=== PATIENT | male | born 1935 | race Caucasian/White ===

== ENCOUNTER → 2023-06-10 09:22 | Outpatient (REF) | payer OTHER, SELFPAY | LOC: RAD 09:22 | PROVIDERS: ATTENDING PHYSICIAN Physician Assistant Surgical; FAMILY PHYSICIAN Internal Medicine Geriatric Medicine | DX: Z96.652 Presence of left artificial knee joint (principal); M25.562 Pain in left knee | CPT/HCPCS: 78315; A9503 ==

== ENCOUNTER → 2023-08-02 09:23 | Outpatient (REF) | payer OTHER, SELFPAY ==
[2023-08-02 12:51] LABS: % Basophils 0.6 % (0-2); % Eosinophils 4.2 % (0-6); % Immature Granulocytes 0.2 % (0-0.5); % Lymphocytes 21.6 % (20.5-51.1); % Neutrophils 62.4 % (42.2-75.2); Absolute Eosinophils 0.2 10^3/uL (0-0.7); Absolute Lymphocytes 1.1 10^3/uL (1.2-3.4); Absolute Monocytes 0.6 10^3/uL (0.1-0.6); Absolute Neutrophils 3.3 10^3/uL (1.4-6.5); Hematocrit 35.3 % (39.0-52.0); Hemoglobin 11.3 g/dL (13.0-18.0); Mean Corpuscular Hgb 30.1 pg (27.0-31.0); Mean Corpuscular Volume 93.9 fL (80.0-94.0); Mean Platelet Volume 10.8 fL (7.4-10.4); Nucleated Red Blood Cells % 0 % (-); Platelet Count 253 10^3/uL (130-400); Red Blood Cell Count 3.76 10^6/uL (4.70-6.10); Red Cell Dist. Width 15.4 % (11.5-14.5); White Blood Cell Count 5.3 10^3/uL (4.8-10.8)
[2023-08-02 13:13] LABS: Urine Albumin Negative (Neg - Trace); Urine Bilirubin Negative (Negative); Urine Character Clear (Clear); Urine Color Yellow; Urine Glucose Negative (Negative); Urine Ketone Negative (Negative); Urine Leukocyte Negative (Negative); Urine Nitrite Negative (Negative); Urine Occult Blood Negative (Negative); Urine Urobilinogen Negative (Neg - 1+)
[2023-08-02 13:48] LABS: ALT (SGPT) 16 U/L (0-50); AST (SGOT) 21 U/L (17-59); Albumin 4.1 g/dl (3.5-5.0); Alkaline Phosphatase 112 U/L (38-126); Blood Urea Nitrogen 40 mg/dl (9-20); Calcium 9.7 mg/dl (8.4-10.2); Carbon Dioxide 27 mmol/L (22-30); Chloride 102 mmol/L (98-107); Glucose 110 mg/dl (70-99); HDL Cholesterol 85 mg/dl; Iron 54 ug/dl (49-181); LDL Cholesterol, Calculated 60 mg/dl; Potassium 4.8 mmol/L (3.5-5.1); Sodium 136 mmol/L (135-145); Total Bilirubin 0.4 mg/dl (0.2-1.3); Total Cholesterol 165 mg/dl (50-199); Total Protein 6.8 g/dl (6.3-8.2); Triglyceride 102 mg/dl (10-149); Very Low Density Lipoprotein 20 mg/dl (0-30); eGFR 52.84
[2023-08-02 13:58] LABS: Percent Saturation 12 % (20-50); Total Iron Binding Capacity 418 ug/dl (261-462)
[2023-08-02 14:10] LABS: Vitamin D, 25-OH*** 36.3 ng/mL (30-80)
== END ==
LOC: HWLAB 09:23
PROVIDERS: ATTENDING PHYSICIAN Internal Medicine Geriatric Medicine
DX: R53.83 Other fatigue (principal); D50.9 Iron deficiency anemia, unspecified; R26.89 Other abnormalities of gait and mobility; E78.2 Mixed hyperlipidemia; I10 Essential (primary) hypertension; R33.9 Retention of urine, unspecified; K29.50 Unspecified chronic gastritis without bleeding; R00.2 Palpitations; Z13.89 Encounter for screening for other disorder; R45.4 Irritability and anger; Z99.89 Dependence on other enabling machines and devices
CPT/HCPCS: 36415; 80053; 80061; 81003; 82306; 83540; 83550; 85025

== ENCOUNTER 2023-08-29 13:10 | Inpatient (IN) | payer OTHER, SELFPAY ==
[2023-08-29] VITALS (8 sets, daily range): BP systolic 119–152; BP diastolic 71–97; PULSE 86; BMI 34.0
[2023-08-29 10:18] LABS: % Basophils 0.1 % (0-2); % Eosinophils 0.1 % (0-6); % Immature Granulocytes 0.3 % (0-0.5); % Lymphocytes 9.1 % (20.5-51.1); % Monocytes 8.5 % (1.7-9.3); % Neutrophils 81.9 % (42.2-75.2); Absolute Lymphocytes 0.9 10^3/uL (1.2-3.4); Absolute Monocytes 0.8 10^3/uL (0.1-0.6); Absolute Neutrophils 7.8 10^3/uL (1.4-6.5); Hematocrit 36.5 % (39.0-52.0); Hemoglobin 11.9 g/dL (13.0-18.0); Mean Corp Hgb Conc. 32.6 g/dL (33.0-37.0); Mean Corpuscular Volume 85.9 fL (80.0-94.0); Mean Platelet Volume 10.3 fL (7.4-10.4); Nucleated Red Blood Cells % 0 % (-); Platelet Count 319 10^3/uL (130-400); Red Blood Cell Count 4.25 10^6/uL (4.70-6.10); Red Cell Dist. Width 15.2 % (11.5-14.5); White Blood Cell Count 9.6 10^3/uL (4.8-10.8)
--- NOTE | 2023-08-29 10:32 | ED.GENMED ---
History of Present Illness
General
Chief Complaint: Back Pain
Source: patient, spouse and ambulance crew
Exam Limitations: none
Time Seen by Provider: 08/29/23 10:22
Nursing documentation reviewed up to this point in time: agreed with
Travel History
Have you had any contact with someone who has COVID-19?: No
Do you have any symptoms of coronavirus? Fever > 100 degrees, chills, cough, shortness of breath, sore throat, loss of taste or smell, muscle aches, or headache?: No
History of Present Illness
History of Present Illness:
87-year-old male presents emergency department complaining of low back pain worse over the past 2 to 4 weeks. He fell, sliding out of bed, and was unable to get up. His is unable to care for him at home. He has spinal stenosis.
Past History
Past History
ED Past Medical History: Asthma, HTN and Other (Ulcers)
ED Past Surgical History: Orthopedic (R knee replacment,), Urological (Kidney stones with stent and then stent removed) and Other (Rectal CA,)
Social History
Tobacco: Former smoker
Alcohol: Occasional
Personal:
Living: with family
Employment: Retired
Review of Systems
Review of Systems
Allergies reviewed?: Yes
All Other Systems: Not applicable
Constitutional: Reports no symptoms
EENT: Reports no symptoms
Respiratory: Reports no symptoms
Cardiac: Reports no symptoms
ABD/GI: Reports no symptoms
: Reports no symptoms
Musculoskeletal: Reports back pain
Skin: Reports no symptoms
Neurological: Reports no symptoms
Endocrine: Reports no symptoms
Hematologic/Lymphatic: Reports no symptoms
Psychiatric: Reports no symptoms
Phy Exam
Physical Exam
Physical Exam:
Physical Exam
General: Afebrile
Neck: supple. no meningeal signs. normal posterior pharynx
Heart: s1/s2 regular rate and rhythm, no murmur. equal radial
pulses.
HEENT: Pupils equal round reactive to light, EOMI
Lungs: no acute respiratory distress. clear bilaterally
Abdomen: normal bowel sounds. not tender. no CVAT
Neuro: alert and oriented. no focal neurological deficits cranial nerves II through XII intact
Skin: no rash
Psychiatric: well kept. interactive and cooperative
Extremities: no edema. no calf tenderness. negative homans. good distal pulses unable to lift legs without severe pain
Course
Orders/Labs/Results
Orders:
Orders
08/29/23 10:09
CMP [Comprehensive Metabolic Panel] Urgent
Complete Blood Count/With Diff Urgent
08/29/23 10:30
Case Management Consult ONCE
Case Management Consult: Senior Care Placement
Morphine Sulfate 4 mg IV NOW STA
Ondansetron Injectable [Zofran] 4 mg IV NOW STA
Physical Therapy Consult [Pt Eval And Treat] Urgent
Activity Level: As Tolerated
08/29/23 12:56
Admit/Transfer Patient As Directed
Co-Sign Provider:
Level of Care: Inpatient admission
Assign to:: Medical/Surgical
Physician / Group: Hospitalist
Diagnosis: Back pain
Reason for Hospitalization: Back pain
Expected length of stay greater than two midnights?: Yes
ELOS- Estimated Length of Stay in days: 3
I certify the patient meets the requirements for IP care: Yes
08/29/23 12:58
Code Status As Directed
Resuscitation Status: Full Code
Abnormal Lab Results
08/29/23
10:09
RBC 4.25 L 10^6/uL
(4.70-6.10)
Hgb 11.9 L g/dL
(13.0-18.0)
Hct 36.5 L %
(39.0-52.0)
MCHC 32.6 L g/dL
(33.0-37.0)
RDW 15.2 H %
(11.5-14.5)
Absolute Neuts (auto) 7.8 H 10^3/uL
(1.4-6.5)
Absolute Lymphs (auto) 0.9 L 10^3/uL
(1.2-3.4)
Absolute Monos (auto) 0.8 H 10^3/uL
(0.1-0.6)
Neutrophils % 81.9 H %
(42.2-75.2)
Lymphocytes % 9.1 L %
(20.5-51.1)
BUN 46 H mg/dl
(9-20)
Creatinine 1.4 H mg/dL
(0.7-1.3)
Glucose 142 H mg/dl
(70-99)
08/29/23 10:09
08/29/23 10:09
Vital Signs
Initial and Last Documented VS:
Initial Vital Signs
Temp Pulse Resp BP Pulse Ox
98 F 83 19 151/86 96
08/29/23 09:56 08/29/23 09:56 08/29/23 09:56 08/29/23 09:56 08/29/23 09:56
Last Documented Vital Signs
Temp Pulse Resp BP Pulse Ox
98 F 85 18 129/85 94
08/29/23 09:56 08/29/23 13:00 08/29/23 13:00 08/29/23 13:00 08/29/23 13:00
MDM/Problems Addressed
Differential Diagnosis Includes:
Cauda equina, lumbar radiculopathy
MDM/Problems Addressed:
87-year-old male with low back pain, likely lumbar radiculopathy and foraminal stenosis. Do not suspect cauda equina. Admit to hospitalist.
Chronic conditions affecting care: Arrhythmia, COPD and Asthma
Acute Exacerbation and/or Progression of Chronic Illness: Arrhythmia, COPD and Asthma
*Pulse Oximetry
Patient hypoxic: no
*EKG
Interpreted by ED Provider?: NA
*Laundry Laborer Interpretation
Rate: Laundry Laborer- N/A
*Critical Care Note
Total Time (30-74mins, 75-104mins- exclusive of procedures): Not Applicable
Data Reviewed
Further Testing Considered But Not Given:
MRI not indicated in ED
Patient Management
Social determinants of health affecting care: Living situation and Strong social support
Discussion with other providers: Hospitalist
Escalation/DeEscalation of care consider admission/obs:
Admit indicated
ED Attending Note
-
Portions of this chart may have been created with voice recognition software.� Occasional wrong word or��sound alike� substitutions may have occurred due to the inherent limitations of voice recognition software.
Discharge Plan
Departure
Patient Disposition: Admit
Date of Disposition: 08/29/23
Time of Disposition: 11:43
Presentation/result/management discussed w/ accepting MD/DO: Hospitalist
Patient with high blood pressure during this ER visit?: Yes
Condition: Fair
Discharge Problem:
Intractable low back pain
Interventions
Interventions:
*Risk Screen - Suicide Last Done: 08/29/23 09:54
*General Assessment Last Done: 08/29/23 09:56
*Neglect/Abuse Screening Last Done: 08/29/23 09:54
ED- Fall Risk Assessment Last Done: 08/29/23 09:54
*ED COVID-19 Vaccine History Last Done: 08/29/23 09:56
ED-Musculoskeletal Assessment Last Done: 08/29/23 10:00
[2023-08-29 10:33] LABS: ALT (SGPT) 14 U/L (0-50); AST (SGOT) 19 U/L (17-59); Albumin 3.8 g/dl (3.5-5.0); Alkaline Phosphatase 114 U/L (38-126); Blood Urea Nitrogen 46 mg/dl (9-20); Calcium 9.8 mg/dl (8.4-10.2); Carbon Dioxide 25 mmol/L (22-30); Chloride 104 mmol/L (98-107); Estimated Creatinine Clearance 41 ml/min; Glucose 142 mg/dl (70-99); Potassium 4.6 mmol/L (3.5-5.1); Sodium 139 mmol/L (135-145); Total Bilirubin 0.4 mg/dl (0.2-1.3); eGFR 48.34
[2023-08-29] MEDS: MORPHINE SULFATE 4 MG IV (10:51)
[2023-08-29] MEDS: ZOFRAN 4 MG IV (10:51)
--- NOTE | 2023-08-29 12:28 | CM ---
Addendum entered by Heena Anderson RN 08/29/23 12:48:
correction typo: The patient has 3 children; daughter in [place], son & Dtr in [place].
Original Note:
Patient in ED 2 with Dx Back Pain. Received IV MS. PT Nubia; requires assist of 2, dependent for bed mobility due to pain, recommend skilled rehab.
Met with patient and September;
patient A/O & conversational.
The patient and reside in a 2 story [place] with 3 GRICELDA and first floor bedroom/bath.
The patient has been unable to climb the stairs to 2nd floor bedroom for the last 1-2 months.
He has been unable to shower for 3 weeks, and has been wheeled into the bathroom via his transport chair to wash up while sitting at the sink.
The patient fell today at home and has weakness.
states he has not been eating or drinking much for 1 week.
DME - RW, SPC, transport chair
Prior [facility]
Prior [facility] - says patient would not return there
PCP - Guanako Chatman
Pharmacy - [facility]
The patient has 3 children; daughter in [place], son & Dtr in [place].
The patient & were planning on moving to [facility] on 09/23. Gaye contacted his PCP a few days ago who had agreed to complete paperwork for [facility] for respite in the interim.
Spoke with Briana, [facility]; she was unaware of request for respite. [facility] will not have an available SNF bed for rehab until 08/31. SNF referral placed.
Patient will benefit from OT Eval---> request to Dr Mathew.
Plan follow up with [facility] for acceptance.
--- NOTE | 2023-08-29 12:43 | HPS.HSE ---
Family Physician
-
Family Physician: Guanako Chatman
Chief Complaint
-
Back pain
History of Present Illness
87-year-old man comes in complaining of low back pain, worsening over the past 2 to 4 weeks. Today, he fell, sliding out of bed, and was unable to get up. His is unable to care for him at home. He states he has spinal stenosis. He had plans
to have a back procedure on September. At the time of my interview he was comfortable after having received morphine.
Medical History
Past Medical History
Past Medical History: Reports Other
Additional Past Medical History:
Kidney stones with stent and then stent removed
Rectal CA
Essential tremor
obesity due to excess calories
Mixed hyperlipidemia
Diaphragmatic hernia without obstruction or gangrene
Other hyperaldosteronism
Cardiomegaly
Hypertensive heart disease with heart failure
Obstructive sleep apnea
Essential (primary) hypertension
Primary osteoarthritis of left knee
Anxiety and depression
History of total right knee replacement
Calculus of kidney
Chronic obstructive pulmonary disease
Mild intermittent asthma,
Gastric ulcer, unspecified as acute or chronic, without hemorrhage or perforation
Chronic kidney disease, stage 3 (moderate)
Hypertensive heart and chronic kidney disease without heart failure,
Iron deficiency anemia,
Lumbar radiculopathy, chronic
Hiatal hernia
AF (paroxysmal atrial fibrillation)
Low back pain
Ambulatory dysfunction
Sciatica associated with disorder of lumbar spine
Status post total left knee replacement
Gastroesophageal reflux disease without esophagitis
Anal stenosis
Permanent atrial fibrillation
Balance problems
Nonexudative age-related macular degeneration, right eye, advanced atrophic with subfoveal involvement
Urinary incontinence,
Conductive hearing loss, bilateral
Vitreous degeneration, bilateral
Cystoid macular degeneration, right eye
Degenerative lumbar spinal stenosis
Lumbar spondylosis
Candidal balanitis
Benign prostatic hyperplasia with lower urinary tract symptoms
Nocturia
Past Surgical History: Reports Other
Additional Past Surgical History:
See above
Social History
Tobacco: Non-smoker
Alcohol: Occasional
Drug: None
Personal:
Living: With Family
Employment: Not Employed
Family History
Family History: Not pertinent
Allergies / Home Medications
Allergies reflects when Allergies were last updated in [facility].
Home Medications with original date entered in [facility]
Allergy/Medication List:
Allergies
Allergy/AdvReac Type Severity Reaction Status Date / Time
No Known Allergies Allergy Verified 08/29/23 09:56
Home Medications
albuterol sulfate 90 mcg/actuation aerosol inhaler (ProAir HFA) 2 puff IH R Q4HPRN PRN sob 09/07/16
budesonide-formoterol HFA 160 mcg-4.5 mcg/actuation aerosol inhaler (Symbicort) 2 puff inhalation R BID Lung/breathing issues 09/07/16
sertraline 25 mg tablet 50 mg PO DAILY Mental Health/Anxiety 09/07/16
vitamins A,C,B-gfcj-dutsvz 4,296 mcg-226 mg-90 mg capsule (PreserVision AREDS) 1 cap PO BID Supplement 09/21/17
eplerenone 25 mg tablet 50 mg (2 x 25 mg) PO DAILY 10/14/17
diltiazem HCl 180 mg capsule,extended release 24 hr 180 mg PO BID 07/23/21
apixaban 5 mg tablet (Eliquis) 2.5 mg PO BID 08/12/22
acetaminophen 650 mg tablet,extended release 1,300 mg PO Q8HPRN PRN mild pain 08/29/23
divalproex 250 mg tablet,extended release 24 hr 250 mg PO DAILY 08/29/23
docusate sodium 100 mg capsule (Colace) 100 mg PO BID 08/29/23
ibuprofen 200 mg tablet (Advil) 400 mg PO DAILYPRN PRN mild pain 08/29/23
omeprazole 20 mg capsule,delayed release 20 mg PO DAILYPRN PRN gerd 08/29/23
Review of Systems
-
History Source: Patient
A 12 point ROS was completed and negative except as noted: Yes
Physical Exam
Vital Signs
Vital Signs
Temp Pulse Resp BP Pulse Ox
98 F 83 19 119/79 93
08/29/23 09:56 08/29/23 12:00 08/29/23 12:00 08/29/23 12:00 08/29/23 12:00
Physical Exam
General: Well Developed, Well Nourished, No Apparent Distress, Comfortable, Conversant and Obese
HEENT: NormoCephalic, Moist mucous membranes, Nose Appears Normal, Ears Appear Normal and Hearing Impaired
Respiratory: Clear
Cardiac: S1/S2 and Irregular Rhythm
GI: Soft, Non Tender and Non Distended
Musculoskeletal: No Clubbing, No Cyanosis and No Edema
Skin: Warm and Dry; No Rash or Jaundice
Neuro: Awake, Alert and Oriented
Psych: Calm
Laboratory Results
-
08/29/23 10:09
08/29/23 10:09
Laboratory Results
Total Bilirubin 0.4 mg/dl (0.2-1.3) 08/29/23 10:09
AST 19 U/L (17-59) 08/29/23 10:09
ALT 14 U/L (0-50) 08/29/23 10:09
Alkaline Phosphatase 114 U/L (38-126) 08/29/23 10:09
Data Reviewed
-
Lab Data: Labs Reviewed by me
Impression/Plan
-
IMPRESSION:
87 man with complex PMH, comes in with worsening of chronic low back pain
PLAN:
1. Back pain - Last MRI one month ago, when current pain episode was already happening.
Pain control as needed
PT/OT eval
Likely needs rehab placement
2. Usual medications for his other chronic problems.
Full code
VCD for DVTp
[2023-08-29] MEDS: MORPHINE SULFATE 2 MG IV (14:47)
--- NOTE | 2023-08-29 18:05 | PTCARENOTE ---
Received patient this afternoon from ED AAO x 1-2. Pt oriented to room. Pt complained of RLE. Patient medicated with Morphine 2 mg IV at 1450 with relief. Pt seemed to become more confused after dose of Morphine in ED an On Floor. Dr. Mathew
made aware. Pt tolerated diet well. Made patient comfortable. Cont to assess patient status.
[2023-08-29] MEDS: ELIQUIS 2.5 MG PO (20:26)
[2023-08-29] MEDS: CARDIZEM CD 180 MG PO (20:26)
[2023-08-29] MEDS: COLACE 100 MG PO (20:26)
[2023-08-29] MEDS: SYMBICORT 160/4.5 MCG INHALER 2 PUFF INH (21:07)
[2023-08-29] MEDS: TYLENOL 650 MG PO (22:06)
[2023-08-29] MEDS: DESENEX/MITRAZOL/ZEASORB 1 APPLIC TOPICAL (22:09)
[2023-08-29] MEDS: ROXICODONE 5 MG PO (23:19)
[2023-08-30] MEDS: MOTRIN 400 MG PO (03:18)
[2023-08-30] MEDS: TYLENOL 650 MG PO ×2 (05:14→11:28)
[2023-08-30 06:00] VITALS: BMI 34.4
[2023-08-30 07:41] LABS: Hematocrit 36.4 % (39.0-52.0); Hemoglobin 11.5 g/dL (13.0-18.0); Mean Corp Hgb Conc. 31.6 g/dL (33.0-37.0); Mean Corpuscular Hgb 27.4 pg (27.0-31.0); Mean Corpuscular Volume 86.7 fL (80.0-94.0); Mean Platelet Volume 10.5 fL (7.4-10.4); Platelet Count 329 10^3/uL (130-400); Red Cell Dist. Width 15.4 % (11.5-14.5); White Blood Cell Count 10.6 10^3/uL (4.8-10.8)
[2023-08-30 08:12] LABS: Blood Urea Nitrogen 57 mg/dl (9-20); Calcium 9.9 mg/dl (8.4-10.2); Carbon Dioxide 22 mmol/L (22-30); Chloride 101 mmol/L (98-107); Estimated Creatinine Clearance 34 ml/min; Glucose 135 mg/dl (70-99); Potassium 5.2 mmol/L (3.5-5.1); Sodium 138 mmol/L (135-145)
[2023-08-30] MEDS: SYMBICORT 160/4.5 MCG INHALER 2 PUFF INH ×2 (08:25→19:28)
[2023-08-30 08:46] VITALS: BP 181/94
[2023-08-30] MEDS: OCUVITE SOFTGEL 1 CAP PO (09:53)
[2023-08-30] MEDS: CARDIZEM CD 180 MG PO ×2 (09:53→20:28)
[2023-08-30] MEDS: PROTONIX 40 MG PO (09:53)
[2023-08-30] MEDS: ZOLOFT 50 MG PO (09:53)
[2023-08-30] MEDS: COLACE 100 MG PO ×2 (09:54→20:28)
[2023-08-30] MEDS: INSPRA 50 MG PO (09:54)
[2023-08-30] MEDS: ELIQUIS 2.5 MG PO ×2 (09:54→20:28)
[2023-08-30] MEDS: DEPAKOTE ER (24 HR RELEASE) 250 MG PO (09:54)
[2023-08-30] MEDS: DESENEX/MITRAZOL/ZEASORB 1 APPLIC TOPICAL (10:04)
[2023-08-30 10:30] VITALS: BP 140/78; PULSE 95
--- NOTE | 2023-08-30 11:22 | W.PN.HOSP.TC ---
Addendum entered and electronically signed by Eric Nguyen MD 08/30/23 12:21:
Check MRI L-spine. Stop Morphine with CKD.
Original Note:
Today's Communication/Plan
-
see bold
Assessment / Plan
Assessment / Plan
Gen: NAD, Awake and alert
Eyes: EOMI, PERRLA, no scleral icterus.
Neck: supple.
CV: RRR, +S1/S2, no m/r/g.
Resp: CTAB, no rales, wheezes, or rhonchi.
Abd: +BS, soft, NT, ND
Skin: No rashes.
Neuro: CN 2-12 intact
Psych: Normal mood and affect.
Acute on chronic back pain:
-PT/OT/CM
-will likely need placement
-stop Ibuprofen as pt with CKD and on Eliquis
-cont pain management with Tylenol/oxycodone/morphine
Paroxysmal atrial fibrillation:
-cont Eliquis/Cardizem
Essential hypertension:
-cont Cardizem
-may need additional antihypertensive added if blood pressures remain high
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
-with hyperkalemia
-stop eplerenone
-250cc NS bolus
Other problems:
GERD: cont PPI
Mild dementia, likely Alzheimer's type
CKD3a
Impaired glucose tolerance.
h/o rectal CA s/p surgical resection and chemoradiation
Asthma: Cont Symbicort
Obstructive sleep apnea
Former smoker
Iron deficiency anemia
Anxiety/Depression: cont Zoloft
h/o nephrolithiasis
FULL/Eliquis
Anticipated Discharge: Within 24 hours
Subjective/Interval History
-
Date of Service: August 30, 2023
Objective Data
-
Labs:
Laboratory Results
08/30/23
05:28
WBC 10.6
Hgb 11.5 L
Hct 36.4 L
Plt Count 329
Sodium 138
Potassium 5.2 H
Chloride 101
Carbon Dioxide 22
BUN 57 H
Creatinine 1.7 H
Glucose 135 H
Calcium 9.9
Vital Signs:
Vital Signs
Temp Pulse Resp BP Pulse Ox
97.9 F 96 18 181/94 93
08/30/23 08:46 08/30/23 09:53 08/30/23 08:46 08/30/23 09:53 08/30/23 08:46
I&O
08/29/23 08/30/23 08/31/23
06:59 06:59 06:59
Intake Total 600 / 600
Balance 600 / 600
[2023-08-30 12:07] VITALS: BP 149/87
[2023-08-30] MEDS: NSS 250 IV (12:26)
[2023-08-30 16:28] VITALS: BP 153/79
[2023-08-30] MEDS: ROXICODONE 5 MG PO (22:24)
[2023-08-30 23:42] VITALS: BP 173/88
[2023-08-31 03:05] VITALS: BP 158/89
[2023-08-31 05:41] VITALS: BMI 34.2
[2023-08-31] MEDS: ROXICODONE 5 MG PO ×3 (05:44→15:43)
[2023-08-31 07:00] VITALS: BP 174/84
[2023-08-31] MEDS: SYMBICORT 160/4.5 MCG INHALER 2 PUFF INH ×2 (08:39→19:50)
[2023-08-31] MEDS: ELIQUIS 2.5 MG PO ×2 (09:25→20:36)
[2023-08-31] MEDS: ZOLOFT 50 MG PO (09:25)
[2023-08-31] MEDS: CARDIZEM CD 180 MG PO ×2 (09:25→20:37)
[2023-08-31] MEDS: COLACE 100 MG PO ×2 (09:25→20:37)
[2023-08-31] MEDS: DEPAKOTE ER (24 HR RELEASE) 250 MG PO (09:25)
[2023-08-31] MEDS: OCUVITE SOFTGEL 1 CAP PO (09:25)
[2023-08-31] MEDS: PROTONIX 40 MG PO (09:25)
--- NOTE | 2023-08-31 11:26 | W.PN.HOSP.TC ---
Today's Communication/Plan
-
see bold
Assessment / Plan
Assessment / Plan
Gen: NAD, Awake and alert
Eyes: EOMI, PERRLA, no scleral icterus.
Neck: supple.
CV: RRR, +S1/S2, no m/r/g.
Resp: CTAB, no rales, wheezes, or rhonchi.
Abd: +BS, soft, NT, ND
Skin: No rashes.
Neuro: CN 2-12 intact
Psych: Normal mood and affect.
MRI L-spine:
1. SEVERE CENTRAL CANAL STENOSIS at L4/L5 secondary to 3.3 mm grade 1 anterolisthesis, severe facet joint arthrosis, and a large disc herniation which has mildly increased since 12/19/2021. Interval increase in size of a large right
foraminal-extraforaminal disc herniation causing exiting right L4 nerve root impingement. Small right subarticular superior disc extrusion which has partially resorbed since 12/19/2021.
2. Moderate central canal stenosis and severe left neural foraminal narrowing at L3/L4 secondary to a large diffuse disc bulge, large left foraminal-extraforaminal disc herniation, and severe left neural foraminal narrowing with exiting left L3
nerve root impingement which has increased since 12/19/2021.
3. Moderate high T2 signal intensity in the L2/L3 intervertebral disc which is new from 12/19/2021. Diagnostic possibilities are (1) progressive discogenic degenerative disease or (2) acute infectious discitis if there are signs/symptoms of
infection. Mild central canal stenosis at L2/L3 which has decreased since 12/19/2021 secondary to interval resorption of a previously visualized moderate-sized disc herniation.
4. 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
5. Severely distended urinary bladder with mild perivesical edema suspicious for acute cystitis. Severe chronic right hydroureteronephrosis which appears unchanged.
Acute on chronic back pain:
-PT/OT/CM
-will likely need placement
-Ibuprofen stopped 08/30/23 as pt with CKD and on Eliquis
-cont pain management with Tylenol/oxycodone/morphine
-MRI L-spine above and notable for DDD with R L4 and L L3 nerve root impingement.
-pt is afebrile and doubt L2/L3 findings represent acute infectious discitis
Paroxysmal atrial fibrillation:
-cont Eliquis/Cardizem
Essential hypertension:
-cont Cardizem
-start Hydralazine 25mg TID
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
-with hyperkalemia
-eplerenone stopped and 250cc NS bolus given 08/30/23
-place gómez as pt with severe bladder distention
-c/s Uro
Non-anion gap metabolic acidosis:
-AG 14 (12+/-2)
-with K still 5.1 will start NaHCO3 150meq/L @ 60cc/hr for 8 hours
Other problems:
GERD: cont PPI
Mild dementia, likely Alzheimer's type
CKD3a
Impaired glucose tolerance.
h/o rectal CA s/p surgical resection and chemoradiation
Asthma: Cont Symbicort
Obstructive sleep apnea
Former smoker
Iron deficiency anemia
Anxiety/Depression: cont Zoloft
h/o nephrolithiasis
Pt's updated at bedside.
FULL/Eliquis
Total time spent on today's encounter was 50 minutes which included time spent in counseling the patient/family regarding diagnosis and treatment plan as listed above, goals of care, and symptom management. Case was discussed with nursing staff,
specialists, and care coordinators/case management. All labs and imaging personally reviewed by me. Remainder the time spent in detailed review of previous records, lab data, imaging, and other medical provider documentation.
Anticipated Discharge: 24 - 48 hours
Subjective/Interval History
-
Date of Service: August 31, 2023
No new complaints.
Objective Data
-
Vital Signs:
Vital Signs
Temp Pulse Resp BP Pulse Ox
98.1 F 98 20 174/84 94
08/31/23 07:00 08/31/23 09:25 08/31/23 07:00 08/31/23 09:25 08/31/23 07:00
I&O
08/30/23 08/31/23 09/01/23
06:59 06:59 06:59
Intake Total 600 / 600 1210 / 1210
Balance 600 / 600 1210 / 1210
[2023-08-31 12:28] LABS: Blood Urea Nitrogen 58 mg/dl (9-20); Calcium 9.9 mg/dl (8.4-10.2); Carbon Dioxide 18 mmol/L (22-30); Chloride 105 mmol/L (98-107); Estimated Creatinine Clearance 41 ml/min; Glucose 198 mg/dl (70-99); Potassium 5.1 mmol/L (3.5-5.1); Sodium 137 mmol/L (135-145); eGFR 48.34
[2023-08-31] MEDS: APRESOLINE 25 MG PO ×3 (12:34→21:57)
[2023-08-31] MEDS: SODIUM BICARBONATE 1150 MEQ IV (13:32)
--- NOTE | 2023-08-31 13:52 | PTCARENOTE ---
Patient bladder scanned for 961 mls or urine. 16 [place] [facility] cath placed times one attempt. Tolerated procedure well. Stat lock applied. Urine is cloudy and blood tinged. Hospitalist and urology aware. Foey bag emptied for 850 mls upon placement.
[2023-08-31 14:33] VITALS: BP 156/93; PULSE 94
--- NOTE | 2023-08-31 14:55 | PTCARENOTE ---
UA and urine culture sent from [facility] as per urology.
[2023-08-31 15:00] VITALS: BP 158/89
[2023-08-31 15:19] LABS: Urine Albumin 2+ (Neg - Trace); Urine Bilirubin Negative (Negative); Urine Character Very Cloudy (Clear); Urine Color Amber; Urine Glucose Negative (Negative); Urine Ketone Trace (Negative); Urine Leukocyte 2+ (Negative); Urine Nitrite Negative (Negative); Urine Occult Blood 4+ (Negative); Urine Urobilinogen Negative (Neg - 1+)
[2023-08-31] MEDS: SENOKOT-S 1 TABLET PO (15:43)
[2023-08-31] MEDS: MIRALAX 17 GRAMS PO (15:50)
[2023-08-31 16:01] LABS: Urine Bacteria Many (Negative); Urine Red Blood Cell >100 /HPF (0-2); Urine White Cell >100 /HPF (0-5)
[2023-08-31] MEDS: ProAIR HFA INHALER 2 PUFF INH (16:05)
--- NOTE | 2023-08-31 16:55 | PTCARENOTE ---
Patient medicated for lower back pain throughout day with Roxycodone with adequate pain relief. MRI of spine completed today. Patient given sennekot and Miralax as bowel regimen today.
--- NOTE | 2023-08-31 18:46 | CONS.URO ---
Consultation
-
Performing Provider: Peffer
Reason for Consultation: Hydronephrosis, urinary retention
Medical History
History of Present Illness
87M known in the past to Dr. Echevarria and more recently Dr. Tabor
Patient unable to give history due to sedation from MRI. Hx provided by pts
History of kidney stones with several procedures, one R side procedure at least 10 years ago in [place] for very large stone
Known R hydronephrosis since at least 2006 - per patient's it has not had extensive workup, but the kidney has appeared very atrophic for a long time
CT scans and US over the past several years show significant R renal atrophy
Last CT 2021 showed some distal ureteral stone
CKD III at baseline
Last had a UTI around [address] Echevarria's last office note 2021: CHRONIC RT HYDRO H/O STONES WITH VERY POORLY FUNCTIONNG RT KIDNEY ASX ALSO BPH.
Saw Dr. Tabor this year for worsening urinary symptoms - frequency, weak stream, incontinence, emuresis
Cystoscopy 07/2023 did not show enlarged prostate
He was scheduled for urodynamics but had to cancel due to mobility issues
He was admitted to for worsening of chronic back pain
MRI showed worsening of herniated discs and severe spinal stenosis, as well as severe R hydro and renal atrophy and severely distended bladder
Urology consulted to pat
Gómez was placed for 850cc cloudy urine
Past Medical History
Past Medical History: Other (Kidney stones with stent and then stent removed Rectal CA Essential tremor obesity due to excess calories Mixed hyperlipidemia Diaphragmatic hernia without obstruction or gangrene Other hyperaldosteronism
Cardiomegaly Hypertensive heart disease with heart failure Obstructive sleep apnea [facility])
Past Surgical History: Other (see above)
Social History
Tobacco: Non-smoker
Alcohol: Occasional
Personal:
Living: With Family
Family History
Family History: Reviewed & Not Pertinent
Allergies/Home Medications
Allergies
Allergy/AdvReac Type Severity Reaction Status Date / Time
No Known Allergies Allergy Verified 08/29/23 09:56
Home Medications
�Medication �Instructions �Recorded �Confirmed �Type
albuterol sulfate 90 mcg/actuation 2 puff IH R Q4HPRN PRN sob 09/07/16 08/29/23 History
aerosol inhaler (ProAir HFA)
budesonide-formoterol HFA 160 2 puff inhalation R BID 09/07/16 08/29/23 History
mcg-4.5 mcg/actuation aerosol Lung/breathing issues
inhaler (Symbicort)
sertraline 25 mg tablet 50 mg PO DAILY Mental 09/07/16 08/29/23 History
Health/Anxiety
vitamins A,C,L-gkoy-rsuezb 4,296 1 cap PO BID Supplement 09/21/17 08/29/23 History
mcg-226 mg-90 mg capsule
(PreserVision AREDS)
eplerenone 25 mg tablet 50 mg (2 x 25 mg) PO DAILY 10/14/17 08/29/23 Rx
diltiazem HCl 180 mg 180 mg PO BID 07/23/21 08/29/23 Rx
capsule,extended release 24 hr
apixaban 5 mg tablet (Eliquis) 2.5 mg PO BID Blood Clot 08/12/22 08/29/23 History
Prevention/Tx
acetaminophen 650 mg 1,300 mg PO Q8HPRN PRN mild pain 08/29/23 08/29/23 History
tablet,extended release
divalproex 250 mg tablet,extended 250 mg PO DAILY 08/29/23 08/29/23 History
release 24 hr
docusate sodium 100 mg capsule 100 mg PO BID Constipation 08/29/23 08/29/23 History
(Colace)
ibuprofen 200 mg tablet (Advil) 400 mg PO DAILYPRN PRN mild pain 08/29/23 08/29/23 History
omeprazole 20 mg capsule,delayed 20 mg PO DAILYPRN PRN gerd 08/29/23 08/29/23 History
release
Physical Exam
Vital Signs
Vital Signs
Temp Pulse Resp BP Pulse Ox
97.9 F 86 18 170/80 95
08/31/23 15:00 08/31/23 16:08 08/31/23 16:08 08/31/23 15:42 08/31/23 16:08
Lab / Testing Results
Laboratory Results
08/30/23 05:28
08/31/23 11:37
Physical Exam
General: Well Developed and Well Nourished
HEENT: Normocephalic
Respiratory: Non Labored Respirations
GI: Soft and Non Tender
Genito-urinary: No Costovertebral Tend
Neuro: Sedated
Assessment / Plan
-
87M admitted with acute worsening of low back pain, with acute on likely chronic urinary retention with 850cc drained on gómez placement
Chronic severe R hydronephrosis and poorly functioning R kidney likely due to recurrent stone disease or stricture
- Given worsening of urinary symptoms and retention without obstructive prostate on cystoscopy 07/2023, suspect neurogenic bladder related to worsening degenerative spinal stenosis and radiculopathy
- Maintain gómez catheter at discharge - can consider trial of void in follow up with Dr. Tabor once patient is able to complete urodynamics
- Given chronic hydro and cloudy urine, will start empiric ceftriaxone pending culture
- R hydronephrosis chronic and obstruction has caused near complete atrophy of renal parenchyma
- No evidence for pyelonephritis or ascending febrile UTI
- CTAP to eval for persistence of R ureteral stone, however will likely not advise intervention given no issues with infection over many years
Data Reviewed
-
MRI: Image personally visualized and interpreted
Lab Data: Labs Reviewed
Old Records: Reviewed
[2023-08-31] MEDS: ROCEPHIN 1000 MG IV (20:37)
[2023-08-31] MEDS: STERILE WATER FOR INJECTION 10 ML IV (20:37)
--- NOTE | 2023-08-31 22:15 | PTCARENOTE ---
Report called to 4W RN and patient transferred to room 427 with all belongings.
[2023-08-31 23:00] VITALS: BP 150/82
[2023-09-01 07:09] LABS: Blood Urea Nitrogen 55 mg/dl (9-20); Calcium 9.4 mg/dl (8.4-10.2); Carbon Dioxide 26 mmol/L (22-30); Chloride 101 mmol/L (98-107); Estimated Creatinine Clearance 48 ml/min; Glucose 155 mg/dl (70-99); Potassium 4.8 mmol/L (3.5-5.1); Sodium 136 mmol/L (135-145); eGFR 58.17
[2023-09-01 07:35] VITALS: BP 156/70
[2023-09-01] MEDS: SYMBICORT 160/4.5 MCG INHALER 2 PUFF INH ×2 (08:02→19:47)
--- NOTE | 2023-09-01 08:27 | CM ---
from 08/31/23 Spoke with Briana at [facility] pt is to start indep living at [facility] Sat September 03 but will need SNF at [facility] prior to I L.
[facility] had bed 08/31/[address] Nguyen not ready for 1-2 days.
Spoke with pt and in room She agrees with [facility] SNF at dc.
Pt is [facility] as per Ana [facility] liaison. Will need auth.
Pt will need ambulance .
Pt will need Covid test day of dc.
Will need to check with [facility] day of dc for a day.
Had Mri 08/31/23
PLAN To [facility] after auth when medically ready
[2023-09-01] MEDS: OCUVITE SOFTGEL 1 CAP PO (08:46)
[2023-09-01] MEDS: CARDIZEM CD 180 MG PO ×2 (08:46→19:32)
[2023-09-01] MEDS: APRESOLINE 25 MG PO (08:47)
[2023-09-01] MEDS: ZOLOFT 50 MG PO (08:47)
[2023-09-01] MEDS: PROTONIX 40 MG PO (08:48)
[2023-09-01] MEDS: DEPAKOTE ER (24 HR RELEASE) 250 MG PO (08:48)
[2023-09-01] MEDS: ELIQUIS 2.5 MG PO ×2 (08:48→19:32)
[2023-09-01] MEDS: COLACE 100 MG PO ×2 (08:48→19:32)
--- NOTE | 2023-09-01 11:48 | W.PN.HOSP.TC ---
Today's Communication/Plan
-
see bold
Assessment / Plan
Assessment / Plan
Gen: NAD, Awake and alert
Eyes: EOMI, PERRLA, no scleral icterus.
Neck: supple.
CV: irreg/irreg, +S1/S2, no m/r/g.
Resp: remains CTAB, no rales, wheezes, or rhonchi.
Abd: +BS, soft, NT, ND
Skin: No rashes.
: slightly montse colored urine
Neuro: CN 2-12 intact
Psych: Normal mood and affect.
MRI L-spine:
1. SEVERE CENTRAL CANAL STENOSIS at L4/L5 secondary to 3.3 mm grade 1 anterolisthesis, severe facet joint arthrosis, and a large disc herniation which has mildly increased since 12/19/2021. Interval increase in size of a large right
foraminal-extraforaminal disc herniation causing exiting right L4 nerve root impingement. Small right subarticular superior disc extrusion which has partially resorbed since 12/19/2021.
2. Moderate central canal stenosis and severe left neural foraminal narrowing at L3/L4 secondary to a large diffuse disc bulge, large left foraminal-extraforaminal disc herniation, and severe left neural foraminal narrowing with exiting left L3
nerve root impingement which has increased since 12/19/2021.
3. Moderate high T2 signal intensity in the L2/L3 intervertebral disc which is new from 12/19/2021. Diagnostic possibilities are (1) progressive discogenic degenerative disease or (2) acute infectious discitis if there are signs/symptoms of
infection. Mild central canal stenosis at L2/L3 which has decreased since 12/19/2021 secondary to interval resorption of a previously visualized moderate-sized disc herniation.
4. 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
5. Severely distended urinary bladder with mild perivesical edema suspicious for acute cystitis. Severe chronic right hydroureteronephrosis which appears unchanged.
CT A/P: Stable severe right hydronephrosis and hydroureter secondary to distal ureteral stones which have enlarged. Numerous bilateral renal cysts. Grossly stable. Moderate hiatal hernia. Stable. Moderate fecal material throughout the colon.
Progressed. Mild prostate hypertrophy. Progressed. Gómez catheter present. Stable.
Acute on chronic back pain:
-PT/OT/CM
-will likely need placement
-Ibuprofen stopped 08/30/23 as pt with CKD and on Eliquis
-cont pain management with Tylenol/oxycodone/morphine
-MRI L-spine above and notable for DDD with R L4 and L L3 nerve root impingement.
-pt is afebrile and doubt L2/L3 findings represent acute infectious discitis
Paroxysmal atrial fibrillation:
-cont Eliquis/Cardizem
Essential hypertension:
-cont Cardizem
-increase Hydralazine to 50mg TID
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
-with hyperkalemia, now resolved
-eplerenone stopped and 250cc NS bolus given 08/30/23
-gómez placed 08/31/23 (component of NICOLÁS was obstructive uropathy)
Acute urinary retention/obstructive uropathy:
-gómez placed 08/31/23 for 850cc cloudy urine as pt with severe bladder distention/urinary retention, will remain in place on d/c
-Urinary retention is likely due to neurogenic bladder due to worsening spinal stenosis and radiculopathy
-Uro following
-Cr improving
-placed on empiric Rocephin, follow UCx. Urology documents that there is no pyelonephritis or ascending febrile UTI. Reasonable, from an antibiotic stewardship perspective, considering no leukocytosis or fever, to consult infectious disease.
-Patient with chronic and severe right hydronephrosis causing near complete atrophy of right renal parenchyma
-CT A/P pending
Other problems:
Non-anion gap metabolic acidosis, resolved with NaHCO3 IVFs
GERD: cont PPI
Mild dementia, likely Alzheimer's type
CKD3a
Impaired glucose tolerance.
h/o rectal CA s/p surgical resection and chemoradiation
Asthma: Cont Symbicort
Obstructive sleep apnea
Former smoker
Iron deficiency anemia
Anxiety/Depression: cont Zoloft
h/o nephrolithiasis
Pt's updated at bedside.
FULL/Eliquis
Total time spent on today's encounter was 51 minutes which included time spent in counseling the patient/family regarding diagnosis and treatment plan as listed above, goals of care, and symptom management. Case was discussed with nursing staff,
specialists, and care coordinators/case management. All labs and imaging personally reviewed by me. Remainder the time spent in detailed review of previous records, lab data, imaging, and other medical provider documentation.
Anticipated Discharge: 24 - 48 hours
Subjective/Interval History
-
Date of Service: September 01, 2023
No new complaints.
Objective Data
-
Labs:
Laboratory Results
09/01/23
06:12
Sodium 136
Potassium 4.8
Chloride 101
Carbon Dioxide 26
BUN 55 H
Creatinine 1.2
Glucose 155 H
Calcium 9.4
Vital Signs:
Vital Signs
Temp Pulse Resp BP Pulse Ox
99.0 F 86 16 156/70 97
09/01/23 07:35 09/01/23 08:07 09/01/23 08:07 09/01/23 07:35 09/01/23 08:07
I&O
08/31/23 09/01/23 09/02/23
06:59 06:59 06:59
Intake Total 1210 / 1210 720 / 720
Output Total 1750 / 1750
Balance 1210 / 1210 -1030 / -1030
--- NOTE | 2023-09-01 12:34 | W.PN.URO.CBU ---
Today's Communication / Plan
-
Maintain gómez
continue abx pending culture
No intervention for hydronephrosis at this time
Assessment / Plan
-
87M admitted with acute worsening of low back pain, with acute on likely chronic urinary retention with 850cc drained on gómez placement
Chronic severe R hydronephrosis and poorly functioning R kidney likely due to recurrent stone disease or stricture
- Given worsening of urinary symptoms and retention without obstructive prostate on cystoscopy 07/2023, suspect neurogenic bladder related to worsening degenerative spinal stenosis and radiculopathy
- Maintain gómez catheter at discharge - can consider trial of void in follow up with Dr. Tabor once patient is able to complete urodynamics
- Given chronic hydro and cloudy urine, will continue empiric ceftriaxone pending culture. Urine clearing 08/31
- R hydronephrosis has been present for many years and chronic obstruction has caused complete atrophy of renal parenchyma
- No evidence for pyelonephritis or ascending febrile UTI
- CTAP 08/30 showed persistence of distal R ureteral stones as seen in 2021, however this R system has been stable in obstructed state for many years without upper tract infection. There is no benefit acutely to stone intervention, and it is likely
that stone is not the only pathology there - Probably significant stricture disease which will not improve by addressing stone. Would not recommend intervention at this time and can be discussed further at follow up
Diagnosis
-
Date of Service: September 01, 2023
-
Patient Diagnosis:
Intractable back pain
Urinary retention
Kidney stones
Chronic R hydronephrosis
Post Op Day:
Subjective
-
No events overnight
Objective
-
Vital Signs
Temp Pulse Resp BP Pulse Ox
99.0 F 86 16 156/70 97
09/01/23 07:35 09/01/23 08:07 09/01/23 08:07 09/01/23 07:35 09/01/23 08:07
Intake and Output
08/31/23 09/01/23 09/02/23
06:59 06:59 06:59
Intake Total 1210 / 1210 720 / 720
Output Total 1750 / 1750
Balance 1210 / 1210 -1030 / -1030
Intake:
Oral fluids 960 / 960 720 / 720
IV fluids (Total) 250 / 250
Output:
Urine, Gómez 1750 / 1750
Other:
How many times incontinent 1
MODERATE amount urine
How many times incontinent 4 2
SATURATED amount urine
Laboratory Results
08/30/23 05:28
09/01/23 06:12
Physical Exam
-
General - well developed, well nourished, no acute distress
Chest - clear bilaterally
Abdomen - soft, non-tender no CVAT
Gómez in place, urine clear
Skin - warm & dry with no rash
[2023-09-01] MEDS: NSS (PRESERVATIVE FREE) 0.25 ML IV (14:11)
[2023-09-01] MEDS: ATIVAN 0.5 MG IV (14:11)
[2023-09-01 15:00] VITALS: BP 159/85
[2023-09-01] MEDS: APRESOLINE 50 MG PO ×2 (16:18→21:46)
--- NOTE | 2023-09-01 17:36 | CON.ID ---
Consultation
-
Date/Time Consultation Requested: 09/01/2023 11:57
Date/Time Consultation Performed: 09/01/2023 1715
Requesting Provider: Dr. Nguyen
Performing Provider: Dr. Pereyra
Reason for Consultation: Complicated urinary tract infection
Chief Complaint / Past History
History of Present Illness
Kyler Tavares is an 87-year-old man being evaluated at the request of Dr. Nguyen in regards to a complicated urinary tract infection. History is obtained from chart review, along with patient interview.
The patient has a significant past medical history of nephrolithiasis, and presented to [facility] ER on 08/29/2023 secondary to worsening low back pain over the prior 2 to 4 weeks. He reportedly recently fell and slid out of bed and was
unable to get up. His also found it difficult to care for him at home.
Workup thus far has included MRI imaging of the L-spine which has shown severe central canal stenosis and disc herniation. He additionally has been found to have a severely distended urinary bladder with perivesical edema suspicious for acute
cystitis noted on MRI. He has been evaluated by Urology, and a Chen was placed, with recovery of 850 cc of cloudy urine. Cultures are currently pending. The patient has been started on empiric antibiotics (ceftriaxone).
At this time, the patient has been found to be confused and cannot provide any additional history. Nursing has noted that the patient has intermittently been tugging at his Chen catheter, and urine is now noted to have blood in it.
Past History
Additional Past Medical History:
Nephrolithiasis
Asthma
HTN
History of rectal cancer
Dyslipidemia
SARITA
Additional Past Surgical History:
Right knee replacement
Allergy History:
No Known Allergies Allergy (Verified 08/29/23 09:56)
Medications Reviewed: Yes
Current Antibiotics:
Ceftriaxone
Social History
Tobacco: Former Smoker
Alcohol: None
Drug: None
Personal:
Living: With Family
Employment: Retired
Review of Systems
Vital Signs
Temp Pulse Resp BP Pulse Ox
98.0 F 102 18 159/85 94
09/01/23 15:00 09/01/23 15:00 09/01/23 15:00 09/01/23 15:00 09/01/23 15:00
Physical Exam
Physical Exam
Constitutional: Comfortable, Chronically Ill, Non-toxic and Obese
Head: Normocephalic
Eyes: Pupils Equal, Pupils Round, No Conjunctival Hemorrhage and Sclera Anicteric
Oral: No Thrush and No Ulcers
Cardiovascular: S1/S2; Negative S3/S4 or Murmur
Pulmonary: Clear and Non Labored
Gastrointestinal: Soft, Non Tender and Non Distended
Genito-Urinary: Chen and Hematuria
Extremities: Edema; Negative Cyanosis, Erythema or Splinter Hemorrhage
Skin: Warm and Dry; Negative Rash or Jaundice
Wound: None
Neurological: Awake and Alert
Psychological: Confused
Lab / Diagnostic Study Results
08/30/23 05:28
09/01/23 06:12
Abs Immat Gran (auto) 0.0 10^3/uL (0-0.05) 08/29/23 10:09
Absolute Neuts (auto) 7.8 10^3/uL (1.4-6.5) H 08/29/23 10:09
Absolute Lymphs (auto) 0.9 10^3/uL (1.2-3.4) L 08/29/23 10:09
Absolute Monos (auto) 0.8 10^3/uL (0.1-0.6) H 08/29/23 10:09
Absolute Basos (auto) 0.0 10^3/uL (0-0.2) 08/29/23 10:09
Immature Gran % 0.3 % (0-0.5) 08/29/23 10:09
Neutrophils % 81.9 % (42.2-75.2) H 08/29/23 10:09
Lymphocytes % 9.1 % (20.5-51.1) L 08/29/23 10:09
Monocytes % 8.5 % (1.7-9.3) 08/29/23 10:09
Eosinophils % 0.1 % (0-6) 08/29/23 10:09
Basophils % 0.1 % (0-2) 08/29/23 10:09
Urine WBC >100 /HPF (0-5) A 08/31/23 14:48
Microbiology Results
Micro:
08/31/23 14:48 Urine Culture - Preliminary
Urine Sparse growth, too young to be identified. Further results
to follow.
Assessment / Plan
Suspected complicated urinary tract infection
Urinary retention requiring Chen placement
NICOLÁS; improved from admission
Low back pain secondary to stenosis and disc herniation
Nephrolithiasis
Asthma
HTN
History of rectal cancer
Dyslipidemia
SARITA
Recommendations:
Continue with empiric ceftriaxone at the present.
Await further culture data to guide antimicrobial selection and de-escalation. Current cultures revealed scant growth.
Monitor urine output.
Follow white count and temperature curve.
--- NOTE | 2023-09-01 19:03 | PTCARENOTE ---
Patient confused, pulling at gómez catheter. Redirection attempted, spouse contacted and arrived at bedside to sit with the patient. Patient increasingly agitated despite therapeutic communication. Provider notified, Ativan administered as ordered.
Patient subsequently still pulling at gómez catheter, now with garrett hematuria. Cross cover notified in person on unit. B/L wrist restraints ordered for patient safety. Applied as left for the evening. No further needs assessed at this time.
[2023-09-01] MEDS: ROCEPHIN 1000 MG IV (19:32)
[2023-09-01] MEDS: STERILE WATER FOR INJECTION 10 ML IV (19:32)
[2023-09-01] MEDS: ROXICODONE 5 MG PO (21:48)
[2023-09-01 23:55] VITALS: BP 163/89
[2023-09-02 03:29] VITALS: BP 149/76
[2023-09-02 07:00] VITALS: BP 157/80
[2023-09-02] MEDS: SYMBICORT 160/4.5 MCG INHALER 2 PUFF INH ×2 (08:18→20:17)
--- NOTE | 2023-09-02 08:49 | W.PN.HOSP.TC ---
Today's Communication/Plan
-
see bold
Assessment / Plan
Assessment / Plan
Gen: NAD, Awake and alert
Eyes: EOMI, PERRLA, no scleral icterus.
Neck: supple.
CV: remains irreg/irreg, +S1/S2, no m/r/g.
Resp: CTAB anteriorly, no rales, wheezes, or rhonchi.
Abd: +BS, soft, NT, ND
Skin: No rashes.
: slightly montse colored urine
Neuro: remains CN 2-12 intact
Psych: Normal mood and affect.
MRI L-spine:
1. SEVERE CENTRAL CANAL STENOSIS at L4/L5 secondary to 3.3 mm grade 1 anterolisthesis, severe facet joint arthrosis, and a large disc herniation which has mildly increased since 12/19/2021. Interval increase in size of a large right
foraminal-extraforaminal disc herniation causing exiting right L4 nerve root impingement. Small right subarticular superior disc extrusion which has partially resorbed since 12/19/2021.
2. Moderate central canal stenosis and severe left neural foraminal narrowing at L3/L4 secondary to a large diffuse disc bulge, large left foraminal-extraforaminal disc herniation, and severe left neural foraminal narrowing with exiting left L3
nerve root impingement which has increased since 12/19/2021.
3. Moderate high T2 signal intensity in the L2/L3 intervertebral disc which is new from 12/19/2021. Diagnostic possibilities are (1) progressive discogenic degenerative disease or (2) acute infectious discitis if there are signs/symptoms of
infection. Mild central canal stenosis at L2/L3 which has decreased since 12/19/2021 secondary to interval resorption of a previously visualized moderate-sized disc herniation.
4. 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
5. Severely distended urinary bladder with mild perivesical edema suspicious for acute cystitis. Severe chronic right hydroureteronephrosis which appears unchanged.
CT A/P: Stable severe right hydronephrosis and hydroureter secondary to distal ureteral stones which have enlarged. Numerous bilateral renal cysts. Grossly stable. Moderate hiatal hernia. Stable. Moderate fecal material throughout the colon.
Progressed. Mild prostate hypertrophy. Progressed. Gómez catheter present. Stable.
Acute urinary retention/obstructive uropathy/acute complicated UTI:
-gómez placed 08/31/23 for 850cc cloudy urine as pt with severe bladder distention/urinary retention, will remain in place on d/c
-Urinary retention is likely due to neurogenic bladder due to worsening spinal stenosis and radiculopathy
-Patient with chronic and severe right hydronephrosis causing near complete atrophy of right renal parenchyma
-Acute metabolic encephalopathy due to acute complicated UTI. Also hospital-acquired delirium
-Uro/ID following
-Cr improving
-cont empiric Rocephin as per ID
Acute on chronic back pain:
-this was the presenting problem
-PT/OT/CM
-will likely need placement
-Ibuprofen stopped 08/30/23 as pt with CKD and on Eliquis
-cont pain management with Tylenol/oxycodone/morphine
-MRI L-spine above and notable for DDD with R L4 and L L3 nerve root impingement.
-pt is afebrile and doubt L2/L3 findings represent acute infectious discitis
Paroxysmal atrial fibrillation:
-cont Eliquis/Cardizem
Essential hypertension:
-cont Cardizem/Hydralazine
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
-with hyperkalemia, now resolved
-eplerenone stopped and 250cc NS bolus given 08/30/23
-gómez placed 08/31/23 (component of NICOLÁS was obstructive uropathy)
Other problems:
Non-anion gap metabolic acidosis, resolved with NaHCO3 IVFs
GERD: cont PPI
Mild dementia, likely Alzheimer's type
CKD3a
Impaired glucose tolerance.
h/o rectal CA s/p surgical resection and chemoradiation
Asthma: Cont Symbicort
Obstructive sleep apnea
Former smoker
Iron deficiency anemia
Anxiety/Depression: cont Zoloft
h/o nephrolithiasis
Pt's updated at bedside.
FULL/Eliquis
Total time spent on today's encounter was 50 minutes which included time spent in counseling the patient/family regarding diagnosis and treatment plan as listed above, goals of care, and symptom management. Case was discussed with nursing staff,
specialists, and care coordinators/case management. All labs and imaging personally reviewed by me. Remainder the time spent in detailed review of previous records, lab data, imaging, and other medical provider documentation.
Anticipated Discharge: 24 - 48 hours
Subjective/Interval History
-
Date of Service: September 02, 2023
Objective Data
-
Labs:
Laboratory Results
09/02/23
08:25
Sodium Pending
Potassium Pending
Chloride Pending
Carbon Dioxide Pending
BUN Pending
Creatinine Pending
Glucose Pending
Calcium Pending
Vital Signs:
Vital Signs
Temp Pulse Resp BP Pulse Ox
98.5 F 83 16 157/80 96
09/02/23 07:00 09/02/23 08:20 09/02/23 08:20 09/02/23 07:00 09/02/23 08:20
I&O
09/01/23 09/02/23 09/03/23
06:59 06:59 06:59
Intake Total 720 / 720 660 / 660
Output Total 1750 / 1750 950 / 950
Balance -1030 / -1030 -290 / -290
[2023-09-02] MEDS: PROTONIX 40 MG PO (09:16)
[2023-09-02] MEDS: CARDIZEM CD 180 MG PO ×2 (09:16→19:21)
[2023-09-02] MEDS: ELIQUIS 2.5 MG PO ×2 (09:16→19:21)
[2023-09-02] MEDS: DEPAKOTE ER (24 HR RELEASE) 250 MG PO (09:16)
[2023-09-02] MEDS: COLACE 100 MG PO ×2 (09:16→19:21)
[2023-09-02] MEDS: ZOLOFT 50 MG PO (09:17)
[2023-09-02] MEDS: OCUVITE SOFTGEL 1 CAP PO (09:17)
[2023-09-02] MEDS: APRESOLINE 50 MG PO ×3 (09:17→21:44)
[2023-09-02] MEDS: ROXICODONE 5 MG PO ×2 (09:19→19:35)
[2023-09-02 09:21] LABS: % Basophils 0.1 % (0-2); % Eosinophils 0.1 % (0-6); % Immature Granulocytes 0.3 % (0-0.5); % Lymphocytes 7.8 % (20.5-51.1); % Monocytes 11.1 % (1.7-9.3); % Neutrophils 80.6 % (42.2-75.2); Absolute Lymphocytes 0.8 10^3/uL (1.2-3.4); Absolute Monocytes 1.1 10^3/uL (0.1-0.6); Absolute Neutrophils 8.2 10^3/uL (1.4-6.5); Hematocrit 32.3 % (39.0-52.0); Hemoglobin 10.5 g/dL (13.0-18.0); Mean Corp Hgb Conc. 32.5 g/dL (33.0-37.0); Mean Corpuscular Hgb 27.5 pg (27.0-31.0); Mean Corpuscular Volume 84.6 fL (80.0-94.0); Mean Platelet Volume 10.4 fL (7.4-10.4); Nucleated Red Blood Cells % 0 % (-); Platelet Count 310 10^3/uL (130-400); Red Blood Cell Count 3.82 10^6/uL (4.70-6.10); Red Cell Dist. Width 15.3 % (11.5-14.5); White Blood Cell Count 10.1 10^3/uL (4.8-10.8)
[2023-09-02 10:23] LABS: Blood Urea Nitrogen 53 mg/dl (9-20); Calcium 9.7 mg/dl (8.4-10.2); Carbon Dioxide 24 mmol/L (22-30); Chloride 100 mmol/L (98-107); Estimated Creatinine Clearance 52 ml/min; Glucose 152 mg/dl (70-99); Potassium 4.7 mmol/L (3.5-5.1); Sodium 134 mmol/L (135-145); eGFR > 60.00
--- NOTE | 2023-09-02 11:32 | CM ---
Patient seen bedside with spouse in room.
Patient on medsitter.
Patient stated he was not hungry today.
PT/OT recommending skilled rehab.
Per spouse she and her are moving to [facility] September 24, 2023 so she would prefer skilled rehab at [facility].
Plan: skilled rehab when medically stable.
--- NOTE | 2023-09-02 13:58 | W.PN.ID1 ---
Date of Service
Date of Service: September 02, 2023
Today's Communication
Continue antibiotics for today.
Assessment / Plan
Suspected complicated urinary tract infection
-Culture only has shown diphtheroids.
Urinary retention requiring Chen placement
NICOLÁS; improved from admission
Low back pain secondary to stenosis and disc herniation
Nephrolithiasis
Asthma
HTN
History of rectal cancer
Dyslipidemia
SARITA
Recommendations:
Continue with empiric ceftriaxone at the present.
Monitor urine output.
Follow white count and temperature curve.
Chief Complaint
-: UTI
Subjective / Review of Systems
Patient seen and examined. Has remained confused overnight.
Review of Systems: No Fever
Vital Signs / Physical Exam
Vital Signs
Vital Signs
Temp Pulse Resp BP Pulse Ox
98.5 F 83 16 157/80 96
09/02/23 07:00 09/02/23 08:20 09/02/23 08:20 09/02/23 07:00 09/02/23 08:20
Physical Exam
Constitutional: No Acute Distress, Comfortable, Chronically Ill and Non-toxic
Eyes: Sclera Anicteric
Cardiovascular: S1/S2; Negative S3/S4
Pulmonary: Non Labored
Gastrointestinal: Soft and Non Tender
Genito-Urinary: Chen and Hematuria
Extremities: Edema; Negative Cyanosis
Psychological: Calm and Confused
Objective Data
Lab Data
Lab Results
09/02/23 08:25
09/02/23 08:25
Estimated Creat Clear 52 ml/min 09/02/23 08:25
Total Bilirubin 0.4 mg/dl (0.2-1.3) 08/29/23 10:09
AST 19 U/L (17-59) 08/29/23 10:09
ALT 14 U/L (0-50) 08/29/23 10:09
Alkaline Phosphatase 114 U/L (38-126) 08/29/23 10:09
Most recent labs reviewed.
Micro Results:
08/31/23 14:48 Urine Culture - Final
Urine Diptheroids
[2023-09-02 15:00] VITALS: BP 153/83
[2023-09-02] MEDS: ROCEPHIN 1000 MG IV (19:21)
[2023-09-02] MEDS: STERILE WATER FOR INJECTION 10 ML IV (19:21)
--- NOTE | 2023-09-02 22:48 | W.PN.UPDATE ---
Update Note
Progress Note Update
gómez cath written for dc 09/03/23 at 0600. Per urology note : 'Maintain gómez catheter at discharge - can consider trial of void in follow up with Dr. Tabor once patient is able to complete urodynamics'
Will leave cath in until determined by urology
[2023-09-02 23:00] VITALS: BP 157/81
[2023-09-03] MEDS: ATIVAN 0.5 MG SL (03:31)
[2023-09-03] MEDS: ROXICODONE 5 MG PO ×4 (04:23→22:09)
[2023-09-03] MEDS: SYMBICORT 160/4.5 MCG INHALER 2 PUFF INH ×2 (07:42→18:20)
[2023-09-03] MEDS: COLACE 100 MG PO ×2 (08:30→19:47)
[2023-09-03] MEDS: DEPAKOTE ER (24 HR RELEASE) 250 MG PO (08:30)
[2023-09-03] MEDS: CARDIZEM CD 180 MG PO ×2 (08:30→19:50)
[2023-09-03] MEDS: APRESOLINE 50 MG PO ×3 (08:31→22:09)
[2023-09-03] MEDS: ZOLOFT 50 MG PO (08:31)
[2023-09-03] MEDS: PROTONIX 40 MG PO (08:31)
[2023-09-03] MEDS: ELIQUIS 2.5 MG PO ×2 (08:31→19:47)
[2023-09-03] MEDS: OCUVITE SOFTGEL 1 CAP PO (08:31)
[2023-09-03 08:52] VITALS: BP 117/62
[2023-09-03 11:19] LABS: Blood Urea Nitrogen 52 mg/dl (9-20); Calcium 9.5 mg/dl (8.4-10.2); Carbon Dioxide 25 mmol/L (22-30); Chloride 97 mmol/L (98-107); Estimated Creatinine Clearance 48 ml/min; Glucose 213 mg/dl (70-99); Potassium 4.9 mmol/L (3.5-5.1); Sodium 134 mmol/L (135-145); eGFR 58.17
--- NOTE | 2023-09-03 12:24 | W.PN.HOSP.TC ---
Today's Communication/Plan
-
see bold
Assessment / Plan
Assessment / Plan
Gen: NAD, Awake and alert
Eyes: EOMI, PERRLA, no scleral icterus.
Neck: supple.
CV: continues to remain irreg/irreg, +S1/S2, no m/r/g.
Resp: CTAB anteriorly, no rales, wheezes, or rhonchi.
Abd: +BS, soft, NT, ND
Skin: No rashes.
: montse colored urine
Neuro: CN 2-12 intact, moves all 4 extremities
Psych: calm
08/31/23 14:48 Urine Urine Culture - Final
Diptheroids
MRI L-spine:
1. SEVERE CENTRAL CANAL STENOSIS at L4/L5 secondary to 3.3 mm grade 1 anterolisthesis, severe facet joint arthrosis, and a large disc herniation which has mildly increased since 12/19/2021. Interval increase in size of a large right
foraminal-extraforaminal disc herniation causing exiting right L4 nerve root impingement. Small right subarticular superior disc extrusion which has partially resorbed since 12/19/2021.
2. Moderate central canal stenosis and severe left neural foraminal narrowing at L3/L4 secondary to a large diffuse disc bulge, large left foraminal-extraforaminal disc herniation, and severe left neural foraminal narrowing with exiting left L3
nerve root impingement which has increased since 12/19/2021.
3. Moderate high T2 signal intensity in the L2/L3 intervertebral disc which is new from 12/19/2021. Diagnostic possibilities are (1) progressive discogenic degenerative disease or (2) acute infectious discitis if there are signs/symptoms of
infection. Mild central canal stenosis at L2/L3 which has decreased since 12/19/2021 secondary to interval resorption of a previously visualized moderate-sized disc herniation.
4. 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
5. Severely distended urinary bladder with mild perivesical edema suspicious for acute cystitis. Severe chronic right hydroureteronephrosis which appears unchanged.
CT A/P: Stable severe right hydronephrosis and hydroureter secondary to distal ureteral stones which have enlarged. Numerous bilateral renal cysts. Grossly stable. Moderate hiatal hernia. Stable. Moderate fecal material throughout the colon.
Progressed. Mild prostate hypertrophy. Progressed. Gómez catheter present. Stable.
Acute urinary retention/obstructive uropathy/acute complicated UTI:
-gómez placed 08/31/23 for 850cc cloudy urine as pt with severe bladder distention/urinary retention, will remain in place on d/c
-Urinary retention is likely due to neurogenic bladder due to worsening spinal stenosis and radiculopathy
-Patient with chronic and severe right hydronephrosis causing near complete atrophy of right renal parenchyma
-Acute metabolic encephalopathy due to acute complicated UTI. Also hospital-acquired delirium.
-Uro/ID following
-Cr improved, now at baseline 1.1-1.2
-cont empiric Rocephin as per ID
Acute on chronic back pain:
-this was the presenting problem
-PT/OT/CM
-will likely need placement
-Ibuprofen stopped 08/30/23 as pt with CKD and on Eliquis
-cont pain management with Tylenol/oxycodone/morphine
-MRI L-spine above and notable for DDD with R L4 and L L3 nerve root impingement.
-pt is afebrile and doubt L2/L3 findings represent acute infectious discitis
-Dilaudid 0.5mg IV x 1 now
-cont oxycodone PRN
-IR c/s placed for BAYRON. Eliquis will need to be held for 48 hours. Hold Eliquis after 09/04/23AM dose.
Paroxysmal atrial fibrillation:
-cont Eliquis (hold starting tomorrow afternoon)/Cardizem
Essential hypertension:
-cont Cardizem/Hydralazine
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
-with hyperkalemia, now resolved
-eplerenone stopped and 250cc NS bolus given 08/30/23
-gómez placed 08/31/23 (component of NICOLÁS was obstructive uropathy)
-Cr improved, now at baseline 1.1-1.2
Other problems:
Non-anion gap metabolic acidosis, resolved with NaHCO3 IVFs
GERD: cont PPI
Mild dementia, likely Alzheimer's type
CKD3a
Impaired glucose tolerance.
h/o rectal CA s/p surgical resection and chemoradiation
Asthma: Cont Symbicort
Obstructive sleep apnea
Former smoker
Iron deficiency anemia
Anxiety/Depression: cont Zoloft
h/o nephrolithiasis
Pt's updated at bedside.
FULL/Eliquis
Total time spent on today's encounter was 51 minutes which included time spent in counseling the patient/family regarding diagnosis and treatment plan as listed above, goals of care, and symptom management. Case was discussed with nursing staff,
specialists, and care coordinators/case management. All labs and imaging personally reviewed by me. Remainder the time spent in detailed review of previous records, lab data, imaging, and other medical provider documentation.
Anticipated Discharge: > 48 hours
Subjective/Interval History
-
Date of Service: September 03, 2023
Pt has been complaining of severe back pain.
Objective Data
-
Labs:
Laboratory Results
09/03/23 09/03/23 09/03/23
07:14 10:23 11:53
PT Cancelled
INR Cancelled
Sodium Cancelled 134 L
Potassium Cancelled 4.9
Chloride Cancelled 97 L
Carbon Dioxide Cancelled 25
BUN Cancelled 52 H
Creatinine Cancelled 1.2
Glucose Cancelled 213 H
Calcium Cancelled 9.5
Vital Signs:
Vital Signs
Temp Pulse Resp BP Pulse Ox
97.7 F 103 18 117/62 95
09/03/23 08:52 09/03/23 08:52 09/03/23 08:52 09/03/23 08:52 09/03/23 08:52
I&O
09/02/23 09/03/23 09/04/23
06:59 06:59 06:59
Intake Total 660 / 660 820 / 820
Output Total 950 / 950 1425 / 1425
Balance -290 / -290 -605 / -605
[2023-09-03] MEDS: DILAUDID 0.5 MG IV ×2 (12:37→22:52)
--- NOTE | 2023-09-03 13:01 | W.PN.UPDATE ---
Update Note
Progress Note Update
LUTS w/o evidence of BPH (cysto 07/2023)
Neurogenic bladder secondary to degenerative spinal stenosis and radiculopathy
Urinary retention
Chronic right hydronephrosis w/ right renal atrophy
UCx Diptheroids
- Maintain Chen catheter on discharge
- Plan for outpatient voiding trial in 1-2 weeks
- Patient will need outpatient urodynamics study to assess bladder function
--- NOTE | 2023-09-03 14:41 | CM ---
Patient seen bedside.
PT/OT recommending skilled rehab.
Ir consulted for BAYRON.
Per spouse they are planning on moving to [facility] 09/23, patient would like skilled rehab at [facility].
Plan: skilled rehab when medically stable, patient will need insurance authorization.
--- NOTE | 2023-09-03 15:30 | W.PN.ID1 ---
Date of Service
Date of Service: September 03, 2023
Today's Communication
Sign off.
Assessment / Plan
Suspected complicated urinary tract infection
-Culture only has shown diphtheroids.
Urinary retention requiring Chen placement
NICOLÁS; improved from admission
Low back pain secondary to stenosis and disc herniation
Nephrolithiasis
Asthma
HTN
History of rectal cancer
Dyslipidemia
SARITA
Recommendations:
White count remains normal.
Transition to oral cefdinir 300 mg twice daily for an additional 4 days of therapy.
Little more to offer from a Infectious Diseases standpoint.
Will see again at your request.
����������������������������������������������������������
Chief Complaint
-: UTI
Subjective / Review of Systems
Review of Systems: No Fever
Vital Signs / Physical Exam
Vital Signs
Vital Signs
Temp Pulse Resp BP Pulse Ox
97.7 F 103 18 117/62 95
09/03/23 08:52 09/03/23 08:52 09/03/23 08:52 09/03/23 08:52 09/03/23 08:52
Physical Exam
Constitutional: Chronically Ill
Eyes: Pupils Equal, No Conjunctival Hemorrhage and Sclera Anicteric
Cardiovascular: S1/S2; Negative S3/S4
Pulmonary: Non Labored
Gastrointestinal: Soft and Non Distended
Genito-Urinary: Chen and Hematuria
Skin: Negative Rash or Jaundice
Objective Data
Lab Data
Lab Results
09/02/23 08:25
09/03/23 10:23
PT Cancelled 09/03/23 11:53
INR Cancelled 09/03/23 11:53
Estimated Creat Clear 48 ml/min 09/03/23 10:23
Total Bilirubin 0.4 mg/dl (0.2-1.3) 05/26/24 10:09
AST 19 U/L (17-59) 08/29/23 10:09
ALT 14 U/L (0-50) 08/29/23 10:09
Alkaline Phosphatase 114 U/L (38-126) 08/29/23 10:09
Most recent labs reviewed.
Micro Results:
08/31/23 14:48 Urine Culture - Final
Urine Diptheroids
[2023-09-03 15:45] VITALS: BP 143/113
[2023-09-03] MEDS: OMNICEF 300 MG PO (19:47)
[2023-09-03 23:21] VITALS: BP 163/92
[2023-09-04] MEDS: ROXICODONE 5 MG PO ×3 (04:15→23:39)
[2023-09-04] MEDS: SYMBICORT 160/4.5 MCG INHALER 2 PUFF INH ×2 (07:40→19:13)
[2023-09-04 07:48] LABS: Blood Urea Nitrogen 68 mg/dl (9-20); Calcium 9.8 mg/dl (8.4-10.2); Carbon Dioxide 21 mmol/L (22-30); Chloride 98 mmol/L (98-107); Estimated Creatinine Clearance 38 ml/min; Glucose 158 mg/dl (70-99); Potassium 5.1 mmol/L (3.5-5.1); Sodium 133 mmol/L (135-145)
[2023-09-04 08:23] VITALS: BP 137/88
[2023-09-04] MEDS: OMNICEF 300 MG PO ×2 (08:37→20:28)
[2023-09-04] MEDS: ELIQUIS 2.5 MG PO (08:37)
[2023-09-04] MEDS: CARDIZEM CD 180 MG PO ×2 (08:37→20:28)
[2023-09-04] MEDS: ZOLOFT 50 MG PO (08:37)
[2023-09-04] MEDS: PROTONIX 40 MG PO (08:38)
[2023-09-04] MEDS: COLACE 100 MG PO ×2 (08:38→20:28)
[2023-09-04] MEDS: OCUVITE SOFTGEL 1 CAP PO (08:38)
[2023-09-04] MEDS: DEPAKOTE ER (24 HR RELEASE) 250 MG PO (08:39)
[2023-09-04] MEDS: APRESOLINE 50 MG PO ×3 (08:41→20:30)
--- NOTE | 2023-09-04 09:40 | PTCARENOTE ---
Pt calling out frequently. Attempted to feed patient and pt wasn't interested, I was able to get a cup OJ and almost a full yogurt in. Pt in quite a bit of pain and screams when you turn him. Oxy given as ordered. Chen draining bloody urine.
Restraints and med sitter in place for safety.
--- NOTE | 2023-09-04 10:57 | W.PN.HOSP.TC ---
Today's Communication/Plan
-
See bold
Assessment / Plan
Assessment / Plan
Gen: Remains NAD, Awake and alert
Eyes: EOMI, PERRLA, no scleral icterus.
Neck: supple.
CV: irreg/irreg, +S1/S2, no m/r/g.
Resp: CTAB anteriorly, no rales, wheezes, or rhonchi.
Abd: +BS, soft, NT, ND
Skin: No rashes.
: Moderate hematuria
Neuro: CN 2-12 intact, moves all 4 extremities
Psych: calm
08/31/23 14:48 Urine Urine Culture - Final
Diptheroids
MRI L-spine:
1. SEVERE CENTRAL CANAL STENOSIS at L4/L5 secondary to 3.3 mm grade 1 anterolisthesis, severe facet joint arthrosis, and a large disc herniation which has mildly increased since 12/19/2021. Interval increase in size of a large right
foraminal-extraforaminal disc herniation causing exiting right L4 nerve root impingement. Small right subarticular superior disc extrusion which has partially resorbed since 12/19/2021.
2. Moderate central canal stenosis and severe left neural foraminal narrowing at L3/L4 secondary to a large diffuse disc bulge, large left foraminal-extraforaminal disc herniation, and severe left neural foraminal narrowing with exiting left L3
nerve root impingement which has increased since 12/19/2021.
3. Moderate high T2 signal intensity in the L2/L3 intervertebral disc which is new from 12/19/2021. Diagnostic possibilities are (1) progressive discogenic degenerative disease or (2) acute infectious discitis if there are signs/symptoms of
infection. Mild central canal stenosis at L2/L3 which has decreased since 12/19/2021 secondary to interval resorption of a previously visualized moderate-sized disc herniation.
4. 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
5. Severely distended urinary bladder with mild perivesical edema suspicious for acute cystitis. Severe chronic right hydroureteronephrosis which appears unchanged.
CT A/P: Stable severe right hydronephrosis and hydroureter secondary to distal ureteral stones which have enlarged. Numerous bilateral renal cysts. Grossly stable. Moderate hiatal hernia. Stable. Moderate fecal material throughout the colon.
Progressed. Mild prostate hypertrophy. Progressed. Gómez catheter present. Stable.
Acute urinary retention/obstructive uropathy/acute complicated UTI:
-gómez placed 08/31/23 for 850cc cloudy urine as pt with severe bladder distention/urinary retention, will remain in place on d/c
-Urinary retention is likely due to neurogenic bladder due to worsening spinal stenosis and radiculopathy
-Patient with chronic and severe right hydronephrosis causing near complete atrophy of right renal parenchyma
-Acute metabolic encephalopathy due to acute complicated UTI. Also hospital-acquired delirium.
-Uro/ID following
-Cr improved, now at baseline 1.1-1.2
-was on Rocephin, now transitioned Omnicef through 09/08/23 as per ID
Acute on chronic back pain:
-this was the presenting problem
-PT/OT/CM
-will likely need placement
-Ibuprofen stopped 08/30/23 as pt with CKD and on Eliquis
-cont pain management with Tylenol/oxycodone/morphine
-MRI L-spine above and notable for DDD with R L4 and L L3 nerve root impingement.
-pt is afebrile and doubt L2/L3 findings represent acute infectious discitis
-Dilaudid 0.5mg IV x 1 now
-cont oxycodone PRN
-IR c/s placed for BAYRON. Eliquis will need to be held for 48 hours. Holding Eliquis after 09/04/23AM dose.
Paroxysmal atrial fibrillation:
-hold Eliquis for BAYRON
-cont Cardizem
Essential hypertension:
-cont Cardizem/Hydralazine
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
-with hyperkalemia, now resolved
-eplerenone stopped and 250cc NS bolus given 08/30/23
-gómez placed 08/31/23 (component of NICOLÁS was obstructive uropathy)
-Cr improved to baseline 1.1-1.2, now worsened to 1.5. Start NS @ 100cc/hr.
Other problems:
Non-anion gap metabolic acidosis, resolved with NaHCO3 IVFs
GERD: cont PPI
Mild dementia, likely Alzheimer's type
CKD3a
Impaired glucose tolerance.
h/o rectal CA s/p surgical resection and chemoradiation
Asthma: Cont Symbicort
Obstructive sleep apnea
Former smoker
Iron deficiency anemia
Anxiety/Depression: cont Zoloft
h/o nephrolithiasis
Pt's updated at bedside.
FULL/Eliquis
Total time spent on today's encounter was 50 minutes which included time spent in counseling the patient/family regarding diagnosis and treatment plan as listed above, goals of care, and symptom management. Case was discussed with nursing staff,
specialists, and care coordinators/case management. All labs and imaging personally reviewed by me. Remainder the time spent in detailed review of previous records, lab data, imaging, and other medical provider documentation.
Anticipated Discharge: > 48 hours
Subjective/Interval History
-
Date of Service: September 04, 2023
No new complaints.
Objective Data
-
Labs:
Laboratory Results
09/04/23
07:03
Sodium 133 L
Potassium 5.1
Chloride 98
Carbon Dioxide 21 L
BUN 68 H
Creatinine 1.5 H
Glucose 158 H
Calcium 9.8
Vital Signs:
Vital Signs
Temp Pulse Resp BP Pulse Ox
97.8 F 103 18 138/88 93
09/04/23 08:23 09/04/23 08:41 09/04/23 08:23 09/04/23 08:41 09/04/23 08:23
I&O
09/03/23 09/04/23 09/05/23
06:59 06:59 06:59
Intake Total 820 / 820 480 / 480
Output Total 1425 / 1425 650 / 650
Balance -605 / -605 -170 / -170
[2023-09-04] MEDS: NSS 1000 IV (11:48)
[2023-09-04] MEDS: FLEXERIL 5 MG PO (14:19)
[2023-09-04] MEDS: DILAUDID 0.5 MG IV ×2 (15:38→22:32)
[2023-09-04 15:59] VITALS: BP 144/82
[2023-09-04 23:45] VITALS: BP 134/74
[2023-09-05 00:02] VITALS: BP 134/74
[2023-09-05] MEDS: NSS 1000 IV ×2 (02:20→12:33)
[2023-09-05] MEDS: ROXICODONE 5 MG PO ×3 (05:37→17:42)
[2023-09-05 07:40] LABS: Blood Urea Nitrogen 73 mg/dl (9-20); Calcium 9.3 mg/dl (8.4-10.2); Carbon Dioxide 21 mmol/L (22-30); Chloride 100 mmol/L (98-107); Estimated Creatinine Clearance 34 ml/min; Glucose 163 mg/dl (70-99); Potassium 4.8 mmol/L (3.5-5.1); Sodium 133 mmol/L (135-145)
[2023-09-05] MEDS: SYMBICORT 160/4.5 MCG INHALER 2 PUFF INH ×2 (07:40→20:13)
[2023-09-05 08:30] VITALS: BP 137/82
--- NOTE | 2023-09-05 09:07 | W.PN.HOSP.TC ---
Today's Communication/Plan
-
see bold
Assessment / Plan
Assessment / Plan
Gen: continues to remain NAD, Awake and alert
Eyes: EOMI, PERRLA, no scleral icterus.
Neck: supple.
CV: remains irreg/irreg, +S1/S2, no m/r/g.
Resp: CTAB anteriorly, no rales, wheezes, or rhonchi.
Abd: +BS, soft, NT, ND
Skin: No rashes.
: Moderate hematuria
Neuro: CN 2-12 intact, moves all 4 extremities
Psych: agitated
08/31/23 14:48 Urine Urine Culture - Final
Diptheroids
MRI L-spine:
1. SEVERE CENTRAL CANAL STENOSIS at L4/L5 secondary to 3.3 mm grade 1 anterolisthesis, severe facet joint arthrosis, and a large disc herniation which has mildly increased since 12/19/2021. Interval increase in size of a large right
foraminal-extraforaminal disc herniation causing exiting right L4 nerve root impingement. Small right subarticular superior disc extrusion which has partially resorbed since 12/19/2021.
2. Moderate central canal stenosis and severe left neural foraminal narrowing at L3/L4 secondary to a large diffuse disc bulge, large left foraminal-extraforaminal disc herniation, and severe left neural foraminal narrowing with exiting left L3
nerve root impingement which has increased since 12/19/2021.
3. Moderate high T2 signal intensity in the L2/L3 intervertebral disc which is new from 12/19/2021. Diagnostic possibilities are (1) progressive discogenic degenerative disease or (2) acute infectious discitis if there are signs/symptoms of
infection. Mild central canal stenosis at L2/L3 which has decreased since 12/19/2021 secondary to interval resorption of a previously visualized moderate-sized disc herniation.
4. 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
5. Severely distended urinary bladder with mild perivesical edema suspicious for acute cystitis. Severe chronic right hydroureteronephrosis which appears unchanged.
CT A/P: Stable severe right hydronephrosis and hydroureter secondary to distal ureteral stones which have enlarged. Numerous bilateral renal cysts. Grossly stable. Moderate hiatal hernia. Stable. Moderate fecal material throughout the colon.
Progressed. Mild prostate hypertrophy. Progressed. Gómez catheter present. Stable.
Acute urinary retention/obstructive uropathy/acute complicated UTI:
-gómez placed 08/31/23 for 850cc cloudy urine as pt with severe bladder distention/urinary retention, will remain in place on d/c
-Urinary retention is likely due to neurogenic bladder due to worsening spinal stenosis and radiculopathy
-Patient with chronic and severe right hydronephrosis causing near complete atrophy of right renal parenchyma
-Acute metabolic encephalopathy due to acute complicated UTI. Also hospital-acquired delirium.
-Uro/ID following
-Cr improved, now at baseline 1.1-1.2
-was on Rocephin, now transitioned Omnicef through 09/08/23 as per ID
Acute on chronic back pain:
-this was the presenting problem
-PT/OT/CM
-will likely need placement
-Ibuprofen stopped 08/30/23 as pt with CKD and on Eliquis
-cont pain management with Tylenol/oxycodone/morphine
-MRI L-spine above and notable for DDD with R L4 and L L3 nerve root impingement.
-pt is afebrile and doubt L2/L3 findings represent acute infectious discitis
-cont oxycodone/IV dilaudid PRN
-IR c/s placed for BAYRON. Eliquis currently on hold.
Paroxysmal atrial fibrillation:
-hold Eliquis for BAYRON
-cont Cardizem
Essential hypertension:
-cont Cardizem/Hydralazine
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
-with hyperkalemia, now resolved
-eplerenone stopped and 250cc NS bolus given 5/27/24
-gómez placed 08/31/23 (component of NICOLÁS was obstructive uropathy)
-Cr improved to baseline 1.1-1.2, now worsened to 1.7. NS @ 100cc/hr started 09/04/23.
-c/s renal
Other problems:
Hyponatremia, mild
Non-anion gap metabolic acidosis, resolved with NaHCO3 IVFs
GERD: cont PPI
Mild dementia, likely Alzheimer's type
CKD3a
Impaired glucose tolerance.
h/o rectal CA s/p surgical resection and chemoradiation
Asthma: Cont Symbicort
Obstructive sleep apnea
Former smoker
Iron deficiency anemia
Anxiety/Depression: cont Zoloft
h/o nephrolithiasis
FULL/Eliquis
Anticipated Discharge: > 48 hours
Subjective/Interval History
-
Date of Service: September 05, 2023
Objective Data
-
Labs:
Laboratory Results
09/05/23
07:10
Sodium 133 L
Potassium 4.8
Chloride 100
Carbon Dioxide 21 L
BUN 73 H
Creatinine 1.7 H
Glucose 163 H
Calcium 9.3
Vital Signs:
Vital Signs
Temp Pulse Resp BP Pulse Ox
98.4 F 87 18 134/74 94
09/04/23 23:45 09/05/23 07:43 09/05/23 07:43 09/04/23 23:45 09/05/23 07:43
I&O
09/04/23 09/05/23 09/06/23
06:59 06:59 06:59
Intake Total 480 / 480 640 / 640
Output Total 650 / 650 1175 / 1175
Balance -170 / -170 -535 / -535
[2023-09-05] MEDS: DILAUDID 0.5 MG IV ×2 (09:51→21:08)
[2023-09-05] MEDS: DEPAKOTE ER (24 HR RELEASE) 250 MG PO (10:01)
[2023-09-05] MEDS: APRESOLINE 50 MG PO ×3 (10:02→20:43)
[2023-09-05] MEDS: OMNICEF 300 MG PO ×2 (10:02→20:42)
[2023-09-05] MEDS: COLACE 100 MG PO ×2 (10:03→20:42)
[2023-09-05] MEDS: PROTONIX 40 MG PO (10:03)
[2023-09-05] MEDS: ZOLOFT 50 MG PO (10:20)
[2023-09-05] MEDS: CARDIZEM CD 180 MG PO ×2 (10:20→20:57)
[2023-09-05] MEDS: OCUVITE SOFTGEL 1 CAP PO (10:21)
--- NOTE | 2023-09-05 12:51 | W.CON.NEPH ---
Consultation
-
Date/Time Consultation Requested: 09/05/2023 9:10AM
Date/Time Consultation Performed: 09/05/2023 12:51PM
Requesting Provider: Eric Nguyen
Performing Provider: Noa Garza
Reason for Consultation: NICOLÁS
Medical History
-
Chief Complaint: NICOLÁS
History of Present Illness:
Mr. Tavares is an 87YOM with PMH of kidney stones with stent, rectal Ca, tremors, DLD, HFpEF, OA, anxiety/depression, diaphragmatic hernia, COPD, CKD,BPH, Afib, back pain who presented to the hospital on 08/28 with worsening lower back pain and family
being unable to care for him at home.
He has had acute urinary retention since being in the hospital and had a Chen placed on 08/30. He is noted to have had chronic and severe R hydro with complete atrophy of R renal parenchyma. Cr initially improved back to baseline of 1.1-1.5. For his
back pain, he was placed on ibuprofen, which has been stopped since 08/29.
The patient is very confused today and was unable to participate in my interview other than tell me his hips hurt.
Past Medical History
Kidney stones with stent and then stent removed
CKD 3
Rectal CA
Essential tremor
Mixed hyperlipidemia
Diaphragmatic hernia without obstruction or gangrene
Obstructive sleep apnea
Essential (primary) hypertension
Primary osteoarthritis of left knee
Anxiety and depression
Chronic obstructive pulmonary disease
Mild intermittent asthma
Lumbar radiculopathy, chronic
Hiatal hernia
AF (paroxysmal atrial fibrillation)
Low back pain
Gastroesophageal reflux disease without esophagitis
Anal stenosis
Degenerative lumbar spinal stenosis
Benign prostatic hyperplasia with lower urinary tract symptoms
Past Surgical History: Other (knee replacements)
Social History
Tobacco: Non-Smoker
Alcohol: Occasional
Drug: None
Personal:
Living: With Family
Employment: Not Employed
Family History
Family History: Not Pertinent
Allergies / Home Medications
Allergy/AdvReac Type Severity Reaction Status Date / Time
No Known Allergies Allergy Verified 08/29/23 09:56
�Medication �Instructions �Recorded �Confirmed �Type
albuterol sulfate 90 mcg/actuation 2 puff IH R Q4HPRN PRN sob 09/07/16 08/29/23 History
aerosol inhaler (ProAir HFA)
budesonide-formoterol HFA 160 2 puff inhalation R BID 09/07/16 08/29/23 History
mcg-4.5 mcg/actuation aerosol Lung/breathing issues
inhaler (Symbicort)
sertraline 25 mg tablet 50 mg PO DAILY Mental 09/07/16 08/29/23 History
Health/Anxiety
vitamins A,C,F-qfpk-zfzvlg 4,296 1 cap PO BID Supplement 09/21/17 08/29/23 History
mcg-226 mg-90 mg capsule
(PreserVision AREDS)
eplerenone 25 mg tablet 50 mg (2 x 25 mg) PO DAILY 10/14/17 08/29/23 Rx
diltiazem HCl 180 mg 180 mg PO BID 07/23/21 08/29/23 Rx
capsule,extended release 24 hr
apixaban 5 mg tablet (Eliquis) 2.5 mg PO BID Blood Clot 08/12/22 08/29/23 History
Prevention/Tx
acetaminophen 650 mg 1,300 mg PO Q8HPRN PRN mild pain 08/29/23 08/29/23 History
tablet,extended release
divalproex 250 mg tablet,extended 250 mg PO DAILY 08/29/23 08/29/23 History
release 24 hr
docusate sodium 100 mg capsule 100 mg PO BID Constipation 08/29/23 08/29/23 History
(Colace)
ibuprofen 200 mg tablet (Advil) 400 mg PO DAILYPRN PRN mild pain 08/29/23 08/29/23 History
omeprazole 20 mg capsule,delayed 20 mg PO DAILYPRN PRN gerd 08/29/23 08/29/23 History
release
Review of Systems
-
Unable to obtain full review of systems at this time due to: Dementia
History Source: Patient and Other (bedside nurse)
All other systems: Negative unless noted
Constitutional: Sleep Disturbance
: Dark Urine
Physical Exam
Vital Signs
Vital Signs
Temp Pulse Resp BP Pulse Ox
98.3 F 102 20 137/82 95
09/05/23 08:30 09/05/23 08:30 09/05/23 08:30 09/05/23 08:30 09/05/23 08:30
Lab Results
WBC 10.1 10^3/uL (4.8-10.8) 09/02/23 08:25
RBC 3.82 10^6/uL (4.70-6.10) L 09/02/23 08:25
Hgb 10.5 g/dL (13.0-18.0) L 09/02/23 08:25
Hct 32.3 % (39.0-52.0) L 09/02/23 08:25
Plt Count 310 10^3/uL (130-400) 09/02/23 08:25
Sodium 133 mmol/L (135-145) L 09/05/23 07:10
Potassium 4.8 mmol/L (3.5-5.1) 09/05/23 07:10
Chloride 100 mmol/L (98-107) 09/05/23 07:10
Carbon Dioxide 21 mmol/L (22-30) L 09/05/23 07:10
BUN 73 mg/dl (9-20) H 09/05/23 07:10
Creatinine 1.7 mg/dL (0.7-1.3) H 09/05/23 07:10
eGFR 38.30 09/05/23 07:10
Glucose 163 mg/dl (70-99) H 09/05/23 07:10
Calcium 9.3 mg/dl (8.4-10.2) 09/05/23 07:10
Albumin 3.8 g/dl (3.5-5.0) 08/29/23 10:09
Physical Exam
General: Awake, Alert, Nontoxic and Other (not oriented)
HEENT: PERRL, EOMI, Anicteric, Conjunctivae Clear, Ear/Nose Intact, Neck Supple, Trachea Midline and Other (AGUA CALIENTE)
Respiratory: Wheezes, Normal Excursion and Nonlabored Respirations
Cardiac: S1/S2, Regular Rate/Rhythm and Edema
Breast: N/A
Abdomen: Soft, Nontender, Nondistended, Normal Bowel Sounds and No Hepatosplenomegaly
Rectal: Deferred by Provider
Genito-urinary: Bloody Urine
Musculoskeletal: No Clubbing, No Cyanosis and Edema
Skin: No Rash, Warm, Dry and Other (bruising noted)
Neuro: Other (unable to follow commands for neuro exam)
Hematologic/Lymphatic: Other
Psych: Other (confused, unable to maintain conversation)
Data Reviewed
-
CT Scan: Report Reviewed by me (severe hydro of R kidney)
Labs: Labs Reviewed by me, Discussed with Physician and Discussed with Nurse
Old Records: Reviewed
Assessment/Plan
-
Assessment:
acute on chronic back pain
acute urinary retention
UTI
obstructive uropathy
Afib
HTN
NICOLÁS on CKD3
dementia/delirium
h/o nephrolithiasis
Plan:
a/w back pain
NICOLÁS
- Cr baseline around 1.2, might be as high as 1.5
- UA with significant blood and WBCs. 2+ protein noted as well
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
- has had exposure to nephrotoxins, blood pressures stable --> ATN?
- kidney function seems to have fluctuated a bit in the past
- obtain UPCR, urine sodium to help ascertain volume status
- ensure patient is having regular bowel movements
- hold fluids as patient appears to have edema
--- NOTE | 2023-09-05 13:38 | W.PN.URO.CBU ---
Today's Communication / Plan
-
Repositioned gómez - 1L retention may explain NICOLÁS
Maintain gómez at discharge
Abx per ID
Assessment / Plan
-
87M admitted with acute worsening of low back pain, with acute on likely chronic urinary retention with 850cc drained on gómez placement
Chronic severe R hydronephrosis and poorly functioning R kidney likely due to recurrent stone disease or stricture
- Given worsening of urinary symptoms and retention without obstructive prostate on cystoscopy 07/2023, suspect neurogenic bladder related to worsening degenerative spinal stenosis and radiculopathy
- Maintain gómez catheter at discharge - can consider trial of void in follow up with Dr. Tabor once patient is able to complete urodynamics
- Catheter evaluated 09/04 and patient had pulled it into prostate. Repositioned with 1L urinary retention noted, flushed old clot debris to clear and no active bleeding. Added 20cc to gómez balloon to prevent displacement. This may be a cause of
worsened renal function past 48hrs
- Urine culture with diptheroids - abx course per ID
- R hydronephrosis has been present for many years and chronic obstruction has caused complete atrophy of renal parenchyma
- No evidence for pyelonephritis or ascending febrile UTI
- CTAP 08/30 showed persistence of distal R ureteral stones as seen in 2021, however this R system has been stable in obstructed state for many years without upper tract infection. There is no benefit acutely to stone intervention, and it is likely
that stone is not the only pathology there - Probably significant stricture disease which will not improve by addressing stone. Would not recommend intervention at this time and can be discussed further at follow up
Diagnosis
-
Date of Service: September 05, 2023
-
Patient Diagnosis:
Intractable back pain
Urinary retention
Kidney stones
Chronic R hydronephrosis
Post Op Day:
Subjective
-
some hematuria past 2 days
NICOLÁS
patient remains confused
Objective
-
Vital Signs
Temp Pulse Resp BP Pulse Ox
98.3 F 102 20 137/82 95
09/05/23 08:30 09/05/23 08:30 09/05/23 08:30 09/05/23 08:30 09/05/23 08:30
Intake and Output
09/04/23 09/05/23 09/06/23
06:59 06:59 06:59
Intake Total 480 / 480 640 / 640
Output Total 650 / 650 1175 / 1175
Balance -170 / -170 -535 / -535
Intake:
Oral fluids 480 / 480 240 / 240
IV fluids (Total) 400 / 400
Output:
Urine, Gómez 650 / 650 1175 / 1175
Laboratory Results
09/02/23 08:25
09/05/23 07:10
Physical Exam
-
General - well developed, well nourished, no acute distress
Chest - clear bilaterally
Abdomen - soft, non-tender, positive bowel sounds, no CVAT, no incisional pain or distention
- gómez appears too far out with some dark colored urine in bag
Skin - warm & dry with no rash
[2023-09-05 16:00] VITALS: BP 144/62
[2023-09-05 18:43] LABS: Urine Sodium 36 mmol/L (30-90)
[2023-09-05 19:16] LABS: Protein/creatinine Ratio 9.9
[2023-09-05 19:17] LABS: Urine Protein 503 mg/dl
[2023-09-05 23:23] VITALS: BP 134/65
[2023-09-06] MEDS: DILAUDID 0.5 MG IV ×2 (05:51→21:21)
[2023-09-06 06:11] LABS: INR 1.52; PT 18.1 Sec (11.4-14.6)
[2023-09-06 06:26] LABS: Blood Urea Nitrogen 57 mg/dl (9-20); Calcium 9.3 mg/dl (8.4-10.2); Carbon Dioxide 20 mmol/L (22-30); Chloride 105 mmol/L (98-107); Estimated Creatinine Clearance 48 ml/min; Glucose 138 mg/dl (70-99); Potassium 4.8 mmol/L (3.5-5.1); Sodium 138 mmol/L (135-145); eGFR 58.17
[2023-09-06 07:00] VITALS: BP 115/88
[2023-09-06] MEDS: SYMBICORT 160/4.5 MCG INHALER 2 PUFF INH ×2 (07:27→19:33)
[2023-09-06] MEDS: APRESOLINE 50 MG PO ×3 (09:44→21:22)
[2023-09-06] MEDS: COLACE 100 MG PO ×2 (09:44→21:22)
[2023-09-06] MEDS: PROTONIX 40 MG PO (09:45)
[2023-09-06] MEDS: OMNICEF 300 MG PO ×2 (09:45→21:22)
[2023-09-06] MEDS: ROXICODONE 5 MG PO (09:45)
[2023-09-06] MEDS: DEPAKOTE ER (24 HR RELEASE) 250 MG PO (09:46)
[2023-09-06] MEDS: OCUVITE SOFTGEL 1 CAP PO (10:01)
[2023-09-06] MEDS: CARDIZEM CD 180 MG PO ×2 (10:01→21:21)
[2023-09-06] MEDS: ZOLOFT 50 MG PO (10:01)
[2023-09-06] MEDS: FLEXERIL 5 MG PO (11:31)
--- NOTE | 2023-09-06 12:33 | W.PN.HOSP.TC ---
Today's Communication/Plan
-
IRAD for BAYRON
Monitor mentation
trend cr
monitor bp
po abx
may require SNF on dc
Assessment / Plan
Assessment / Plan
Gen: continues to remain NAD, Awake and alert
Eyes: EOMI, no scleral icterus.
Neck: supple.
CV: remains irreg/irreg, +S1/S2, no m/r/g.
Resp: CTAB anteriorly, no rales, wheezes, or rhonchi.
Abd: +BS, soft, NT, ND
Skin: No rashes.
: Moderate hematuria
Neuro: CN 2-12 intact, moves all 4 extremities
Psych: agitated
08/31/23 14:48 Urine Urine Culture - Final
Diptheroids
MRI L-spine:
1. SEVERE CENTRAL CANAL STENOSIS at L4/L5 secondary to 3.3 mm grade 1 anterolisthesis, severe facet joint arthrosis, and a large disc herniation which has mildly increased since 12/19/2021. Interval increase in size of a large right
foraminal-extraforaminal disc herniation causing exiting right L4 nerve root impingement. Small right subarticular superior disc extrusion which has partially resorbed since 12/19/2021.
2. Moderate central canal stenosis and severe left neural foraminal narrowing at L3/L4 secondary to a large diffuse disc bulge, large left foraminal-extraforaminal disc herniation, and severe left neural foraminal narrowing with exiting left L3
nerve root impingement which has increased since 12/19/2021.
3. Moderate high T2 signal intensity in the L2/L3 intervertebral disc which is new from 12/19/2021. Diagnostic possibilities are (1) progressive discogenic degenerative disease or (2) acute infectious discitis if there are signs/symptoms of
infection. Mild central canal stenosis at L2/L3 which has decreased since 12/19/2021 secondary to interval resorption of a previously visualized moderate-sized disc herniation.
4. 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
5. Severely distended urinary bladder with mild perivesical edema suspicious for acute cystitis. Severe chronic right hydroureteronephrosis which appears unchanged.
CT A/P: Stable severe right hydronephrosis and hydroureter secondary to distal ureteral stones which have enlarged. Numerous bilateral renal cysts. Grossly stable. Moderate hiatal hernia. Stable. Moderate fecal material throughout the colon.
Progressed. Mild prostate hypertrophy. Progressed. Gómez catheter present. Stable.
Acute urinary retention/obstructive uropathy/acute complicated UTI:
-gómez placed 08/31/23 for 850cc cloudy urine as pt with severe bladder distention/urinary retention, will remain in place on d/c
-Urinary retention is likely due to neurogenic bladder due to worsening spinal stenosis and radiculopathy
-Patient with chronic and severe right hydronephrosis causing near complete atrophy of right renal parenchyma
-Acute metabolic encephalopathy due to acute complicated UTI. Also hospital-acquired delirium.
-Uro/ID following
-Cr improved, now at baseline 1.1-1.2
-was on Rocephin, now transitioned Omnicef through 09/08/23 as per ID
Acute on chronic back pain:
-this was the presenting problem
-PT/OT/CM
-will likely need placement
-Ibuprofen stopped 08/30/23 as pt with CKD and on Eliquis
-cont pain management with Tylenol/oxycodone/morphine
-MRI L-spine above and notable for DDD with R L4 and L L3 nerve root impingement.
-pt is afebrile and doubt L2/L3 findings represent acute infectious discitis
-cont oxycodone/IV dilaudid PRN
-IR c/s placed for BAYRON. Eliquis currently on hold.
Paroxysmal atrial fibrillation:
-hold Eliquis for BAYRON
-cont Cardizem
Essential hypertension:
-cont Cardizem/Hydralazine
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
-with hyperkalemia, now resolved
-eplerenone stopped and 250cc NS bolus given 08/30/23
-gómez placed 08/31/23 (component of NICOLÁS was obstructive uropathy)
-Cr improved to baseline s/p IVF and gómez catheter placement/adjustment
Toxic metabolic encephalopathy likely secondary to delirium versus worsening of dementia
Mild dementia, likely Alzheimer's type
-Continue to monitor. Intermittent paranoia.
-Continue to reorient. Limit narcotics.
-If with severe paranoia/hallucination will need psych input
-Fall precaution. TeleSitter ongoing.
Other problems:
Hyponatremia, mild
Non-anion gap metabolic acidosis, resolved with NaHCO3 IVFs
GERD: cont PPI
CKD3a
Impaired glucose tolerance.
h/o rectal CA s/p surgical resection and chemoradiation
Asthma: Cont Symbicort
Obstructive sleep apnea
Former smoker
Iron deficiency anemia
Anxiety/Depression: cont Zoloft
h/o nephrolithiasis
FULL/Eliquis
Anticipated Discharge: > 48 hours
Subjective/Interval History
-
Date of Service: September 06, 2023
on tele sitter
asking for new gown
remains confused
Objective Data
-
Labs:
Laboratory Results
09/06/23
05:48
PT 18.1 H
INR 1.52
Sodium 138
Potassium 4.8
Chloride 105
Carbon Dioxide 20 L
BUN 57 H
Creatinine 1.2
Glucose 138 H
Calcium 9.3
Vital Signs:
Vital Signs
Temp Pulse Resp BP Pulse Ox
97.7 F 95 18 115/88 97
09/06/23 07:00 09/06/23 07:29 09/06/23 07:29 09/06/23 07:00 09/06/23 07:29
I&O
09/05/23 09/06/23 09/07/23
06:59 06:59 06:59
Intake Total 640 / 640 480 / 480
Output Total 1175 / 1175 2600 / 2600
Balance -535 / -535 -2120 / -2120
Data Reviewed
-
Total Time Spent with Patient (in minutes): 55
--- NOTE | 2023-09-06 12:47 | CM ---
Addendum entered by Breana Chance 09/07/23 16:32:
Original Note:
Spoke with patient and spouse bedside.
Patient confused, agitated. Medsitter and soft wrist restraints to prevent Chen being pulled.
Per spouse she would like skilled rehab at [facility].
Patient for BAYRON today for pain control.
Plan: probable skilled rehab when stable.
--- NOTE | 2023-09-06 13:41 | W.PN.URO.CBU ---
Today's Communication / Plan
-
Renal function improved with catheter repositioning
Minimal hematuria from catheter trauma - no intervention needed
Assessment / Plan
-
87M admitted with acute worsening of low back pain, with acute on likely chronic urinary retention with 850cc drained on gómez placement
Chronic severe R hydronephrosis and poorly functioning R kidney likely due to recurrent stone disease or stricture
- Given worsening of urinary symptoms and retention without obstructive prostate on cystoscopy 07/2023, suspect neurogenic bladder related to worsening degenerative spinal stenosis and radiculopathy
- Maintain gómez catheter at discharge - can consider trial of void in follow up with Dr. Tabor once patient is able to complete urodynamics
- Catheter evaluated 09/04 and patient had pulled it into prostate. Repositioned with 1L urinary retention noted, flushed old clot debris to clear and no active bleeding. Added 20cc to gómez balloon to prevent displacement. This may be a cause of
worsened renal function past 48hrs
- Kidney function improved 09/05 with minimal hematuria
- Urine culture with diptheroids - abx course per ID
- R hydronephrosis has been present for many years and chronic obstruction has caused complete atrophy of renal parenchyma
- No evidence for pyelonephritis or ascending febrile UTI
- CTAP 08/30 showed persistence of distal R ureteral stones as seen in 2021, however this R system has been stable in obstructed state for many years without upper tract infection. There is no benefit acutely to stone intervention, and it is likely
that stone is not the only pathology there - Probably significant stricture disease which will not improve by addressing stone. Would not recommend intervention at this time and can be discussed further at follow up
Diagnosis
-
Date of Service: September 06, 2023
-
Patient Diagnosis:
Intractable back pain
Urinary retention
Kidney stones
Chronic R hydronephrosis
Post Op Day:
Subjective
-
Minimal hematuria today
Objective
-
Vital Signs
Temp Pulse Resp BP Pulse Ox
97.7 F 95 18 115/88 97
09/06/23 07:00 09/06/23 07:29 09/06/23 07:29 09/06/23 07:00 09/06/23 07:29
Intake and Output
09/05/23 09/06/23 09/07/23
06:59 06:59 06:59
Intake Total 640 / 640 480 / 480
Output Total 1175 / 1175 2600 / 2600
Balance -535 / -535 -2120 / -2120
Intake:
Oral fluids 240 / 240 480 / 480
IV fluids (Total) 400 / 400
Output:
Urine, Gómez 1175 / 1175 2600 / 2600
Laboratory Results
09/02/23 08:25
09/06/23 05:48
Physical Exam
-
General - well developed, well nourished, no acute distress
Chest - clear bilaterally
Abdomen - soft, non-tender
- gómez in place, clear to light pink urine
Skin - warm & dry with no rash
Neuro - AOx3, no motor deficits
Extremities - no clubbing, no cyanosis, no edema
[2023-09-06 15:00] VITALS: BP 133/66
--- NOTE | 2023-09-06 16:16 | W.PN.NEPH.PH ---
Today's Communication / Plan
-
follow labs and UOP
Assessment/Plan
-
Assessment:
acute on chronic back pain
acute urinary retention
UTI
obstructive uropathy
Afib
HTN
NICOLÁS on CKD3
dementia/delirium
h/o nephrolithiasis
Plan:
a/w back pain
NICOLÁS
- Cr at baseline 1.2
- UA with significant blood and WBCs. 2+ protein noted as well
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
- kidney function seems to have fluctuated a bit in the past
- UPCR is 9.9gm/gm of cr, urine sodium low at 35at his advanced age not sure aggressive unlikely change the current plan
Also urine smaple may not be accurate with hematuria-can repeat as out pt
encourage po intake
d/w nursing
-
-
Date of Service: September 06, 2023
CC / HPI / ROS
-
Chief Complaint:
NICOLÁS
History of Present Illness:
cr stable at 1.2, non oliguric with gómez
U PCR 9.9gm/gm of cr with hematuria sample
BP stable, off NSAIDs 08/29
Review of Systems:
pt is confused and unable to provide history
no fever, po intake is poor
no n/v
Labs
-
Labs:
WBC 10.1 10^3/uL (4.8-10.8) 09/02/23 08:25
RBC 3.82 10^6/uL (4.70-6.10) L 09/02/23 08:25
Hgb 10.5 g/dL (13.0-18.0) L 09/02/23 08:25
Hct 32.3 % (39.0-52.0) L 09/02/23 08:25
Plt Count 310 10^3/uL (130-400) 09/02/23 08:25
Sodium 138 mmol/L (135-145) 09/06/23 05:48
Potassium 4.8 mmol/L (3.5-5.1) 09/06/23 05:48
Chloride 105 mmol/L (98-107) 09/06/23 05:48
Carbon Dioxide 20 mmol/L (22-30) L 09/06/23 05:48
BUN 57 mg/dl (9-20) H 09/06/23 05:48
Creatinine 1.2 mg/dL (0.7-1.3) 09/06/23 05:48
eGFR 58.17 09/06/23 05:48
Glucose 138 mg/dl (70-99) H 09/06/23 05:48
Calcium 9.3 mg/dl (8.4-10.2) 09/06/23 05:48
Albumin 3.8 g/dl (3.5-5.0) 08/29/23 10:09
Physical Exam
-
Vital Signs:
Vital Signs
Temp Pulse Resp BP Pulse Ox
98.9 F 104 18 133/66 97
09/06/23 15:00 09/06/23 15:00 09/06/23 15:00 09/06/23 15:00 09/06/23 15:00
Cardiovascular:: Regular rate and rhythm
Respiratory:: Bilateral: CTA
Lung Excursion:: Normal
Abdomen:: Nontender and Soft
Extremity Edema:: None: Bilateral: (trace)
Gómez Catheter: Yes
[2023-09-06 20:55] VITALS: BP 150/96
[2023-09-06 23:00] VITALS: BP 127/74
[2023-09-07] MEDS: SYMBICORT 160/4.5 MCG INHALER 2 PUFF INH ×2 (06:18→20:29)
[2023-09-07 06:21] LABS: Calcium 9.7 mg/dl (8.4-10.2); Carbon Dioxide 24 mmol/L (22-30); Estimated Creatinine Clearance 48 ml/min; eGFR 58.17
[2023-09-07 06:29] LABS: Blood Urea Nitrogen 51 mg/dl (9-20); Chloride 104 mmol/L (98-107); Glucose 131 mg/dl (70-99); Potassium 4.7 mmol/L (3.5-5.1); Sodium 139 mmol/L (135-145)
[2023-09-07] MEDS: DILAUDID 0.5 MG IV (07:53)
[2023-09-07] MEDS: OMNICEF 300 MG PO ×2 (07:54→21:14)
[2023-09-07] MEDS: OCUVITE SOFTGEL 1 CAP PO (07:54)
[2023-09-07] MEDS: PROTONIX 40 MG PO (07:54)
[2023-09-07] MEDS: ZOLOFT 50 MG PO (07:54)
[2023-09-07] MEDS: DEPAKOTE ER (24 HR RELEASE) 250 MG PO (07:54)
[2023-09-07] MEDS: APRESOLINE 50 MG PO ×3 (07:54→21:14)
[2023-09-07] MEDS: CARDIZEM CD 180 MG PO ×2 (07:54→21:14)
[2023-09-07] MEDS: COLACE 100 MG PO ×2 (07:54→21:14)
[2023-09-07 08:00] VITALS: BP 166/84
[2023-09-07] MEDS: ROXICODONE 5 MG PO (09:49)
[2023-09-07] MEDS: FLEXERIL 5 MG PO (09:50)
[2023-09-07 13:40] VITALS: BMI 34.2
[2023-09-07 15:00] VITALS: BP 156/95
--- NOTE | 2023-09-07 16:40 | W.PN.NEPH.PH ---
Today's Communication / Plan
-
follow labs, repeat U PCR
Assessment/Plan
-
Assessment:
acute on chronic back pain
acute urinary retention
UTI
obstructive uropathy
Afib
HTN
NICOLÁS on CKD3
dementia/delirium
h/o nephrolithiasis
Plan:
a/w back pain
NICOLÁS
- Cr at baseline 1.2
- UA with significant blood and WBCs. 2+ protein noted as well
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
- kidney function seems to have fluctuated a bit in the past
- UPCR is 9.9gm/gm of cr, at his advanced age, aggressive w/u unlikely will change the current plan
Also urine sample may not be accurate with hematuria-can repeat today
encourage po intake
d/w nursing
-
-
Date of Service: September 07, 2023
CC / HPI / ROS
-
Chief Complaint:
NICOLÁS
History of Present Illness:
cr stable at 1.2, non oliguric with gómez
U PCR 9.9gm/gm of cr with hematuria sample
BP stable, off NSAIDs 08/29
Review of Systems:
pt is confused and unable to provide history
no fever, po intake is poor
no n/v
Labs
-
Labs:
WBC 10.1 10^3/uL (4.8-10.8) 09/02/23 08:25
RBC 3.82 10^6/uL (4.70-6.10) L 09/02/23 08:25
Hgb 10.5 g/dL (13.0-18.0) L 09/02/23 08:25
Hct 32.3 % (39.0-52.0) L 09/02/23 08:25
Plt Count 310 10^3/uL (130-400) 09/02/23 08:25
Sodium 139 mmol/L (135-145) 09/07/23 05:01
Potassium 4.7 mmol/L (3.5-5.1) 09/07/23 05:01
Chloride 104 mmol/L (98-107) 09/07/23 05:01
Carbon Dioxide 24 mmol/L (22-30) 09/07/23 05:01
BUN 51 mg/dl (9-20) H 09/07/23 05:01
Creatinine 1.2 mg/dL (0.7-1.3) 09/07/23 05:01
eGFR 58.17 09/07/23 05:01
Glucose 131 mg/dl (70-99) H 09/07/23 05:01
Calcium 9.7 mg/dl (8.4-10.2) 09/07/23 05:01
Albumin 3.8 g/dl (3.5-5.0) 08/29/23 10:09
Physical Exam
-
Vital Signs:
Vital Signs
Temp Pulse Resp BP Pulse Ox
98.1 F 107 16 166/84 96
09/07/23 08:00 09/07/23 08:00 09/07/23 08:00 09/07/23 08:00 09/07/23 08:00
Cardiovascular:: Regular rate and rhythm
Respiratory:: Bilateral: CTA
Lung Excursion:: Normal
Abdomen:: Nontender and Soft
Extremity Edema:: None: Bilateral:
Gómez Catheter: Yes
--- NOTE | 2023-09-07 16:41 | W.PN.HOSP.TC ---
Today's Communication/Plan
-
Pain control
PT/OT
Start dispo efforts
Creatinine continues to improve
Assessment / Plan
Assessment / Plan
Gen: continues to remain NAD, Awake and alert
Eyes: EOMI, no scleral icterus.
Neck: supple.
CV: remains irreg/irreg, +S1/S2, no m/r/g.
Resp: CTAB anteriorly, no rales, wheezes, or rhonchi.
Abd: +BS, soft, NT, ND
Skin: No rashes.
: Moderate hematuria
Neuro: CN 2-12 intact, moves all 4 extremities
Psych: agitated
08/31/23 14:48 Urine Urine Culture - Final
Diptheroids
MRI L-spine:
1. SEVERE CENTRAL CANAL STENOSIS at L4/L5 secondary to 3.3 mm grade 1 anterolisthesis, severe facet joint arthrosis, and a large disc herniation which has mildly increased since 12/19/2021. Interval increase in size of a large right
foraminal-extraforaminal disc herniation causing exiting right L4 nerve root impingement. Small right subarticular superior disc extrusion which has partially resorbed since 12/19/2021.
2. Moderate central canal stenosis and severe left neural foraminal narrowing at L3/L4 secondary to a large diffuse disc bulge, large left foraminal-extraforaminal disc herniation, and severe left neural foraminal narrowing with exiting left L3
nerve root impingement which has increased since 12/19/2021.
3. Moderate high T2 signal intensity in the L2/L3 intervertebral disc which is new from 12/19/2021. Diagnostic possibilities are (1) progressive discogenic degenerative disease or (2) acute infectious discitis if there are signs/symptoms of
infection. Mild central canal stenosis at L2/L3 which has decreased since 12/19/2021 secondary to interval resorption of a previously visualized moderate-sized disc herniation.
4. 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
5. Severely distended urinary bladder with mild perivesical edema suspicious for acute cystitis. Severe chronic right hydroureteronephrosis which appears unchanged.
CT A/P: Stable severe right hydronephrosis and hydroureter secondary to distal ureteral stones which have enlarged. Numerous bilateral renal cysts. Grossly stable. Moderate hiatal hernia. Stable. Moderate fecal material throughout the colon.
Progressed. Mild prostate hypertrophy. Progressed. Gómez catheter present. Stable.
Acute urinary retention/obstructive uropathy/acute complicated UTI:
-gómez placed 08/31/23 for 850cc cloudy urine as pt with severe bladder distention/urinary retention, will remain in place on d/c
-Urinary retention is likely due to neurogenic bladder due to worsening spinal stenosis and radiculopathy
-Patient with chronic and severe right hydronephrosis causing near complete atrophy of right renal parenchyma
-Acute metabolic encephalopathy due to acute complicated UTI. Also hospital-acquired delirium.
-Uro/ID following
-Cr improved, now at baseline 1.1-1.2
-was on Rocephin, now transitioned Omnicef through 09/08/23 as per ID
Acute on chronic back pain:
-this was the presenting problem
-PT/OT/CM
-will likely need placement
-Ibuprofen stopped 08/30/23 as pt with CKD and on Eliquis
-cont pain management with Tylenol/oxycodone/morphine
-MRI L-spine above and notable for DDD with R L4 and L L3 nerve root impingement.
-pt is afebrile and doubt L2/L3 findings represent acute infectious discitis
-cont oxycodone/IV dilaudid PRN
-Patient with severe intermittent agitation. Unable to perform BAYRON due to high risk of complications by iRad as patient with agitation. Can be reevaluated as outpatient. Continue with PT OT and probably require rehab on discharge.
Paroxysmal atrial fibrillation:
-Restart Eliquis.
-cont Cardizem
Essential hypertension:
-cont Cardizem/Hydralazine
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
-with hyperkalemia, now resolved
-eplerenone stopped and 250cc NS bolus given 08/30/23
-gómez placed 08/31/23 (component of NICOLÁS was obstructive uropathy)
-Cr improved to baseline s/p IVF and gómez catheter placement/adjustment
Toxic metabolic encephalopathy likely secondary to delirium versus worsening of dementia
Mild dementia, likely Alzheimer's type
-Continue to monitor. Intermittent paranoia.
-Continue to reorient. Limit narcotics.
-If with severe paranoia/hallucination will need psych input
-Fall precaution. TeleSitter ongoing. Try to wean off TeleSitter.
Other problems:
Hyponatremia, mild
Non-anion gap metabolic acidosis, resolved with NaHCO3 IVFs
GERD: cont PPI
CKD3a
Impaired glucose tolerance.
h/o rectal CA s/p surgical resection and chemoradiation
Asthma: Cont Symbicort
Obstructive sleep apnea
Former smoker
Iron deficiency anemia
Anxiety/Depression: cont Zoloft
h/o nephrolithiasis
FULL/Eliquis
PT/OT SNF. Case management aware.
Anticipated Discharge: > 48 hours
Subjective/Interval History
-
Date of Service: September 07, 2023
States of back pain
off restraints since yesterday
Objective Data
-
Labs:
Laboratory Results
09/07/23
05:01
Sodium 139
Potassium 4.7
Chloride 104
Carbon Dioxide 24
BUN 51 H
Creatinine 1.2
Glucose 131 H
Calcium 9.7
Vital Signs:
Vital Signs
Temp Pulse Resp BP Pulse Ox
98.1 F 107 16 166/84 96
09/07/23 08:00 09/07/23 08:00 09/07/23 08:00 09/07/23 08:00 09/07/23 08:00
I&O
09/06/23 09/07/23 09/08/23
06:59 06:59 06:59
Intake Total 480 / 480 420 / 420
Output Total 2600 / 2600 1200 / 1200
Balance -2120 / -2120 -780 / -780
Data Reviewed
-
Total Time Spent with Patient (in minutes): 55
[2023-09-07 21:04] VITALS: BP 125/63
[2023-09-07] MEDS: ELIQUIS 5 MG PO (21:14)
[2023-09-07 23:23] VITALS: BP 131/73
[2023-09-08] MEDS: FLEXERIL 5 MG PO (00:39)
[2023-09-08] MEDS: DILAUDID 0.5 MG IV ×3 (00:40→23:53)
[2023-09-08 06:03] LABS: Protein/creatinine Ratio 0.6; Urine Protein 55 mg/dl
[2023-09-08 07:40] VITALS: BP 143/78
[2023-09-08] MEDS: SYMBICORT 160/4.5 MCG INHALER 2 PUFF INH ×2 (08:36→20:18)
[2023-09-08] MEDS: PROTONIX 40 MG PO (08:48)
[2023-09-08] MEDS: ELIQUIS 5 MG PO ×2 (08:48→21:46)
[2023-09-08] MEDS: COLACE PO ×2 (08:48→21:47)
[2023-09-08] MEDS: CARDIZEM CD 180 MG PO ×2 (08:48→21:46)
[2023-09-08] MEDS: ZOLOFT 50 MG PO (08:48)
[2023-09-08] MEDS: OCUVITE SOFTGEL 1 CAP PO (08:48)
[2023-09-08] MEDS: DEPAKOTE ER (24 HR RELEASE) 250 MG PO (08:48)
[2023-09-08] MEDS: APRESOLINE 50 MG PO ×3 (08:48→21:46)
[2023-09-08] MEDS: TYLENOL 1000 MG PO ×3 (09:27→21:47)
--- NOTE | 2023-09-08 10:28 | CM ---
Patient seen bedside.
Spoke with spouse yesterday, she would still like skilled rehab.
Patient continues with pain, making therapy a challenge.
Patient continues on medsitter.
patient will require insurance auth for skilled rehab.
[facility]YRON on hold.
Plan: skilled rehab once medically stable, bed available and auth received.
[2023-09-08 11:46] LABS: Blood Urea Nitrogen 41 mg/dl (9-20); Calcium 9.4 mg/dl (8.4-10.2); Carbon Dioxide 21 mmol/L (22-30); Chloride 101 mmol/L (98-107); Estimated Creatinine Clearance 57 ml/min; Glucose 161 mg/dl (70-99); Potassium 4.9 mmol/L (3.5-5.1); Sodium 133 mmol/L (135-145); eGFR > 60.00
--- NOTE | 2023-09-08 11:47 | W.PN.NEPH.PH ---
Today's Communication / Plan
-
follow BMP
Assessment/Plan
-
Assessment:
acute on chronic back pain
acute urinary retention
UTI
obstructive uropathy
Afib
HTN
NICOLÁS on CKD3
dementia/delirium
h/o nephrolithiasis
Plan:
follow BMP
repeat U p/c 0.6 only
no need for Inspra currently
-
-
Date of Service: September 08, 2023
CC / HPI / ROS
-
Chief Complaint:
NICOLÁS
History of Present Illness:
cr stable at 1.0
nonoliguric-gómez
U PCR 9.9gm/gm of cr with hematuria sample
BP stable
Na 133
Review of Systems:
pt is confused
no fever, po intake is poor
no n/v
Labs
-
Labs:
WBC 10.1 10^3/uL (4.8-10.8) 09/02/23 08:25
RBC 3.82 10^6/uL (4.70-6.10) L 09/02/23 08:25
Hgb 10.5 g/dL (13.0-18.0) L 09/02/23 08:25
Hct 32.3 % (39.0-52.0) L 09/02/23 08:25
Plt Count 310 10^3/uL (130-400) 09/02/23 08:25
Sodium 133 mmol/L (135-145) L 09/08/23 10:41
Potassium 4.9 mmol/L (3.5-5.1) 09/08/23 10:41
Chloride 101 mmol/L (98-107) 09/08/23 10:41
Carbon Dioxide 21 mmol/L (22-30) L 09/08/23 10:41
BUN 41 mg/dl (9-20) H 09/08/23 10:41
Creatinine 1.0 mg/dL (0.7-1.3) 09/08/23 10:41
eGFR > 60.00 09/08/23 10:41
Glucose 161 mg/dl (70-99) H 09/08/23 10:41
Calcium 9.4 mg/dl (8.4-10.2) 09/08/23 10:41
Albumin 3.8 g/dl (3.5-5.0) 08/29/23 10:09
Physical Exam
-
Vital Signs:
Vital Signs
Temp Pulse Resp BP Pulse Ox
98.0 F 107 18 143/78 94
09/08/23 07:40 09/08/23 08:39 09/08/23 08:39 09/08/23 07:40 09/08/23 08:39
Cardiovascular:: Regular rate and rhythm
Respiratory:: Bilateral: Coarse
Lung Excursion:: Normal
Abdomen:: Nontender and Soft
Bowel Sounds:: Normal
Extremity Edema:: None: Bilateral:
--- NOTE | 2023-09-08 12:55 | W.PN.HOSP.TC ---
Today's Communication/Plan
-
pain control
oob
nephro recs
Assessment / Plan
Assessment / Plan
Gen: continues to remain NAD, Awake and alert
Eyes: EOMI, no scleral icterus.
Neck: supple.
CV: remains irreg/irreg, +S1/S2, no m/r/g.
Resp: CTAB anteriorly, no rales, wheezes, or rhonchi.
Abd: +BS, soft, NT, ND
Skin: No rashes.
: Moderate hematuria
Neuro: CN 2-12 intact, moves all 4 extremities
Psych: agitated
08/31/23 14:48 Urine Urine Culture - Final
Diptheroids
MRI L-spine:
1. SEVERE CENTRAL CANAL STENOSIS at L4/L5 secondary to 3.3 mm grade 1 anterolisthesis, severe facet joint arthrosis, and a large disc herniation which has mildly increased since 12/19/2021. Interval increase in size of a large right
foraminal-extraforaminal disc herniation causing exiting right L4 nerve root impingement. Small right subarticular superior disc extrusion which has partially resorbed since 12/19/2021.
2. Moderate central canal stenosis and severe left neural foraminal narrowing at L3/L4 secondary to a large diffuse disc bulge, large left foraminal-extraforaminal disc herniation, and severe left neural foraminal narrowing with exiting left L3
nerve root impingement which has increased since 12/19/2021.
3. Moderate high T2 signal intensity in the L2/L3 intervertebral disc which is new from 12/19/2021. Diagnostic possibilities are (1) progressive discogenic degenerative disease or (2) acute infectious discitis if there are signs/symptoms of
infection. Mild central canal stenosis at L2/L3 which has decreased since 12/19/2021 secondary to interval resorption of a previously visualized moderate-sized disc herniation.
4. 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
5. Severely distended urinary bladder with mild perivesical edema suspicious for acute cystitis. Severe chronic right hydroureteronephrosis which appears unchanged.
CT A/P: Stable severe right hydronephrosis and hydroureter secondary to distal ureteral stones which have enlarged. Numerous bilateral renal cysts. Grossly stable. Moderate hiatal hernia. Stable. Moderate fecal material throughout the colon.
Progressed. Mild prostate hypertrophy. Progressed. Gómez catheter present. Stable.
Acute urinary retention/obstructive uropathy/acute complicated UTI:
-gómez placed 08/31/23 for 850cc cloudy urine as pt with severe bladder distention/urinary retention, will remain in place on d/c
-Urinary retention is likely due to neurogenic bladder due to worsening spinal stenosis and radiculopathy
-Patient with chronic and severe right hydronephrosis causing near complete atrophy of right renal parenchyma
-Acute metabolic encephalopathy due to acute complicated UTI. Also hospital-acquired delirium.
-Uro/ID following
-Cr improved, now at baseline 1.1-1.2
-was on Rocephin, now transitioned Omnicef and completed course
Acute on chronic back pain:
-this was the presenting problem
-PT/OT/CM
-will likely need placement
-Ibuprofen stopped 08/30/23 as pt with CKD and on Eliquis
-MRI L-spine above and notable for DDD with R L4 and L L3 nerve root impingement.
-pt is afebrile and doubt L2/L3 findings represent acute infectious discitis
-start tylenol and low dose tramadol standin.
-Patient with severe intermittent agitation. Unable to perform BAYRON due to high risk of complications by iRad as patient with agitation. Can be reevaluated as outpatient. Continue with PT OT and probably require rehab on discharge.
Paroxysmal atrial fibrillation:
-Restart Eliquis.
-cont Cardizem
Essential hypertension:
-cont Cardizem/Hydralazine
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
-with hyperkalemia, now resolved
-eplerenone stopped and 250cc NS bolus given 08/30/23
-gómez placed 08/31/23 (component of NICOLÁS was obstructive uropathy)
-Cr improved to baseline s/p IVF and gómez catheter placement/adjustment
Toxic metabolic encephalopathy likely secondary to delirium versus worsening of dementia
Mild dementia, likely Alzheimer's type
-Continue to monitor. Intermittent paranoia.
-Continue to reorient. Limit narcotics.
-If with severe paranoia/hallucination will need psych input
-Fall precaution. TeleSitter ongoing. Try to wean off TeleSitter.
Other problems:
Hyponatremia, mild
Non-anion gap metabolic acidosis, resolved with NaHCO3 IVFs
GERD: cont PPI
CKD3a
Impaired glucose tolerance.
h/o rectal CA s/p surgical resection and chemoradiation
Asthma: Cont Symbicort
Obstructive sleep apnea
Former smoker
Iron deficiency anemia
Anxiety/Depression: cont Zoloft
h/o nephrolithiasis
FULL/Eliquis
PT/OT SNF. Case management aware.
update spouse over the phone
Anticipated Discharge: 24 - 48 hours
Subjective/Interval History
-
Date of Service: September 08, 2023
awake
remains off restraints
states of back pain
agreed for pain meds
Objective Data
-
Labs:
Laboratory Results
09/08/23
10:41
Sodium 133 L
Potassium 4.9
Chloride 101
Carbon Dioxide 21 L
BUN 41 H
Creatinine 1.0
Glucose 161 H
Calcium 9.4
Vital Signs:
Vital Signs
Temp Pulse Resp BP Pulse Ox
98.0 F 107 18 143/78 94
09/08/23 07:40 09/08/23 08:39 09/08/23 08:39 09/08/23 07:40 09/08/23 08:39
I&O
09/07/23 09/08/23 09/09/23
06:59 06:59 06:59
Intake Total 420 / 420 600 / 600
Output Total 1200 / 1200 1060 / 1060
Balance -780 / -780 -460 / -460
Data Reviewed
-
Total Time Spent with Patient (in minutes): 55
[2023-09-08 15:15] VITALS: BP 112/78
[2023-09-08] MEDS: ULTRAM 25 MG PO (17:09)
--- NOTE | 2023-09-08 18:07 | PTCARENOTE ---
Pt has made no attempts in the last 48 hrs to get OOB. Pt taken off [employer] around 1630. Pt has bed alarm on, pt resting comfortably. Pain is being managed.
[2023-09-08 23:11] VITALS: BP 125/73
[2023-09-09] MEDS: ULTRAM 25 MG PO ×2 (06:19→12:07)
[2023-09-09 07:16] LABS: Blood Urea Nitrogen 35 mg/dl (9-20); Calcium 9.3 mg/dl (8.4-10.2); Carbon Dioxide 23 mmol/L (22-30); Chloride 102 mmol/L (98-107); Estimated Creatinine Clearance 57 ml/min; Glucose 123 mg/dl (70-99); Potassium 4.7 mmol/L (3.5-5.1); Sodium 133 mmol/L (135-145); eGFR > 60.00
[2023-09-09 07:45] VITALS: BP 148/79
[2023-09-09] MEDS: SYMBICORT 160/4.5 MCG INHALER INH (08:18)
[2023-09-09] MEDS: DILAUDID 0.5 MG IV (08:44)
[2023-09-09] MEDS: TYLENOL 1000 MG PO ×3 (08:52→21:13)
[2023-09-09] MEDS: DEPAKOTE ER (24 HR RELEASE) 250 MG PO (08:53)
[2023-09-09] MEDS: APRESOLINE 50 MG PO ×3 (08:53→21:13)
[2023-09-09] MEDS: PROTONIX 40 MG PO (08:53)
[2023-09-09] MEDS: COLACE 100 MG PO ×2 (08:53→21:04)
[2023-09-09] MEDS: CARDIZEM CD 180 MG PO ×2 (08:54→21:05)
[2023-09-09] MEDS: OCUVITE SOFTGEL 1 CAP PO (08:54)
[2023-09-09] MEDS: ELIQUIS 5 MG PO ×2 (08:54→21:04)
[2023-09-09] MEDS: ZOLOFT 50 MG PO (08:54)
--- NOTE | 2023-09-09 11:38 | W.PN.NEPH.PH ---
Today's Communication / Plan
-
follow BMP
Assessment/Plan
-
Assessment:
acute on chronic back pain
acute urinary retention
UTI
obstructive uropathy
Afib
HTN
NICOLÁS on CKD3
dementia/delirium
h/o nephrolithiasis
Plan:
follow BMP
maintain gómez
no need for Inspra currently
pain management per primary team
-
-
Date of Service: September 09, 2023
CC / HPI / ROS
-
Chief Complaint:
NICOLÁS
History of Present Illness:
cr stable at 1.0
nonoliguric-gómez
BP stable
Na 133 stable
Review of Systems:
significant back pain
no fever, po intake is poor
no n/v
Labs
-
Labs:
WBC 10.1 10^3/uL (4.8-10.8) 09/02/23 08:25
RBC 3.82 10^6/uL (4.70-6.10) L 09/02/23 08:25
Hgb 10.5 g/dL (13.0-18.0) L 09/02/23 08:25
Hct 32.3 % (39.0-52.0) L 09/02/23 08:25
Plt Count 310 10^3/uL (130-400) 09/02/23 08:25
Sodium 133 mmol/L (135-145) L 09/09/23 06:30
Potassium 4.7 mmol/L (3.5-5.1) 09/09/23 06:30
Chloride 102 mmol/L (98-107) 09/09/23 06:30
Carbon Dioxide 23 mmol/L (22-30) 09/09/23 06:30
BUN 35 mg/dl (9-20) H 09/09/23 06:30
Creatinine 1.0 mg/dL (0.7-1.3) 09/09/23 06:30
eGFR > 60.00 09/09/23 06:30
Glucose 123 mg/dl (70-99) H 09/09/23 06:30
Calcium 9.3 mg/dl (8.4-10.2) 09/09/23 06:30
Albumin 3.8 g/dl (3.5-5.0) 08/29/23 10:09
Physical Exam
-
Vital Signs:
Vital Signs
Temp Pulse Resp BP Pulse Ox
97.3 F 97 17 148/79 95
09/09/23 07:45 09/09/23 08:53 09/09/23 07:45 09/09/23 08:53 09/09/23 07:45
Cardiovascular:: Regular rate and rhythm
Respiratory:: Bilateral: Coarse
Lung Excursion:: Normal
Abdomen:: Nontender and Soft
Bowel Sounds:: Normal
Extremity Edema:: None: Bilateral:
[2023-09-09] MEDS: DECADRON 8 MG IV (12:06)
--- NOTE | 2023-09-09 12:16 | W.PN.HOSP.TC ---
Today's Communication/Plan
-
Trial of steroids
Pain meds
start dispo efforts
Assessment / Plan
Assessment / Plan
Gen: continues to remain NAD, Awake and alert
Eyes: EOMI, no scleral icterus.
Neck: supple.
CV: remains irreg/irreg, +S1/S2, no m/r/g.
Resp: CTAB anteriorly, no rales, wheezes, or rhonchi.
Abd: +BS, soft, NT, ND
Skin: No rashes.
: Moderate hematuria
Neuro: CN 2-12 intact, moves all 4 extremities
Psych: agitated
08/31/23 14:48 Urine Urine Culture - Final
Diptheroids
MRI L-spine:
1. SEVERE CENTRAL CANAL STENOSIS at L4/L5 secondary to 3.3 mm grade 1 anterolisthesis, severe facet joint arthrosis, and a large disc herniation which has mildly increased since 12/19/2021. Interval increase in size of a large right
foraminal-extraforaminal disc herniation causing exiting right L4 nerve root impingement. Small right subarticular superior disc extrusion which has partially resorbed since 12/19/2021.
2. Moderate central canal stenosis and severe left neural foraminal narrowing at L3/L4 secondary to a large diffuse disc bulge, large left foraminal-extraforaminal disc herniation, and severe left neural foraminal narrowing with exiting left L3
nerve root impingement which has increased since 12/19/2021.
3. Moderate high T2 signal intensity in the L2/L3 intervertebral disc which is new from 12/19/2021. Diagnostic possibilities are (1) progressive discogenic degenerative disease or (2) acute infectious discitis if there are signs/symptoms of
infection. Mild central canal stenosis at L2/L3 which has decreased since 12/19/2021 secondary to interval resorption of a previously visualized moderate-sized disc herniation.
4. 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
5. Severely distended urinary bladder with mild perivesical edema suspicious for acute cystitis. Severe chronic right hydroureteronephrosis which appears unchanged.
CT A/P: Stable severe right hydronephrosis and hydroureter secondary to distal ureteral stones which have enlarged. Numerous bilateral renal cysts. Grossly stable. Moderate hiatal hernia. Stable. Moderate fecal material throughout the colon.
Progressed. Mild prostate hypertrophy. Progressed. Gómez catheter present. Stable.
Acute urinary retention/obstructive uropathy/acute complicated UTI:
-gómez placed 08/31/23 for 850cc cloudy urine as pt with severe bladder distention/urinary retention, will remain in place on d/c
-Urinary retention is likely due to neurogenic bladder due to worsening spinal stenosis and radiculopathy
-Patient with chronic and severe right hydronephrosis causing near complete atrophy of right renal parenchyma
-Acute metabolic encephalopathy due to acute complicated UTI. Also hospital-acquired delirium.
-Uro/ID following
-Cr improved, now at baseline 1.1-1.2
-was on Rocephin, now transitioned Omnicef and completed course
Acute on chronic back pain:
-this was the presenting problem
-PT/OT/CM
-will likely need placement
-Ibuprofen stopped 08/30/23 as pt with CKD and on Eliquis
-MRI L-spine above and notable for DDD with R L4 and L L3 nerve root impingement.
-pt is afebrile and doubt L2/L3 findings represent acute infectious discitis
-start tylenol. Tramadol 50mg and dilaudid prn
-trial of IV steroids.
-Patient with severe intermittent agitation. Unable to perform BAYRON due to high risk of complications by iRad as patient with agitation. Can be reevaluated as outpatient. Continue with PT OT and probably require rehab on discharge.
Paroxysmal atrial fibrillation:
-Restart Eliquis.
-cont Cardizem
Essential hypertension:
-cont Cardizem/Hydralazine
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
-with hyperkalemia, now resolved
-eplerenone stopped and 250cc NS bolus given 08/30/23
-gómez placed 08/31/23 (component of NICOLÁS was obstructive uropathy)
-Cr improved to baseline s/p IVF and gómez catheter placement/adjustment
Toxic metabolic encephalopathy likely secondary to delirium versus worsening of dementia
Mild dementia, likely Alzheimer's type
-Continue to monitor. Intermittent paranoia.Improved.
-Continue to reorient. Limit narcotics.
-If with severe paranoia/hallucination will need psych input
-Fall precaution. off telesitter
Other problems:
Hyponatremia, mild
Non-anion gap metabolic acidosis, resolved with NaHCO3 IVFs
GERD: cont PPI
CKD3a
Impaired glucose tolerance.
h/o rectal CA s/p surgical resection and chemoradiation
Asthma: Cont Symbicort
Obstructive sleep apnea
Former smoker
Iron deficiency anemia
Anxiety/Depression: cont Zoloft
h/o nephrolithiasis
FULL/Eliquis
PT/OT SNF. Case management aware.
update spouse over the phone on 09/07
Anticipated Discharge: Within 24 hours
Subjective/Interval History
-
Date of Service: September 09, 2023
off tele sitter
on fall precautions
remains with back pain
Objective Data
-
Labs:
Laboratory Results
09/09/23
06:30
Sodium 133 L
Potassium 4.7
Chloride 102
Carbon Dioxide 23
BUN 35 H
Creatinine 1.0
Glucose 123 H
Calcium 9.3
Vital Signs:
Vital Signs
Temp Pulse Resp BP Pulse Ox
97.3 F 97 17 148/79 95
09/09/23 07:45 09/09/23 08:53 09/09/23 07:45 09/09/23 08:53 09/09/23 07:45
I&O
09/08/23 09/09/23 09/10/23
06:59 06:59 06:59
Intake Total 600 / 600 180 / 180
Output Total 1060 / 1060 950 / 950
Balance -460 / -460 -770 / -770
Data Reviewed
-
Total Time Spent with Patient (in minutes): 55
--- NOTE | 2023-09-09 13:13 | CM ---
Patient off medsitter.
Spoke with patients spouse, continues to be in severe pain.
Unable to participate in therapy due to pain.
Continue pain management.
Chen catheter.
Plan: skilled rehab once able to participate in therapy and insurance auth completed.
[2023-09-09 14:24] VITALS: BP 98/75; PULSE 98
[2023-09-09 14:54] VITALS: BP 143/69
[2023-09-09] MEDS: SYMBICORT 160/4.5 MCG INHALER 2 PUFF INH (20:10)
[2023-09-09] MEDS: ULTRAM 50 MG PO (21:04)
[2023-09-09 23:03] VITALS: BP 133/69
[2023-09-10] MEDS: DILAUDID 0.5 MG IV ×3 (02:11→14:47)
[2023-09-10 07:00] VITALS: BP 151/76
[2023-09-10] MEDS: SYMBICORT 160/4.5 MCG INHALER 2 PUFF INH ×2 (07:45→19:47)
[2023-09-10 08:31] LABS: Hematocrit 31.5 % (39.0-52.0); Hemoglobin 10.2 g/dL (13.0-18.0); Mean Corp Hgb Conc. 32.4 g/dL (33.0-37.0); Mean Corpuscular Hgb 27.1 pg (27.0-31.0); Mean Corpuscular Volume 83.8 fL (80.0-94.0); Red Blood Cell Count 3.76 10^6/uL (4.70-6.10); White Blood Cell Count 11.2 10^3/uL (4.8-10.8)
[2023-09-10] MEDS: DEPAKOTE ER (24 HR RELEASE) 250 MG PO (09:01)
[2023-09-10] MEDS: OCUVITE SOFTGEL 1 CAP PO (09:01)
[2023-09-10] MEDS: COLACE 100 MG PO ×2 (09:01→20:38)
[2023-09-10] MEDS: CARDIZEM CD 180 MG PO ×2 (09:01→20:38)
[2023-09-10] MEDS: APRESOLINE 50 MG PO ×3 (09:01→22:27)
[2023-09-10] MEDS: ZOLOFT 50 MG PO (09:01)
[2023-09-10] MEDS: PROTONIX 40 MG PO (09:01)
[2023-09-10] MEDS: ELIQUIS 5 MG PO ×2 (09:02→20:38)
[2023-09-10] MEDS: ULTRAM 50 MG PO (09:02)
[2023-09-10] MEDS: TYLENOL 1000 MG PO ×3 (09:02→22:28)
[2023-09-10 09:19] LABS: Blood Urea Nitrogen 37 mg/dl (9-20); Calcium 9.1 mg/dl (8.4-10.2); Carbon Dioxide 23 mmol/L (22-30); Chloride 103 mmol/L (98-107); Estimated Creatinine Clearance 52 ml/min; Glucose 163 mg/dl (70-99); Sodium 136 mmol/L (135-145); eGFR > 60.00
[2023-09-10 10:22] LABS: Mean Platelet Volume 9.8 fL (7.4-10.4); Platelet Count 713 10^3/uL (130-400)
[2023-09-10 11:55] VITALS: BP 127/65
[2023-09-10] MEDS: DECADRON 6 MG IV (12:24)
--- NOTE | 2023-09-10 12:37 | W.PN.HOSP.TC ---
Today's Communication/Plan
-
Start OxyContin
DC tramadol
Steroid trial
Valium as needed
Assessment / Plan
Assessment / Plan
Gen: continues to remain NAD, Awake and alert
Eyes: EOMI, no scleral icterus.
Neck: supple.
CV: remains irreg/irreg, +S1/S2, no m/r/g.
Resp: CTAB anteriorly, no rales, wheezes, or rhonchi.
Abd: +BS, soft, NT, ND
Skin: No rashes.
: Moderate hematuria
Neuro: CN 2-12 intact, moves all 4 extremities
Psych: agitated
08/31/23 14:48 Urine Urine Culture - Final
Diptheroids
MRI L-spine:
1. SEVERE CENTRAL CANAL STENOSIS at L4/L5 secondary to 3.3 mm grade 1 anterolisthesis, severe facet joint arthrosis, and a large disc herniation which has mildly increased since 12/19/2021. Interval increase in size of a large right
foraminal-extraforaminal disc herniation causing exiting right L4 nerve root impingement. Small right subarticular superior disc extrusion which has partially resorbed since 12/19/2021.
2. Moderate central canal stenosis and severe left neural foraminal narrowing at L3/L4 secondary to a large diffuse disc bulge, large left foraminal-extraforaminal disc herniation, and severe left neural foraminal narrowing with exiting left L3
nerve root impingement which has increased since 12/19/2021.
3. Moderate high T2 signal intensity in the L2/L3 intervertebral disc which is new from 12/19/2021. Diagnostic possibilities are (1) progressive discogenic degenerative disease or (2) acute infectious discitis if there are signs/symptoms of
infection. Mild central canal stenosis at L2/L3 which has decreased since 12/19/2021 secondary to interval resorption of a previously visualized moderate-sized disc herniation.
4. 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
5. Severely distended urinary bladder with mild perivesical edema suspicious for acute cystitis. Severe chronic right hydroureteronephrosis which appears unchanged.
CT A/P: Stable severe right hydronephrosis and hydroureter secondary to distal ureteral stones which have enlarged. Numerous bilateral renal cysts. Grossly stable. Moderate hiatal hernia. Stable. Moderate fecal material throughout the colon.
Progressed. Mild prostate hypertrophy. Progressed. Gómez catheter present. Stable.
Acute urinary retention/obstructive uropathy/acute complicated UTI:
-gómez placed 08/31/23 for 850cc cloudy urine as pt with severe bladder distention/urinary retention, will remain in place on d/c
-Urinary retention is likely due to neurogenic bladder due to worsening spinal stenosis and radiculopathy
-Patient with chronic and severe right hydronephrosis causing near complete atrophy of right renal parenchyma
-Acute metabolic encephalopathy due to acute complicated UTI. Also hospital-acquired delirium.
-Uro/ID following
-Cr improved, now at baseline 1.1-1.2
-was on Rocephin, now transitioned Omnicef and completed course
Acute on chronic back pain:
-this was the presenting problem
-PT/OT/CM
-will likely need placement
-Ibuprofen stopped 08/30/23 as pt with CKD and on Eliquis
-MRI L-spine above and notable for DDD with R L4 and L L3 nerve root impingement.
-pt is afebrile and doubt L2/L3 findings represent acute infectious discitis
-start tylenol. DC tramadol. Start OxyContin and keep Dilaudid as needed for now.
-can try valium prn for spasms
-trial of IV steroids
-Patient with severe intermittent agitation. Unable to perform BAYRON due to high risk of complications by i[employer] as patient with agitation. Can be reevaluated as outpatient. Continue with PT OT and probably require rehab on discharge.
Paroxysmal atrial fibrillation:
-Restart Eliquis.
-cont Cardizem
Essential hypertension:
-cont Cardizem/Hydralazine
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
-with hyperkalemia, now resolved
-eplerenone stopped and 250cc NS bolus given 08/30/23
-gómez placed 08/31/23 (component of NICOLÁS was obstructive uropathy)
-Cr improved to baseline s/p IVF and gómez catheter placement/adjustment
Toxic metabolic encephalopathy likely secondary to delirium versus worsening of dementia
Mild dementia, likely Alzheimer's type
-Continue to monitor. Intermittent paranoia.Improved.
-Continue to reorient. Limit narcotics.
-If with severe paranoia/hallucination will need psych input
-Fall precaution. off telesitter
Other problems:
Hyponatremia, mild
Non-anion gap metabolic acidosis, resolved with NaHCO3 IVFs
GERD: cont PPI
CKD3a
Impaired glucose tolerance.
h/o rectal CA s/p surgical resection and chemoradiation
Asthma: Cont Symbicort
Obstructive sleep apnea
Former smoker
Iron deficiency anemia
Anxiety/Depression: cont Zoloft
h/o nephrolithiasis
FULL/Eliquis
PT/OT SNF. Case management aware.
update spouse over the phone on 09/07
Anticipated Discharge: 24 - 48 hours
Subjective/Interval History
-
Date of Service: September 10, 2023
states of mild improvement in back pain
states of anxiety
Objective Data
-
Labs:
Laboratory Results
09/10/23
07:13
WBC 11.2 H
Hgb 10.2 L
Hct 31.5 L
Plt Count 713 H
Sodium 136
Potassium 5.0
Chloride 103
Carbon Dioxide 23
BUN 37 H
Creatinine 1.1
Glucose 163 H
Calcium 9.1
Vital Signs:
Vital Signs
Temp Pulse Resp BP Pulse Ox
97.5 F 92 18 127/65 96
09/10/23 07:00 09/10/23 07:50 09/10/23 07:50 09/10/23 11:55 09/10/23 08:00
I&O
09/09/23 09/10/23 09/11/23
06:59 06:59 06:59
Intake Total 180 / 180 480 / 480
Output Total 950 / 950 700 / 700
Balance -770 / -770 -220 / -220
Data Reviewed
-
Total Time Spent with Patient (in minutes): 55
[2023-09-10] MEDS: LIDOCAINE 4% PATCH 1 PATCH TOPICAL (14:47)
[2023-09-10 15:00] VITALS: BP 130/77
--- NOTE | 2023-09-10 15:46 | W.PN.NEPH.PH ---
Today's Communication / Plan
-
follow labs and vitals
pain control
Assessment/Plan
-
Assessment:
acute on chronic back pain
acute urinary retention
UTI
obstructive uropathy
Afib
HTN
NICOLÁS on CKD3
dementia/delirium
h/o nephrolithiasis
Plan:
stable renal function at baseline
sodium normal today, follow BMP
maintain gómez
no need for Inspra currently
pain management per primary team
MS seem better
d/w and nursing
-
-
Date of Service: September 10, 2023
CC / HPI / ROS
-
Chief Complaint:
NICOLÁS
History of Present Illness:
cr stable at 1.0
nonoliguric-gómez
BP stable
Na better at 136
Review of Systems:
significant back pain
no fever, po intake is poor
no n/v
Labs
-
Labs:
WBC 11.2 10^3/uL (4.8-10.8) H 09/10/23 07:13
RBC 3.76 10^6/uL (4.70-6.10) L 09/10/23 07:13
Hgb 10.2 g/dL (13.0-18.0) L 09/10/23 07:13
Hct 31.5 % (39.0-52.0) L 09/10/23 07:13
Plt Count 713 10^3/uL (130-400) H 09/10/23 07:13
Sodium 136 mmol/L (135-145) 09/10/23 07:13
Potassium 5.0 mmol/L (3.5-5.1) 09/10/23 07:13
Chloride 103 mmol/L (98-107) 09/10/23 07:13
Carbon Dioxide 23 mmol/L (22-30) 09/10/23 07:13
BUN 37 mg/dl (9-20) H 09/10/23 07:13
Creatinine 1.1 mg/dL (0.7-1.3) 09/10/23 07:13
eGFR > 60.00 09/10/23 07:13
Glucose 163 mg/dl (70-99) H 09/10/23 07:13
Calcium 9.1 mg/dl (8.4-10.2) 09/10/23 07:13
Albumin 3.8 g/dl (3.5-5.0) 08/29/23 10:09
Physical Exam
-
Vital Signs:
Vital Signs
Temp Pulse Resp BP Pulse Ox
97.5 F 92 18 127/65 96
09/10/23 07:00 09/10/23 07:50 09/10/23 07:50 09/10/23 11:55 09/10/23 08:00
Cardiovascular:: Regular rate and rhythm
Respiratory:: Bilateral: CTA
Lung Excursion:: Normal
Abdomen:: Nontender and Soft
Extremity Edema:: None: Bilateral:
Gómez Catheter: Yes
[2023-09-10] MEDS: NORCO 5/325 PO ×2 (16:01→22:29)
[2023-09-10 23:09] VITALS: BP 157/84
[2023-09-11] MEDS: VALIUM 2 MG PO (03:54)
[2023-09-11 07:30] VITALS: BP 119/72
[2023-09-11] MEDS: SYMBICORT 160/4.5 MCG INHALER 2 PUFF INH ×2 (07:47→21:25)
[2023-09-11] MEDS: LIDOCAINE 4% PATCH 1 PATCH TOPICAL (08:12)
[2023-09-11] MEDS: PROTONIX 40 MG PO (08:12)
[2023-09-11] MEDS: TYLENOL PO ×3 (08:12→21:46)
[2023-09-11] MEDS: ZOLOFT 50 MG PO (08:13)
[2023-09-11] MEDS: ELIQUIS 5 MG PO ×2 (08:13→20:01)
[2023-09-11] MEDS: OCUVITE SOFTGEL 1 CAP PO (08:13)
[2023-09-11] MEDS: DEPAKOTE ER (24 HR RELEASE) 250 MG PO (08:13)
[2023-09-11] MEDS: COLACE 100 MG PO ×2 (08:13→20:01)
[2023-09-11] MEDS: APRESOLINE 50 MG PO ×3 (08:13→21:45)
[2023-09-11] MEDS: CARDIZEM CD 180 MG PO ×2 (08:13→20:00)
[2023-09-11] MEDS: NORCO 5/325 1 TABLET PO ×2 (08:13→21:45)
[2023-09-11 09:50] VITALS: BP 130/84
--- NOTE | 2023-09-11 09:50 | PTCARENOTE ---
In AM with MD at bedside during rounds, patient verbally unresponsive to questioning. The patient was awake, responding to visual threats, but no verbal response to deep pain stimulation or commands, VSS, BG 168, [employer] initially called and
subsequently cancelled as patient began answering questions. No further needs assessed at this time.
[2023-09-11 09:57] LABS: Glucose - Point of Care 168 mg/dl (70-99)
--- NOTE | 2023-09-11 13:11 | W.PN.HOSP.TC ---
Today's Communication/Plan
-
Trial of Vicodin Tylenol and Dilaudid as needed
Valium as needed
Out of bed with PT
Start disposition efforts
Assessment / Plan
Assessment / Plan
Gen: continues to remain NAD, Awake and alert
Eyes: EOMI, no scleral icterus.
Neck: supple.
CV: remains irreg/irreg, +S1/S2, no m/r/g.
Resp: CTAB anteriorly, no rales, wheezes, or rhonchi.
Abd: +BS, soft, NT, ND
Skin: No rashes.
: Moderate hematuria
Neuro: CN 2-12 intact, moves all 4 extremities
Psych: agitated
08/31/23 14:48 Urine Urine Culture - Final
Diptheroids
MRI L-spine:
1. SEVERE CENTRAL CANAL STENOSIS at L4/L5 secondary to 3.3 mm grade 1 anterolisthesis, severe facet joint arthrosis, and a large disc herniation which has mildly increased since 12/19/2021. Interval increase in size of a large right
foraminal-extraforaminal disc herniation causing exiting right L4 nerve root impingement. Small right subarticular superior disc extrusion which has partially resorbed since 12/19/2021.
2. Moderate central canal stenosis and severe left neural foraminal narrowing at L3/L4 secondary to a large diffuse disc bulge, large left foraminal-extraforaminal disc herniation, and severe left neural foraminal narrowing with exiting left L3
nerve root impingement which has increased since 12/19/2021.
3. Moderate high T2 signal intensity in the L2/L3 intervertebral disc which is new from 12/19/2021. Diagnostic possibilities are (1) progressive discogenic degenerative disease or (2) acute infectious discitis if there are signs/symptoms of
infection. Mild central canal stenosis at L2/L3 which has decreased since 12/19/2021 secondary to interval resorption of a previously visualized moderate-sized disc herniation.
4. 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
5. Severely distended urinary bladder with mild perivesical edema suspicious for acute cystitis. Severe chronic right hydroureteronephrosis which appears unchanged.
CT A/P: Stable severe right hydronephrosis and hydroureter secondary to distal ureteral stones which have enlarged. Numerous bilateral renal cysts. Grossly stable. Moderate hiatal hernia. Stable. Moderate fecal material throughout the colon.
Progressed. Mild prostate hypertrophy. Progressed. Gómez catheter present. Stable.
Acute urinary retention/obstructive uropathy/acute complicated UTI:
-gómez placed 08/31/23 for 850cc cloudy urine as pt with severe bladder distention/urinary retention, will remain in place on d/c
-Urinary retention is likely due to neurogenic bladder due to worsening spinal stenosis and radiculopathy
-Patient with chronic and severe right hydronephrosis causing near complete atrophy of right renal parenchyma
-Acute metabolic encephalopathy due to acute complicated UTI. Also hospital-acquired delirium.
-Uro/ID following
-Cr improved, now at baseline 1.1-1.2
-was on Rocephin, now transitioned Omnicef and completed course
Acute on chronic back pain:
-this was the presenting problem
-PT/OT/CM
-will likely need placement
-Ibuprofen stopped 08/30/23 as pt with CKD and on Eliquis
-MRI L-spine above and notable for DDD with R L4 and L L3 nerve root impingement.
-pt is afebrile and doubt L2/L3 findings represent acute infectious discitis
-start tylenol. DC tramadol. Started on Vicodin continue Dilaudid as needed
-can try valium prn for spasms
-Would avoid further steroids as with paranoid and severe anxiety at times.
-Patient with severe intermittent agitation. Unable to perform BAYRON due to high risk of complications by iRad as patient with agitation. Can be reevaluated as outpatient. Continue with PT OT and probably require rehab on discharge.
Paroxysmal atrial fibrillation:
-Restart Eliquis.
-cont Cardizem
Essential hypertension:
-cont Cardizem/Hydralazine
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
-with hyperkalemia, now resolved
-eplerenone stopped and 250cc NS bolus given 08/30/23
-gómez placed 08/31/23 (component of NICOLÁS was obstructive uropathy)
-Cr improved to baseline s/p IVF and gómez catheter placement/adjustment
Toxic metabolic encephalopathy likely secondary to delirium versus worsening of dementia
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
-Continue to monitor. Intermittent paranoia.Improved.
-Continue to reorient. Limit narcotics.
-If with severe paranoia/hallucination will need psych input
-Fall precaution. off telesitter
Other problems:
Hyponatremia, mild
Non-anion gap metabolic acidosis, resolved with NaHCO3 IVFs
GERD: cont PPI
CKD3a
Impaired glucose tolerance.
h/o rectal CA s/p surgical resection and chemoradiation
Asthma: Cont Symbicort
Obstructive sleep apnea
Former smoker
Iron deficiency anemia
Anxiety/Depression: cont Zoloft
h/o nephrolithiasis
FULL/Eliquis
PT/OT SNF. Case management aware.
update spouse over the phone on 09/07
Anticipated Discharge: Within 24 hours
Subjective/Interval History
-
Date of Service: September 11, 2023
This morning patient was extremely slow to respond. Upon deep sternal rub patient started speaking and stated he was worried about his spouse.
Patient was extremely anxious. After calming patient stated he is fine.
Stated his pain has improved
Objective Data
-
Vital Signs:
Vital Signs
Temp Pulse Resp BP Pulse Ox
97.8 F 104 16 130/84 96
09/11/23 09:50 09/11/23 09:50 09/11/23 09:50 09/11/23 09:50 09/11/23 09:50
I&O
09/10/23 09/11/23 09/12/23
06:59 06:59 06:59
Intake Total 480 / 480 600 / 600
Output Total 700 / 700 900 / 900
Balance -220 / -220 -300 / -300
[2023-09-11] MEDS: DILAUDID 0.5 MG IV (14:05)
--- NOTE | 2023-09-11 15:05 | W.PN.NEPH.PH ---
Today's Communication / Plan
-
will s/o, call with ?s
Assessment/Plan
-
Assessment:
acute on chronic back pain
acute urinary retention
UTI
obstructive uropathy
Afib
HTN
NICOLÁS on CKD3
dementia/delirium
h/o nephrolithiasis
Plan:
stable renal function at baseline
sodium normal, no labs today
maintain gómez per
BP stable no need for Inspra currently-resume if BP are high
improving pain-management per primary team
MS seem better
d/w and pt
-
-
Date of Service: September 11, 2023
CC / HPI / ROS
-
Chief Complaint:
NICOLÁS
History of Present Illness:
cr stable at 1.0, no labs today
nonoliguric-gómez
BP stable
Na better at 136
Review of Systems:
significant back pain-improving today
no fever, more awake and interacting
no n/v
Labs
-
Labs:
WBC 11.2 10^3/uL (4.8-10.8) H 09/10/23 07:13
RBC 3.76 10^6/uL (4.70-6.10) L 09/10/23 07:13
Hgb 10.2 g/dL (13.0-18.0) L 09/10/23 07:13
Hct 31.5 % (39.0-52.0) L 09/10/23 07:13
Plt Count 713 10^3/uL (130-400) H 09/10/23 07:13
Sodium 136 mmol/L (135-145) 09/10/23 07:13
Potassium 5.0 mmol/L (3.5-5.1) 09/10/23 07:13
Chloride 103 mmol/L (98-107) 09/10/23 07:13
Carbon Dioxide 23 mmol/L (22-30) 09/10/23 07:13
BUN 37 mg/dl (9-20) H 09/10/23 07:13
Creatinine 1.1 mg/dL (0.7-1.3) 09/10/23 07:13
eGFR > 60.00 09/10/23 07:13
Glucose 163 mg/dl (70-99) H 09/10/23 07:13
Calcium 9.1 mg/dl (8.4-10.2) 09/10/23 07:13
Albumin 3.8 g/dl (3.5-5.0) 08/29/23 10:09
Physical Exam
-
Vital Signs:
Vital Signs
Temp Pulse Resp BP Pulse Ox
97.8 F 104 16 130/84 96
09/11/23 09:50 09/11/23 09:50 09/11/23 09:50 09/11/23 09:50 09/11/23 09:50
Cardiovascular:: Regular rate and rhythm
Respiratory:: Bilateral: CTA
Lung Excursion:: Normal
Abdomen:: Nontender and Soft
Extremity Edema:: None: Bilateral: (trace)
Gómez Catheter: Yes
[2023-09-11 15:30] VITALS: BP 125/73
[2023-09-11] MEDS: NORCO 5/325 PO (16:13)
[2023-09-11 23:00] VITALS: BP 124/61
[2023-09-12] MEDS: TYLENOL PO ×2 (06:56→15:46)
[2023-09-12] MEDS: DEPAKOTE ER (24 HR RELEASE) 250 MG PO (07:49)
[2023-09-12] MEDS: COLACE 100 MG PO ×2 (07:49→20:56)
[2023-09-12] MEDS: ELIQUIS 5 MG PO ×2 (07:49→20:56)
[2023-09-12] MEDS: PROTONIX 40 MG PO (07:49)
[2023-09-12] MEDS: LIDOCAINE 4% PATCH 1 PATCH TOPICAL (07:49)
[2023-09-12] MEDS: NORCO 5/325 1 TABLET PO ×3 (07:50→17:50)
[2023-09-12] MEDS: ZOLOFT 50 MG PO (07:50)
[2023-09-12] MEDS: OCUVITE SOFTGEL 1 CAP PO (07:50)
[2023-09-12] MEDS: CARDIZEM CD 180 MG PO ×2 (07:50→20:56)
[2023-09-12] MEDS: APRESOLINE 50 MG PO ×3 (07:52→20:55)
[2023-09-12] MEDS: SYMBICORT 160/4.5 MCG INHALER 2 PUFF INH ×2 (08:12→19:51)
[2023-09-12 08:24] VITALS: BP 147/77
--- NOTE | 2023-09-12 11:41 | W.PN.HOSP.TC ---
Today's Communication/Plan
-
Pain control
uptitrate as needed
await repeat PT [id number]
valium prn for spasms
Assessment / Plan
Assessment / Plan
Gen: continues to remain NAD, Awake and alert
Eyes: EOMI, no scleral icterus.
Neck: supple.
CV: remains irreg/irreg, +S1/S2, no m/r/g.
Resp: CTAB anteriorly, no rales, wheezes, or rhonchi.
Abd: +BS, soft, NT, ND
Skin: No rashes.
: Moderate hematuria
Neuro: CN 2-12 intact, moves all 4 extremities
Psych: agitated
08/31/23 14:48 Urine Urine Culture - Final
Diptheroids
MRI L-spine:
1. SEVERE CENTRAL CANAL STENOSIS at L4/L5 secondary to 3.3 mm grade 1 anterolisthesis, severe facet joint arthrosis, and a large disc herniation which has mildly increased since 12/19/2021. Interval increase in size of a large right
foraminal-extraforaminal disc herniation causing exiting right L4 nerve root impingement. Small right subarticular superior disc extrusion which has partially resorbed since 12/19/2021.
2. Moderate central canal stenosis and severe left neural foraminal narrowing at L3/L4 secondary to a large diffuse disc bulge, large left foraminal-extraforaminal disc herniation, and severe left neural foraminal narrowing with exiting left L3
nerve root impingement which has increased since 12/19/2021.
3. Moderate high T2 signal intensity in the L2/L3 intervertebral disc which is new from 12/19/2021. Diagnostic possibilities are (1) progressive discogenic degenerative disease or (2) acute infectious discitis if there are signs/symptoms of
infection. Mild central canal stenosis at L2/L3 which has decreased since 12/19/2021 secondary to interval resorption of a previously visualized moderate-sized disc herniation.
4. 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
5. Severely distended urinary bladder with mild perivesical edema suspicious for acute cystitis. Severe chronic right hydroureteronephrosis which appears unchanged.
CT A/P: Stable severe right hydronephrosis and hydroureter secondary to distal ureteral stones which have enlarged. Numerous bilateral renal cysts. Grossly stable. Moderate hiatal hernia. Stable. Moderate fecal material throughout the colon.
Progressed. Mild prostate hypertrophy. Progressed. Gómez catheter present. Stable.
Acute urinary retention/obstructive uropathy/acute complicated UTI:
-gómez placed 08/31/23 for 850cc cloudy urine as pt with severe bladder distention/urinary retention, will remain in place on d/c
-Urinary retention is likely due to neurogenic bladder due to worsening spinal stenosis and radiculopathy
-Patient with chronic and severe right hydronephrosis causing near complete atrophy of right renal parenchyma
-Acute metabolic encephalopathy due to acute complicated UTI. Also hospital-acquired delirium.
-Uro/ID following
-Cr improved, now at baseline 1.1-1.2
-was on Rocephin, now transitioned Omnicef and completed course
Acute on chronic back pain:
-this was the presenting problem
-PT/OT/CM
-will likely need placement
-Ibuprofen stopped 08/30/23 as pt with CKD and on Eliquis
-MRI L-spine above and notable for DDD with R L4 and L L3 nerve root impingement.
-pt is afebrile and doubt L2/L3 findings represent acute infectious discitis
-start tylenol. DC tramadol. Started on Vicodin. continue Dilaudid as needed
-can try valium prn for spasms
-Would avoid further steroids as with paranoid and severe anxiety at times.Received few doses not much improvement.
-Patient with severe intermittent agitation. Unable to perform BAYRON due to high risk of complications by iRad as patient with agitation. Can be reevaluated as outpatient. Continue with PT OT and probably require rehab on discharge.
Paroxysmal atrial fibrillation:
-Restart Eliquis.
-cont Cardizem
Essential hypertension:
-cont Cardizem/Hydralazine
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
-with hyperkalemia, now resolved
-eplerenone stopped and 250cc NS bolus given 08/30/23
-gómez placed 08/31/23 (component of NICOLÁS was obstructive uropathy)
-Cr improved to baseline s/p IVF and gómez catheter placement/adjustment
Toxic metabolic encephalopathy likely secondary to delirium versus worsening of dementia
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
-Continue to monitor. Intermittent paranoia.Improved.
-Continue to reorient. Limit narcotics.
-If with severe paranoia/hallucination will need psych input
-Fall precaution. off telesitter
Other problems:
Hyponatremia, mild
Non-anion gap metabolic acidosis, resolved with NaHCO3 IVFs
GERD: cont PPI
CKD3a
Impaired glucose tolerance.
h/o rectal CA s/p surgical resection and chemoradiation
Asthma: Cont Symbicort
Obstructive sleep apnea
Former smoker
Iron deficiency anemia
Anxiety/Depression: cont Zoloft
h/o nephrolithiasis
FULL/Eliquis
PT/OT SNF. Repeat PT eval pending. Last seen few days ago. PT aware. Case management aware.
update spouse over the phone on 09/07
Anticipated Discharge: 24 - 48 hours
Subjective/Interval History
-
Date of Service: September 12, 2023
More awake and talkative
understand need to get OOB
Objective Data
-
Vital Signs:
Vital Signs
Temp Pulse Resp BP Pulse Ox
97.9 F 78 16 147/77 97
09/12/23 08:24 09/12/23 08:25 09/12/23 08:25 09/12/23 08:24 09/12/23 08:25
I&O
09/11/23 09/12/23 09/13/23
06:59 06:59 06:59
Intake Total 600 / 600 480 / 480
Output Total 900 / 900 575 / 575
Balance -300 / -300 -95 / -95
--- NOTE | 2023-09-12 13:04 | CM ---
Addendum entered by Breana Chance 09/12/23 13:13:
Updated spouse.
Original Note:
Patient off medsitter.
Continue pain management.
Chen catheter.
Need updated therapy notes for insurance authorization.
Plan: skilled rehab once able to participate in therapy, bed available and insurance auth completed.
[2023-09-12 15:25] VITALS: BP 122/63
[2023-09-12] MEDS: TYLENOL 1000 MG PO (20:55)
[2023-09-12 23:11] VITALS: BP 138/76
[2023-09-13] MEDS: SYMBICORT 160/4.5 MCG INHALER 2 PUFF INH (06:09)
[2023-09-13 07:20] VITALS: BP 143/81
[2023-09-13] MEDS: DEPAKOTE ER (24 HR RELEASE) 250 MG PO (09:03)
[2023-09-13] MEDS: ELIQUIS 5 MG PO (09:03)
[2023-09-13] MEDS: APRESOLINE 50 MG PO ×2 (09:04→15:51)
[2023-09-13] MEDS: PROTONIX 40 MG PO (09:04)
[2023-09-13] MEDS: COLACE 100 MG PO (09:04)
[2023-09-13] MEDS: LIDOCAINE 4% PATCH 1 PATCH TOPICAL (09:07)
[2023-09-13] MEDS: SENOKOT 17.1999999999999993 MG PO (09:07)
[2023-09-13] MEDS: ZOLOFT 50 MG PO (09:07)
[2023-09-13] MEDS: OCUVITE SOFTGEL 1 CAP PO (09:07)
[2023-09-13] MEDS: CARDIZEM CD 180 MG PO (09:08)
[2023-09-13] MEDS: MIRALAX 17 GRAMS PO (09:10)
[2023-09-13] MEDS: TYLENOL PO ×3 (09:14→09:53)
[2023-09-13] MEDS: NORCO 5/325 1 TABLET PO ×2 (09:42→12:42)
[2023-09-13] MEDS: NORCO 5/325 PO (09:45)
[2023-09-13] MEDS: MILK OF MAGNESIA 30 ML PO (09:52)
[2023-09-13 11:23] LABS: Total Iron Binding Capacity 245 ug/dl (261-462)
[2023-09-13 12:04] LABS: Glycohemoglobin (HgbA1c) 6.2 % (4.0-5.6)
[2023-09-13 12:07] VITALS: BP 113/59; PULSE 94
[2023-09-13 12:08] LABS: Ferritin 88.7 ng/ml (17.9-464.0)
[2023-09-13 12:14] LABS: Iron 27 ug/dl (49-181); Percent Saturation 11 % (20-50)
[2023-09-13 12:22] LABS: Vitamin B12 > 1000 pg/ml (239-931)
[2023-09-13 12:40] VITALS: BP 113/59; PULSE 94
--- NOTE | 2023-09-13 12:44 | CM ---
Addendum entered by Breana Chance 09/13/23 14:56:
Per [facility], they need documentation of when restraints and medsitter discontinued. They need patients pain to be under control and they can only accept if max assist of 2, not 3.
Continue to follow for medical stability.
Plan: skilled rehab when stable, will need insurance auth.
Original Note:
Updates to [facility] to see if they can accept patient.
Will need insurance auth once bed available.
Plan: skilled rehab when bed available and auth obtained.
[2023-09-13 15:30] VITALS: BP 126/65
--- NOTE | 2023-09-13 15:44 | W.PN.HOSP.TC ---
Today's Communication/Plan
-
Bowel regimen
X-ray of the Right hip
PT OT as tolerated
Off Dilaudid and Valium
Added Flexeril
Oxycodone
Continue Tylenol
Add Lidoderm
Assessment / Plan
Assessment / Plan
MRI L-spine:
1. SEVERE CENTRAL CANAL STENOSIS at L4/L5 secondary to 3.3 mm grade 1 anterolisthesis, severe facet joint arthrosis, and a large disc herniation which has mildly increased since 12/19/2021. Interval increase in size of a large right
foraminal-extraforaminal disc herniation causing exiting right L4 nerve root impingement. Small right subarticular superior disc extrusion which has partially resorbed since 12/19/2021.
2. Moderate central canal stenosis and severe left neural foraminal narrowing at L3/L4 secondary to a large diffuse disc bulge, large left foraminal-extraforaminal disc herniation, and severe left neural foraminal narrowing with exiting left L3
nerve root impingement which has increased since 12/19/2021.
3. Moderate high T2 signal intensity in the L2/L3 intervertebral disc which is new from 12/19/2021. Diagnostic possibilities are (1) progressive discogenic degenerative disease or (2) acute infectious discitis if there are signs/symptoms of
infection. Mild central canal stenosis at L2/L3 which has decreased since 12/19/2021 secondary to interval resorption of a previously visualized moderate-sized disc herniation.
4. 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
5. Severely distended urinary bladder with mild perivesical edema suspicious for acute cystitis. Severe chronic right hydroureteronephrosis which appears unchanged.
CT A/P: Stable severe right hydronephrosis and hydroureter secondary to distal ureteral stones which have enlarged. Numerous bilateral renal cysts. Grossly stable. Moderate hiatal hernia. Stable. Moderate fecal material throughout the colon.
Progressed. Mild prostate hypertrophy. Progressed. Chen catheter present. Stable.
CVS S1S2 Irregular
Chest - Decreased
right leg externally rotated
Abd- Distended, BS present.
# Acute urinary retention/obstructive uropathy/acute complicated UTI:
-Chen placed 08/31/23 for 850cc cloudy urine as pt with severe bladder distention/urinary retention, will remain in place on d/c
-Urinary retention is likely due to neurogenic bladder due to worsening spinal stenosis and radiculopathy
-Patient with chronic and severe right hydronephrosis causing near complete atrophy of right renal parenchyma
-Acute metabolic encephalopathy due to acute complicated UTI. Also hospital-acquired delirium.
-Uro/ID following
-Cr improved, now at baseline 1.1-1.2
-was on Rocephin, transitioned Omnicef and completed course
# Acute on chronic back pain:
-This was the presenting problem
-Ibuprofen stopped 08/30/23 as pt with CKD and on Eliquis
-MRI L-spine above and notable for DDD with R L4 and L L3 nerve root impingement.
-pt is afebrile and doubt L2/L3 findings represent acute infectious discitis
-Tylenol. Stopped tramadol. Started on Vicodin. Stop Dilaudid
-Stop Valium. Will try Flexeril as needed for spasm if needed
-Would avoid further steroids as with paranoid and severe anxiety at times.Received few doses not much improvement.
-Patient with severe intermittent agitation. Unable to perform BAYRON due to high risk of complications by [facility] as patient with agitation.
# Paroxysmal atrial fibrillation:
-Continue Cardizem and Eliquis.
# Essential hypertension:
-Cont Cardizem/Hydralazine
# NICOLÁS on CKD3b:
-with hyperkalemia, now resolved
-eplerenone stopped and 250cc NS bolus given 08/30/23
-Chen placed 08/31/23 (component of NICOLÁS was obstructive uropathy)
-Cr improved to baseline s/p IVF and Chen catheter placement/adjustment
# Toxic metabolic encephalopathy likely secondary to delirium versus worsening of dementia
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
-Continue to monitor. Intermittent paranoia.Improved.
-Continue to reorient. Limit narcotics.
-If with severe paranoia/hallucination will need psych input
-Fall precaution. off Medsitter
# Hypoglycemia-add hemoglobin A1c
# Hyponatremia, mild-resolved
# Non-anion gap metabolic acidosis, resolved with NaHCO3 IVFs
# GERD/hiatal hernia-cont PPI
# CKD3a
# Impaired glucose tolerance.
# h/o rectal CA s/p surgical resection and chemoradiation
# Asthma: Cont Symbicort
# Obstructive sleep apnea-CPAP
# Former smoker
# Iron deficiency anemia
# Anxiety/Depression: cont Zoloft
# Obesity per BMI criteria
# Prostatic hypertrophy
# H/O nephrolithiasis
# CODE STATUS readdressed with the patient's who wants to make him DNR. Changed.
#DVT prophylaxis -Eliquis
PT/OT SNF.
Discussed with nursing
Discussed with case management
Discussed with patient's in detail including CODE STATUS
Anticipated Discharge: Within 24 hours
Subjective/Interval History
-
Date of Service: September 13, 2023
Objective Data
-
Vital Signs:
Vital Signs
Temp Pulse Resp BP Pulse Ox
97.5 F 83 18 143/81 96
09/13/23 07:20 09/13/23 09:04 09/13/23 07:20 09/13/23 09:04 09/13/23 07:20
I&O
09/12/23 09/13/23 09/14/23
06:59 06:59 06:59
Intake Total 480 / 480
Output Total 1700 / 1700
Balance -1220 / -1220
[2023-09-13] MEDS: CITROMA 300 ML PO (16:03)
[2023-09-13] MEDS: TYLENOL 1000 MG PO (16:04)
[2023-09-13] MEDS: COLACE PO ×2 (19:36→20:28)
[2023-09-13] MEDS: ELIQUIS PO ×2 (19:36→20:28)
[2023-09-13] MEDS: SENOKOT PO ×2 (19:36→20:28)
[2023-09-13] MEDS: FLEXERIL PO ×2 (19:39→20:28)
[2023-09-13] MEDS: CARDIZEM CD PO ×2 (19:45→20:28)
[2023-09-13] MEDS: ROXICODONE 5 MG PO (19:46)
[2023-09-13] MEDS: SYMBICORT 160/4.5 MCG INHALER INH (20:49)
[2023-09-13] MEDS: APRESOLINE PO (21:22)
[2023-09-13 23:25] VITALS: BP 132/70
[2023-09-14] MEDS: TYLENOL PO (01:13)
[2023-09-14] MEDS: SYMBICORT 160/4.5 MCG INHALER 2 PUFF INH ×2 (07:51→19:27)
[2023-09-14] MEDS: SENOKOT 17.1999999999999993 MG PO ×2 (07:57→19:46)
[2023-09-14] MEDS: APRESOLINE 50 MG PO ×3 (07:57→21:24)
[2023-09-14] MEDS: ELIQUIS 5 MG PO (07:57)
[2023-09-14] MEDS: CARDIZEM CD 180 MG PO ×2 (07:57→19:45)
[2023-09-14] MEDS: TYLENOL 1000 MG PO ×2 (07:57→17:00)
[2023-09-14] MEDS: OCUVITE SOFTGEL 1 CAP PO (07:58)
[2023-09-14] MEDS: FLEXERIL 2.5 MG PO ×2 (07:58→21:23)
[2023-09-14] MEDS: MIRALAX 17 GRAMS PO (07:59)
[2023-09-14] MEDS: DEPAKOTE ER (24 HR RELEASE) 250 MG PO (07:59)
[2023-09-14] MEDS: LIDOCAINE 4% PATCH 1 PATCH TOPICAL ×2 (07:59→13:44)
[2023-09-14] MEDS: COLACE 100 MG PO ×2 (07:59→19:45)
[2023-09-14] MEDS: ZOLOFT 50 MG PO (07:59)
[2023-09-14] MEDS: PROTONIX 40 MG PO (07:59)
[2023-09-14 08:01] VITALS: BP 131/69
--- NOTE | 2023-09-14 10:51 | W.PN.HOSP.TC ---
Today's Communication/Plan
-
Hold Eliquis
Orthopedic evaluation
OR Wednesday
SCDs
Enema for bowel movements
Assessment / Plan
Assessment / Plan
MRI L-spine:
1. SEVERE CENTRAL CANAL STENOSIS at L4/L5 secondary to 3.3 mm grade 1 anterolisthesis, severe facet joint arthrosis, and a large disc herniation which has mildly increased since 12/19/2021. Interval increase in size of a large right
foraminal-extraforaminal disc herniation causing exiting right L4 nerve root impingement. Small right subarticular superior disc extrusion which has partially resorbed since 12/19/2021.
2. Moderate central canal stenosis and severe left neural foraminal narrowing at L3/L4 secondary to a large diffuse disc bulge, large left foraminal-extraforaminal disc herniation, and severe left neural foraminal narrowing with exiting left L3
nerve root impingement which has increased since 12/19/2021.
3. Moderate high T2 signal intensity in the L2/L3 intervertebral disc which is new from 12/19/2021. Diagnostic possibilities are (1) progressive discogenic degenerative disease or (2) acute infectious discitis if there are signs/symptoms of
infection. Mild central canal stenosis at L2/L3 which has decreased since 12/19/2021 secondary to interval resorption of a previously visualized moderate-sized disc herniation.
4. 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
5. Severely distended urinary bladder with mild perivesical edema suspicious for acute cystitis. Severe chronic right hydroureteronephrosis which appears unchanged.
CT A/P: Stable severe right hydronephrosis and hydroureter secondary to distal ureteral stones which have enlarged. Numerous bilateral renal cysts. Grossly stable. Moderate hiatal hernia. Stable. Moderate fecal material throughout the colon.
Progressed. Mild prostate hypertrophy. Progressed. Chen catheter present. Stable.
CVS S1S2 Irregular
Chest - Decreased
right leg externally rotated
Abd- Distended, BS present.
#RLE externally rotated
X ray shows acute/subacute subcapital/transcervical fracture of the proximal right femur with a 2 cm impaction of the distal fracture fragment.
Eliquis placed on hold last dose was morning of 09/14/2023
Orthopedics consulted
Bedrest until surgery
# Constipation- Enema
# Acute urinary retention/obstructive uropathy/acute complicated UTI:
-Chen placed 08/31/23 for 850cc cloudy urine as pt with severe bladder distention/urinary retention, will remain in place on d/c
-Urinary retention is likely due to neurogenic bladder due to worsening spinal stenosis and radiculopathy
-Patient with chronic and severe right hydronephrosis causing near complete atrophy of right renal parenchyma
-Acute metabolic encephalopathy due to acute complicated UTI. Also hospital-acquired delirium.
-Cr improved, now at baseline 1.1-1.2
-was on Rocephin, transitioned Omnicef and completed course
# Acute on chronic back pain:
-This was the presenting problem
-Ibuprofen stopped 08/30/23 as pt with CKD and on Eliquis
-MRI L-spine above and notable for DDD with R L4 and L L3 nerve root impingement.
-pt is afebrile and doubt L2/L3 findings represent acute infectious discitis
-Tylenol. Stopped tramadol. Started on Vicodin. Stop Dilaudid
-Stop Valium. Will try Flexeril as needed for spasm if needed
-Would avoid further steroids as with paranoid and severe anxiety at times.Received few doses not much improvement.
-Patient with severe intermittent agitation. Unable to perform BAYRON due to high risk of complications by [facility] as patient with agitation.
# Paroxysmal atrial fibrillation:
-Continue Cardizem and Eliquis.
# Essential hypertension:
-Cont Cardizem/Hydralazine
# NICOLÁS on CKD3b:
-with hyperkalemia, now resolved
-eplerenone stopped and 250cc NS bolus given 08/30/23
-Chen placed 08/31/23 (component of NICOLÁS was obstructive uropathy)
-Cr improved to baseline s/p IVF and Chen catheter placement/adjustment
# Toxic metabolic encephalopathy likely secondary to delirium versus worsening of dementia
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
-Continue to monitor. Intermittent paranoia.Improved.
-Continue to reorient. Limit narcotics.
-If with severe paranoia/hallucination will need psych input
-Fall precaution. off Medsitter
# Hypoglycemia-HbA1C 6.2. Not reliable.
# Hyponatremia, mild-resolved
# Non-anion gap metabolic acidosis, resolved with NaHCO3 IVFs
# GERD/hiatal hernia-cont PPI
# CKD3a
# Impaired glucose tolerance.
# h/o rectal CA s/p surgical resection and chemoradiation
# Asthma: Cont Symbicort
# Obstructive sleep apnea-CPAP
# Former smoker
# Iron deficiency anemia
# Anxiety/Depression: cont Zoloft
# Obesity per BMI criteria
# Prostatic hypertrophy
# H/O nephrolithiasis
# CODE STATUS readdressed with the patient's who wants to make him DNR. Changed.
# DVT prophylaxis -Eliquis placed on hold
SCDS
Discussed with nursing
Discussed with case management
Discussed with patient's in detail updated re X ray and the need for surgery
Discussed with Ortho
time spent 53 min
Anticipated Discharge: > 48 hours
Subjective/Interval History
-
Date of Service: September 14, 2023
Objective Data
-
Vital Signs:
Vital Signs
Temp Pulse Resp BP Pulse Ox
98.0 F 88 18 131/69 95
09/14/23 08:01 09/14/23 08:01 09/14/23 08:01 09/14/23 08:01 09/14/23 08:01
I&O
09/13/23 09/14/23 09/15/23
06:59 06:59 06:59
Intake Total 480 / 480 240 / 240
Output Total 1700 / 1700 650 / 650
Balance -1220 / -1220 -410 / -410
[2023-09-14] MEDS: DILAUDID 1 MG PO (13:45)
[2023-09-14 14:35] LABS: Hematocrit 33.8 % (39.0-52.0); Hemoglobin 11.3 g/dL (13.0-18.0); Mean Corp Hgb Conc. 33.4 g/dL (33.0-37.0); Mean Corpuscular Hgb 27.2 pg (27.0-31.0); Mean Corpuscular Volume 81.3 fL (80.0-94.0); Mean Platelet Volume 9.3 fL (7.4-10.4); Platelet Count 718 10^3/uL (130-400); Red Blood Cell Count 4.16 10^6/uL (4.70-6.10); Red Cell Dist. Width 16.6 % (11.5-14.5); White Blood Cell Count 11.8 10^3/uL (4.8-10.8)
[2023-09-14 14:56] LABS: Blood Urea Nitrogen 30 mg/dl (9-20); Calcium 9.4 mg/dl (8.4-10.2); Carbon Dioxide 27 mmol/L (22-30); Chloride 99 mmol/L (98-107); Estimated Creatinine Clearance 52 ml/min; Glucose 176 mg/dl (70-99); Sodium 135 mmol/L (135-145); eGFR > 60.00
--- NOTE | 2023-09-14 15:16 | CM ---
Patient seen bedside.
Patient with fx hip.
Ortho consulted.
Plan skilled rehab when medically stable.
[2023-09-14 16:00] VITALS: BP 150/79
[2023-09-14 16:48] VITALS: BP 150/79
[2023-09-14 23:33] VITALS: BP 143/84
[2023-09-15] MEDS: TYLENOL PO (02:07)
[2023-09-15 07:36] LABS: Hematocrit 34.1 % (39.0-52.0); Mean Corp Hgb Conc. 32.3 g/dL (33.0-37.0); Mean Corpuscular Hgb 26.9 pg (27.0-31.0); Mean Corpuscular Volume 83.4 fL (80.0-94.0); Mean Platelet Volume 9.4 fL (7.4-10.4); Platelet Count 694 10^3/uL (130-400); Red Blood Cell Count 4.09 10^6/uL (4.70-6.10); Red Cell Dist. Width 16.8 % (11.5-14.5); White Blood Cell Count 10.5 10^3/uL (4.8-10.8)
[2023-09-15 07:42] LABS: Blood Urea Nitrogen 27 mg/dl (9-20); Calcium 9.4 mg/dl (8.4-10.2); Carbon Dioxide 28 mmol/L (22-30); Chloride 100 mmol/L (98-107); Estimated Creatinine Clearance 57 ml/min; Glucose 160 mg/dl (70-99); Potassium 4.9 mmol/L (3.5-5.1); Sodium 136 mmol/L (135-145); eGFR > 60.00
[2023-09-15] MEDS: SYMBICORT 160/4.5 MCG INHALER 2 PUFF INH ×2 (07:49→19:27)
--- NOTE | 2023-09-15 07:56 | W.PN.HOSP.TC ---
Today's Communication/Plan
-
see A/P
Assessment / Plan
Assessment / Plan
MRI L-spine:
1. SEVERE CENTRAL CANAL STENOSIS at L4/L5 secondary to 3.3 mm grade 1 anterolisthesis, severe facet joint arthrosis, and a large disc herniation which has mildly increased since 12/19/2021. Interval increase in size of a large right
foraminal-extraforaminal disc herniation causing exiting right L4 nerve root impingement. Small right subarticular superior disc extrusion which has partially resorbed since 12/19/2021.
2. Moderate central canal stenosis and severe left neural foraminal narrowing at L3/L4 secondary to a large diffuse disc bulge, large left foraminal-extraforaminal disc herniation, and severe left neural foraminal narrowing with exiting left L3
nerve root impingement which has increased since 12/19/2021.
3. Moderate high T2 signal intensity in the L2/L3 intervertebral disc which is new from 12/19/2021. Diagnostic possibilities are (1) progressive discogenic degenerative disease or (2) acute infectious discitis if there are signs/symptoms of
infection. Mild central canal stenosis at L2/L3 which has decreased since 12/19/2021 secondary to interval resorption of a previously visualized moderate-sized disc herniation.
4. 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
5. Severely distended urinary bladder with mild perivesical edema suspicious for acute cystitis. Severe chronic right hydroureteronephrosis which appears unchanged.
CT A/P: Stable severe right hydronephrosis and hydroureter secondary to distal ureteral stones which have enlarged. Numerous bilateral renal cysts. Grossly stable. Moderate hiatal hernia. Stable. Moderate fecal material throughout the colon.
Progressed. Mild prostate hypertrophy. Progressed. Chen catheter present. Stable.
A/P:
# Acute on chronic back pain (this was the presenting problem)
Ibuprofen stopped 08/30/23 as pt with CKD and was on Eliquis
MRI L-spine above and notable for DDD with R L4 and L L3 nerve root impingement.
Cont Tylenol 1000 mg TID ATC, Dilaudid PRN
Continue PRN Flexeril for spasm
Off tramadol/Vicodin/Valium
# acute/subacute subcapital/transcervical fracture of the proximal right femur
Eliquis placed on hold, last dose was morning of 09/14/2023
Orthopedics consulted, plan for surgery Wednesday
# Constipation- Enema
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
# Acute urinary retention/obstructive uropathy
# acute complicated UTI
# hyperkalemia, resolved
eplerenone stopped
Chen placed 08/31/23 (component of NICOLÁS was obstructive uropathy)
Cr improved, today at 1.0, baseline 1.1-1.2
Chen placed 08/31/23 for severe bladder distention/urinary retention, to remain in place on d/c
Chronic severe R hydronephrosis and poorly functioning R kidney likely due to recurrent stone disease or stricture
was on Rocephin, transitioned Omnicef and completed course
# Paroxysmal atrial fibrillation
Continue Cardizem
Eliquis on hold
# Essential hypertension:
Cont Cardizem/Hydralazine
# Acute metabolic encephalopathy due to acute complicated UTI, also hospital-acquired delirium versus worsening of dementia
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
Intermittent paranoia has improved. Continue to reorient.
If with severe paranoia/hallucination will need psych input
Fall precaution. off Medsitter
# Hypoglycemia-HbA1C 6.2. Not reliable.
# Hyponatremia, mild-resolved
# Non-anion gap metabolic acidosis, resolved with NaHCO3 IVFs
# GERD/hiatal hernia-cont PPI
# h/o rectal CA s/p surgical resection and chemoradiation
# Asthma: Cont Symbicort
# Obstructive sleep apnea-CPAP
# Former smoker
# Iron deficiency anemia
# Anxiety/Depression: cont Zoloft
# Obesity per BMI criteria
# Prostatic hypertrophy
# H/O nephrolithiasis
CODE STATUS readdressed with the patient's who wants to make him DNR- changed.
DVT prophylaxis -Eliquis placed on hold, SCDs for now
time spent 53 min
Anticipated Discharge: > 48 hours
Subjective/Interval History
-
Date of Service: September 15, 2023
Objective Data
-
Labs:
Laboratory Results
09/15/23
06:48
WBC 10.5
Hgb 11.0 L
Hct 34.1 L
Plt Count 694 H
Sodium 136
Potassium 4.9
Chloride 100
Carbon Dioxide 28
BUN 27 H
Creatinine 1.0
Glucose 160 H
Calcium 9.4
Vital Signs:
Vital Signs
Temp Pulse Resp BP Pulse Ox
36.3 C 86 18 143/84 95
09/14/23 23:33 09/14/23 23:33 09/14/23 23:33 09/14/23 23:33 09/14/23 23:33
I&O
09/14/23 09/15/23 09/16/23
06:59 06:59 06:59
Intake Total 240 / 240 360 / 360
Output Total 650 / 650 1200 / 1200
Balance -410 / -410 -840 / -840
Review of Systems
-
Unable to obtain full review of systems at this time due to: Dementia
All other systems: Reviewed and negative
Physical Exam
-
General: Well Developed, Well Nourished, No Apparent Distress, Comfortable, Conversant and Appears Chronically Ill; Negative Respiratory Distress
HEENT: Normocephalic, Atraumatic, Nose Appears Normal and Ears Appear Normal; Negative Oxygen
Respiratory: Clear to Auscultation and Non Labored Respirations; Negative Accessory Resp Muscle Use
Cardiac: Regular Rhythm and S1/S2
GI: Soft, Nontender, Nondistended and Normal Bowel Sounds
Skin: Warm and Dry
Neuro: Awake
Psych: Calm and Apparent Dementia
Data Reviewed
-
Diagnostic Radiology: Report Reviewed by me
MRI: Report Reviewed by me
Labs: Labs Reviewed by me
[2023-09-15 08:08] VITALS: BP 126/69
[2023-09-15] MEDS: MIRALAX 17 GRAMS PO (08:19)
[2023-09-15] MEDS: LIDOCAINE 4% PATCH 1 PATCH TOPICAL ×2 (08:19→08:20)
[2023-09-15] MEDS: ZOLOFT 50 MG PO (08:20)
[2023-09-15] MEDS: FLEXERIL 2.5 MG PO ×2 (08:20→19:45)
[2023-09-15] MEDS: SENOKOT 17.1999999999999993 MG PO (08:20)
[2023-09-15] MEDS: COLACE 100 MG PO (08:20)
[2023-09-15] MEDS: OCUVITE SOFTGEL 1 CAP PO (08:20)
[2023-09-15] MEDS: DEPAKOTE ER (24 HR RELEASE) 250 MG PO (08:20)
[2023-09-15] MEDS: TYLENOL 1000 MG PO ×2 (08:20→16:47)
[2023-09-15] MEDS: APRESOLINE 50 MG PO ×3 (08:21→23:00)
[2023-09-15] MEDS: CARDIZEM CD 180 MG PO ×2 (08:21→19:45)
[2023-09-15] MEDS: PROTONIX 40 MG PO (08:21)
--- NOTE | 2023-09-15 08:23 | CON.ORTHO ---
Consultation
-
Date/Time Consultation Requested: 09/14/2023; time unknown
Date/Time Consultation Performed: 09/15/2023; 0645
Requesting Provider: unknown
Performing Provider: Saniya Sommer PA-C for Dr. Beau Tapia
Reason for Consultation: Right hip fracture
Consultation - Orthopedics
History
Mr. Tavares is an 87 year old male with extensive past medical history seen today for evaluation of his right hip. He was mildly confused this morning, and reports he does not recall sustaining any falls. Per note from ED, patient did have a slip and
fall out of bed prior to presenting to ED. He was admitted initially for intractable low back pain, and his was unable to care for him at home. Yesterday, hospitalist noticed his right leg was shortened and externally rotated and x-ray
revealed femoral neck fracture. He denies any pain in the hip or low back at present. He reports he lives at home with his . He typically utilized a cane for ambulating.
History of bilateral total knee replacements. History of a-fib on Eliquis. As far as I can tell, no history of DVT, CVA, [place] or DM.
Allergies / Home Medications
Allergy/AdvReac Type Severity Reaction Status Date / Time
oxycodone AdvReac Unknown Verified 09/14/23 13:38
�Medication �Instructions �Recorded
albuterol sulfate 90 mcg/actuation 2 puff IH R Q4HPRN PRN sob 09/07/16
aerosol inhaler (ProAir HFA)
budesonide-formoterol HFA 160 2 puff inhalation R BID 09/07/16
mcg-4.5 mcg/actuation aerosol Lung/breathing issues
inhaler (Symbicort)
sertraline 25 mg tablet 50 mg PO DAILY Mental 09/07/16
Health/Anxiety
vitamins A,C,C-dafo-mdpnhb 4,296 1 cap PO BID Supplement 09/21/17
mcg-226 mg-90 mg capsule
(PreserVision AREDS)
eplerenone 25 mg tablet 50 mg (2 x 25 mg) PO DAILY 10/14/17
diltiazem HCl 180 mg 180 mg PO BID 07/23/21
capsule,extended release 24 hr
apixaban 5 mg tablet (Eliquis) 2.5 mg PO BID Blood Clot 08/12/22
Prevention/Tx
acetaminophen 650 mg 1,300 mg PO Q8HPRN PRN mild pain 08/29/23
tablet,extended release
divalproex 250 mg tablet,extended 250 mg PO DAILY 08/29/23
release 24 hr
docusate sodium 100 mg capsule 100 mg PO BID Constipation 08/29/23
(Colace)
ibuprofen 200 mg tablet (Advil) 400 mg PO DAILYPRN PRN mild pain 08/29/23
omeprazole 20 mg capsule,delayed 20 mg PO DAILYPRN PRN gerd 08/29/23
release
Vital Signs / Lab Results
Temp Pulse Resp BP Pulse Ox
97.4 F 85 16 126/69 95
09/15/23 08:08 09/15/23 08:16 09/15/23 08:16 09/15/23 08:08 09/15/23 08:16
09/15/23 06:48
09/15/23 06:48
XR Right Hip IMPRESSION:
There is acute/subacute subcapital/transcervical fracture of the proximal right femur with 2 cm impaction of the distal fracture fragment.
Directed exam of the right lower extremity reveals leg shortened and externally rotated. Tenderness to palpation about the anterior hip. Thigh soft and compressible. ROM deferred secondary to known fracture. Positive log roll. Calf soft and
nontender. Neurovascularly intact distally.
Assessment / Plan
Right hip subcapital femur fracture
--Unfortunately, Kyler sustained a subcapital femur fracture. I recommend proceeding with a right hip hemiarthroplasty. We did discuss the risks, benefits, alternatives, recovery process and potential complications and all patient questions were
answered. He was mildly confused this morning, so I will wait to obtain consent. We will tentatively plan for OR on Wednesday (09/16) under the direction of Dr. Tapia following Eliquis washout.
--Would appreciate input from medicine regarding medical clearance for OR.
--NWB to LRE until surgery.
--NPO after midnight 09/16 for OR.
--Continue pain control per primary.
--Orthopedics will continue to follow along.
ADDENDUM 09/17/2023:
Upon review of CTA from 08/31, femoral neck fracture was present on CT scan. Unless patient sustained a fall or injury after his admission, this was likely present on admission.
[2023-09-15] MEDS: DILAUDID 1 MG PO ×2 (10:01→16:52)
--- NOTE | 2023-09-15 11:36 | CM ---
Patient will need hip surgery per ortho note- hemiarthroplasty.
Patient admitted with back pain due to spinal stenosis.
Discussed d/c plans with spouse and possible acute vs skilled rehab.
Spouse is interested in pursuing acute rehab at [facility] if patient qualifies.
Currently patient has been a max assist of 3 and Jorge's home unable to accommodate at that level.
CM will follow for PT/OT recommendations post op and possible PMR consult if indicated.
Plan: Acute vs skilled rehab
[2023-09-15] MEDS: NEURONTIN 100 MG PO (13:54)
[2023-09-15 15:45] VITALS: BP 123/68
[2023-09-15] MEDS: COLACE PO (19:46)
[2023-09-15] MEDS: SENOKOT PO (19:46)
[2023-09-15 23:19] VITALS: BP 118/79
[2023-09-16] MEDS: TYLENOL PO (02:39)
--- NOTE | 2023-09-16 07:30 | W.PN.UPDATE ---
Update Note
Progress Note Update
Patient has right hip fracture which is going to require hemiarthroplasty September 17, 2023 after Elirosnia jaramillo. Surgical location was marked but he was confused this morning. I attempted to contact his September but got voicemail so we will contact
her later to get her consent for surgery and blood. N.p.o. after midnight, antibiotics and antibiotic irrigation on-call to operating room.
[2023-09-16 07:40] LABS: Hematocrit 34.8 % (39.0-52.0); Mean Corp Hgb Conc. 31.6 g/dL (33.0-37.0); Mean Corpuscular Hgb 26.7 pg (27.0-31.0); Mean Corpuscular Volume 84.5 fL (80.0-94.0); Mean Platelet Volume 9.3 fL (7.4-10.4); Platelet Count 577 10^3/uL (130-400); Red Blood Cell Count 4.12 10^6/uL (4.70-6.10); Red Cell Dist. Width 16.8 % (11.5-14.5); White Blood Cell Count 11.9 10^3/uL (4.8-10.8)
[2023-09-16 07:45] VITALS: BP 127/67
[2023-09-16 08:15] LABS: Blood Urea Nitrogen 31 mg/dl (9-20); Calcium 9.3 mg/dl (8.4-10.2); Carbon Dioxide 27 mmol/L (22-30); Chloride 102 mmol/L (98-107); Estimated Creatinine Clearance 52 ml/min; Glucose 140 mg/dl (70-99); Potassium 5.1 mmol/L (3.5-5.1); Sodium 136 mmol/L (135-145); eGFR > 60.00
[2023-09-16] MEDS: SYMBICORT 160/4.5 MCG INHALER 2 PUFF INH ×2 (08:32→20:49)
[2023-09-16] MEDS: SENOKOT PO (09:29)
[2023-09-16] MEDS: MIRALAX 17 GRAMS PO (09:30)
[2023-09-16] MEDS: CARDIZEM CD 180 MG PO ×2 (09:30→19:51)
[2023-09-16] MEDS: FLEXERIL 2.5 MG PO ×2 (09:30→19:51)
[2023-09-16] MEDS: TYLENOL 1000 MG PO ×2 (09:31→16:46)
[2023-09-16] MEDS: DEPAKOTE ER (24 HR RELEASE) 250 MG PO (09:31)
[2023-09-16] MEDS: APRESOLINE 50 MG PO ×3 (09:31→21:15)
[2023-09-16] MEDS: ZOLOFT 50 MG PO (09:31)
[2023-09-16] MEDS: LIDOCAINE 4% PATCH 1 PATCH TOPICAL ×2 (09:32)
[2023-09-16] MEDS: PROTONIX 40 MG PO (09:32)
[2023-09-16] MEDS: OCUVITE SOFTGEL 1 CAP PO (09:32)
[2023-09-16] MEDS: COLACE 100 MG PO ×2 (09:32→19:51)
--- NOTE | 2023-09-16 09:35 | W.PN.HOSP.TC ---
Today's Communication/Plan
-
see A/P
Assessment / Plan
Assessment / Plan
MRI L-spine:
1. SEVERE CENTRAL CANAL STENOSIS at L4/L5 secondary to 3.3 mm grade 1 anterolisthesis, severe facet joint arthrosis, and a large disc herniation which has mildly increased since 12/19/2021. Interval increase in size of a large right
foraminal-extraforaminal disc herniation causing exiting right L4 nerve root impingement. Small right subarticular superior disc extrusion which has partially resorbed since 12/19/2021.
2. Moderate central canal stenosis and severe left neural foraminal narrowing at L3/L4 secondary to a large diffuse disc bulge, large left foraminal-extraforaminal disc herniation, and severe left neural foraminal narrowing with exiting left L3
nerve root impingement which has increased since 12/19/2021.
3. Moderate high T2 signal intensity in the L2/L3 intervertebral disc which is new from 12/19/2021. Diagnostic possibilities are (1) progressive discogenic degenerative disease or (2) acute infectious discitis if there are signs/symptoms of
infection. Mild central canal stenosis at L2/L3 which has decreased since 12/19/2021 secondary to interval resorption of a previously visualized moderate-sized disc herniation.
4. 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
5. Severely distended urinary bladder with mild perivesical edema suspicious for acute cystitis. Severe chronic right hydroureteronephrosis which appears unchanged.
CT A/P: Stable severe right hydronephrosis and hydroureter secondary to distal ureteral stones which have enlarged. Numerous bilateral renal cysts. Grossly stable. Moderate hiatal hernia. Stable. Moderate fecal material throughout the colon.
Progressed. Mild prostate hypertrophy. Progressed. Chen catheter present. Stable.
A/P:
# Acute on chronic back pain (this was the presenting problem)
Ibuprofen stopped 08/30/23 as pt with CKD and was on Eliquis
MRI L-spine above and notable for DDD with R L4 and L L3 nerve root impingement.
Cont Tylenol 1000 mg TID ATC, Dilaudid PRN
Continue PRN Flexeril for spasm
Off tramadol/Vicodin/Valium
# acute/subacute subcapital/transcervical fracture of the proximal right femur
Eliquis placed on hold, last dose was morning of 09/14/2023
Orthopedics consulted, plan for surgery R hip hemiarthroplasty on Wednesday
# Constipation- Enema
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
# Acute urinary retention/obstructive uropathy
# acute complicated UTI
# hyperkalemia, resolved
Per Uro, CTAP 08/30 showed persistence of distal R ureteral stones as seen in 2021, however this R system has been stable in obstructed state for many years without upper tract infection. There is no benefit acutely to stone intervention, and it is
likely that stone is not the only pathology there - Probably significant stricture disease which will not improve by addressing stone. Would not recommend intervention at this time and can be discussed further at follow up
Chen placed 08/31/23 for severe bladder distention/urinary retention, to remain in place on d/c per Uro
eplerenone stopped
was on Rocephin, transitioned to Omnicef and completed course
Cr improved, today at 1.1, baseline 1.1-1.2
Uro was on board
# Paroxysmal atrial fibrillation
Continue Cardizem
Eliquis on hold
# Essential hypertension:
Cont Cardizem/Hydralazine
# Acute metabolic encephalopathy due to acute complicated UTI, also hospital-acquired delirium versus worsening of dementia
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
Intermittent paranoia has improved. Continue to reorient.
If with severe paranoia/hallucination will need psych input
Fall precaution. off Medsitter
# Hypoglycemia-HbA1C 6.2. Not reliable.
# Hyponatremia, mild-resolved
# Non-anion gap metabolic acidosis, resolved with NaHCO3 IVFs
# GERD/hiatal hernia-cont PPI
# h/o rectal CA s/p surgical resection and chemoradiation
# Asthma: Cont Symbicort
# Obstructive sleep apnea-CPAP
# Former smoker
# Iron deficiency anemia
# Anxiety/Depression: cont Zoloft
# Obesity per BMI criteria
# Prostatic hypertrophy
# H/O nephrolithiasis
CODE STATUS readdressed with the patient's who wants to make him DNR- changed.
DVT prophylaxis -Eliquis placed on hold, SCDs for now
Anticipated Discharge: 24 - 48 hours
Subjective/Interval History
-
Date of Service: September 16, 2023
Objective Data
-
Labs:
Laboratory Results
09/16/23
07:22
WBC 11.9 H
Hgb 11.0 L
Hct 34.8 L
Plt Count 577 H
Sodium 136
Potassium 5.1
Chloride 102
Carbon Dioxide 27
BUN 31 H
Creatinine 1.1
Glucose 140 H
Calcium 9.3
Vital Signs:
Vital Signs
Temp Pulse Resp BP Pulse Ox
36.8 C 86 16 127/67 96
09/16/23 07:45 09/16/23 08:37 09/16/23 08:37 09/16/23 07:45 09/16/23 08:37
I&O
09/15/23 09/16/23 09/17/23
06:59 06:59 06:59
Intake Total 360 / 360 360 / 360
Output Total 1200 / 1200 850 / 850
Balance -840 / -840 -490 / -490
Review of Systems
-
Unable to obtain full review of systems at this time due to: Dementia
All other systems: Reviewed and negative
Physical Exam
-
General: Well Developed, Well Nourished, No Apparent Distress, Comfortable, Conversant and Appears Chronically Ill; Negative Respiratory Distress
HEENT: Normocephalic, Atraumatic, Nose Appears Normal and Ears Appear Normal; Negative Oxygen
Respiratory: Clear to Auscultation and Non Labored Respirations; Negative Accessory Resp Muscle Use
Cardiac: Regular Rhythm and S1/S2
GI: Soft, Nontender, Nondistended and Normal Bowel Sounds
Skin: Warm and Dry
Neuro: Awake
Psych: Calm and Apparent Dementia
Data Reviewed
-
Diagnostic Radiology: Report Reviewed by me
MRI: Report Reviewed by me
Labs: Labs Reviewed by me
--- NOTE | 2023-09-16 11:44 | W.PN.UPDATE ---
Update Note
Progress Note Update
I was able to speak with Kyler hawk, September, at 11:39 today over the phone. We discussed the planned operation, as well as associated risks, benefits, alternatives, recovery process and potential complications. She provided verbal consent to proceed
with surgery. Plan to proceed with OR tomorrow.
[2023-09-16] MEDS: DILAUDID 1 MG PO ×2 (13:11→21:32)
[2023-09-16 15:58] VITALS: BP 113/65
[2023-09-16 16:01] VITALS: BP 113/65
[2023-09-16] MEDS: SENOKOT 17.1999999999999993 MG PO (19:52)
[2023-09-16 23:05] VITALS: BP 110/80
[2023-09-17] VITALS (17 sets, daily range): BP systolic 104–138; BP diastolic 56–82
[2023-09-17] MEDS: TYLENOL 1000 MG PO ×2 (01:08→09:47)
--- NOTE | 2023-09-17 07:23 | W.PN.UPDATE ---
Update Note
Progress Note Update
Patient seen and evaluated by orthopedic surgery this morning. Patient has a right hip fracture which is going to require right hip hemiarthroplasty this afternoon under the direction of Dr. Tapai. Surgical location marked. Patient to remain
NPO. Preop antibiotics irrigation on-call to the OR. Consent obtained. Orthopedic surgery will continue to follow along. Hgb this AM currently pending. Hemoglobin yesterday 11.0.
[2023-09-17] MEDS: SYMBICORT 160/4.5 MCG INHALER 2 PUFF INH ×2 (08:23→21:10)
[2023-09-17 08:36] LABS: Hematocrit 30.9 % (39.0-52.0); Hemoglobin 9.8 g/dL (13.0-18.0); Mean Corp Hgb Conc. 31.7 g/dL (33.0-37.0); Mean Corpuscular Hgb 26.4 pg (27.0-31.0); Mean Corpuscular Volume 83.3 fL (80.0-94.0); Mean Platelet Volume 9.4 fL (7.4-10.4); Platelet Count 524 10^3/uL (130-400); Red Blood Cell Count 3.71 10^6/uL (4.70-6.10); Red Cell Dist. Width 16.9 % (11.5-14.5); White Blood Cell Count 10.6 10^3/uL (4.8-10.8)
--- NOTE | 2023-09-17 08:46 | W.PN.HOSP.TC ---
Today's Communication/Plan
-
for OR this afternoon
Assessment / Plan
Assessment / Plan
MRI L-spine:
1. SEVERE CENTRAL CANAL STENOSIS at L4/L5 secondary to 3.3 mm grade 1 anterolisthesis, severe facet joint arthrosis, and a large disc herniation which has mildly increased since 12/19/2021. Interval increase in size of a large right
foraminal-extraforaminal disc herniation causing exiting right L4 nerve root impingement. Small right subarticular superior disc extrusion which has partially resorbed since 12/19/2021.
2. Moderate central canal stenosis and severe left neural foraminal narrowing at L3/L4 secondary to a large diffuse disc bulge, large left foraminal-extraforaminal disc herniation, and severe left neural foraminal narrowing with exiting left L3
nerve root impingement which has increased since 12/19/2021.
3. Moderate high T2 signal intensity in the L2/L3 intervertebral disc which is new from 12/19/2021. Diagnostic possibilities are (1) progressive discogenic degenerative disease or (2) acute infectious discitis if there are signs/symptoms of
infection. Mild central canal stenosis at L2/L3 which has decreased since 12/19/2021 secondary to interval resorption of a previously visualized moderate-sized disc herniation.
4. 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
5. Severely distended urinary bladder with mild perivesical edema suspicious for acute cystitis. Severe chronic right hydroureteronephrosis which appears unchanged.
CT A/P: Stable severe right hydronephrosis and hydroureter secondary to distal ureteral stones which have enlarged. Numerous bilateral renal cysts. Grossly stable. Moderate hiatal hernia. Stable. Moderate fecal material throughout the colon.
Progressed. Mild prostate hypertrophy. Progressed. Chen catheter present. Stable.
A/P:
# Acute on chronic back pain (this was the presenting problem)
Ibuprofen stopped 08/30/23 as pt with CKD and was on Eliquis
MRI L-spine above and notable for DDD with R L4 and L L3 nerve root impingement.
Cont Tylenol 1000 mg TID ATC, Dilaudid PRN
Continue PRN Flexeril for spasm
Off tramadol/Vicodin/Valium
# acute/subacute subcapital/transcervical fracture of the proximal right femur
Eliquis placed on hold, last dose was morning of 09/14/2023
Orthopedics consulted, plan for surgery R hip hemiarthroplasty on Wednesday
# Constipation- Enema
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
# Acute urinary retention/obstructive uropathy
# acute complicated UTI
# hyperkalemia, resolved
Per Uro, CTAP 08/30 showed persistence of distal R ureteral stones as seen in 2021, however this R system has been stable in obstructed state for many years without upper tract infection. There is no benefit acutely to stone intervention, and it is
likely that stone is not the only pathology there - Probably significant stricture disease which will not improve by addressing stone. Would not recommend intervention at this time and can be discussed further at follow up
Chen placed 08/31/23 for severe bladder distention/urinary retention, to remain in place on d/c per Uro
eplerenone stopped
was on Rocephin, transitioned to Omnicef and completed course
Cr improved, today at 1.1, baseline 1.1-1.2
Uro was on board
# Paroxysmal atrial fibrillation
Continue Cardizem
Eliquis on hold
# Essential hypertension:
Cont Cardizem/Hydralazine
# Acute metabolic encephalopathy due to acute complicated UTI, also hospital-acquired delirium versus worsening of dementia
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
Intermittent paranoia has improved. Continue to reorient.
If with severe paranoia/hallucination will need psych input
Fall precaution. off Medsitter
# Hypoglycemia-HbA1C 6.2. Not reliable.
# Hyponatremia, mild-resolved
# Non-anion gap metabolic acidosis, resolved with NaHCO3 IVFs
# GERD/hiatal hernia-cont PPI
# h/o rectal CA s/p surgical resection and chemoradiation
# Asthma: Cont Symbicort
# Obstructive sleep apnea-CPAP
# Former smoker
# Iron deficiency anemia
# Anxiety/Depression: cont Zoloft
# Obesity per BMI criteria
# Prostatic hypertrophy
# H/O nephrolithiasis
CODE STATUS readdressed with the patient's who wants to make him DNR- changed.
DVT prophylaxis -Eliquis placed on hold, SCDs for now
Anticipated Discharge: > 48 hours
Subjective/Interval History
-
Date of Service: September 17, 2023
Objective Data
-
Labs:
Laboratory Results
09/17/23
08:16
WBC Pending
Hgb Pending
Hct Pending
Plt Count Pending
Sodium Pending
Potassium Pending
Chloride Pending
Carbon Dioxide Pending
BUN Pending
Creatinine Pending
Glucose Pending
Calcium Pending
Vital Signs:
Vital Signs
Temp Pulse Resp BP Pulse Ox
36.9 C 74 20 134/80 96
09/17/23 07:30 09/17/23 08:36 09/17/23 08:36 09/17/23 07:30 09/17/23 08:36
I&O
09/16/23 09/17/23 09/18/23
06:59 06:59 06:59
Intake Total 360 / 360 600 / 600
Output Total 850 / 850 600 / 600
Balance -490 / -490 0 / 0
Review of Systems
-
Unable to obtain full review of systems at this time due to: Dementia
All other systems: Reviewed and negative
Physical Exam
-
General: Well Developed, Well Nourished, No Apparent Distress, Comfortable, Conversant and Appears Chronically Ill; Negative Respiratory Distress
HEENT: Normocephalic, Atraumatic, Nose Appears Normal and Ears Appear Normal; Negative Oxygen
Respiratory: Clear to Auscultation and Non Labored Respirations; Negative Accessory Resp Muscle Use
Cardiac: Regular Rhythm and S1/S2
GI: Soft, Nontender, Nondistended and Normal Bowel Sounds
Skin: Warm and Dry
Neuro: Other (sleeping )
Psych: Calm and Apparent Dementia
Data Reviewed
-
Diagnostic Radiology: Report Reviewed by me
MRI: Report Reviewed by me
Labs: Labs Reviewed by me
[2023-09-17] MEDS: OCUVITE SOFTGEL 1 CAP PO (09:42)
[2023-09-17] MEDS: FLEXERIL 2.5 MG PO ×2 (09:44→22:45)
[2023-09-17] MEDS: CARDIZEM CD 180 MG PO ×2 (09:45→20:35)
[2023-09-17] MEDS: SENOKOT 17.1999999999999993 MG PO ×2 (09:46→20:35)
[2023-09-17] MEDS: PROTONIX 40 MG PO (09:46)
[2023-09-17] MEDS: DEPAKOTE ER (24 HR RELEASE) 250 MG PO (09:46)
[2023-09-17] MEDS: COLACE 100 MG PO ×2 (09:46→20:35)
[2023-09-17] MEDS: APRESOLINE 50 MG PO ×2 (09:47→22:47)
[2023-09-17] MEDS: ZOLOFT 50 MG PO (09:47)
[2023-09-17] MEDS: MIRALAX PO (09:48)
[2023-09-17] MEDS: LIDOCAINE 4% PATCH TOPICAL ×2 (09:49→09:50)
[2023-09-17 09:50] LABS: Blood Urea Nitrogen 34 mg/dl (9-20); Calcium 9.2 mg/dl (8.4-10.2); Carbon Dioxide 26 mmol/L (22-30); Chloride 99 mmol/L (98-107); Estimated Creatinine Clearance 48 ml/min; Glucose 136 mg/dl (70-99); Potassium 5.4 mmol/L (3.5-5.1); Sodium 133 mmol/L (135-145); eGFR 58.17
--- NOTE | 2023-09-17 15:38 | CM ---
OR today for hemiarthroplasty.
Plan: Transfer to post surgery.
Follow for Acute vs skilled rehab.
[2023-09-17] MEDS: NSS 1000 IV (16:46)
--- NOTE | 2023-09-17 18:00 | PTCARENOTE ---
Pt received from the OR via bed. Pt is awake and conversant, Vss, Pt is afebrile. Pt is in Afib on library monitor, HR in the 80's. Pt's left hip with Auquacell dressing C/D/I, no drainage noted. Pt with 2 + edema B/L thighs and knees. Pt with 1+
penile edema, gómez cath. intact. Pt with positive Pedal pulses b/l. Pt reports full sensation to right leg and can move minimally. Pt instructed on plan of care. Pt verbalized understanding of instructions. Call burks is within reach.
[2023-09-17] MEDS: APRESOLINE PO (18:45)
[2023-09-17] MEDS: TYLENOL PO (18:45)
[2023-09-17] MEDS: TYLENOL 650 MG PO (20:36)
[2023-09-17] MEDS: BACTROBAN 2% OINTMENT 1 APPLIC NASAL (20:36)
[2023-09-17] MEDS: ANCEF 5 IV (20:36)
[2023-09-18] VITALS (7 sets, daily range): BP systolic 110–140; BP diastolic 57–80; PULSE 74–84
[2023-09-18] MEDS: TYLENOL PO (01:19)
[2023-09-18] MEDS: TYLENOL 650 MG PO ×5 (03:34→19:54)
[2023-09-18] MEDS: ANCEF 5 IV (03:34)
--- NOTE | 2023-09-18 04:37 | PTCARENOTE ---
Pt with decreased output from gómez catheter overnight. Bladder scanned for 450-500. Gómez cath pulled and noted to have small clot at tip of catheter. New gómez catheter reinserted without issue. 400 mls yellow urine with sediment drained.
[2023-09-18 08:11] LABS: Hematocrit 31.6 % (39.0-52.0); Hemoglobin 10.2 g/dL (13.0-18.0); Mean Corp Hgb Conc. 32.3 g/dL (33.0-37.0); Mean Corpuscular Hgb 26.5 pg (27.0-31.0); Mean Corpuscular Volume 82.1 fL (80.0-94.0); Mean Platelet Volume 9.7 fL (7.4-10.4); Platelet Count 475 10^3/uL (130-400); Red Blood Cell Count 3.85 10^6/uL (4.70-6.10); Red Cell Dist. Width 16.8 % (11.5-14.5); White Blood Cell Count 9.2 10^3/uL (4.8-10.8)
[2023-09-18] MEDS: SYMBICORT 160/4.5 MCG INHALER 2 PUFF INH ×2 (08:19→21:17)
[2023-09-18 08:26] LABS: Blood Urea Nitrogen 30 mg/dl (9-20); Calcium 8.8 mg/dl (8.4-10.2); Carbon Dioxide 23 mmol/L (22-30); Chloride 98 mmol/L (98-107); Estimated Creatinine Clearance 57 ml/min; Glucose 166 mg/dl (70-99); Potassium 5.1 mmol/L (3.5-5.1); Sodium 132 mmol/L (135-145); eGFR > 60.00
[2023-09-18] MEDS: BACTROBAN 2% OINTMENT 1 APPLIC NASAL ×2 (09:28→19:53)
[2023-09-18] MEDS: ZOLOFT 50 MG PO (09:30)
[2023-09-18] MEDS: PROTONIX 40 MG PO (09:30)
[2023-09-18] MEDS: ELIQUIS 2.5 MG PO ×2 (09:30→19:54)
[2023-09-18] MEDS: OCUVITE SOFTGEL 1 CAP PO (09:30)
[2023-09-18] MEDS: COLACE 100 MG PO ×2 (09:30→19:54)
[2023-09-18] MEDS: CARDIZEM CD 180 MG PO ×2 (09:30→19:53)
[2023-09-18] MEDS: APRESOLINE 50 MG PO ×3 (09:31→22:01)
[2023-09-18] MEDS: DEPAKOTE ER (24 HR RELEASE) 250 MG PO (09:31)
[2023-09-18] MEDS: FLEXERIL 2.5 MG PO ×2 (09:31→19:54)
[2023-09-18] MEDS: SENOKOT 17.1999999999999993 MG PO ×2 (09:32→19:54)
[2023-09-18] MEDS: MIRALAX 17 GRAMS PO (09:34)
[2023-09-18] MEDS: LIDOCAINE 4% PATCH 1 PATCH TOPICAL ×2 (09:34→09:35)
--- NOTE | 2023-09-18 11:17 | W.PN.HOSP.TC ---
Today's Communication/Plan
-
dispo planning
Assessment / Plan
Assessment / Plan
MRI L-spine:
1. SEVERE CENTRAL CANAL STENOSIS at L4/L5 secondary to 3.3 mm grade 1 anterolisthesis, severe facet joint arthrosis, and a large disc herniation which has mildly increased since 12/19/2021. Interval increase in size of a large right
foraminal-extraforaminal disc herniation causing exiting right L4 nerve root impingement. Small right subarticular superior disc extrusion which has partially resorbed since 12/19/2021.
2. Moderate central canal stenosis and severe left neural foraminal narrowing at L3/L4 secondary to a large diffuse disc bulge, large left foraminal-extraforaminal disc herniation, and severe left neural foraminal narrowing with exiting left L3
nerve root impingement which has increased since 12/19/2021.
3. Moderate high T2 signal intensity in the L2/L3 intervertebral disc which is new from 12/19/2021. Diagnostic possibilities are (1) progressive discogenic degenerative disease or (2) acute infectious discitis if there are signs/symptoms of
infection. Mild central canal stenosis at L2/L3 which has decreased since 12/19/2021 secondary to interval resorption of a previously visualized moderate-sized disc herniation.
4. 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
5. Severely distended urinary bladder with mild perivesical edema suspicious for acute cystitis. Severe chronic right hydroureteronephrosis which appears unchanged.
CT A/P: Stable severe right hydronephrosis and hydroureter secondary to distal ureteral stones which have enlarged. Numerous bilateral renal cysts. Grossly stable. Moderate hiatal hernia. Stable. Moderate fecal material throughout the colon.
Progressed. Mild prostate hypertrophy. Progressed. Chen catheter present. Stable.
A/P:
# Acute on chronic back pain (this was the presenting problem)
Ibuprofen stopped 08/30/23 as pt with CKD and was on Eliquis
MRI L-spine above and notable for DDD with R L4 and L L3 nerve root impingement.
Cont Tylenol 1000 mg TID ATC, Dilaudid PRN
Continue PRN Flexeril for spasm
Off tramadol/Vicodin/Valium
# acute/subacute subcapital/transcervical fracture of the proximal right femur
Eliquis placed on hold, last dose was morning of 09/14/2023
s/p R hip hemiarthroplasty 09/16 by ortho
Resumed low dose Eliquis per ortho
# Constipation- Enema
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
# Acute urinary retention/obstructive uropathy
# acute complicated UTI
# hyperkalemia, resolved
Per Uro, CTAP 08/30 showed persistence of distal R ureteral stones as seen in 2021, however this R system has been stable in obstructed state for many years without upper tract infection. There is no benefit acutely to stone intervention, and it is
likely that stone is not the only pathology there - Probably significant stricture disease which will not improve by addressing stone. Would not recommend intervention at this time and can be discussed further at follow up
Chen placed 08/31/23 for severe bladder distention/urinary retention, to remain in place on d/c per Uro
eplerenone stopped
was on Rocephin, transitioned to Omnicef and completed course
Cr improved, today at 1.0, baseline 1.1-1.2
Uro was on board
# Paroxysmal atrial fibrillation
Continue Cardizem
Eliquis on hold
# Essential hypertension:
Cont Cardizem/Hydralazine
# Acute metabolic encephalopathy due to acute complicated UTI, also hospital-acquired delirium versus worsening of dementia
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
Intermittent paranoia has improved. Continue to reorient.
If with severe paranoia/hallucination will need psych input
Fall precaution. off Medsitter
# Hypoglycemia-HbA1C 6.2. Not reliable.
# Hyponatremia, mild-resolved
# Non-anion gap metabolic acidosis, resolved with NaHCO3 IVFs
# GERD/hiatal hernia-cont PPI
# h/o rectal CA s/p surgical resection and chemoradiation
# Asthma: Cont Symbicort
# Obstructive sleep apnea-CPAP
# Former smoker
# Iron deficiency anemia
# Anxiety/Depression: cont Zoloft
# Obesity per BMI criteria
# Prostatic hypertrophy
# H/O nephrolithiasis
CODE STATUS readdressed with the patient's who wants to make him DNR- changed.
DVT prophylaxis - low dose Eliquis resumed
Dispo: PT OT eval
DW at bedside
Anticipated Discharge: 24 - 48 hours
Subjective/Interval History
-
Date of Service: September 18, 2023
Objective Data
-
Labs:
Laboratory Results
09/18/23
07:42
WBC 9.2
Hgb 10.2 L
Hct 31.6 L
Plt Count 475 H
Sodium 132 L
Potassium 5.1
Chloride 98
Carbon Dioxide 23
BUN 30 H
Creatinine 1.0
Glucose 166 H
Calcium 8.8
Vital Signs:
Vital Signs
Temp Pulse Resp BP Pulse Ox
36.7 C 70 18 130/80 96
09/18/23 07:00 09/18/23 08:23 09/18/23 08:23 09/18/23 07:00 09/18/23 08:23
I&O
09/17/23 09/18/23 09/19/23
06:59 06:59 06:59
Intake Total 600 / 600 150 / 150
Output Total 600 / 600 730 / 730
Balance 0 / 0 -580 / -580
Review of Systems
-
Unable to obtain full review of systems at this time due to: Dementia
All other systems: Reviewed and negative
Physical Exam
-
General: Well Developed, Well Nourished, No Apparent Distress, Comfortable, Conversant and Appears Chronically Ill; Negative Respiratory Distress
HEENT: Normocephalic, Atraumatic, Nose Appears Normal and Ears Appear Normal; Negative Oxygen
Respiratory: Clear to Auscultation and Non Labored Respirations; Negative Accessory Resp Muscle Use
Cardiac: Regular Rhythm and S1/S2
GI: Soft, Nontender, Nondistended and Normal Bowel Sounds
Skin: Warm and Dry
Neuro: Awake
Psych: Calm and Apparent Dementia
Data Reviewed
-
Diagnostic Radiology: Report Reviewed by me
MRI: Report Reviewed by me
Labs: Labs Reviewed by me
[2023-09-18] MEDS: ULTRAM 50 MG PO (13:15)
--- NOTE | 2023-09-18 15:22 | W.PN.ORTHO ---
Today's Communication / Plan
-
87-year-old male POD 1 right hip hemiarthroplasty performed on 09/17/2023 under the direction of Dr. Hagen.
- WBAT RLE with use of walker for ambulatory assistance.
- PT/OT. THPs.
- Eliquis 2.5 mg BID starting POD 1 x 6 doses, then normal dose.
- Hemoglobin today 10.2. Continue to monitor and trend.
- Pain control.
- D/C planning.
- Orthopedic surgery will continue to follow along.
Assessment
.
Distal Motor Intact: Yes
Dressing:
Clean, dry and intact.
Assessment:
POD 1 right hip hemiarthroplasty 09/17/[address] Hagen.
Plan
.
Surgery / Date: Right hip hemiarthroplasty 09/17/2023 with Hieu
DVT Prophylaxis: Other (Eliquis )
Activity:
Out of bed.
PT/OT
Discharge Information:
Appreciate CM
Subjective
.
.:
Patient resting comfortably. He reports that his pain is well-controlled at this time.
Vital Signs and Labs
.
Vital Signs and Labs:
Lab Results
09/18/23 07:42
09/18/23 07:42
Temp Pulse Resp BP Pulse Ox
98.1 F 70 18 130/80 96
09/18/23 07:00 09/18/23 08:23 09/18/23 08:23 09/18/23 07:00 09/18/23 08:23
PT 18.1 Sec (11.4-14.6) H 09/06/23 05:48
INR 1.52 09/06/23 05:48
Physical Exam
-
Physical examination of the right hip reveals Aquacel dressing to be clean, dry, and intact. No surrounding erythema, significant warmth, or ecchymosis. Thigh soft and compressible. Calf is soft and nontender to palpation. Able to plantarflex
and dorsiflex right lower extremity. NVI distally.
[2023-09-19] VITALS (8 sets, daily range): BP systolic 106–148; BP diastolic 56–69; PULSE 83; O2SAT 94
[2023-09-19] MEDS: TYLENOL PO ×2 (01:06→05:00)
[2023-09-19 05:53] LABS: Hemoglobin 9.7 g/dL (13.0-18.0); Mean Corp Hgb Conc. 33.4 g/dL (33.0-37.0); Mean Corpuscular Hgb 27.1 pg (27.0-31.0); Mean Platelet Volume 9.8 fL (7.4-10.4); Platelet Count 424 10^3/uL (130-400); Red Blood Cell Count 3.58 10^6/uL (4.70-6.10); Red Cell Dist. Width 16.6 % (11.5-14.5); White Blood Cell Count 10.2 10^3/uL (4.8-10.8)
[2023-09-19 06:17] LABS: Blood Urea Nitrogen 37 mg/dl (9-20); Calcium 8.9 mg/dl (8.4-10.2); Carbon Dioxide 21 mmol/L (22-30); Chloride 97 mmol/L (98-107); Estimated Creatinine Clearance 56 ml/min; Glucose 152 mg/dl (70-99); Sodium 128 mmol/L (135-145); eGFR > 60.00
[2023-09-19] MEDS: SYMBICORT 160/4.5 MCG INHALER 2 PUFF INH ×2 (08:18→21:11)
[2023-09-19] MEDS: COLACE 100 MG PO ×2 (09:01→20:24)
[2023-09-19] MEDS: CARDIZEM CD 180 MG PO ×2 (09:01→20:27)
[2023-09-19] MEDS: FLEXERIL 2.5 MG PO ×2 (09:01→20:24)
[2023-09-19] MEDS: MIRALAX 17 GRAMS PO (09:01)
[2023-09-19] MEDS: ZOLOFT 50 MG PO (09:01)
[2023-09-19] MEDS: OCUVITE SOFTGEL 1 CAP PO (09:01)
[2023-09-19] MEDS: SENOKOT 17.1999999999999993 MG PO ×2 (09:02→20:24)
[2023-09-19] MEDS: ULTRAM 50 MG PO ×3 (09:02→22:44)
[2023-09-19] MEDS: PROTONIX 40 MG PO (09:02)
[2023-09-19] MEDS: APRESOLINE 50 MG PO ×2 (09:03→22:44)
[2023-09-19] MEDS: TYLENOL 650 MG PO ×4 (09:03→20:24)
[2023-09-19] MEDS: ELIQUIS 2.5 MG PO ×2 (09:03→20:24)
[2023-09-19] MEDS: DEPAKOTE ER (24 HR RELEASE) 250 MG PO (09:05)
[2023-09-19] MEDS: LIDOCAINE 4% PATCH 1 PATCH TOPICAL ×2 (09:55)
--- NOTE | 2023-09-19 11:20 | W.PN.HOSP.TC ---
Today's Communication/Plan
-
see A/P
Assessment / Plan
Assessment / Plan
MRI L-spine:
1. SEVERE CENTRAL CANAL STENOSIS at L4/L5 secondary to 3.3 mm grade 1 anterolisthesis, severe facet joint arthrosis, and a large disc herniation which has mildly increased since 12/19/2021. Interval increase in size of a large right
foraminal-extraforaminal disc herniation causing exiting right L4 nerve root impingement. Small right subarticular superior disc extrusion which has partially resorbed since 12/19/2021.
2. Moderate central canal stenosis and severe left neural foraminal narrowing at L3/L4 secondary to a large diffuse disc bulge, large left foraminal-extraforaminal disc herniation, and severe left neural foraminal narrowing with exiting left L3
nerve root impingement which has increased since 12/19/2021.
3. Moderate high T2 signal intensity in the L2/L3 intervertebral disc which is new from 12/19/2021. Diagnostic possibilities are (1) progressive discogenic degenerative disease or (2) acute infectious discitis if there are signs/symptoms of
infection. Mild central canal stenosis at L2/L3 which has decreased since 12/19/2021 secondary to interval resorption of a previously visualized moderate-sized disc herniation.
4. 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
5. Severely distended urinary bladder with mild perivesical edema suspicious for acute cystitis. Severe chronic right hydroureteronephrosis which appears unchanged.
CT A/P: Stable severe right hydronephrosis and hydroureter secondary to distal ureteral stones which have enlarged. Numerous bilateral renal cysts. Grossly stable. Moderate hiatal hernia. Stable. Moderate fecal material throughout the colon.
Progressed. Mild prostate hypertrophy. Progressed. Chen catheter present. Stable.
A/P:
# Acute on chronic back pain (this was the presenting problem)
Ibuprofen stopped 08/30/23 as pt with CKD and was on Eliquis
MRI L-spine above and notable for DDD with R L4 and L L3 nerve root impingement.
Cont Tylenol 1000 mg TID ATC, Dilaudid PRN
Continue PRN Flexeril for spasm
Off tramadol/Vicodin/Valium
# acute/subacute subcapital/transcervical fracture of the proximal right femur
Eliquis placed on hold, last dose was morning of 09/14/2023
s/p R hip hemiarthroplasty 09/16 by ortho
Resumed low dose Eliquis per ortho
Dispo to SNF vs [facility] ( wants [facility])
# Constipation- Enema
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
# Acute urinary retention/obstructive uropathy
# acute complicated UTI
# hyperkalemia, resolved
Per Uro, CTAP 08/30 showed persistence of distal R ureteral stones as seen in 2021, however this R system has been stable in obstructed state for many years without upper tract infection. There is no benefit acutely to stone intervention, and it is
likely that stone is not the only pathology there - Probably significant stricture disease which will not improve by addressing stone. Would not recommend intervention at this time and can be discussed further at follow up
Chen placed 08/31/23 for severe bladder distention/urinary retention, to remain in place on d/c per Uro
eplerenone stopped
was on Rocephin, transitioned to Omnicef and completed course
Cr improved, today at 1.0, baseline 1.1-1.2
Uro was on board
# Paroxysmal atrial fibrillation
Continue Cardizem
Eliquis on hold
# Essential hypertension:
Cont Cardizem/Hydralazine
# Acute metabolic encephalopathy due to acute complicated UTI, also hospital-acquired delirium versus worsening of dementia
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
Intermittent paranoia has improved. Continue to reorient.
If with severe paranoia/hallucination will need psych input
Fall precaution. off Medsitter
# Hypoglycemia-HbA1C 6.2. Not reliable.
# Hyponatremia, mild-resolved
# Non-anion gap metabolic acidosis, resolved with NaHCO3 IVFs
# GERD/hiatal hernia-cont PPI
# h/o rectal CA s/p surgical resection and chemoradiation
# Asthma: Cont Symbicort
# Obstructive sleep apnea-CPAP
# Former smoker
# Iron deficiency anemia
# Anxiety/Depression: cont Zoloft
# Obesity per BMI criteria
# Prostatic hypertrophy
# H/O nephrolithiasis
CODE STATUS readdressed with the patient's who wants to make him DNR- changed.
DVT prophylaxis - low dose Eliquis resumed
Dispo: snf vs [facility]
Anticipated Discharge: Within 24 hours
Subjective/Interval History
-
Date of Service: September 19, 2023
Objective Data
-
Labs:
Laboratory Results
09/19/23
05:03
WBC 10.2
Hgb 9.7 L
Hct 29.0 L
Plt Count 424 H
Sodium 128 L
Potassium 5.0
Chloride 97 L
Carbon Dioxide 21 L
BUN 37 H
Creatinine 1.0
Glucose 152 H
Calcium 8.9
Vital Signs:
Vital Signs
Temp Pulse Resp BP Pulse Ox
36.9 C 78 16 133/60 94
09/19/23 07:25 09/19/23 08:19 09/19/23 08:19 09/19/23 07:25 09/19/23 08:19
I&O
09/18/23 09/19/23 09/20/23
06:59 06:59 06:59
Intake Total 150 / 150 840 / 840 360 / 360
Output Total 730 / 730 800 / 800
Balance -580 / -580 40 / 40 360 / 360
Review of Systems
-
Unable to obtain full review of systems at this time due to: Dementia
All other systems: Reviewed and negative
Physical Exam
-
General: Well Developed, Well Nourished, No Apparent Distress, Comfortable, Conversant and Appears Chronically Ill; Negative Respiratory Distress
HEENT: Normocephalic, Atraumatic, Nose Appears Normal and Ears Appear Normal; Negative Oxygen
Respiratory: Clear to Auscultation and Non Labored Respirations; Negative Accessory Resp Muscle Use
Cardiac: Regular Rhythm and S1/S2
GI: Soft, Nontender, Nondistended and Normal Bowel Sounds
Genito-urinary: Chen
Skin: Warm and Dry
Neuro: Awake
Psych: Calm and Apparent Dementia
Data Reviewed
-
Diagnostic Radiology: Report Reviewed by me
MRI: Report Reviewed by me
Labs: Labs Reviewed by me
[2023-09-19] MEDS: APRESOLINE PO (16:32)
--- NOTE | 2023-09-19 17:57 | W.PN.ORTHO ---
Today's Communication / Plan
-
87-year-old male POD 2 right hip hemiarthroplasty performed on 09/17/2023 under the direction of Dr. Hagen.
- WBAT RLE with use of walker for ambulatory assistance.
- PT/OT. THPs.
- Eliquis 2.5 mg BID starting POD 1 x 6 doses, then resume normal dose.
- Hemoglobin today 9.7. Continue to monitor and trend.
- Pain control.
- D/C planning.
- Aquacel dressing removed 7-10 days post-op.
- Brantwood removed at 2 weeks post-op. If jessica removed at rehab, follow-up in office at 4 weeks post-op.
- Orthopedic surgery will sign off at this time. Please reengage with any further questions or concerns.
Assessment
.
Distal Motor Intact: Yes
Dressing:
Clean, dry and intact.
Assessment:
POD 2 right hip hemiarthroplasty 09/17/[address] Hagen.
Plan
.
Surgery / Date: Right hip hemiarthroplasty 09/17/2023 with [facility]
DVT Prophylaxis: Other (Eliquis )
Activity:
Out of bed.
PT/OT
Discharge Information:
Appreciate CM
Subjective
.
.:
Patient lying comfortably in bed.
Vital Signs and Labs
.
Vital Signs and Labs:
Lab Results
09/19/23 05:03
09/19/23 05:03
Temp Pulse Resp BP Pulse Ox
98.1 F 63 18 106/56 94
09/19/23 15:25 09/19/23 15:25 09/19/23 15:25 09/19/23 16:32 09/19/23 15:25
PT 18.1 Sec (11.4-14.6) H 09/06/23 05:48
INR 1.52 09/06/23 05:48
Physical Exam
-
Physical examination of the right hip reveals Aquacel dressing to be intact. Scant bloody drainage noted about the middle and distal aspects. No surrounding erythema, significant warmth, or ecchymosis. Thigh soft and compressible. Calf is soft and
nontender to palpation. Able to plantarflex and dorsiflex right lower extremity. NVI distally.
[2023-09-20] VITALS (9 sets, daily range): BP systolic 124–148; BP diastolic 59–84; PULSE 77; O2SAT 97
[2023-09-20] MEDS: TYLENOL PO (00:22)
[2023-09-20] MEDS: TYLENOL 650 MG PO ×5 (04:10→20:38)
[2023-09-20] MEDS: ULTRAM 50 MG PO ×2 (04:13→14:27)
[2023-09-20 07:25] LABS: Hematocrit 27.6 % (39.0-52.0); Hemoglobin 9.1 g/dL (13.0-18.0); Mean Corpuscular Hgb 26.8 pg (27.0-31.0); Mean Corpuscular Volume 81.2 fL (80.0-94.0); Mean Platelet Volume 9.4 fL (7.4-10.4); Platelet Count 377 10^3/uL (130-400); Red Cell Dist. Width 16.5 % (11.5-14.5); White Blood Cell Count 7.9 10^3/uL (4.8-10.8)
[2023-09-20] MEDS: SYMBICORT 160/4.5 MCG INHALER 2 PUFF INH ×2 (07:38→20:19)
[2023-09-20] MEDS: APRESOLINE 50 MG PO ×3 (07:46→23:27)
[2023-09-20] MEDS: OCUVITE SOFTGEL 1 CAP PO (07:46)
[2023-09-20] MEDS: PROTONIX 40 MG PO (07:46)
[2023-09-20] MEDS: FLEXERIL 2.5 MG PO ×2 (07:46→20:38)
[2023-09-20] MEDS: DEPAKOTE ER (24 HR RELEASE) 250 MG PO (07:46)
[2023-09-20] MEDS: SENOKOT 17.1999999999999993 MG PO ×2 (07:46→20:38)
[2023-09-20] MEDS: ZOLOFT 50 MG PO (07:47)
[2023-09-20] MEDS: ELIQUIS 2.5 MG PO ×2 (07:47→20:42)
[2023-09-20] MEDS: LIDOCAINE 4% PATCH 1 PATCH TOPICAL ×2 (07:47)
[2023-09-20] MEDS: COLACE 100 MG PO ×2 (07:47→20:38)
[2023-09-20] MEDS: CARDIZEM CD 180 MG PO ×2 (07:47→20:39)
[2023-09-20] MEDS: MIRALAX 17 GRAMS PO (07:48)
[2023-09-20 08:17] LABS: Blood Urea Nitrogen 33 mg/dl (9-20); Calcium 8.9 mg/dl (8.4-10.2); Carbon Dioxide 22 mmol/L (22-30); Chloride 99 mmol/L (98-107); Estimated Creatinine Clearance 62 ml/min; Glucose 127 mg/dl (70-99); Sodium 130 mmol/L (135-145); eGFR > 60.00
--- NOTE | 2023-09-20 11:12 | W.PN.HOSP.TC ---
Today's Communication/Plan
-
await placement
gómez on dc tip OP uro eval
eliquis low dose
CM aware
Assessment / Plan
Assessment / Plan
MRI L-spine:
1. SEVERE CENTRAL CANAL STENOSIS at L4/L5 secondary to 3.3 mm grade 1 anterolisthesis, severe facet joint arthrosis, and a large disc herniation which has mildly increased since 12/19/2021. Interval increase in size of a large right
foraminal-extraforaminal disc herniation causing exiting right L4 nerve root impingement. Small right subarticular superior disc extrusion which has partially resorbed since 12/19/2021.
2. Moderate central canal stenosis and severe left neural foraminal narrowing at L3/L4 secondary to a large diffuse disc bulge, large left foraminal-extraforaminal disc herniation, and severe left neural foraminal narrowing with exiting left L3
nerve root impingement which has increased since 12/19/2021.
3. Moderate high T2 signal intensity in the L2/L3 intervertebral disc which is new from 12/19/2021. Diagnostic possibilities are (1) progressive discogenic degenerative disease or (2) acute infectious discitis if there are signs/symptoms of
infection. Mild central canal stenosis at L2/L3 which has decreased since 12/19/2021 secondary to interval resorption of a previously visualized moderate-sized disc herniation.
4. 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
5. Severely distended urinary bladder with mild perivesical edema suspicious for acute cystitis. Severe chronic right hydroureteronephrosis which appears unchanged.
CT A/P: Stable severe right hydronephrosis and hydroureter secondary to distal ureteral stones which have enlarged. Numerous bilateral renal cysts. Grossly stable. Moderate hiatal hernia. Stable. Moderate fecal material throughout the colon.
Progressed. Mild prostate hypertrophy. Progressed. Gómez catheter present. Stable.
A/P:
# Acute on chronic back pain (this was the presenting problem)
Ibuprofen stopped 08/30/23 as pt with CKD and was on Eliquis
MRI L-spine above and notable for DDD with R L4 and L L3 nerve root impingement.
Cont Tylenol 1000 mg TID ATC, Dilaudid PRN
Continue PRN Flexeril for spasm
Off tramadol/Vicodin/Valium
# acute/subacute subcapital/transcervical fracture of the proximal right femur
Eliquis placed on hold, last dose was morning of 09/14/2023
s/p R hip hemiarthroplasty 09/16 by ortho
Resumed low dose Eliquis per ortho
Dispo PT/OT-SNF.
# Constipation- Enema
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
# Acute urinary retention/obstructive uropathy
# acute complicated UTI
# hyperkalemia, resolved
Per Uro, CTAP 08/30 showed persistence of distal R ureteral stones as seen in 2021, however this R system has been stable in obstructed state for many years without upper tract infection. There is no benefit acutely to stone intervention, and it is
likely that stone is not the only pathology there - Probably significant stricture disease which will not improve by addressing stone. Would not recommend intervention at this time and can be discussed further at follow up
Gómez placed 08/31/23 for severe bladder distention/urinary retention, to remain in place on d/c per Uro
eplerenone stopped
was on Rocephin, transitioned to Omnicef and completed course
Cr improved at baseline
Uro was on board
# Paroxysmal atrial fibrillation
Continue Cardizem
Eliquis low dose for 6 doses then regular dose
# Essential hypertension:
Cont Cardizem/Hydralazine
# Acute metabolic encephalopathy due to acute complicated UTI, also hospital-acquired delirium versus worsening of dementia
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
Intermittent paranoia has improved. Continue to reorient.
If with severe paranoia/hallucination will need psych input
Fall precaution. off Medsitter
# Hypoglycemia-HbA1C 6.2. Not reliable.
Mild hyponatremia -monitor for now.
# Hyponatremia, mild-resolved
# Non-anion gap metabolic acidosis, resolved with NaHCO3 IVFs
# GERD/hiatal hernia-cont PPI
# h/o rectal CA s/p surgical resection and chemoradiation
# Asthma: Cont Symbicort
# Obstructive sleep apnea-CPAP
# Former smoker
# Iron deficiency anemia
# Anxiety/Depression: cont Zoloft
# Obesity per BMI criteria
# Prostatic hypertrophy
# H/O nephrolithiasis
CODE STATUS readdressed with the patient's who wants to make him DNR- changed.
DVT prophylaxis - low dose Eliquis resumed
Dispo: snf vs [facility]. medically stable.
Anticipated Discharge: Within 24 hours
Subjective/Interval History
-
Date of Service: September 20, 2023
States improvement in hip pain and back pain
Objective Data
-
Labs:
Laboratory Results
09/20/23
06:36
WBC 7.9
Hgb 9.1 L
Hct 27.6 L
Plt Count 377
Sodium 130 L
Potassium 5.0
Chloride 99
Carbon Dioxide 22
BUN 33 H
Creatinine 0.9
Glucose 127 H
Calcium 8.9
Vital Signs:
Vital Signs
Temp Pulse Resp BP Pulse Ox
98.3 F 80 18 130/84 95
09/20/23 07:41 09/20/23 07:43 09/20/23 07:43 09/20/23 07:41 09/20/23 07:54
I&O
09/19/23 09/20/23 09/21/23
06:59 06:59 06:59
Intake Total 840 / 840 1080 / 1080
Output Total 800 / 800 1600 / 1600
Balance 40 / 40 -520 / -520
Physical Exam
-
General: Well Developed, Well Nourished, No Apparent Distress, Comfortable, Conversant and Appears Chronically Ill; Negative Respiratory Distress
HEENT: Normocephalic, Atraumatic, Nose Appears Normal and Ears Appear Normal; Negative Oxygen
Respiratory: Clear to Auscultation and Non Labored Respirations; Negative Accessory Resp Muscle Use
Cardiac: Regular Rhythm and S1/S2
GI: Soft, Nontender, Nondistended and Normal Bowel Sounds
Genito-urinary: Gómez
Skin: Warm and Dry
Neuro: Awake
Psych: Calm and Apparent Dementia
--- NOTE | 2023-09-20 11:55 | CM ---
Spoke with [place] at [facility] believes pt would benefit from SNF more than Acute rehab.
Pt will be transitioning to [facility] at [facility] eventually.
LM with Barbara at [facility] for beds.
Requested OT evaluate pt today.
Will need auth for SNF.
MD aware of above.
PLAN Probable [facility] after auth
--- NOTE | 2023-09-20 16:14 | CON.MR ---
Consultation
Consultation Request
Date/Time Consultation Requested: 09/20/23
Date/Time Consultation Performed: 09/20/23 1600
Performing Provider: Dr. Aguilar
Reason for Consultation: Rehab placement
Medical History
-
Chief Complaint: LBP, weakness
History of Present Illness:
I had the opportunity to see Kyler willis in rehabilitation consultation today. This is an 88 year old male with extensive past medical history as listed below. Admitted on 08/29/23 with progressive LBP, and had a fall at home with difficulty with
mobility and unable to care adequately for him at home. History of lumbar stenosis and reportedly was supposed to have some lumbar procedure in September, but was admitted prior. MRI lumbar spine showing multilevel lumbar stenosis especially at
L4-5 with disc herniation and right foraminal and lateral HNP with severe stenosis, as well as L3-4 left more than right foraminal and lateral HNP/stenosis, and acute signal change in the L2-3 disc. Patient with too much agitation to tolerate BAYRON
treatment and was deferred. Hospital course was long and protracted with difficulty with mobility as well as NICOLÁS on CKD, toxic metabolic encephalopathy, hyponatremia, UTI, neurogenic bladder, cystitis. Noted with right hip pain and felt to have
RLE deformity and Xray of the right hip did reveal right subcapital transcervical fracture with 2cm impaction in the right hip and required R hip hemiarthroplasty on 09/17/23.
Patient seen this afternoon at bedside. Quite anxious and a little agitated - states he 'doesn't want to just be a leech' and is anxious about leaving the hospital. States pain is not that significant in the right hip. Still back pain and some
leg pain, but no new changes. Denies any headache, no dizziness or lightheadedness. No chest pain or SOB. No GI complaints. Does have gómez catheter in place.
Was living with but had plans to move to [facility] independent living this week. Was predominantly using a walker at home prior to admission but with weakness and few falls prior.
Past medical History:
Kidney stones with stent and then stent removed
Rectal CA
Essential tremor
obesity due to excess calories
Mixed hyperlipidemia
Diaphragmatic hernia without obstruction or gangrene
Other hyperaldosteronism
Cardiomegaly
Hypertensive heart disease with heart failure
Obstructive sleep apnea
Essential (primary) hypertension
Primary osteoarthritis of left knee
Anxiety and depression
History of total right knee replacement
Calculus of kidney
Chronic obstructive pulmonary disease
Mild intermittent asthma,
Gastric ulcer, unspecified as acute or chronic, without hemorrhage or perforation
Chronic kidney disease, stage 3 (moderate)
Hypertensive heart and chronic kidney disease without heart failure,
Iron deficiency anemia,
Lumbar radiculopathy, chronic
Hiatal hernia
AF (paroxysmal atrial fibrillation)
Low back pain
Ambulatory dysfunction
Sciatica associated with disorder of lumbar spine
Status post total left knee replacement
Gastroesophageal reflux disease without esophagitis
Anal stenosis
Permanent atrial fibrillation
Balance problems
Nonexudative age-related macular degeneration, right eye, advanced atrophic with subfoveal involvement
Urinary incontinence,
Conductive hearing loss, bilateral
Vitreous degeneration, bilateral
Cystoid macular degeneration, right eye
Degenerative lumbar spinal stenosis
Lumbar spondylosis
Candidal balanitis
Benign prostatic hyperplasia with lower urinary tract symptoms
Nocturia
Family History
Family History: Reviewed & Not Pertinent
Social History
Functional Level Premorbidity:
Independent with using walker, but + declining and falls..
Current Funct Level: Ambulation, Transfer, UE/LE Dressing:
Dependent for bed mobility today, unable to stand transfer, requiring continuous assist even with static sitting in bed. Leaning to the left.
Living: With Spouse
Allergies / Home Medications
Allergy/AdvReac Type Severity Reaction Status Date / Time
oxycodone AdvReac Unknown Verified 09/14/23 13:38
�Medication �Instructions �Recorded �Confirmed �Last Taken �Type
albuterol sulfate 90 mcg/actuation 2 puff IH R Q4HPRN PRN sob 09/07/16 08/29/23 09/13/22 History
aerosol inhaler (ProAir HFA)
budesonide-formoterol HFA 160 2 puff inhalation R BID 09/07/16 08/29/23 09/14/22 History
mcg-4.5 mcg/actuation aerosol Lung/breathing issues
inhaler (Symbicort)
sertraline 25 mg tablet 50 mg PO DAILY Mental 09/07/16 08/29/23 08/29/23 History
Health/Anxiety
vitamins A,C,C-rgro-izhutk 4,296 1 cap PO BID Supplement 09/21/17 08/29/23 08/29/23 History
mcg-226 mg-90 mg capsule
(PreserVision AREDS)
eplerenone 25 mg tablet 50 mg (2 x 25 mg) PO DAILY 10/14/17 08/29/23 08/29/23 Rx
diltiazem HCl 180 mg 180 mg PO BID 07/23/21 08/29/23 08/29/23 Rx
capsule,extended release 24 hr
apixaban 5 mg tablet (Eliquis) 2.5 mg PO BID Blood Clot 08/12/22 08/29/23 08/29/23 History
Prevention/Tx
acetaminophen 650 mg 1,300 mg PO Q8HPRN PRN mild pain 08/29/23 08/29/23 08/29/23 History
tablet,extended release
divalproex 250 mg tablet,extended 250 mg PO DAILY 08/29/23 08/29/23 08/29/23 History
release 24 hr
docusate sodium 100 mg capsule 100 mg PO BID Constipation 08/29/23 08/29/23 08/29/23 History
(Colace)
ibuprofen 200 mg tablet (Advil) 400 mg PO DAILYPRN PRN mild pain 08/29/23 08/29/23 08/29/23 History
omeprazole 20 mg capsule,delayed 20 mg PO DAILYPRN PRN gerd 08/29/23 08/29/23 Unknown History
release
Review Of Systems
-
Unable to obtain full review of systems at this time due to: Other (Some confusion, agitation)
History Source: Patient
All other systems: Negative unless noted
Constitutional: Reports Fatigue
Eye: Reports No Symptoms
EENT: Reports No Symptoms
Respiratory: Reports No Symptoms
Cardiac: Reports No Symptoms
Abdomen/GI: Reports No Symptoms
: Reports Incontinence and Difficulty Voiding
Musculoskeletal: Reports Joint Pain, Muscle Pain and Muscle Stiffness
Integumentary: Reports No Symptoms
Neurological: Reports Weakness and Numbness
Psych: Reports Anxiety
Endocrine: Reports No Symptoms
Hematologic/Lymphatic: Reports No Symptoms
Immunology: Reports No Symptoms
Physical Exam
Active Medications
Generic Name Dose Route Start Last Admin
Trade Name Freq PRN Reason Stop Dose Admin
Acetaminophen 650 mg 09/17/23 16:00 09/20/23 13:15
Acetaminophen 325 Mg Tablet PO 10/15/23 15:59 650 mg
Q4HWA BEATA Administration
Al Hydrox/Mg Hydrox/Simethicone 30 ml 09/17/23 12:40
Mag/Al/Simethicone Suspension 30 Ml Cup PO 10/15/23 12:39
Q4HPRN PRN
INDIGESTION
Apixaban 5 mg 09/07/23 20:00 09/14/23 07:57
Apixaban (Eliquis) 5 Mg Tablet PO 10/05/23 19:59 5 mg
BID BEATA Administration
Apixaban 2.5 mg 09/18/23 08:00 09/20/23 07:47
Apixaban (Eliquis) 2.5 Mg Tablet PO 09/20/23 20:01 2.5 mg
BID BEATA Administration
Bisacodyl 10 mg 08/29/23 14:05
Bisacodyl 10 Mg Rectal Suppository RECTAL 09/26/23 14:04
[id number] PRN
constipation
Budesonide/Formoterol Fumarate 2 puff 08/29/23 20:00 09/20/23 07:38
Symbicort Inhaler 160/4.5 INH 09/26/23 19:59 2 puff
R BID BEATA Administration
Protocol
Cyclobenzaprine HCl 2.5 mg 09/13/23 20:00 09/20/23 07:46
Cyclobenzaprine 10 Mg Tablet PO 10/11/23 19:59 2.5 mg
BID BEATA Administration
Diltiazem HCl 180 mg 08/29/23 20:00 09/20/23 07:47
Diltiazem 180 Mg Extended Release (24 H) Capsule PO 09/26/23 19:59 180 mg
BID BEATA Administration
Divalproex Sodium 250 mg 08/30/23 08:00 09/20/23 07:46
Divalproex 250 Mg Extended Release (24 Hr) Tablet PO 09/27/23 07:59 250 mg
DAILY BEATA Administration
Docusate Sodium 100 mg 08/29/23 20:00 09/20/23 07:47
Docusate Sodium 100 Mg Capsule PO 09/26/23 19:59 100 mg
BID BEATA Administration
Hydralazine HCl 50 mg 09/01/23 16:00 09/20/23 07:46
Hydralazine 50 Mg Tablet PO 09/29/23 15:59 50 mg
TID BEATA Administration
Hydromorphone HCl 0.25 mg 09/17/23 13:06
Hydromorphone 0.25 Mg/0.5 Ml Syringe IV 10/01/23 13:05
Q3HPRN PRN
breakthrough pain
Lidocaine 1 patch 09/10/23 12:45 09/20/23 07:47
Lidocaine 4% Topical Patch TOPICAL 10/08/23 12:44 1 patch
DAILY BEATA Administration
Lidocaine 1 patch 09/14/23 13:15 09/20/23 07:47
Lidocaine 4% Topical Patch TOPICAL 10/12/23 13:14 1 patch
DAILY BEATA Administration
Magnesium Hydroxide 30 ml 09/17/23 12:40
Milk Of Magnesia 30 Ml Cup PO 10/15/23 12:39
DAILYPRN PRN
constipation
Miconazole Nitrate 1 applic 08/29/23 17:35 08/30/23 10:04
Miconazole Powder Bottle TOPICAL 09/26/23 17:34 1 applic
BIDPRN PRN Administration
skin rash
Ondansetron HCl 4 mg 09/17/23 12:40
Ondansetron 4 Mg/2 Ml Vial IV 10/15/23 12:39
Q6HPRN PRN
NAUSEA
Oxycodone HCl 10 mg 09/17/23 12:40
Oxycodone 10 Mg Regular Release Tablet PO 10/01/23 12:39
Q4HPRN PRN
severe pain
Pantoprazole Sodium 40 mg 08/30/23 08:00 09/20/23 07:46
Pantoprazole 40 Mg Delayed Release Tablet PO 09/27/23 07:59 40 mg
DAILY BEATA Administration
Patch Removal 0 patch 09/10/23 20:00 09/19/23 20:27
Remove Lidocaine Patch REMOVE 10/08/23 19:59 1 patch
DAILY@2000 BEATA Administration
Polyethylene Glycol 17 grams 09/14/23 08:00 09/20/23 07:48
Polyethylene Glycol Powder 17 Grams Packet PO 10/12/23 07:59 17 grams
DAILY BEATA Administration
Prochlorperazine Maleate 5 mg 09/17/23 12:40
Prochlorperazine 5 Mg Tablet PO 10/15/23 12:39
Q6HPRN PRN
nausea/vomiting
Sennosides 17.2 mg 09/13/23 09:00 09/20/23 07:46
Sennosides (Senokot) 8.6 Mg Tablet PO 10/11/23 08:59 17.2 mg
BID BEATA Administration
Sertraline HCl 50 mg 08/30/23 08:00 09/20/23 07:47
Sertraline 50 Mg Tablet PO 09/27/23 07:59 50 mg
DAILY BEATA Administration
Sodium Chloride 0 flush 08/29/23 15:00
Sodium Chloride 0.9% (Flush) Syringe IV 09/26/23 14:59
PER PROTOCOL BEATA
Tamsulosin HCl 0.4 mg 09/17/23 12:40
Tamsulosin 0.4 Mg Capsule PO 10/15/23 12:39
DAILYPRN PRN
bladder scan volume > 400 mL
Tramadol HCl 50 mg 09/17/23 12:40 09/20/23 14:27
Tramadol Hcl 50 Mg Tablet PO 10/15/23 12:39 50 mg
Q6HPRN PRN Administration
pain moderate
Tramadol HCl 25 mg 09/17/23 12:40
Tramadol Hcl 50 Mg Tablet PO 10/15/23 12:39
Q6HPRN PRN
pain =Mild
Vitamin C/Vitamin E 1 cap 08/30/23 08:00 09/20/23 07:46
Vit C/Vit E/Lutein/Min/[place]-3 (Ocuvite) Capsule PO 09/27/23 07:59 1 cap
DAILY BEATA Administration
Vital Signs
Temp Pulse Resp BP Pulse Ox
97.4 F 82 17 148/78 97
09/20/23 15:17 09/20/23 15:17 09/20/23 15:17 09/20/23 15:17 09/20/23 15:17
Height 5 ft 7 in
Actual Weight 99.082 kg
Body Mass Index (BMI) 34.2
Physical Exam
Physical Exam:
General Appearance/Observation: Well-developed, well-nourished individual lying in bed. Significant anxiety and agitation - worried that he is a burden lying in the hospital bed.
Pain/Comfort Assessment: States Right hip pain mild - unable to qualify/quantify level of pain
Mood/Affect: Anxious
Integumentary/Operative Site:
Operative Site right hip - clean and dry. some Thigh and hip edema
Eyes: Conjunctiva/Lids: normal Pupils: pupils equal round and reactive to light and Accommodation
Ears/Nose/Throat: oral mucosa moist, throat clear. Lips/Teeth/Gums: normal
Neck: No muscle spasm or tenderness
Cardiovascular: Heart: regular, no murmur
Pulses: dorsalis pedis 2+ bilaterally
Respiratory: Respiratory Effort/Chest Expansion: normal Auscultation: Clear to auscultation bilaterally
Gastrointestinal: abdomen not tender, no distension, normal abdominal bowel sounds
Genitourinary: Gómez with clear yellow urine
Extremities: Edema: 1+ bilateral LE - 1+ in right thigh Cyanosis: None Trophic changes: None
Neurology Exam:
Orientation: Awake and alert, but not oriented to time/date. [place]ahsan he is in hospital.
Memory: Impaired
Higher cortical function
Speech: Intact
Repetition: Intact
Comprehension: Intact
Two step command: Intact
Naming: Intact
Cranial Nerves:
CNII: Pupillary light reflex: Intact Visual Field: Intact
CN III, IV, : Extraocular muscles: Intact
CN V: Facial Sensation at Forehead: Intact , Maxilla: Intact, Mandible: Intact
CN VII: Facial movement: Symmetric
CN VIII: Hearing: Normal
CN IX/X: Speech & swallow: Normal, Position of Uvula: Midline
CN XI: Shoulder shrug: Symmetric
CN XII: Tongue protrusion: Midline
Sensory:
Light touch: Intact in bilateral upper and lower extremities- no asymmetry in LE/feet
Reflexes
Achilles: trace bilaterally
Babinski: Downgoing bilaterally
Clonus: None
Cerebellar: Dysmetria/Ataxia: no tremor, no ataxia/apraxia
Musculoskeletal:
Motor: (Manual muscle scale 0-5)
Muscle SA EF WE EE FF FA HF KE DF EHL PF
Right 4 5 5 5 4 4 2 3 4 4 4
Left 4 5 5 5 4 4 3 4 4 4 4
Tone: Normal in all extremities
Range of Motion: Passively within normal limits in all extremities
Lab Results
09/20/23 06:36
09/20/23 06:36
WBC 7.9 10^3/uL (4.8-10.8) 09/20/23 06:36
Hgb 9.1 g/dL (13.0-18.0) L 09/20/23 06:36
Hct 27.6 % (39.0-52.0) L 09/20/23 06:36
MCV 81.2 fL (80.0-94.0) 09/20/23 06:36
Plt Count 377 10^3/uL (130-400) 09/20/23 06:36
PT 18.1 Sec (11.4-14.6) H 09/06/23 05:48
INR 1.52 09/06/23 05:48
Sodium 130 mmol/L (135-145) L 09/20/23 06:36
Potassium 5.0 mmol/L (3.5-5.1) 09/20/23 06:36
Chloride 99 mmol/L (98-107) 09/20/23 06:36
Carbon Dioxide 22 mmol/L (22-30) 09/20/23 06:36
BUN 33 mg/dl (9-20) H 09/20/23 06:36
Creatinine 0.9 mg/dL (0.7-1.3) 09/20/23 06:36
eGFR > 60.00 09/20/23 06:36
Glucose 127 mg/dl (70-99) H 09/20/23 06:36
Hemoglobin A1c 6.2 % (4.0-5.6) H 09/10/23 07:13
Calcium 8.9 mg/dl (8.4-10.2) 09/20/23 06:36
Magnesium 2.0 mg/dl (1.6-2.3) 09/16/23 07:22
Total Bilirubin 0.4 mg/dl (0.2-1.3) 08/29/23 10:09
AST 19 U/L (17-59) 08/29/23 10:09
ALT 14 U/L (0-50) 08/29/23 10:09
Alkaline Phosphatase 114 U/L (38-126) 08/29/23 10:09
Total Protein 7.0 g/dl (6.3-8.2) 08/29/23 10:09
Albumin 3.8 g/dl (3.5-5.0) 08/29/23 10:09
Diagnostic Results
As per HPI.
Comorbidities / Impairment Group
Comorbidities:
Encephalopathy, CKD/NICOLÁS, Lumbar stenosis, lumbar radiculopathy, hyponatremia, neurogenic bladder
Impairment Group:
Right hip fracture
Assessment / Plan
Plan
Assessment:
88 year old male with chronic lumbar stenosis, with LE weakness, radiculopathy and multiple falls at home. Noted with right femoral neck fracture in hospital - unsure if premorbid before admission - now s/p R hip hemiarthroplasty on 09/17/23.
PM&R PT/OT to increase independence with ADLs, improve balance, coordination, endurance, strength, mobility, community reintegration, decreased burden of care on others and family education. Anxiety and agitation seem to be barrier to appropriate
participation and movement with therapy. Likely contributed by weakness with lumbar stenosis and radiculopathy.
Hip fracture: S/p right hip hemiarthroplasty on 09/17/23. Monitor incision, pain control, hip precautions/incision care per orthopedics. Pain in back and hip - requiring tramadol, oxycodone, dilaudid prn. Use Lido patch locally as able.
HTN: continue medications, monitor closely
UTI: Completed course of antibiotics. Probable neurogenic bladder from lumbar stenosis/radiculopathy - now with gómez cath and followed by urology for further recs.
Hyponatremia: Continue to monitor
Anemia: continue to monitor
Renal: CKD III prior to admission - nephrology following for further recs.
Psych: May need Psychology consult with anxiety and agitation - seems to be inhibiting participation with bedside therapies as well. On Sertraline, divalproex. Monitor mood, adjust medications as needed.
Skin: monitor for pressure sores/rashes/lesions.
Pain: acetaminophen, tramadol or oxycodone as needed.
Bowel: Colace and Senna, PRN bisacodyl.
Bladder: Gómez cath
GI Prophylaxis: Pantoprazole
DVT Prophylaxis: On eliquis
Pulmonary: Incentive spirometry
Safety: Continue to reinforce assistance with all transfers.
Code Status: Recent DNR
Dispo (date/plan/equipment needs): Will need further rehabilitation prior to able to go home with family care. Social history reviewed. Is moving to independent living/continuity of care at [facility]
Functional and Medical Goals: Modified Independent with ADL�s, ambulation, transfers
Summary
-
Things that must be addressed in Hospital prior to discharge:
1. Please continue bedside PT/OT.
2. Patient must be stable on oral pain medications.
3. Blood pressure must be less than 180 systolic and 100 diastolic for 24 hours before being stable for transfer to SNF/acute rehab.
4. Please give blood pressure parameters.
5. Please confirm any ROM, bracing and weight bearing precautions.
6. Please comment on dvt chemoprophylaxis restrictions.
Discharge Destination: Unable to participate in acute level rehabilitation at this time. May need slow, less intense rehab to improve mobility and strength, endurance. Likely lumbar radiculopathy contribution to LE weakness as well. Agitation had
limited his ability to proceed with treatment/BAYRON for the lumbar pain. Follow up with pain management as outpatient for further consideration.
Good candidate for further rehab with [facility] level care - possible transition care at [facility] and then can transition to independent living as planned there once improved?
Summary of recommendations:
- Discharge Destination: SNF rehab
Will sign off, please re-consult if needed.
Thank you for allowing me to care for your patient. Please contact me with any questions or concerns.
Comments
-
This note was dictated using a voice recognition system. Please excuse any typographical errors from airport skilled maintenance supervisor. If you believe there are any discrepancies, please notify our office.
[2023-09-21] MEDS: TYLENOL PO (01:08)
[2023-09-21 03:00] VITALS: BP 146/73
[2023-09-21] MEDS: TYLENOL 650 MG PO ×3 (04:26→13:10)
[2023-09-21 07:04] VITALS: BP 148/68
[2023-09-21] MEDS: SYMBICORT 160/4.5 MCG INHALER 2 PUFF INH (08:23)
[2023-09-21] MEDS: CARDIZEM CD 180 MG PO (08:47)
[2023-09-21] MEDS: APRESOLINE 50 MG PO (08:47)
[2023-09-21] MEDS: SENOKOT 17.1999999999999993 MG PO (08:48)
[2023-09-21] MEDS: COLACE 100 MG PO (08:48)
[2023-09-21] MEDS: ELIQUIS 5 MG PO (08:48)
[2023-09-21] MEDS: FLEXERIL 2.5 MG PO (08:48)
[2023-09-21] MEDS: PROTONIX 40 MG PO (08:48)
[2023-09-21] MEDS: ZOLOFT 50 MG PO (08:48)
[2023-09-21] MEDS: DEPAKOTE ER (24 HR RELEASE) 250 MG PO (08:48)
[2023-09-21] MEDS: LIDOCAINE 4% PATCH 1 PATCH TOPICAL ×2 (08:49)
[2023-09-21] MEDS: MIRALAX 17 GRAMS PO (08:49)
[2023-09-21] MEDS: OCUVITE SOFTGEL 1 CAP PO (08:49)
--- NOTE | 2023-09-21 11:13 | W.PN.HOSP.TC ---
Addendum entered and electronically signed by Dixon Spencer MD 10/05/23 13:43:
unable to determine
Original Note:
Today's Communication/Plan
-
Pain control
oob
pt/ot
await placement
Assessment / Plan
Assessment / Plan
MRI L-spine:
1. SEVERE CENTRAL CANAL STENOSIS at L4/L5 secondary to 3.3 mm grade 1 anterolisthesis, severe facet joint arthrosis, and a large disc herniation which has mildly increased since 12/19/2021. Interval increase in size of a large right
foraminal-extraforaminal disc herniation causing exiting right L4 nerve root impingement. Small right subarticular superior disc extrusion which has partially resorbed since 12/19/2021.
2. Moderate central canal stenosis and severe left neural foraminal narrowing at L3/L4 secondary to a large diffuse disc bulge, large left foraminal-extraforaminal disc herniation, and severe left neural foraminal narrowing with exiting left L3
nerve root impingement which has increased since 12/19/2021.
3. Moderate high T2 signal intensity in the L2/L3 intervertebral disc which is new from 12/19/2021. Diagnostic possibilities are (1) progressive discogenic degenerative disease or (2) acute infectious discitis if there are signs/symptoms of
infection. Mild central canal stenosis at L2/L3 which has decreased since 12/19/2021 secondary to interval resorption of a previously visualized moderate-sized disc herniation.
4. 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
5. Severely distended urinary bladder with mild perivesical edema suspicious for acute cystitis. Severe chronic right hydroureteronephrosis which appears unchanged.
CT A/P: Stable severe right hydronephrosis and hydroureter secondary to distal ureteral stones which have enlarged. Numerous bilateral renal cysts. Grossly stable. Moderate hiatal hernia. Stable. Moderate fecal material throughout the colon.
Progressed. Mild prostate hypertrophy. Progressed. Chen catheter present. Stable.
A/P:
# Acute on chronic back pain (this was the presenting problem)
Ibuprofen stopped 08/30/23 as pt with CKD and was on Eliquis
MRI L-spine above and notable for DDD with R L4 and L L3 nerve root impingement.
Cont Tylenol 1000 mg TID ATC, Dilaudid PRN
Continue PRN Flexeril for spasm
Off tramadol/Vicodin/Valium
# acute/subacute subcapital/transcervical fracture of the proximal right femur
Eliquis placed on hold, last dose was morning of 09/14/2023
s/p R hip hemiarthroplasty 09/16 by ortho
completed low dose eliquis dose for 3d.
Dispo PT/OT-SNF.
# Constipation- Enema
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
# Acute urinary retention/obstructive uropathy
# acute complicated UTI
# hyperkalemia, resolved
Per Uro, CTAP 08/30 showed persistence of distal R ureteral stones as seen in 2021, however this R system has been stable in obstructed state for many years without upper tract infection. There is no benefit acutely to stone intervention, and it is
likely that stone is not the only pathology there - Probably significant stricture disease which will not improve by addressing stone. Would not recommend intervention at this time and can be discussed further at follow up
Chen placed 08/31/23 for severe bladder distention/urinary retention, to remain in place on d/c per Uro
eplerenone stopped
was on Rocephin, transitioned to Omnicef and completed course
Cr improved at baseline
Uro was on board
# Paroxysmal atrial fibrillation
Continue Cardizem
Eliquis
'
# Essential hypertension:
Cont Cardizem/Hydralazine
# Acute metabolic encephalopathy due to acute complicated UTI, also hospital-acquired delirium versus worsening of dementia
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
Intermittent paranoia has improved. Continue to reorient.
If with severe paranoia/hallucination will need psych input
Fall precaution. off Medsitter
# Hypoglycemia-HbA1C 6.2. Not reliable.
Mild hyponatremia -monitor for now.
# Hyponatremia, mild-resolved
# Non-anion gap metabolic acidosis, resolved with NaHCO3 IVFs
# GERD/hiatal hernia-cont PPI
# h/o rectal CA s/p surgical resection and chemoradiation
# Asthma: Cont Symbicort
# Obstructive sleep apnea-CPAP
# Former smoker
# Iron deficiency anemia
# Anxiety/Depression: cont Zoloft
# Obesity per BMI criteria
# Prostatic hypertrophy
# H/O nephrolithiasis
CODE STATUS readdressed with the patient's who wants to make him DNR- changed.
DVT prophylaxis - low dose Eliquis resumed
Dispo: SNF. Not a montes candidate per PMR
Anticipated Discharge: Today
Subjective/Interval History
-
Date of Service: September 21, 2023
States improvement in back and hip pain
toleraing diet
Objective Data
-
Vital Signs:
Vital Signs
Temp Pulse Resp BP Pulse Ox
98.1 F 80 16 148/68 98
09/21/23 07:04 09/21/23 08:25 09/21/23 08:25 09/21/23 07:04 09/21/23 08:25
I&O
09/20/23 09/21/23 09/22/23
06:59 06:59 06:59
Intake Total 1080 / 1080 1180 / 1180
Output Total 1600 / 1600 1900 / 1900
Balance -520 / -520 -720 / -720
Physical Exam
-
General: Well Developed, Well Nourished, No Apparent Distress, Comfortable, Conversant and Appears Chronically Ill; Negative Respiratory Distress
HEENT: Normocephalic, Atraumatic, Nose Appears Normal and Ears Appear Normal; Negative Oxygen
Respiratory: Clear to Auscultation and Non Labored Respirations; Negative Accessory Resp Muscle Use
Cardiac: Regular Rhythm and S1/S2
GI: Soft, Nontender, Nondistended and Normal Bowel Sounds
Genito-urinary: Chen
Skin: Warm and Dry
Neuro: Awake
Psych: Calm and Apparent Dementia
[2023-09-21 11:35] VITALS: BP 134/78
--- NOTE | 2023-09-21 12:26 | W.DCSUMMARY ---
Discharge Summary
Discharge Data
Date of Admission: 08/29/23
Date of Discharge: 09/21/23
-
Pending Results: No
Hospital Course
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
SARITA, iron deficiency anemia, anxiety, depression, obesity who was presented with severe acute on chronic back pain. Patient MRI with severe spinal stenosis. Patient also with acute metabolic encephalopathy and required restraints and TeleSitter.
Patient was not a candidate for epidural steroid injection due to severe agitation and high risk if patient were to move on the operating table. Patient was also found to have a acute urinary retention and Chen catheter was placed. Per urology he
Chen catheter until outpatient evaluation with the urology team in the office. Patient was also found to urinary tract infection completed treatment with antibiotics. Patient also had NICOLÁS and was evaluated by nephrology. Patient was taken off
eplerenone. Creatinine slowly down trended. Patient was also had a hip fracture and was eval by orthopedic. Patient went to the operating room and underwent right hip hemiarthroplasty. Postop patient did well with PT and OT. Patient with
constipation which resolved. Patient was off restraints and mentating well. Patient be discharged to senior care facility as not a candidate for [place] re[facility].
Discharge Plan
-
Patient Disposition: [facility]/SNF
Discharge Diagnosis/Procedures: Acute on chronic back pain secondary to lumbar radiculopathy
Acute/subacute subcapital transcervical fracture of the right femur status post right hip hemiarthroplasty on 09/17/2023
Acute kidney injury on chronic kidney disease
Acute urinary retention/obstructive uropathy
Acute complicated urine tract infection
Hyperkalemia
Acute metabolic encephalopathy
Hypoglycemia
Mild hyponatremia
Condition: Fair
Diet: As tolerated
Activity: With assistance and As tolerated
Driving Restrictions: No driving
Blood Work: cbc and bmp in 1 week via primary doctor.
Referrals:
Martin Hagen MD [Active] - in one month
Tobias Tabor MD [Active] - None (Follow-up for Chen catheter management)
Guanako Chatman MD [Family Provider] -
Prescriptions:
New
tramadol 50 mg Tablet
25 mg PO Q6HPRN PRN (Reason: severe pain) 4 Days Qty: 10 0RF
hydralazine 50 mg Tablet
50 mg PO TID 30 Days Qty: 90 0RF
Continued
sertraline 25 MG tablet
50 mg PO DAILY
albuterol sulfate [ProAir HFA] 8.5 GM HFA aerosol inhaler
2 puff IH R Q4HPRN PRN (Reason: sob)
budesonide-formoterol [Symbicort] 1 PUFF HFA aerosol inhaler
2 puff inhalation R BID
PreserVision AREDS 1 CAP capsule
1 cap PO BID
diltiazem HCl 180 MG capsule,extended release 24hr
180 mg PO BID 0RF
omeprazole 20 mg Capsule,Delayed Release(Dr/Ec)
20 mg PO DAILYPRN PRN (Reason: gerd)
divalproex 250 mg Tablet Extended Release 24 Hr
250 mg PO DAILY
docusate sodium [Colace] 100 mg Capsule
100 mg PO BID
Changed
acetaminophen 650 mg Tablet Extended Release
650 mg PO Q6H 10 Days Qty: 0 0RF
Eliquis 5 MG tablet
5 mg PO BID Qty: 0 0RF
Discontinued
eplerenone 25 MG tablet
50 mg PO DAILY 0RF
ibuprofen [Advil] 200 mg Tablet
400 mg PO DAILYPRN PRN (Reason: mild pain)
Discharge Orders:
Discharge Patient (As Directed); Ordered 09/21/23
Ordered By: Dixon Spencer
Discharge Date and Time
Print Language: NEPALESE
--- NOTE | 2023-09-21 13:34 | CM ---
Patient has been medically cleared for discharge to [facility] for senior living and rehab services. Insurance auth required and obtained: Approved for 7 days skilled level 1 from 09/21/23 through to and including 09/27/23, NRD 09/27/23, Auth
# [id number]. Concurrent reviews to . Ambulance transport Auth # [id number]. Transport has been scheduled for 3:30PM.
NURSE TO NURSE REPORT # [phone]
FAX # [phone].
[2023-09-21 15:06] VITALS: BP 133/73
[2023-09-21 15:58] LABS: COVID-19 Antigen Negative (Negative)
--- NOTE | 2023-09-27 09:07 | PN.CDI ---
CDI
- -
CDI:
Physician Documentation Request
Admit Date: 08/29/23 13:10
Dear Doctor Johanna,
Patient admitted for back pain.
09/14 Orthopedic consult: 'Kyler sustained a subcapital femur fracture...Upon review of CTA from 08/31, femoral neck fracture was present on CT scan. Unless patient sustained a fall or injury after his admission, this was likely present on admission.'
Please clarify the following:
Hip fracture was present on admission
Hip fracture was not present on admission
Unable to determine
Use of terms such as suspected, likely, concern for, or probable (associated with a specific diagnosis that is being evaluated, monitored, or treated as if it exists) are acceptable and can be coded in the inpatient setting, when documented at the
time of discharge.
Thank you,
Eileen Anderson RN, BSN
CDI Specialist
Available via [employer] text
Please use your independent medical judgment in providing your response.
== END 2023-09-21 16:21 | DRG 521 ==
LOC: 2 SOUTH 13:10
PROVIDERS: Hospitalist; Internal Medicine; Radiology Vascular & Interventional Radiology; Specialist; ADMITTING PHYSICIAN Internal Medicine; ATTENDING PHYSICIAN Hospitalist; CONSULT PHYSICIAN Orthopaedic Surgery Hand Surgery; CONSULT PHYSICIAN Student in an Organized Health Care Education/Training Program; EMERGENCY PHYSICIAN Emergency Medicine; FAMILY PHYSICIAN Internal Medicine Geriatric Medicine; OTHER PHYSICIAN Internal Medicine Infectious Disease; OTHER PHYSICIAN Physical Medicine & Rehabilitation; OTHER PHYSICIAN Urology
PROC: 5A09357 Assistance with Respiratory Ventilation, Less than 24 Consecutive Hours, Continuous Positive Airway Pressure (ICD-10-PCS; 2023-09-09)
PROC: 0SRR0J9 Replacement of Right Hip Joint, Femoral Surface with Synthetic Substitute, Cemented, Open Approach (ICD-10-PCS; 2023-09-17)
DX: S72.011A Unspecified intracapsular fracture of right femur, initial encounter for closed fracture (principal); G93.41 Metabolic encephalopathy; F05 Delirium due to known physiological condition; F02.84 Dementia in other diseases classified elsewhere, unspecified severity, with anxiety; F02.83 Dementia in other diseases classified elsewhere, unspecified severity, with mood disturbance; F02.811 Dementia in other diseases classified elsewhere, unspecified severity, with agitation; I48.21 Permanent atrial fibrillation; I50.32 Chronic diastolic (congestive) heart failure; I13.0 Hypertensive heart and chronic kidney disease with heart failure and stage 1 through stage 4 chronic kidney disease, or unspecified chronic kidney disease; N17.9 Acute kidney failure, unspecified; N13.6 Pyonephrosis; N13.8 Other obstructive and reflux uropathy; E87.20 Acidosis, unspecified; E87.1 Hypo-osmolality and hyponatremia; M48.061 Spinal stenosis, lumbar region without neurogenic claudication; G30.9 Alzheimer's disease, unspecified; E66.09 Other obesity due to excess calories; F32.A Depression, unspecified; N18.30 Chronic kidney disease, stage 3 unspecified; J44.89 Other specified chronic obstructive pulmonary disease; J45.20 Mild intermittent asthma, uncomplicated; G25.0 Essential tremor; W06.XXXA Fall from bed, initial encounter; Y92.003 Bedroom of unspecified non-institutional (private) residence as the place of occurrence of the external cause; M47.26 Other spondylosis with radiculopathy, lumbar region; M17.12 Unilateral primary osteoarthritis, left knee; E78.2 Mixed hyperlipidemia; G89.29 Other chronic pain; K44.9 Diaphragmatic hernia without obstruction or gangrene; N31.9 Neuromuscular dysfunction of bladder, unspecified; N40.1 Benign prostatic hyperplasia with lower urinary tract symptoms; R39.12 Poor urinary stream; R35.0 Frequency of micturition; R32 Unspecified urinary incontinence; K59.00 Constipation, unspecified; K21.9 Gastro-esophageal reflux disease without esophagitis; E16.2 Hypoglycemia, unspecified; Z79.01 Long term (current) use of anticoagulants; Z79.899 Other long term (current) drug therapy; Z87.19 Personal history of other diseases of the digestive system; Z87.891 Personal history of nicotine dependence; Z96.653 Presence of artificial knee joint, bilateral; Z87.440 Personal history of urinary (tract) infections; Z87.442 Personal history of urinary calculi; Z85.048 Personal history of other malignant neoplasm of rectum, rectosigmoid junction, and anus
CPT/HCPCS: 70450; 72148; 73502; 74018; 74176; 80048; 80053; 81003; 81015; 82570; 82607; 82728; 82962; 83036; 83540; 83550; 83735; 84156; 84300; 85025; 85027; 85610; 86850; 86900; 86901; 87086; 87811; 94640; 96374; 96375; 97110; 97164; 97166; 97168; 97530; 97535; 99285; C1713; C1776

== ENCOUNTER 2023-12-02 14:42 | Inpatient (IN) | payer OTHER, SELFPAY ==
[2023-12-02] VITALS (12 sets, daily range): BP systolic 121–164; BP diastolic 62–84; PULSE 2–90; BMI 35.6
--- NOTE | 2023-12-02 10:03 | ED.GENMED ---
History of Present Illness
General
Chief Complaint: Breathing Problem
Time Seen by Provider: 12/02/23 09:51
History of Present Illness
History of Present Illness:
Patient is a 88-year-old male with history of COPD A-fib on Eliquis,, hypertension history of GI bleed presenting to the emergency department with shortness of breath. Patient states that last night he developed shortness of breath that worsened
this morning. Patient denies any fevers or chills. Has had a cough. No chest pain. He does have chronic leg swelling. Reportedly has no history of heart failure. Denies any nausea vomiting or abdominal pain. He did try taking his albuterol
inhaler prior to arrival which did not help. Upon medics arrival patient was on 3 L saturating in the mid 80s. They placed him on 15 L nonrebreather with appropriate saturations. They gave him a DuoNeb treatment. Patient does state that he feels
slightly better since receiving that. He has been compliant with his medications. This 's consistent with prior COPD flares. He does use a CPAP machine at nighttime which she has been compliant with.
Past History
Past History
ED Past Medical History: Asthma, HTN and Other (Ulcers)
ED Past Surgical History: Orthopedic (R knee replacment,), Urological (Kidney stones with stent and then stent removed) and Other (Rectal CA,)
Social History
Tobacco: Former smoker
Alcohol: Occasional
Personal:
Living: with family
Employment: Retired
Phy Exam
Physical Exam
Physical Exam:
GENERAL: Respiratory distress, audible wheezing
HEENT: normocephalic, extraocular movements intact, moist oral mucosa
NECK: normal inspection
RESPIRATORY: Respiratory distress, diminished air movement bilaterally in all reid
CARDIOVASCULAR: Irregularly irregular rhythm, regular rate
ABDOMEN/: soft, non-distended, non-tender to palpation, no rebound or guarding
EXTREMITIES: non-tender, 1+ pitting edema bilaterally
NEUROLOGIC: awake and alert, moves all extremities
SKIN: warm
Scores
Heart Failure Risk
Heart Failure Risk Score: Not Applicable
Course
Orders/Labs/Results
Orders:
Orders
12/02/23 09:53
Electrocardiogram (*1) Urgent
Reason for Study: Shortness of Breath
12/02/23 09:54
EKG- Treatment ONCE
12/02/23 09:59
Albuterol Sulfate [Ventolin Nebules] 15 mg INH R NOW STA
Ipratropium Nebs [Atrovent Nebules] 0.5 mg INH R NOW STA
Portable Chest Xray [CR Chest Portable - 1 View] Urgent
Comment:
Reason For Exam: respiratory distress
Reason Study Needs to be Portable: Patient Unstable
12/02/23 10:01
COVID-19 Antigen Urgent
Source: Nasal Swab
Complete Blood Count/With Diff Urgent
Comprehensive Metabolic Panel Urgent
Pro-BNP [NT-proBNP] Urgent
Venous Blood Gas Urgent
%Oxygen/Room Air: 15% non rebreather
MethylPREDNISolone PF [Solu-Medrol Pf] 125 mg IV NOW STA
Abnormal Lab Results
12/02/23
10:01
RBC 3.64 L 10^6/uL
(4.70-6.10)
Hgb 8.5 L g/dL
(13.0-18.0)
Hct 28.2 L %
(39.0-52.0)
MCV 77.5 L fL
(80.0-94.0)
MCH 23.4 L pg
(27.0-31.0)
MCHC 30.1 L g/dL
(33.0-37.0)
RDW 18.3 H %
(11.5-14.5)
Absolute Neuts (auto) 8.2 H 10^3/uL
(1.4-6.5)
Absolute Lymphs (auto) 0.9 L 10^3/uL
(1.2-3.4)
Neutrophils % 84.5 H %
(42.2-75.2)
Lymphocytes % 9.6 L %
(20.5-51.1)
VBG pO2 145 H mmHg
(30-50)
VBG HCO3 27.2 H mmol/L
(22-27)
BUN 21 H mg/dl
(9-20)
Glucose 167 H mg/dl
(70-99)
12/02/23 10:01
12/02/23 10:01
Vital Signs
Initial and Last Documented VS:
Initial Vital Signs
Pulse Resp BP Pulse Ox
85 21 155/81 100
12/02/23 09:55 12/02/23 09:55 12/02/23 09:55 12/02/23 09:55
Last Documented Vital Signs
Pulse Resp BP Pulse Ox
83 21 164/72 100
12/02/23 10:00 12/02/23 10:00 12/02/23 10:00 12/02/23 10:00
MDM/Problems Addressed
Differential Diagnosis Includes:
Patient is a 88-year-old male with history of COPD, A-fib on Eliquis, hyperlipidemia presenting to the emergency department with shortness of breath. He did arrive on a nonrebreather and exam does show moderate respiratory distress with diminished
air movement bilaterally. Differential consists of COPD exacerbation versus pneumonia versus new onset CHF versus anemia versus A-fib with RVR. Considered PE though less likely as patient has been compliant with his medications and he is not
tachycardic/no unilateral leg swelling . per chart review appears that patient did have an echo last year which showed a normal EF. Will obtain blood work clean CBC BMP BNP VBG EKG chest x-ray. Will obtain COVID swab. Will give continuous neb and
Atrovent. Will also give steroids. Considered BiPAP on arrival however after shared decision making we will hold off.
*Critical Care Note
Total Time (30-74mins, 75-104mins- exclusive of procedures): Not Applicable
Update Note
Update Note:
EKG per my interpretation A-fib.
On reevaluation patient's is at bedside. She does state that he has history of COPD. He was supposed to get an echo done as there was concern that he has fluid retention. She does state that he has 1 kidney that is failing. She does state
that since he left the house with the medics he does much better. He still in some respiratory distress though much improved since he arrived. Chest x-ray per my interpretation with pulmonary vascular congestion. He is having some belly breathing
and likely will benefit from BiPAP. VBG is reassuring.
On reevaluation patient is on BiPAP 12/5 on 2 L and look much comfortable. Belly breathing has improved. He does have slight wheezing still but is finishing up nebulizer treatment. Blood work does show elevated BNP. Discussed with hospitalist
who accepted patient for admission.
ED Attending Note
-
Portions of this chart may have been created with voice recognition software.� Occasional wrong word or��sound alike� substitutions may have occurred due to the inherent limitations of voice recognition software.
Discharge Plan
Departure
Patient Disposition: Admit
Date of Disposition: 12/02/23
Time of Disposition: 10:54
Presentation/result/management discussed w/ accepting MD/DO: Hospitalist
Discharge Problem:
COPD (chronic obstructive pulmonary disease), Pulmonary edema
Prescriptions:
No Action
sertraline 25 MG tablet
50 mg PO DAILY
albuterol sulfate [ProAir HFA] 8.5 GM HFA aerosol inhaler
2 puff IH R Q4HPRN PRN (Reason: sob)
budesonide-formoterol [Symbicort] 1 PUFF HFA aerosol inhaler
2 puff inhalation R BID
PreserVision AREDS 1 CAP capsule
1 cap PO BID
diltiazem HCl 180 MG capsule,extended release 24hr
180 mg PO BID 0RF
omeprazole 20 mg Capsule,Delayed Release(Dr/Ec)
20 mg PO DAILYPRN PRN (Reason: gerd)
divalproex 250 mg Tablet Extended Release 24 Hr
250 mg PO DAILY
docusate sodium [Colace] 100 mg Capsule
100 mg PO BID
tramadol 50 mg Tablet
25 mg PO Q6HPRN PRN (Reason: severe pain) 4 Days Qty: 10 0RF
hydralazine 50 mg Tablet
50 mg PO TID 30 Days Qty: 90 0RF
acetaminophen 650 mg Tablet Extended Release
650 mg PO Q6H 10 Days Qty: 0 0RF
Eliquis 5 MG tablet
5 mg PO BID Qty: 0 0RF
Referrals:
Guanako Chatman MD [Family Provider] -
Interventions
Interventions:
*Risk Screen - Suicide Last Done: 12/02/23 09:55
*General Assessment Last Done: 12/02/23 09:55
*Neglect/Abuse Screening Last Done: 12/02/23 09:55
ED- Fall Risk Assessment Last Done: 12/02/23 10:14
*ED COVID-19 Vaccine History Last Done: 12/02/23 09:55
ED- Cardiac Assessment Last Done: 12/02/23 10:14
ED- Pulmonary Assessment Last Done: 12/02/23 10:14
Discharge Date and Time
Print Language: LUXEMBOURGISH
[2023-12-02] MEDS: SOLU-MEDROL PF 125 MG IV (10:05)
[2023-12-02] MEDS: VENTOLIN NEBULES 15 MG INH (10:05)
[2023-12-02] MEDS: ATROVENT NEBULES 0.5 MG INH (10:06)
[2023-12-02 10:13] LABS: % Basophils 0.3 % (0-2); % Eosinophils 0.4 % (0-6); % Immature Granulocytes 0.4 % (0-0.5); % Lymphocytes 9.6 % (20.5-51.1); % Monocytes 4.8 % (1.7-9.3); % Neutrophils 84.5 % (42.2-75.2); Absolute Lymphocytes 0.9 10^3/uL (1.2-3.4); Absolute Monocytes 0.5 10^3/uL (0.1-0.6); Absolute Neutrophils 8.2 10^3/uL (1.4-6.5); Hematocrit 28.2 % (39.0-52.0); Hemoglobin 8.5 g/dL (13.0-18.0); Mean Corp Hgb Conc. 30.1 g/dL (33.0-37.0); Mean Corpuscular Hgb 23.4 pg (27.0-31.0); Mean Corpuscular Volume 77.5 fL (80.0-94.0); Mean Platelet Volume 9.2 fL (7.4-10.4); Nucleated Red Blood Cells % 0 % (-); Platelet Count 372 10^3/uL (130-400); Red Blood Cell Count 3.64 10^6/uL (4.70-6.10); Red Cell Dist. Width 18.3 % (11.5-14.5); Venous Blood Gas B.E. 1.9 mmol/L (-4 to +4); Venous Blood Gas HCO3 27.2 mmol/L (22-27); Venous Blood Gas O2 Sat % 98.8 %; Venous Blood Gas pCO2 45 mmHg (35-48); Venous Blood Gas pH 7.39 (7.32-7.43); Venous Blood Gas pO2 145 mmHg (30-50); White Blood Cell Count 9.8 10^3/uL (4.8-10.8)
[2023-12-02 10:32] LABS: ALT (SGPT) 18 U/L (0-50); AST (SGOT) 21 U/L (17-59); Albumin 3.9 g/dl (3.5-5.0); Alkaline Phosphatase 120 U/L (38-126); Blood Urea Nitrogen 21 mg/dl (9-20); Calcium 9.7 mg/dl (8.4-10.2); Carbon Dioxide 25 mmol/L (22-30); Chloride 104 mmol/L (98-107); Glucose 167 mg/dl (70-99); Potassium 3.9 mmol/L (3.5-5.1); Sodium 140 mmol/L (135-145); Total Bilirubin 0.7 mg/dl (0.2-1.3); Total Protein 6.7 g/dl (6.3-8.2); eGFR > 60.00
[2023-12-02 10:35] LABS: COVID-19 Antigen Negative (Negative)
[2023-12-02 10:38] LABS: NT-proBNP 5890 pg/ml
--- NOTE | 2023-12-02 14:27 | HPS.HSE ---
Addendum entered and electronically signed by Shalom Graves MD 12/02/23 22:02:
Attending Addendum-
I performed a history and physical exam of the patient and discussed his management with the resident. I reviewed the resident's note and agree with the documented findings and plan of care CC/HPI- Sent to ED from secondary to worsening SOB. Was
place on o2 at facility overnight. H/O from patients present. Patient found to be in in resp distress placed on NRB initially and upgraded to bipap in ED. Was scheduled for echo today by OP cards. Per has been having progressive SOB and
increased LE swelling. Full 12 point ROS reviewed and negative except as documented Exam- vitals reviewed in EMR GEN-Mod resp distress Heart irreg irreg lungs diffuse b/l rales abd soft NT ND pos BS LE 2+ pitting edema b/l Plan:
# Acute Hypoxemic Respiratory Failure-
- Admit to IMU
- secondary to CHF
- cont bipap for now, wean as tolerated
# AE HFpEF
- cards c/s
- repeat echo last on 10/25 EF 55-60%
- start IV lasix BID (home dose 100mg)
- daily weights fluid restrict strict I and O's
- repeat BMP in am
# COPD
- not in AE
- cont duonebs and advair
# Chronic Urinary Retention due to BPH
- cont Chen
# Permanent Atrial Fibrillation
- cont eliquis and diltiazem
# CKD 2
- avoid NT agents
- repeat BMP in am
# HTN-
-cont Hydralazine
# Ambulatory Dysfunction/Severe Deconditioning
- s/p right femur mauro arthroplasty 09/17/23
- patient is now WC bound
- PT OT
# Dementia-
- cont memantine and donepezil
# SARITA
- cont CPAP
# Depression
- cont sertraline
# GERD
- cont omeprazole
Dispo Eventual DC to when able
CODE- Full d/w AAOx3
Time spent coordinating care, review of plan of care with resident, personally reviewed previous records in EMR, med rec, labs, radiology, d/w nursing, family �- 85 mins
Original Note:
Family Physician
-
Family Physician: Guanako Chatman
Chief Complaint
-
shortness of breath
History of Present Illness
Patient is a 88-year-old male with history of COPD A-fib on Eliquis,, hypertension history of GI bleed presenting to the emergency department from [facility] with shortness of breath. Patient is wheel chair bound. Patient states that last night he
developed shortness of breath that worsened this morning. Patient denies any fevers or chills. Has had a cough which is dry, non productive. No chest pain. He does have chronic leg swelling. Reportedly has no history of heart failure. Denies
any nausea vomiting or abdominal pain. He did try taking his albuterol inhaler prior to arrival which did not help. Upon medics arrival patient was on 3 L saturating in the mid 80s. They placed him on 15 L nonrebreather with appropriate
saturations. They gave him a DuoNeb treatment. Patient does state that he feels slightly better since receiving that. He has been compliant with his medications. This 's consistent with prior COPD flares. He does use a CPAP machine at nighttime
which she has been compliant with. Patient's wif at bedside states that bruising in his hands have increased since the past week.
Medical History
Past Medical History
Past Medical History: Reports Arrhythmia, COPD and HTN
Past Surgical History: Reports Orthopedic (right hip hemiarthropathy, right knee replacement )
Social History
Tobacco: Former Smoker (quit at age 49 )
Alcohol: None
Drug: None
Personal:
Living: Intermediate
Family History
Family History: Not pertinent
Allergies / Home Medications
Allergies reflects when Allergies were last updated in [employer].
Home Medications with original date entered in [employer]
Allergy/Medication List:
Allergies
Allergy/AdvReac Type Severity Reaction Status Date / Time
oxycodone AdvReac Unknown Verified 09/14/23 13:38
Home Medications
sertraline 25 mg tablet 50 mg PO DAILY Mental Health 09/07/16
docusate sodium 100 mg capsule (Colace) 100 mg PO BID Constipation 08/29/23
apixaban 5 mg tablet (Eliquis) 5 mg PO BID Blood Clot Prevention/Tx #0 tabs 09/21/23
acetaminophen 500 mg tablet (Tylenol Extra Strength) 1,000 mg PO Q8HPRN PRN mild pain 12/02/23
acetaminophen 650 mg tablet,extended release 650 mg PO Q6HPRN PRN mild pain 12/02/23
albuterol sulfate 90 mcg/actuation aerosol inhaler 2 puff inhalation R Q4HPRN PRN sob 12/02/23
bisacodyl 10 mg rectal suppository (Dulcolax (bisacodyl)) 10 mg IA DAILYPRN PRN if no bm aftr mom 12/02/23
collagenase clostridium histo. 250 unit/gram topical ointment (Santyl) 1 applic topical DAILY r buttock wound 12/02/23
diltiazem HCl 180 mg capsule,extended release 24 hr 180 mg PO BID Arrhythmia 12/02/23
donepezil 5 mg tablet 5 mg PO DAILY Neurological Condition 12/02/23
famotidine 20 mg tablet (Pepcid) 20 mg PO BID Gastrointestinal Issue 12/02/23
fluticasone 500 mcg-salmeterol 50 mcg/dose blistr powdr for inhalation (Advair Diskus) 1 inh inhalation R BID Lung/Breathing Issues 12/02/23
furosemide 20 mg tablet (Lasix) 20 mg PO DAILY Fluid Retention/Swelling 12/02/23
furosemide 80 mg tablet (Lasix) 80 mg PO DAILY Fluid Retention/Swelling 12/02/23
hydralazine 50 mg tablet 50 mg PO TID Blood Pressure 12/02/23
magnesium hydroxide 400 mg/5 mL oral suspension (Milk of Magnesia) 2,400 mg PO [id number] PRN if no bm on day 2 12/02/23
memantine 5 mg tablet 5 mg PO DAILY Neurological Condition 12/02/23
potassium chloride 20 mEq tablet,extended release 20 meq PO DAILY Electrolyte Repletion 12/02/23
sodium phosphates 19 gram-7 gram/118 mL enema (Fleet Enema) 118 ml IA DAILYPRN PRN if no bm aftr dulcolax 12/02/23
zinc oxide 20 % topical paste 1 ea topical DAILY soilage dislodgement 12/02/23
zinc oxide 20 % topical paste 1 ea topical DAILYPRN PRN wound periemeter 12/02/23
Review of Systems
-
History Source: Patient and Family
Respiratory: Reports Cough and Trouble Breathing
Musculoskeletal: Reports Edema
Physical Exam
Vital Signs
Vital Signs
Temp Pulse Resp BP Pulse Ox
98.1 F 81 18 156/72 97
12/02/23 12:00 12/02/23 12:45 12/02/23 12:45 12/02/23 12:07 12/02/23 12:45
Physical Exam
General: Respiratory Distress (on BIPAP )
HEENT: NormoCephalic and Anicteric
Respiratory: Decreased Breath Sounds (bilaterally )
Cardiac: Irregular Rhythm
GI: Soft, Non Tender and Non Distended
Musculoskeletal: Edema, Left Lower Extremity (2+) and Edema, Right Lower Extremity (2+)
Skin: Other (purplish discoloration in right hand )
Neuro: AO x 3
Psych: Calm
Laboratory Results
-
12/02/23 10:01
12/02/23 10:01
Laboratory Results
Total Bilirubin 0.7 mg/dl (0.2-1.3) 12/02/23 10:01
AST 21 U/L (17-59) 12/02/23 10:01
ALT 18 U/L (0-50) 12/02/23 10:01
Alkaline Phosphatase 120 U/L (38-126) 12/02/23 10:01
Data Reviewed
-
Diagnostic Radiology: Report Reviewed by me and Discussed with Physician
Lab Data: Labs Reviewed by me and Discussed with Physician
Impression/Plan
-
IMPRESSION:
Acute heart failure with volume overload
Acute hypoxic respiratory insufficiency on BIPAP
Persistent atrial fibrillation
Essential hypertension
Constipation
Anxiety/depression
BPH
CKD stage II
Wheelchair-bound s/p right hip hemiarthroplasty
Cognitive impairment
PLAN:
Acute heart failure with volume overload
Admit patient to IMU
Elevated pro BNP levels, check troponin
Start patient on IV Lasix 40 mg BID
Start DuoNebs every 6 hours
Continue albuterol as needed
Continue BiPAP for now , patient sat improved to 97
Monitor I's/O's, daily weights
Fluid restriction <1800
Check echocardiogram. Previous echo on 10/19/22- LFEV 50-55 %
EKG shows atrial fibrillation
Consult cardiology
Acute hypoxic respiratory insufficiency on BIPAP
Continue Bipap, O2 sats 97.
Trial to wean off
Persistent atrial fibrillation
EKG shows persistent atrial fibrillation, heart rate is in the 90s
Continue Eliquis 5 mg twice daily
Continue diltiazem
Goal rate less than 110
Essential hypertension
Continue diltiazem and hydralazine
Monitor blood pressure
Constipation
Continue docusate sodium
BPH
Patient has a Chen's catheter when he came in to ED from [facility]
History of chronic urinary incontinence
CKD stage II
Creatinine 1.1, baseline is less than 1
Monitor BMP in am
Wheelchair-bound s/p right hip hemiarthroplasty
Patient has pressure sores on right buttock
Continue Tylenol for pain
CODE STATUS - FULL CODE. Discussed with the and patient.
DVT prophylaxis - Eliquis
Diet- 2 g sodium diet with fluid restrict
IMAGING :
EKG 12/02/23
Atrial fibrillation
Echo 10/19/22
Normal left ventricular size, wall thickness and systolic function. No regional wall motion abnormalities are seen. Estimated ejection fraction is 55- 60%. Mild to moderate mitral regurgitation.
Compared to the previous echo there is now mild to moderate mitral regurgitation.
--- NOTE | 2023-12-02 15:31 | CON.CAR ---
Addendum entered and electronically signed by Loreto Collins MD 12/02/23 16:14:
I saw and examined the patient.
The [employer]'s note was reviewed and I agree with the note.
Comment: I spoke with the patient and his at great length. His gives most of the history today given the patient is currently on BiPAP. He recently moved to [facility] in the middle of September. She feels she has been more 'puffy 'since
that time despite not eating well his weight has been increasing. He continues with increased shortness of breath and presents in heart failure with extremis today. Currently requiring BiPAP but with IV diuretic he is feeling better. I saw the
patient independently and examined the patient. Exam is consistent with heart failure with increased JVD, crackles, lower extremity edema and dyspnea. Heart sounds are distant.
Plan at this time:
-Continue aggressive IV diuresis
-Oxygen/BiPAP support as needed
-Check labs in the morning
-Replete electrolytes as needed
-Troponin pending
-EKG not acute but with permanent atrial fibrillation for which he remains on oral anticoagulation. Continue.
-Chronic anemia noted.
-Watch input/output and daily weights.
-Chronic Gómez probably not a great candidate for SGLT2 inhibitors
Original Note:
Consultation
Consultation Request
Date/Time Consultation Performed: 12/02/23
Requesting Provider: Dr. Torres
Performing Provider: Mela Gonzáles PA-C for Dr. Loreto Collins
Reason for Consultation: CHF
Medical History
-
Chief Complaint: SOB, edema
History of Present Illness:
Patient is an 88-year-old male, wheelchair-bound resident of [facility] since 3 months ago with past medical history of chronic diastolic congestive heart failure, persistent atrial fibrillation on chronic Eliquis, PVCs, hypertension, LVH, CKD,
obstructive sleep apnea, history of rectal cancer status postresection, chemo, radiation who has noted worsening lower extremity edema and SOB over the last several weeks. He is on Lasix at [facility], appears to be on 100 mg daily. He then
reports last night around 8 PM his breathing became much worse and was brought to ER this morning for further evaluation. On arrival was noted to be hypoxic currently on BiPAP. proBNP 5890. Chest x-ray with pulmonary edema and bilateral pleural
effusions consistent with acute heart failure. Cardiology consulted for evaluation. Patient denies chest pain, palpitations.
PMH:
Chronic diastolic congestive heart failure
Persistent atrial fibrillation
Chronic anticoagulation with Eliquis
PVCs
Hypertension
LVH
CKD
Obstructive sleep apnea
History of rectal cancer status post resection, chemo, radiation
GERD
Past Medical History
Past Medical History: Other (in HPI)
Social History
Tobacco: Former Smoker
Alcohol: Occasional
Personal:
Living: Alf ([facility])
Employment: Retired
Allergies / Home Medications
Allergy/AdvReac Type Severity Reaction Status Date / Time
oxycodone AdvReac Unknown Verified 09/14/23 13:38
�Medication �Instructions �Recorded �Confirmed �Type
sertraline 25 mg tablet 50 mg PO DAILY Mental Health 09/07/16 12/02/23 History
docusate sodium 100 mg capsule 100 mg PO BID Constipation 08/29/23 12/02/23 History
(Colace)
apixaban 5 mg tablet (Eliquis) 5 mg PO BID Blood Clot 09/21/23 12/02/23 Rx
Prevention/Tx #0 tabs
acetaminophen 500 mg tablet 1,000 mg PO Q8HPRN PRN mild pain 12/02/23 12/02/23 History
(Tylenol Extra Strength)
acetaminophen 650 mg 650 mg PO Q6HPRN PRN mild pain 12/02/23 12/02/23 History
tablet,extended release
albuterol sulfate 90 mcg/actuation 2 puff inhalation R Q4HPRN PRN sob 12/02/23 12/02/23 History
aerosol inhaler
bisacodyl 10 mg rectal suppository 10 mg SD DAILYPRN PRN if no bm 12/02/23 12/02/23 History
(Dulcolax (bisacodyl)) aftr mom
collagenase clostridium histo. 250 1 applic topical DAILY r buttock 12/02/23 12/02/23 History
unit/gram topical ointment (Santyl) wound
diltiazem HCl 180 mg 180 mg PO BID Arrhythmia 12/02/23 12/02/23 History
capsule,extended release 24 hr
donepezil 5 mg tablet 5 mg PO DAILY Neurological 12/02/23 12/02/23 History
Condition
famotidine 20 mg tablet (Pepcid) 20 mg PO BID Gastrointestinal Issue 12/02/23 12/02/23 History
fluticasone 500 mcg-salmeterol 50 1 inh inhalation R BID 12/02/23 12/02/23 History
mcg/dose blistr powdr for Lung/Breathing Issues
inhalation (Advair Diskus)
furosemide 20 mg tablet (Lasix) 20 mg PO DAILY Fluid 12/02/23 12/02/23 History
Retention/Swelling
furosemide 80 mg tablet (Lasix) 80 mg PO DAILY Fluid 12/02/23 12/02/23 History
Retention/Swelling
hydralazine 50 mg tablet 50 mg PO TID Blood Pressure 12/02/23 12/02/23 History
magnesium hydroxide 400 mg/5 mL 2,400 mg PO [id number] PRN if no bm 12/02/23 12/02/23 History
oral suspension (Milk of Magnesia) on day 2
memantine 5 mg tablet 5 mg PO DAILY Neurological 12/02/23 12/02/23 History
Condition
potassium chloride 20 mEq 20 meq PO DAILY Electrolyte 12/02/23 12/02/23 History
tablet,extended release Repletion
sodium phosphates 19 gram-7 118 ml SD DAILYPRN PRN if no bm 12/02/23 12/02/23 History
gram/118 mL enema (Fleet Enema) aftr dulcolax
zinc oxide 20 % topical paste 1 ea topical DAILY soilage 12/02/23 12/02/23 History
dislodgement
zinc oxide 20 % topical paste 1 ea topical DAILYPRN PRN wound 12/02/23 12/02/23 History
periemeter
Review of Systems
-
History Source: Patient and Family
All other systems: Negative unless noted
Physical Exam
Vital Signs
Temp Pulse Resp BP Pulse Ox
98.1 F 81 18 156/72 97
12/02/23 12:00 12/02/23 12:45 12/02/23 12:45 12/02/23 12:07 12/02/23 12:45
Lab Results
12/02/23 10:01
12/02/23 10:01
Rbc-J-Kjchvklklzr Pept 5890 pg/ml 12/02/23 10:01
Physical Exam
General: No Apparent Distress and Other (on BIPAP)
HEENT: Normocephalic, Anicteric and Moist Mucous Membranes
Respiratory: Crackles
Cardiac: S1/S2 and Irregular Rhythm
GI: Soft, Non Tender, Non Distended and Normal Bowel Sounds
Musculoskeletal: No Clubbing, No Cyanosis and Edema (3+ of B/L LE)
Skin: Warm and Dry
Neuro: AO x 3
Impression / Plan
-
Primary Filter Press Pumper: Dr. Acosta
Assessment:
Acute on chronic diastolic congestive heart failure
Acute hypoxic respiratory failure
Persistent atrial fibrillation
Chronic anticoagulation with Eliquis
PVCs
mild to mod MR
Hypertension
LVH
CKD
COPD
Obstructive sleep apnea
History of rectal cancer status post resection, chemo, radiation
GERD
Chronic anemia
Wheelchair bound
BPH, gómez in place
ECHO 10/19/22: EF 55 to 60%, mild to moderate MR
Plan:
-Patient presents with worsening shortness of breath and lower extremity edema. Found to be in acute on chronic diastolic congestive heart failure, currently requiring BiPAP
-Wean off BiPAP as able
-by med rec, patient appears to be on po lasix 100mg daily as OP. will place on IV lasix 80mg BID. Cr 1.1
-Has indwelling Gómez catheter, monitor I&O's/Cr closely
-Was scheduled for outpatient echo today, was cancelled as came to ER. Will check inpatient. last from 2022 as above
-in rate controlled afib. continue OP cardizem
-as with current gómez in place, unlikely good candidate for SGLT2 inhibitor
-d/w patient and at bedside
-d/w resident
Data Reviewed
-
EKG: Tracing Personally Visualized and interpreted
Radiology: Report Reviewed by me
Medical Tests (Nuc Med, Echo etc): Report Reviewed by me
Labs: Labs Reviewed by me
Old Records: Reviewed
[2023-12-02] MEDS: APRESOLINE 50 MG PO ×2 (16:43→20:43)
[2023-12-02] MEDS: LASIX 80 MG IV (16:43)
--- NOTE | 2023-12-02 17:01 | PTCARENOTE ---
Admitted to 3347 IMU monitoring placed- AF on tele 80s, 137/84 RR 24 - 96% on 3L NC. Admission completed at bedside. AAO forgetful, depressed thankful he is here ( c/o [facility] home). Dyspneic with talking, +2 LE edema. Audible wheezing,
Diminished auscultation. Medpilex foam placed on stage 2 right buttock wound. PO diet ordered. IV Lasix administered- Chen in place.
[2023-12-02 18:06] LABS: Troponin I < 0.012 ng/ml
[2023-12-02 18:15] LABS: Procalcitonin 0.61 ng/ml (0.0-0.25)
--- NOTE | 2023-12-02 18:50 | W.PN.UPDATE ---
Update Note
Progress Note Update
Patient in mild to moderate resp distress with 3 L of oxygen, off bipap.
Restart BIPAP for now, discussed with the nurse, resp tech and Dr Graves about the plan.
off bipap if able.
[2023-12-02] MEDS: DUONEB 3 ML INH (20:02)
[2023-12-02] MEDS: ADVAIR HFA 230/21 MCG INHALER 2 PUFF INH (20:02)
[2023-12-02] MEDS: COLACE 100 MG PO (20:43)
[2023-12-02] MEDS: ELIQUIS 5 MG PO (20:43)
[2023-12-02] MEDS: CARDIZEM CD 180 MG PO (20:43)
--- NOTE | 2023-12-02 20:48 | PTCARENOTE ---
Received pt from [facility]. Pt is AAOx2 (time), forgetful @ times. Afib on the monitor. On bipap / @ 2L, lungs diminished. Chen in place, hygiene provided. Q2T provided. Pt is laying in bed with call burks in reach.
[2023-12-03] VITALS (16 sets, daily range): BP systolic 106–147; BP diastolic 56–85; PULSE 2–79; BMI 35.0
[2023-12-03] MEDS: DUONEB 3 ML INH ×4 (02:11→20:20)
[2023-12-03] MEDS: ADVAIR HFA 230/21 MCG INHALER 2 PUFF INH ×2 (07:44→20:21)
--- NOTE | 2023-12-03 09:23 | W.PN.CARDCBS ---
Addendum entered and electronically signed by Cristy Beatty DO 12/03/23 09:35:
I saw and examined the patient.
The Home Service Director's note was reviewed and I agree with the note.
Comment: Patient seen and examined with no new complaints. Shortness of breath is started to improve.
GEN: No distress, awake, alert, oriented x3. on supplemental oxygen. Appears chronically ill
HEENT:mmm
LUNGS: Crackles B/L bases, no wheezes
CV: Irreg, S1/S2, 2/6 murmur
ABD: soft, BS+, NT/ND
EXT:1+ edema of B/L LE. edema improved in B/L UE
NEURO: Gross non-focal
Plan:
-Presented with hypoxic respiratory failure consistent with heart failure with preserved ejection fraction
-Weaned off BiPAP, continue to wean supplemental oxygen as able
-Continue IV Lasix 80 mg twice daily. Labs pending 12/02. Was on 100 mg p.o. Lasix daily as an outpatient
-Has indwelling Gómez catheter, monitor I&Os closely
-Check echo
-in rate controlled afib. continue OP cardizem
-as with current gómez in place, unlikely good candidate for SGLT2 inhibitor
-PT/OT as able
Original Note:
Today's Communication / Plan
-
continue IV lasix
check echo
wean supp O2
Impression / Plan
-
Primary Play Leader: Dr. Acosta
Assessment:
Acute on chronic diastolic congestive heart failure
Acute hypoxic respiratory failure
Persistent atrial fibrillation
Chronic anticoagulation with Eliquis
PVCs
mild to mod MR
Hypertension
LVH
CKD
COPD
Obstructive sleep apnea
History of rectal cancer status post resection, chemo, radiation
GERD
Chronic anemia
Wheelchair bound
BPH, gómez in place
ECHO 10/19/22: EF 55 to 60%, mild to moderate MR
Plan:
-Presented with shortness of breath and lower extremity edema
-Weaned off BiPAP, continue to wean supplemental oxygen as able
-Continue IV Lasix 80 mg twice daily. Labs pending 12/02. Was on 100 mg p.o. Lasix daily as an outpatient
-Has indwelling Gómez catheter, monitor I&Os closely
-Check echo
-in rate controlled afib. continue OP cardizem
-as with current gómez in place, unlikely good candidate for SGLT2 inhibitor
-PT/OT as able
Progress Note - Play Leader
Subjective
Date of Service: December 03, 2023
Reports breathing improving
Objective
Labs:
Labs
Hgb 8.5 g/dL (13.0-18.0) L 12/02/23 10:01
Hct 28.2 % (39.0-52.0) L 12/02/23 10:01
Plt Count 372 10^3/uL (130-400) 12/02/23 10:01
Sodium 140 mmol/L (135-145) 12/02/23 10:01
Potassium 3.9 mmol/L (3.5-5.1) 12/02/23 10:01
BUN 21 mg/dl (9-20) H 12/02/23 10:01
Creatinine 1.1 mg/dL (0.7-1.3) 12/02/23 10:01
Glucose 167 mg/dl (70-99) H 12/02/23 10:01
Troponins
12/02/23
17:33
Troponin I < 0.012
Vital Signs and I&O:
Vital Signs
Temp Pulse Resp BP Pulse Ox
96.3 F L 67 18 122/59 96
12/03/23 07:30 12/03/23 07:45 12/03/23 07:45 12/03/23 06:00 12/03/23 07:45
Vital Signs
Temp Pulse Resp BP Pulse Ox
96.3 F L 67 18 122/59 96
12/03/23 07:30 12/03/23 07:45 12/03/23 07:45 12/03/23 06:00 12/03/23 07:45
Intake & Output
12/01/23 12/02/23 12/03/23 12/04/23
07:59 07:59 07:59 07:59
Intake Total 210 / 210
Output Total 970 / 970
Balance -760 / -760
Physical Exam
Physical Exam
GEN: No distress, awake, alert, oriented x3. on supplemental oxygen. Appears chronically ill
HEENT: supple, anicteric, mmm, EOMI
LUNGS: Crackles B/L bases, no wheezes
CV: Irreg, S1/S2, 2/6 murmur
ABD: soft, BS+, NT/ND
EXT: No cyanosis, clubbing. 1+ edema of B/L LE. edema improved in B/L UE
NEURO: Gross non-focal
SKIN: Warm, pink, dry. No rash
[2023-12-03] MEDS: APRESOLINE 50 MG PO ×3 (09:26→21:52)
[2023-12-03] MEDS: ELIQUIS 5 MG PO ×2 (09:27→20:56)
[2023-12-03] MEDS: KCL 20 MEQ PO (09:27)
[2023-12-03] MEDS: ZOLOFT 50 MG PO (09:27)
[2023-12-03] MEDS: NAMENDA 5 MG PO (09:27)
[2023-12-03] MEDS: PEPCID 20 MG PO (09:27)
[2023-12-03] MEDS: COLACE 100 MG PO ×2 (09:27→20:56)
[2023-12-03] MEDS: ARICEPT 5 MG PO (09:27)
[2023-12-03] MEDS: CARDIZEM CD 180 MG PO ×2 (09:27→20:54)
[2023-12-03] MEDS: SANTYL OINTMENT 1 APPLIC TOPICAL (09:28)
[2023-12-03] MEDS: LASIX 80 MG IV ×2 (09:28→16:50)
[2023-12-03 12:12] LABS: % Immature Granulocytes 0.3 % (0-0.5); % Lymphocytes 5.3 % (20.5-51.1); % Monocytes 8.2 % (1.7-9.3); % Neutrophils 86.2 % (42.2-75.2); Absolute Lymphocytes 0.4 10^3/uL (1.2-3.4); Absolute Monocytes 0.6 10^3/uL (0.1-0.6); Absolute Neutrophils 6.5 10^3/uL (1.4-6.5); Hematocrit 26.7 % (39.0-52.0); Mean Corpuscular Hgb 23.5 pg (27.0-31.0); Mean Corpuscular Volume 78.3 fL (80.0-94.0); Mean Platelet Volume 9.2 fL (7.4-10.4); Nucleated Red Blood Cells % 0 % (-); Platelet Count 339 10^3/uL (130-400); Red Blood Cell Count 3.41 10^6/uL (4.70-6.10); Red Cell Dist. Width 18.6 % (11.5-14.5); White Blood Cell Count 7.6 10^3/uL (4.8-10.8)
[2023-12-03 12:23] LABS: Blood Urea Nitrogen 30 mg/dl (9-20); Calcium 9.8 mg/dl (8.4-10.2); Carbon Dioxide 28 mmol/L (22-30); Chloride 101 mmol/L (98-107); Estimated Creatinine Clearance 47 ml/min; Glucose 151 mg/dl (70-99); Potassium 3.8 mmol/L (3.5-5.1); Sodium 142 mmol/L (135-145); eGFR 57.81
--- NOTE | 2023-12-03 13:54 | RESPNOTE ---
Respiratory: Patient placed back on BiLevel after lunch developed upper airway wheeze and increased WOB. Neb treatment given.
--- NOTE | 2023-12-03 14:07 | CM ---
Reviewed the chart notes and spoke with the patient and his spouse at the bedside. Patient currently on BiPAP. The patient is a intermediate resident of [facility]. Private bed hold in place. The patient is wheelchair bound, but able to stand and
pivot with rolling walker. CM continues to be available to patient/family and is monitoring medical plan for needs at discharge.
Plan: Discharge back to [facility] when medically stable.
--- NOTE | 2023-12-03 15:53 | W.PN.HOSP.TC ---
Addendum entered and electronically signed by Shalom Graves MD 12/03/23 21:19:
Attending Addendum-
I saw and evaluated the patient. I reviewed the resident�s note and agree with findings and plan as documented in the resident�s note. Sub: Feels improved. Less SOB but still extremely weak. Seen with present. Denies CP palps fevers chills
cough. Full 12 point ROS reviewed and negative except as documented Exam- vitals reviewed in EMR GEN-mild resp distress Heart irreg irreg lungs B/L LL crackles abd soft NT ND pos BS LE 1+ pitting edema b/l Plan:
# Acute Hypoxemic Respiratory Failure-
- continuescare in IMU
- wean bipap as tolerated
# AE HFpEF
- cards input appreciated
- repeat echo - 12/02- EF 75% (55-60%)
- cont IV lasix 80 mg BID (home dose 100mg)
- daily weights fluid restrict strict I and O's
- weights coming down considerably 4 kgs thus far
- repeat BMP in am
# COPD
- not in AE
- cont duonebs and advair
# Chronic Urinary Retention due to BPH
- cont Gómez
- gómez exchanged
# Permanent Atrial Fibrillation
- cont eliquis and diltiazem
# CKD 2
- avoid NT agents
- repeat BMP in am
# HTN-
-cont Hydralazine
# Ambulatory Dysfunction/Severe Deconditioning
- s/p right femur mauro arthroplasty 09/17/23
- patient is now WC bound
- PT OT - attempt to gain lost ground
# Dementia-
- cont memantine and donepezil
# SARITA
- cont CPAP
# Depression
- cont sertraline
# GERD
- cont omeprazole
Dispo Eventual DC to when able
CODE- Full d/w AAOx3 - > continued discussions
PCP- Dr. Palatt
Time spent coordinating care, review of plan of care with resident, personally reviewed records in EMR, med rec, consults, notes, labs, radiology, d/w nursing cards and � 60 mins
Original Note:
Today's Communication/Plan
-
repeat CXR
continue IV lasix
wean off O2 as able
continue outpatient PO cardizem
Echo LVEF 70-75%
Assessment / Plan
Assessment / Plan
IMPRESSION:
Acute heart failure with volume overload
Acute hypoxic respiratory insufficiency on BIPAP
Persistent atrial fibrillation
Essential hypertension
Constipation
Anxiety/depression
BPH
CKD stage II
Wheelchair-bound s/p right hip hemiarthroplasty
Cognitive impairment
PLAN:
Acute heart failure with volume overload
Admit patient to IMU
Troponin 0.012
Continue IV Lasix 80mg BID
Continue DuoNebs standing Q6
Continue albuterol as needed
Wean off Bipap as able
Total urine output 1270ml
Monitor I's/O's, daily weights
Fluid restriction <1800
Echo LFEV 70-75%
Cardiology following
Acute hypoxic respiratory insufficiency on BIPAP
Wean OFF Bipap as able.
On 2 L of O2, wean off as able.
Repeat CXR
Persistent atrial fibrillation
EKG shows persistent atrial fibrillation, heart rate is in the 90s
Continue Eliquis 5 mg twice daily
Continue diltiazem
Goal rate less than 110
Essential hypertension
Continue diltiazem and hydralazine
Monitor blood pressure
Constipation
Continue docusate sodium
BPH
Patient has a Gómez's catheter when he came in to ED from [facility]
History of chronic urinary incontinence
Changed the catheter
CKD stage II
Creatinine 1.1, baseline is less than 1
Monitor BMP in am
Wheelchair-bound s/p right hip hemiarthroplasty
Patient has pressure sores on right buttock
Continue Tylenol for pain
CODE STATUS - FULL CODE. Discussed with the and patient.
DVT prophylaxis - Eliquis
Diet- 2 g sodium diet with fluid restrict
IMAGING :
CXR-
EKG 12/02/23
Atrial fibrillation
Echocardiogram 12/03/2023
Left ventricle is small in size. Hyperdynamic left ventricular systolic function. Normal regional wall motion. Left ventricular ejection fraction is 70-75% by visual assessment. Mild concentric left ventricular hypertrophy. Diastolic function
indeterminate due to atrial fibrillation. Grossly normal right ventricular size and function. Mild to moderate mitral regurgitation. Mild tricuspid regurgitation. Estimated pulmonary artery pressure of 50-55 mmHg. Assuming a right atrial
pressure of 8 mmHg.
Pleural effusion present.
Echo 10/19/22
Normal left ventricular size, wall thickness and systolic function. No regional wall motion abnormalities are seen. Estimated ejection fraction is 55- 60%. Mild to moderate mitral regurgitation.
Compared to the previous echo there is now mild to moderate mitral regurgitation.
Anticipated Discharge: > 48 hours
Subjective/Interval History
-
Date of Service: December 03, 2023
Patient is on 2 L of oxygen, not in respiratory distress. Off BiPap
Objective Data
-
Labs:
Laboratory Results
12/03/23
11:58
WBC 7.6
Hgb 8.0 L
Hct 26.7 L
Plt Count 339
Sodium 142
Potassium 3.8
Chloride 101
Carbon Dioxide 28
BUN 30 H
Creatinine 1.2
Glucose 151 H
Calcium 9.8
Vital Signs:
Vital Signs
Temp Pulse Resp BP Pulse Ox
98.3 F 74 20 123/74 95
12/03/23 11:13 12/03/23 13:31 12/03/23 13:31 12/03/23 10:00 12/03/23 14:25
I&O
12/02/23 12/03/23 12/04/23
06:59 06:59 06:59
Intake Total 210 / 210 240 / 240
Output Total 970 / 970 300 / 300
Balance -760 / -760 -60 / -60
Review of Systems
-
History Source: Patient
All other systems: Reviewed and negative
Physical Exam
-
General: No Apparent Distress and Comfortable
HEENT: Normocephalic and Atraumatic
Respiratory: Clear to Auscultation
Cardiac: Irregular Rhythm
GI: Soft, Nontender and Nondistended
Genito-urinary: Gómez
Musculoskeletal: Edema, Right Lower Extrem (improving, 1+) and Edema, Left Lower Extrem (improving to 1+)
Neuro: AO x 3
Psych: Calm
Data Reviewed
-
Medical Tests (Nuc Med, Echo etc): Report Reviewed by me and Discussed with Physician
Labs: Labs Reviewed by me and Discussed with Physician
--- NOTE | 2023-12-03 16:54 | PTCARENOTE ---
Gómez removed this am - unable to void and became agitated unable to tolerate bipap and had panic attack- bladder scanned 400 d/w provider- replaced gómez without difficulty
--- NOTE | 2023-12-03 18:03 | PTCARENOTE ---
AAOx2, macular degeneration so eyesight is variable. Thankful for care however tearful, depressed states he has many phobias and horrible anxiety. Much calmer since Chen replaced today. 850ml UO today. here most of the day fed all 3 meals.
Denies pain. GARCIA/ Rest- failed bipap attempt this afternoon. He said he will try later. Unable to get oob - heavy asst 2 to turn in bed- wound care completed to right buttock- foul smelling wound santyl applied.
[2023-12-04] VITALS (15 sets, daily range): BP systolic 102–156; BP diastolic 58–90; PULSE 2–86; BMI 35.2
--- NOTE | 2023-12-04 03:01 | PTCARENOTE ---
Pt on BiPAP at HS, tolerating well. Respiration even and un labored while sleeping. NC 2L during day. New Chen placed by day shift RN, good output. Assessment care and vitals as charted.
[2023-12-04] MEDS: DUONEB 3 ML INH ×5 (04:38→20:11)
[2023-12-04 06:54] LABS: % Basophils 0.1 % (0-2); % Immature Granulocytes 0.4 % (0-0.5); % Lymphocytes 10.3 % (20.5-51.1); % Monocytes 6.4 % (1.7-9.3); % Neutrophils 82.8 % (42.2-75.2); Absolute Lymphocytes 0.8 10^3/uL (1.2-3.4); Absolute Monocytes 0.5 10^3/uL (0.1-0.6); Absolute Neutrophils 6.3 10^3/uL (1.4-6.5); Hematocrit 26.1 % (39.0-52.0); Hemoglobin 7.7 g/dL (13.0-18.0); Mean Corp Hgb Conc. 29.5 g/dL (33.0-37.0); Mean Corpuscular Hgb 23.1 pg (27.0-31.0); Mean Corpuscular Volume 78.1 fL (80.0-94.0); Mean Platelet Volume 9.6 fL (7.4-10.4); Nucleated Red Blood Cells % 0 % (-); Platelet Count 347 10^3/uL (130-400); Red Blood Cell Count 3.34 10^6/uL (4.70-6.10); Red Cell Dist. Width 18.5 % (11.5-14.5); White Blood Cell Count 7.7 10^3/uL (4.8-10.8)
[2023-12-04 07:10] LABS: Blood Urea Nitrogen 37 mg/dl (9-20); Calcium 9.8 mg/dl (8.4-10.2); Carbon Dioxide 27 mmol/L (22-30); Chloride 99 mmol/L (98-107); Estimated Creatinine Clearance 44 ml/min; Glucose 140 mg/dl (70-99); Potassium 3.7 mmol/L (3.5-5.1); Sodium 142 mmol/L (135-145); eGFR 52.51
[2023-12-04] MEDS: ADVAIR HFA 230/21 MCG INHALER 2 PUFF INH ×2 (07:34→20:11)
[2023-12-04] MEDS: APRESOLINE 50 MG PO ×3 (09:37→21:31)
[2023-12-04] MEDS: PEPCID 20 MG PO (09:37)
[2023-12-04] MEDS: NAMENDA 5 MG PO (09:37)
[2023-12-04] MEDS: CARDIZEM CD 180 MG PO ×2 (09:37→19:58)
[2023-12-04] MEDS: COLACE 100 MG PO ×2 (09:39→19:58)
[2023-12-04] MEDS: KCL 20 MEQ PO (09:39)
[2023-12-04] MEDS: ARICEPT 5 MG PO (09:40)
[2023-12-04] MEDS: ZOLOFT 50 MG PO (09:40)
[2023-12-04] MEDS: ELIQUIS 5 MG PO ×2 (09:40→19:57)
[2023-12-04] MEDS: SANTYL OINTMENT TOPICAL (09:41)
[2023-12-04] MEDS: LASIX 80 MG IV ×2 (09:43→17:17)
--- NOTE | 2023-12-04 12:08 | W.PN.CARDCBS ---
Today's Communication / Plan
-
Continue diuresis
Evaluate anemia
Swallowing evaluation recommended
Assess for infectious process
Treatment of atelectasis
Impression / Plan
-
Primary Insights Analyst: Dr. Acosta
Assessment:
Acute on chronic diastolic congestive heart failure
Acute hypoxic respiratory failure
Persistent atrial fibrillation
Chronic anticoagulation with Eliquis
PVCs
mild to mod MR
Hypertension
LVH
CKD
COPD
Obstructive sleep apnea
History of rectal cancer status post resection, chemo, radiation
GERD
Chronic anemia
Wheelchair bound
BPH, gómez in place
ECHO 10/19/22: EF 55 to 60%, mild to moderate MR. PA pressure 30 to 35 mmHg
Echocardiogram 12/03/2023: EF 70 to 75%. Normal RV. Mild to moderate MR. Mild TR with PA pressure 50 to 55 mmHg
Plan:
-He was more short of breath today especially after his breakfast and he was coughing. Chest x-ray performed which was abnormal with pleural effusions and some consolidation.
Likely multifactorial discussed with primary service and resident
Continue diuresis-continue to follow input/output and daily weights.
Consider assessment for possible aspiration, swallowing evaluation
Consider assessment for possibly infectious process perhaps when he is able to lay down consider CT scan.
Atelectasis is likely playing a role consider incentive spirometer and deep breathing
He is wheezing would continue pulmonary treatments and 1 ordered now.
Thankfully oxygenation is stable.
Assess anemia
-Previously weaned off BiPAP but may be helpful if atelectasis continues to be problematic.
-Has indwelling Gómez catheter, monitor I&Os closely
-in rate controlled afib. continue OP cardizem
-as with current gómez in place, unlikely good candidate for SGLT2 inhibitor
-PT/OT as able when more stable
Progress Note - Insights Analyst
Subjective
Date of Service: December 04, 2023
He feels more short of breath and had some coughing this morning. He denies chest pain.
Objective
Labs:
12/04/23 04:58
12/04/23 04:58
Labs
Hgb 7.7 g/dL (13.0-18.0) L 12/04/23 04:58
Hct 26.1 % (39.0-52.0) L 12/04/23 04:58
Plt Count 347 10^3/uL (130-400) 12/04/23 04:58
Sodium 142 mmol/L (135-145) 12/04/23 04:58
Potassium 3.7 mmol/L (3.5-5.1) 12/04/23 04:58
BUN 37 mg/dl (9-20) H 12/04/23 04:58
Creatinine 1.3 mg/dL (0.7-1.3) 12/04/23 04:58
Glucose 140 mg/dl (70-99) H 12/04/23 04:58
Troponins
12/02/23
17:33
Troponin I < 0.012
Vital Signs and I&O:
Vital Signs
Temp Pulse Resp BP Pulse Ox
97.3 F 78 18 124/84 97
12/04/23 07:40 12/04/23 11:22 12/04/23 11:22 12/04/23 06:07 12/04/23 11:22
Vital Signs
Temp Pulse Resp BP Pulse Ox
97.3 F 78 18 124/84 97
12/04/23 07:40 12/04/23 11:22 12/04/23 11:22 12/04/23 06:07 12/04/23 11:22
Intake & Output
12/02/23 12/03/23 12/04/23 12/05/23
06:59 06:59 06:59 06:59
Intake Total 210 / 210 780 / 780 240 / 240
Output Total 970 / 970 1974 / 1974 350 / 350
Balance -760 / -760 -1195 / -1195 -110 / -110
Physical Exam
Physical Exam
General: Chronically ill elderly man
Heart: Distant heart sounds irregular
Lungs: Wheezing left greater than right, decreased breath sounds and shallow breaths
Extremities: No clubbing, cyanosis +1 edema bilaterally.
Neuro: Grossly nonfocal, awake, alert
--- NOTE | 2023-12-04 13:14 | PTOTSP ---
ST Dysphagia Evaluation
Oropharyngeal function appears intact at the bedside
Pt received awake/alert at the bedside. HOB raised upright for PO trials of regular solids/thin liquids. Per spouse and pt report has tendency to eat quickly which causes him to cough. Self fed regular solids demo grossly functional mastication and
bolus was orally cleared. Thin liquids by straw sip swallow appears prompt. No overt s/sx of aspiration observed. Education re: swallow strategies
Recommendations
1. Continue current diet of regular solids/thin liquids
2. Standard aspiration and IGNACIO/reflux precautions
3. Small bites, small/single sips and slow rate
4. Meds per RN discretion
5. No further acute CENTRAL STORES ATTENDANT needs please reconsult as needed
--- NOTE | 2023-12-04 14:27 | W.PN.HOSP.TC ---
Addendum entered and electronically signed by Shalom Graves MD 12/04/23 15:19:
Attending Addendum-
I saw and evaluated the patient. I reviewed the resident�s note and agree with findings and plan as documented in the resident�s note. Sub: 'where is my ? I want to see her before i . I think im dying' admits to feeling anxious. Also states
he doesn't want to be intubated 'my brother went through that and i dont want that' Complains of SOB. Had cough after eating. Full 12 point ROS reviewed and negative except as documented Exam- vitals reviewed in EMR GEN-mild distress Heart irreg
irreg lungs B/L RLL rhonchi scattered forced expiratory wheeze. abd soft NT ND pos BS LE 1+ pitting edema gómez in place draining clear yellow urine b/l Plan:
# Acute Hypoxemic Respiratory Failure-
- continue care in IMU
- wean O2 as tolerated for sats > 88%
# AE HFpEF
- cards input appreciated
- repeat echo - 12/02- EF 70-75% (55-60%)
- cont IV lasix 80 mg BID (home dose 100mg)
- unclear dry weight
- daily weights fluid restrict strict I and O's
- weights down 3 kgs thus far
- repeat BMP in am
# COPD
- wheezy today
- start IV steroids
- cont duonebs and advair
# Aspiration PNA
- start unasyn 12/03
- aspiration precautions
- speech eval
- likely will need VFSS
- poor prognosis
# Anemia-
- check iron studies
- monitor closely
- repeat CBC in am
- tx for HB<7.5
# Chronic Urinary Retention due to BPH
- cont Gómez
- gómez exchanged 12/02
# Permanent Atrial Fibrillation
- cont eliquis and diltiazem
# Anxiety
- start prn ativan
# CKD 2
- avoid NT agents
- repeat BMP in am
# HTN-
-cont Hydralazine
# Ambulatory Dysfunction/Severe Deconditioning
- s/p right femur mauro arthroplasty 09/17/23
- patient is now WC bound
- PT OT - attempt to gain lost ground
# Dementia-
- cont memantine and donepezil
# SARITA
- cont CPAP
# Depression
- cont sertraline
# GERD
- cont omeprazole
Dispo Eventual DC to when able
CODE- Full->DNR patient AAOx3 and has insight/clear judgement and capacity to make decisions
PCP- Dr. William
Time spent coordinating care, review of plan of care with resident, personally reviewed records in EMR, med rec, consults, notes, labs, radiology, d/w nursing cards and � 63 mins
Original Note:
Today's Communication/Plan
-
Changed to DNR
Suspect aspiration pneumonia
Started on IV Unasyn and IV dexamethasone
Given Ativan for anxiety
Aspiration precaution, thin liquids
Assessment / Plan
Assessment / Plan
IMPRESSION:
Aspiration pneumonia
Acute heart failure with volume overload
Acute hypoxic respiratory insufficiency on BIPAP
Persistent atrial fibrillation
Essential hypertension
Constipation
Anxiety/depression
BPH
CKD stage II
Wheelchair-bound s/p right hip hemiarthroplasty
Cognitive impairment
PLAN:
Patient was in mild respiratory distress this morning. He is on 2 L of oxygen and wheezing on auscultation was appreciated. Patient was given neb treatment at that time.
Aspiration pneumonia
Consolidation in the right lower lobe suspect due to aspiration
Started on IV Unasyn 15 mg Q6
Start IV dexamethasone 4 mg Q12
Patient is afebrile, WBC normal
Continue to monitor WBC and temp curve
Incentive spirometry
Swallow study and speech evaluation
Aspiration precaution, thin liquids
Acute heart failure with volume overload
Admit patient to IMU
Troponin 0.012
Continue IV Lasix 80mg BID
Continue DuoNebs standing Q6
Continue albuterol as needed
Wean off Bipap as able
Total urine output 1270ml
Monitor I's/O's, daily weights
Fluid restriction <1800
Echo LFEV 70-75%
Cardiology following
Acute hypoxic respiratory insufficiency on BIPAP
Wean OFF Bipap as able.
On 2 L of O2, wean off as able.
Incentive spirometry
Persistent atrial fibrillation
EKG shows persistent atrial fibrillation, heart rate is in the 90s
Continue Eliquis 5 mg twice daily
Continue diltiazem
Goal rate less than 110
Essential hypertension
Continue diltiazem and hydralazine
Monitor blood pressure
Constipation
Continue docusate sodium
BPH
Patient has a Gómez's catheter when he came in to ED from [facility] home
History of chronic urinary incontinence
Changed the catheter
CKD stage II
Creatinine 1.1, baseline is less than 1
Monitor BMP in am
Wheelchair-bound s/p right hip hemiarthroplasty
Patient has pressure sores on right buttock
Continue Tylenol for pain
CODE STATUS - DNR -
I discussed the CODE STATUS with the patient early this morning while his was not present in the room. During our conversation the patient clearly expressed his desire to stay alive and requested that all measures be taken to preserve his
life. However about an hour later during morning rounds, Dr. Durham revisit this discussion. The patient became anxious reflecting on his brother Clifford's experience with intubation and subsequent passing. This caused the patient to become
emotional and he expressed that he does not want any tubes or shocks. Changing his CODE STATUS to DNR. Will revisit this conversation while is present in the room
DVT prophylaxis - Eliquis
Diet- Thin liquids
IMAGING :
CXR- 12/04/23
Moderate-sized left and small right pleural effusions with evidence for pleural fluid tracking into the major fissures.
Large subpleural airspace consolidation in the basilar segments of the left lower lobe which is probably compressive atelectasis.
Large amount of basilar airspace consolidation in the right lower lobe which is also likely atelectasis.
EKG 12/02/23
Atrial fibrillation
Echocardiogram 12/03/2023
Left ventricle is small in size. Hyperdynamic left ventricular systolic function. Normal regional wall motion. Left ventricular ejection fraction is 70-75% by visual assessment. Mild concentric left ventricular hypertrophy. Diastolic function
indeterminate due to atrial fibrillation. Grossly normal right ventricular size and function. Mild to moderate mitral regurgitation. Mild tricuspid regurgitation. Estimated pulmonary artery pressure of 50-55 mmHg. Assuming a right atrial
pressure of 8 mmHg.
Pleural effusion present.
Echo 10/19/22
Normal left ventricular size, wall thickness and systolic function. No regional wall motion abnormalities are seen. Estimated ejection fraction is 55- 60%. Mild to moderate mitral regurgitation.
Compared to the previous echo there is now mild to moderate mitral regurgitation.
Anticipated Discharge: > 48 hours
Subjective/Interval History
-
Date of Service: December 04, 2023
Patient patient was wheezing on 2 L of oxygen.
Objective Data
-
Labs:
Laboratory Results
12/04/23
04:58
WBC 7.7
Hgb 7.7 L
Hct 26.1 L
Plt Count 347
Sodium 142
Potassium 3.7
Chloride 99
Carbon Dioxide 27
BUN 37 H
Creatinine 1.3
Glucose 140 H
Calcium 9.8
Vital Signs:
Vital Signs
Temp Pulse Resp BP Pulse Ox
97.5 F 78 18 124/84 97
12/04/23 11:50 12/04/23 11:22 12/04/23 11:22 12/04/23 06:07 12/04/23 11:22
I&O
12/03/23 12/04/23 12/05/23
06:59 06:59 06:59
Intake Total 210 / 210 780 / 780 240 / 240
Output Total 970 / 970 1974 / 1974 350 / 350
Balance -760 / -760 -1195 / -1195 -110 / -110
Review of Systems
-
All other systems: Reviewed and negative
Physical Exam
-
General: Appears in Distress
HEENT: Normocephalic and Atraumatic
Respiratory: Wheezes and Crackles; Negative Rales or Rhonchi
Cardiac: Irregular Rhythm
Musculoskeletal: Edema, Right Lower Extrem (1+) and Edema, Left Lower Extrem (1+)
Neuro: AO x 3
[2023-12-04] MEDS: DECADRON 4 MG IV (17:17)
[2023-12-04] MEDS: UNASYN IV ×2 (17:17→21:31)
[2023-12-04] MEDS: ATIVAN 0.5 MG IV (19:58)
[2023-12-04] MEDS: NSS (PRESERVATIVE FREE) 0.25 ML IV (19:59)
[2023-12-05] VITALS (15 sets, daily range): BP systolic 121–163; BP diastolic 62–92; PULSE 2–82; BMI 35.0
--- NOTE | 2023-12-05 01:52 | PTCARENOTE ---
Pt request to be placed on BiPAP at HS. Pt tolerating well throughout the night, spo2 95%. Pt utilizing eye mask. Pt had no other complaints at this time. Assessment care and vitals as charted.
[2023-12-05] MEDS: DUONEB 3 ML INH ×4 (02:18→19:58)
[2023-12-05] MEDS: DECADRON 4 MG IV ×2 (03:54→15:53)
[2023-12-05] MEDS: UNASYN IV ×4 (03:54→21:04)
[2023-12-05 04:57] LABS: % Immature Granulocytes 0.4 % (0-0.5); % Lymphocytes 6.9 % (20.5-51.1); % Monocytes 2.3 % (1.7-9.3); % Neutrophils 90.4 % (42.2-75.2); Absolute Lymphocytes 0.4 10^3/uL (1.2-3.4); Absolute Monocytes 0.1 10^3/uL (0.1-0.6); Absolute Neutrophils 4.7 10^3/uL (1.4-6.5); Hematocrit 26.4 % (39.0-52.0); Mean Corp Hgb Conc. 30.3 g/dL (33.0-37.0); Mean Corpuscular Hgb 23.4 pg (27.0-31.0); Mean Corpuscular Volume 77.2 fL (80.0-94.0); Mean Platelet Volume 9.4 fL (7.4-10.4); Nucleated Red Blood Cells % 0 % (-); Platelet Count 360 10^3/uL (130-400); Red Blood Cell Count 3.42 10^6/uL (4.70-6.10); Red Cell Dist. Width 18.3 % (11.5-14.5); White Blood Cell Count 5.2 10^3/uL (4.8-10.8)
[2023-12-05 05:11] LABS: Blood Urea Nitrogen 41 mg/dl (9-20); Calcium 9.6 mg/dl (8.4-10.2); Carbon Dioxide 28 mmol/L (22-30); Chloride 99 mmol/L (98-107); Estimated Creatinine Clearance 44 ml/min; Glucose 180 mg/dl (70-99); Potassium 4.2 mmol/L (3.5-5.1); Sodium 139 mmol/L (135-145); eGFR 52.51
[2023-12-05] MEDS: SANTYL OINTMENT TOPICAL ×2 (07:10→09:37)
[2023-12-05] MEDS: ADVAIR HFA 230/21 MCG INHALER 2 PUFF INH ×2 (07:32→19:58)
[2023-12-05] MEDS: KCL 20 MEQ PO (09:19)
[2023-12-05] MEDS: APRESOLINE 50 MG PO ×3 (09:34→21:04)
[2023-12-05] MEDS: ELIQUIS 5 MG PO ×2 (09:34→20:09)
[2023-12-05] MEDS: ZOLOFT 50 MG PO (09:35)
[2023-12-05] MEDS: NAMENDA 5 MG PO (09:35)
[2023-12-05] MEDS: ARICEPT 5 MG PO (09:36)
[2023-12-05] MEDS: PEPCID 20 MG PO (09:36)
[2023-12-05] MEDS: CARDIZEM CD 180 MG PO ×2 (09:36→20:09)
[2023-12-05 09:37] LABS: Iron 25 ug/dl (49-181)
[2023-12-05] MEDS: COLACE 100 MG PO ×2 (09:37→20:09)
[2023-12-05] MEDS: NSS (PRESERVATIVE FREE) IV ×2 (09:37→19:55)
[2023-12-05] MEDS: LASIX 80 MG IV ×2 (09:38→15:56)
[2023-12-05 09:47] LABS: Percent Saturation 6 % (20-50); Total Iron Binding Capacity 381 ug/dl (261-462)
[2023-12-05 10:43] LABS: Ferritin 31.1 ng/ml (17.9-464.0)
[2023-12-05] MEDS: ATIVAN IV (11:13)
--- NOTE | 2023-12-05 11:32 | W.PN.CARDCBS ---
Today's Communication / Plan
-
Once euvolemic reassess chest x-ray and if left pleural effusion no better consider ultrasound-guided thoracentesis
Atelectasis is likely playing a role I have ordered incentive spirometer
Assess anemia, iron studies performed and he is somewhat iron deficient. Have reached out to primary service to replete intravenously.
Impression / Plan
-
Primary Home Economics Extension Worker: Dr. Acosta
Assessment:
Acute on chronic diastolic congestive heart failure
Acute hypoxic respiratory failure
Persistent atrial fibrillation
Chronic anticoagulation with Eliquis
PVCs
mild to mod MR
Hypertension
LVH
CKD
COPD
Obstructive sleep apnea
History of rectal cancer status post resection, chemo, radiation
GERD
Chronic anemia
Wheelchair bound
BPH, gómez in place
ECHO 10/19/22: EF 55 to 60%, mild to moderate MR. PA pressure 30 to 35 mmHg
Echocardiogram 12/03/2023: EF 70 to 75%. Normal RV. Mild to moderate MR. Mild TR with PA pressure 50 to 55 mmHg
Plan:
-Shortness of breath is better today. He is on antibiotics and has diuresed with IV Lasix. He has been treated in addition with pulmonary medications including steroids. Chest x-ray performed which was abnormal with pleural effusions and some
consolidation. Speech evaluation negative for dysfunction.
Shortness of breath likely multifactorial
Continue diuresis-continue to follow input/output and daily weights.
Once euvolemic reassess chest x-ray and if left pleural effusion no better consider ultrasound-guided thoracentesis
Continue treatment for presumed infection
Atelectasis is likely playing a role I have ordered incentive spirometer
Wheezing is improved on steroids
Oxygenation is stable.
Assess anemia, iron studies performed and he is somewhat iron deficient. Have reached out to primary service to replete intravenously.
-Previously weaned off BiPAP but may be helpful if atelectasis continues to be problematic.
-Has indwelling Gómez catheter, monitor I&Os closely
-He continues with chronic permanent rate controlled afib. Continue OP cardizem
-As with current gómez in place, unlikely good candidate for SGLT2 inhibitor
-PT/OT as able when more stable
Discussed with primary service and nursing.
Progress Note - Home Economics Extension Worker
Subjective
Date of Service: December 05, 2023
He is feeling better overall today. Breathing is stable.
Objective
Labs:
12/05/23 04:03
12/05/23 04:03
Labs
Hgb 8.0 g/dL (13.0-18.0) L 12/05/23 04:03
Hct 26.4 % (39.0-52.0) L 12/05/23 04:03
Plt Count 360 10^3/uL (130-400) 12/05/23 04:03
Sodium 139 mmol/L (135-145) 12/05/23 04:03
Potassium 4.2 mmol/L (3.5-5.1) 12/05/23 04:03
BUN 41 mg/dl (9-20) H 12/05/23 04:03
Creatinine 1.3 mg/dL (0.7-1.3) 12/05/23 04:03
Glucose 180 mg/dl (70-99) H 12/05/23 04:03
Troponins
12/02/23
17:33
Troponin I < 0.012
Vital Signs and I&O:
Vital Signs
Temp Pulse Resp BP Pulse Ox
97.3 F 75 19 132/72 93
12/05/23 07:50 12/05/23 07:35 12/05/23 07:35 12/05/23 06:00 12/05/23 07:35
Vital Signs
Temp Pulse Resp BP Pulse Ox
97.3 F 75 19 132/72 93
12/05/23 07:50 12/05/23 07:35 12/05/23 07:35 12/05/23 06:00 12/05/23 07:35
Intake & Output
12/03/23 12/04/23 12/05/23 12/06/23
06:59 06:59 06:59 06:59
Intake Total 210 / 210 780 / 780 1040 / 1040
Output Total 970 / 970 1974 / 1974 2575 / 2575
Balance -760 / -760 -1195 / -1195 -1535 / -1535
Physical Exam
Physical Exam
General: Elderly man
Heart: Distant heart sounds irregular
Lungs: Coarse breath sounds with expiratory wheezes left greater than right. Decreased at the bases.
Extremities: No clubbing, cyanosis and trace edema bilaterally.
Neuro: Grossly nonfocal, awake, alert
--- NOTE | 2023-12-05 16:48 | W.PN.HOSP.TC ---
Addendum entered and electronically signed by Shalom Graves MD 12/05/23 20:21:
Attending Addendum-
I saw and evaluated the patient. I reviewed the resident�s note and agree with findings and plan as documented in the resident�s note. Sub: feels improved today. 'im sorry about yesterday i was really worked up' Still SOB but at baseline. Full 12
point ROS reviewed and negative except as documented Exam- vitals reviewed in EMR GEN-NAD Heart irreg irreg lungs B/L LL crackles, forced expiratory wheeze. abd soft NT ND pos BS LE trace pitting edema gómez in place draining clear yellow urine
b/l Plan:
# Acute Hypoxemic Respiratory Failure-
- continue care in IMU
- wean O2 as tolerated for sats > 88%
# AE HFpEF
- cards input appreciated
- repeat echo - 12/02- EF 70-75% (55-60%)
- cont IV lasix 80 mg BID (home dose 100mg)
- unclear dry weight
- appears to be near euvolemic- transition to PO lasix soon
- daily weights fluid restrict strict I and O's
- repeat BMP in am
# COPD
- cont IV steroids- start taper in am
- cont duonebs and advair
# Aspiration PNA
- cont unasyn day # 2
- aspiration precautions
- speech eval- no aspiration cont reg/thins
- eventual VFSS
# Anemia of Chronic Disease-
- iron deficient
- start IV iron x 5 doses - 04/09
- repeat CBC in am
- tx for HB<7.5
# Chronic Urinary Retention due to BPH
- cont Gómez
- gómez exchanged 12/02
# Permanent Atrial Fibrillation
- cont eliquis and diltiazem
# Anxiety
- cont prn ativan
# CKD 2
- avoid NT agents
- repeat BMP in am
# HTN-
-cont Hydralazine
# Ambulatory Dysfunction/Severe Deconditioning
- s/p right femur mauro arthroplasty 09/17/23
- patient is now WC bound
- PT OT
# Dementia-
- cont memantine and donepezil
# SARITA
- cont CPAP
# Depression
- cont sertraline
# GERD
- cont omeprazole
Dispo Eventual DC back to [facility] LT when able
CODE- Full->DNR ( present)
PCP- Dr. William
Time spent coordinating care, review of plan of care with resident, personally reviewed records in EMR, med rec, consults, notes, labs, radiology, d/w nursing cards and � 59 mins
Original Note:
Today's Communication/Plan
-
Continue IV lasix
IV ferric gluconate
repeat CXR tomorrow
DNR
Assessment / Plan
Assessment / Plan
IMPRESSION:
Aspiration pneumonia
iron deficiency anemia
Acute heart failure with volume overload
Acute hypoxic respiratory insufficiency on BIPAP
Persistent atrial fibrillation
Essential hypertension
Constipation
Anxiety/depression
BPH
CKD stage II
Wheelchair-bound s/p right hip hemiarthroplasty
Cognitive impairment
PLAN:
Aspiration pneumonia
Consolidation in the right lower lobe suspect due to aspiration
IV Unasyn 15 mg Q6-- day 2
IV dexamethasone 4 mg Q12
Patient is afebrile, WBC normal
Continue to monitor WBC and temp curve
Incentive spirometry
Patient was in and tends to eat quickly.
Advised patient to slow down and chew thoroughly while eating.
Will need video fluoroscopy swallow study
Repeat CXR tomorrow
Iron deficiency Anemia
IV ferric gluconate 125 mg daily
repeat CBC in am .
Acute heart failure with volume overload --- improving
IMU
EUVOLEMIC
Troponin 0.012
Continue IV Lasix 80mg BID
Continue DuoNebs standing Q6
Continue albuterol as needed
Wean off Bipap as able
Total urine output 1270ml
Monitor I's/O's, daily weights
Fluid restriction <1800
Echo LFEV 70-75%
Cardiology following
Acute hypoxic respiratory insufficiency on BIPAP
Wean OFF Bipap as able.
On 2 L of O2, wean off as able.
Incentive spirometry
Persistent atrial fibrillation
EKG shows persistent atrial fibrillation, heart rate is in the 90s
Continue Eliquis 5 mg twice daily
Continue diltiazem
Goal rate less than 110
Anxiety
Ativan PRN
Essential hypertension
Continue diltiazem and hydralazine
Monitor blood pressure
Constipation
Continue docusate sodium
BPH
Patient has a Gómez's catheter when he came in to ED from [facility]
History of chronic urinary incontinence
Changed the catheter
CKD stage II
Creatinine 1.1, baseline is less than 1
Monitor BMP in am
Wheelchair-bound s/p right hip hemiarthroplasty
Patient has pressure sores on right buttock
Continue Tylenol for pain
CODE STATUS - DNR -
Earlier this morning I spoke with the patient, was not in the room, about his code status at that time, he expressed a desire to be full code. He mentioned his cousin Clifford, who had been intubated and emphasized that he wanted to live.
Later, I discussed the code status with the patient and his . I explained that if the patient's heart were to stop, aggressive measures like 'putting in the tube or shock', would be taken. After careful consideration, both the patient and his
, who has full decision-making capacity, decided that it would be better for the patient to pass peacefully.
DVT prophylaxis - Eliquis
Diet- Thin liquids
IMAGING :
CXR- 12/04/23
Moderate-sized left and small right pleural effusions with evidence for pleural fluid tracking into the major fissures.
Large subpleural airspace consolidation in the basilar segments of the left lower lobe which is probably compressive atelectasis.
Large amount of basilar airspace consolidation in the right lower lobe which is also likely atelectasis.
Later I discussed the CODE STATUS with the patient and his . I explained if the patient had to stop, aggressive measures, such as intubation
EKG 12/02/23
Atrial fibrillation
Echocardiogram 12/03/2023
Left ventricle is small in size. Hyperdynamic left ventricular systolic function. Normal regional wall motion. Left ventricular ejection fraction is 70-75% by visual assessment. Mild concentric left ventricular hypertrophy. Diastolic function
indeterminate due to atrial fibrillation. Grossly normal right ventricular size and function. Mild to moderate mitral regurgitation. Mild tricuspid regurgitation. Estimated pulmonary artery pressure of 50-55 mmHg. Assuming a right atrial
pressure of 8 mmHg.
Pleural effusion present.
Echo 10/19/22
Normal left ventricular size, wall thickness and systolic function. No regional wall motion abnormalities are seen. Estimated ejection fraction is 55- 60%. Mild to moderate mitral regurgitation.
Compared to the previous echo there is now mild to moderate mitral regurgitation.
Anticipated Discharge: > 48 hours
Subjective/Interval History
-
Date of Service: December 05, 2023
Patient is feeling better, not in respiratory distress, not wheezing, on 2 L O2.
Objective Data
-
Labs:
Laboratory Results
12/05/23
04:03
WBC 5.2
Hgb 8.0 L
Hct 26.4 L
Plt Count 360
Sodium 139
Potassium 4.2
Chloride 99
Carbon Dioxide 28
BUN 41 H
Creatinine 1.3
Glucose 180 H
Calcium 9.6
Vital Signs:
Vital Signs
Temp Pulse Resp BP Pulse Ox
97.4 F 85 16 149/81 100
12/05/23 11:45 12/05/23 15:56 12/05/23 13:19 12/05/23 15:56 12/05/23 13:19
I&O
12/04/23 12/05/23 12/06/23
06:59 06:59 06:59
Intake Total 780 / 780 1040 / 1040 480 / 480
Output Total 1974 / 1974 2575 / 2575 1100 / 1100
Balance -1195 / -1195 -1535 / -1535 -620 / -620
Review of Systems
-
All other systems: Reviewed and negative
Physical Exam
-
General: No Apparent Distress
HEENT: Normocephalic and Atraumatic
Respiratory: Rhonchi (Right side, cleared with coughing, no wheezes. )
Cardiac: Irregular Rhythm
GI: Soft, Nontender and Nondistended
Genito-urinary: Gómez (clear, yellow urine)
Musculoskeletal: Other (significant improvement of bilateral lower extremity edema, mild 1+ pitting )
Neuro: AO x 3
Psych: Calm
Data Reviewed
-
Labs: Labs Reviewed by me and Discussed with Physician
[2023-12-05] MEDS: FERRLECIT 110 MG IV (17:32)
[2023-12-05 17:42] LABS: Glucose - Point of Care 296 mg/dl (70-99)
[2023-12-05] MEDS: NOVOLOG FLEXPEN-LOW RESISTANCE 3 UNITS SC (17:54)
[2023-12-05 21:39] LABS: Glucose - Point of Care 255 mg/dl (70-99)
[2023-12-06] VITALS (16 sets, daily range): BP systolic 120–171; BP diastolic 55–94; PULSE 2–88; BMI 34.3
[2023-12-06] MEDS: DUONEB 3 ML INH ×4 (00:32→19:27)
[2023-12-06] MEDS: UNASYN IV ×4 (03:25→21:15)
[2023-12-06] MEDS: DECADRON 4 MG IV ×2 (03:25→14:10)
[2023-12-06 04:52] LABS: % Lymphocytes 9.5 % (20.5-51.1); % Monocytes 5.2 % (1.7-9.3); % Neutrophils 84.3 % (42.2-75.2); Absolute Immature Granulocytes 0.1 10^3/uL (0-0.05); Absolute Lymphocytes 0.5 10^3/uL (1.2-3.4); Absolute Monocytes 0.3 10^3/uL (0.1-0.6); Absolute Neutrophils 4.2 10^3/uL (1.4-6.5); Hematocrit 25.6 % (39.0-52.0); Hemoglobin 7.7 g/dL (13.0-18.0); Mean Corp Hgb Conc. 30.1 g/dL (33.0-37.0); Mean Corpuscular Hgb 23.5 pg (27.0-31.0); Mean Corpuscular Volume 78.3 fL (80.0-94.0); Mean Platelet Volume 9.6 fL (7.4-10.4); Nucleated Red Blood Cells % 0 % (-); Platelet Count 313 10^3/uL (130-400); Red Blood Cell Count 3.27 10^6/uL (4.70-6.10); Red Cell Dist. Width 17.7 % (11.5-14.5)
[2023-12-06 05:03] LABS: Blood Urea Nitrogen 45 mg/dl (9-20); Calcium 9.7 mg/dl (8.4-10.2); Carbon Dioxide 29 mmol/L (22-30); Chloride 98 mmol/L (98-107); Estimated Creatinine Clearance 47 ml/min; Glucose 211 mg/dl (70-99); Potassium 3.6 mmol/L (3.5-5.1); Sodium 139 mmol/L (135-145); eGFR 57.81
--- NOTE | 2023-12-06 06:47 | PTCARENOTE ---
no acute events overnight. pt tearful at start of the shift, thinking about old loved ones. bipap on all night. on 2L NC 97%.
[2023-12-06] MEDS: ADVAIR HFA 230/21 MCG INHALER 2 PUFF INH ×2 (07:34→19:27)
[2023-12-06 07:41] LABS: Glucose - Point of Care 203 mg/dl (70-99)
[2023-12-06] MEDS: NOVOLOG FLEXPEN-LOW RESISTANCE 2 UNITS SC ×2 (09:16→12:04)
[2023-12-06] MEDS: CARDIZEM CD 180 MG PO ×2 (09:18→19:43)
[2023-12-06] MEDS: APRESOLINE 50 MG PO ×3 (09:18→21:15)
[2023-12-06] MEDS: ELIQUIS 5 MG PO ×2 (09:19→19:43)
[2023-12-06] MEDS: KCL 20 MEQ PO (09:19)
[2023-12-06] MEDS: COLACE 100 MG PO ×2 (09:19→19:43)
[2023-12-06] MEDS: PEPCID 20 MG PO (09:23)
[2023-12-06] MEDS: LASIX 80 MG IV ×2 (09:23→15:36)
[2023-12-06] MEDS: NAMENDA 5 MG PO (09:23)
[2023-12-06] MEDS: ARICEPT 5 MG PO (09:24)
[2023-12-06] MEDS: NSS (PRESERVATIVE FREE) IV ×2 (09:24→19:43)
[2023-12-06] MEDS: SANTYL OINTMENT TOPICAL (09:25)
[2023-12-06] MEDS: ZOLOFT 50 MG PO (09:26)
[2023-12-06 11:54] LABS: Glucose - Point of Care 246 mg/dl (70-99)
--- NOTE | 2023-12-06 12:07 | W.PN.HOSP.TC ---
Today's Communication/Plan
-
Repeat CXR to reassess for pleural effusion, worsened, tap needed
Continue IV Unasyn and Decadron
can transition to PO Lasix -- await for cardiology note.
PT/OT
Assessment / Plan
Assessment / Plan
IMPRESSION:
Aspiration pneumonia
Iron deficiency anemia
Acute heart failure with volume overload
Acute hypoxic respiratory insufficiency on BIPAP
Persistent atrial fibrillation
Essential hypertension
Constipation
Anxiety/depression
BPH
CKD stage II
Wheelchair-bound s/p right hip hemiarthroplasty
Cognitive impairment
PLAN:
Aspiration pneumonia
Consolidation in the right lower lobe suspect due to aspiration
IV Unasyn 15 mg Q6-- day 3
IV dexamethasone 4 mg Q12
Transition to Augmentin in future/ while at discharge
Patient is afebrile, WBC normal
Continue to monitor WBC and temp curve
Incentive spirometry
Patient was in and tends to eat quickly.
Advised patient to slow down and chew thoroughly while eating.
Hold on video fluoroscopy swallow study as swallow study was negative for aspiration
Repeat CXR to reassess for pleural effusion, if worsening then might need a tap.
Iron deficiency Anemia
IV ferric gluconate 125 mg daily
repeat CBC in am .
Checking for vitamin B12 and folate.
Acute heart failure with volume overload --- improving
IMU
EUVOLEMIC
Troponin 0.012
Can be transitioned to PO lasix as he is euvolemic now.
Continue DuoNebs standing Q6
Continue albuterol as needed
Wean off Bipap as able
Total urine output 1270ml
Monitor I's/O's, daily weights
Fluid restriction <1800
Echo LFEV 70-75%
Cardiology following
Acute hypoxic respiratory insufficiency on BIPAP
Wean OFF Bipap as able.
On 2 L of O2, wean off as able.
Incentive spirometry
Persistent atrial fibrillation
EKG shows persistent atrial fibrillation, heart rate is in the 90s
Continue Eliquis 5 mg twice daily
Continue diltiazem
Goal rate less than 110
Anxiety
Ativan PRN
Essential hypertension
Continue diltiazem and hydralazine
Monitor blood pressure
Constipation
Continue docusate sodium
BPH
Patient has a Chen's catheter when he came in to ED from [facility]
History of chronic urinary incontinence
Changed the catheter
CKD stage II
Creatinine 1.1, baseline is less than 1
Monitor BMP in am
Wheelchair-bound s/p right hip hemiarthroplasty
Patient has pressure sores on right buttock
Continue Tylenol for pain
Wound care consult
Need PT/OT
CODE STATUS - DNR -
DVT prophylaxis - Eliquis
Diet- Thin liquids
IMAGING :
CXR- 12/04/23
Moderate-sized left and small right pleural effusions with evidence for pleural fluid tracking into the major fissures.
Large subpleural airspace consolidation in the basilar segments of the left lower lobe which is probably compressive atelectasis.
Large amount of basilar airspace consolidation in the right lower lobe which is also likely atelectasis.
EKG 12/02/23
Atrial fibrillation
Echocardiogram 12/03/2023
Left ventricle is small in size. Hyperdynamic left ventricular systolic function. Normal regional wall motion. Left ventricular ejection fraction is 70-75% by visual assessment. Mild concentric left ventricular hypertrophy. Diastolic function
indeterminate due to atrial fibrillation. Grossly normal right ventricular size and function. Mild to moderate mitral regurgitation. Mild tricuspid regurgitation. Estimated pulmonary artery pressure of 50-55 mmHg. Assuming a right atrial
pressure of 8 mmHg.
Pleural effusion present.
Echo 10/19/22
Normal left ventricular size, wall thickness and systolic function. No regional wall motion abnormalities are seen. Estimated ejection fraction is 55- 60%. Mild to moderate mitral regurgitation.
Compared to the previous echo there is now mild to moderate mitral regurgitation.
Anticipated Discharge: > 48 hours
Subjective/Interval History
-
Date of Service: December 06, 2023
Patient was a little wheezy today, but overall doing better.
Objective Data
-
Labs:
Laboratory Results
12/06/23
04:37
WBC 5.0
Hgb 7.7 L
Hct 25.6 L
Plt Count 313
Sodium 139
Potassium 3.6
Chloride 98
Carbon Dioxide 29
BUN 45 H
Creatinine 1.2
Glucose 211 H
Calcium 9.7
Vital Signs:
Vital Signs
Temp Pulse Resp BP Pulse Ox
97.1 F 72 20 142/72 95
12/06/23 07:25 12/06/23 07:37 12/06/23 07:37 12/06/23 06:00 12/06/23 09:59
I&O
12/05/23 12/06/23 12/07/23
06:59 06:59 06:59
Intake Total 1040 / 1040 600 / 600 480 / 480
Output Total 2575 / 2575 2850 / 2850 1225 / 1225
Balance -1535 / -1535 -2250 / -2250 -745 / -745
Review of Systems
-
All other systems: Reviewed and negative
Physical Exam
-
General: Comfortable and Conversant
HEENT: Normocephalic and Atraumatic
Respiratory: Wheezes (which clears up with cough )
Cardiac: Irregular Rhythm
Genito-urinary: Chen (clear, yellow, good output )
Musculoskeletal: Other (very mild pitting edema bilaterally, significant improvement )
Neuro: AO x 3
Data Reviewed
-
Labs: Labs Reviewed by me and Discussed with Physician
[2023-12-06] MEDS: FERRLECIT 110 MG IV (14:10)
--- NOTE | 2023-12-06 15:09 | W.PN.CARDCBS ---
Today's Communication / Plan
-
Continue IV diuresis, hopefully can transition to p.o. in the next 24 to 48 hours
Impression / Plan
-
Primary Ply Cutter: Dr. Acosta
Assessment:
Acute on chronic diastolic congestive heart failure
Acute hypoxic respiratory failure
Persistent atrial fibrillation
Chronic anticoagulation with Eliquis
PVCs
mild to mod MR
Hypertension
LVH
CKD
COPD
Obstructive sleep apnea
History of rectal cancer status post resection, chemo, radiation
GERD
Chronic anemia
Wheelchair bound
BPH, gómez in place
ECHO 10/19/22: EF 55 to 60%, mild to moderate MR. PA pressure 30 to 35 mmHg
Echocardiogram 12/03/2023: EF 70 to 75%. Normal RV. Mild to moderate MR. Mild TR with PA pressure 50 to 55 mmHg
Plan:
-Dyspnea is improving. He is on antibiotics and has diuresed with IV Lasix. He has been treated in addition with pulmonary medications including steroids. Chest x-ray performed which was abnormal with pleural effusions and some consolidation.
Speech evaluation negative for dysfunction.
-Shortness of breath likely multifactorial
-Continue diuresis-continue to follow input/output and daily weights.
-Once euvolemic reassess chest x-ray and if left pleural effusion no better consider ultrasound-guided thoracentesis
-As with current gómez in place, unlikely good candidate for SGLT2 inhibitor
-Permanent Afib - continue OP cardizem for rate control, eliquis for cardioembolic ppx
Progress Note - Ply Cutter
Subjective
Date of Service: December 06, 2023
No acute overnight events. Tells me his breathing is improved today. No chest discomfort. No palpitations.
Objective
Labs:
12/06/23 04:37
12/06/23 04:37
Labs
Hgb 7.7 g/dL (13.0-18.0) L 12/06/23 04:37
Hct 25.6 % (39.0-52.0) L 12/06/23 04:37
Plt Count 313 10^3/uL (130-400) 12/06/23 04:37
Sodium 139 mmol/L (135-145) 12/06/23 04:37
Potassium 3.6 mmol/L (3.5-5.1) 12/06/23 04:37
BUN 45 mg/dl (9-20) H 12/06/23 04:37
Creatinine 1.2 mg/dL (0.7-1.3) 12/06/23 04:37
Glucose 211 mg/dl (70-99) H 12/06/23 04:37
Vital Signs and I&O:
Vital Signs
Temp Pulse Resp BP Pulse Ox
98.0 F 84 20 142/72 95
12/06/23 11:25 12/06/23 14:07 12/06/23 14:07 12/06/23 06:00 12/06/23 14:07
Vital Signs
Temp Pulse Resp BP Pulse Ox
98.0 F 84 20 142/72 95
12/06/23 11:25 12/06/23 14:07 12/06/23 14:07 12/06/23 06:00 12/06/23 14:07
Intake & Output
12/04/23 12/05/23 12/06/23 12/07/23
06:59 06:59 06:59 06:59
Intake Total 780 / 780 1040 / 1040 600 / 600 480 / 480
Output Total 1974 / 1974 2575 / 2575 2850 / 2850 1700 / 1700
Balance -1195 / -1195 -1535 / -1535 -2250 / -2250 -1220 / -1220
Physical Exam
Physical Exam
Gen: NAD, AA
HEENT: NC/AT, sclera anicteric
Neck: No JVD
CV: Irregularly irregular
Lungs: No increased work of breathing on 2 L nasal cannula
Abd: S/ND
Ext: Nonpitting LE edema
Skin: Warm, dry
Neuro: Non-focal
[2023-12-06 17:02] LABS: Glucose - Point of Care 268 mg/dl (70-99)
[2023-12-06] MEDS: NOVOLOG FLEXPEN-LOW RESISTANCE 3 UNITS SC (17:52)
--- NOTE | 2023-12-06 19:31 | PTCARENOTE ---
cannot verify accuracy to vitals before 1900.
[2023-12-06 22:05] LABS: Glucose - Point of Care 245 mg/dl (70-99)
[2023-12-07] VITALS (15 sets, daily range): BP systolic 121–140; BP diastolic 61–80; PULSE 2–85; O2SAT 97; BMI 33.5
[2023-12-07] MEDS: DUONEB 3 ML INH ×4 (00:42→19:54)
[2023-12-07] MEDS: DECADRON 4 MG IV ×2 (03:24→15:25)
[2023-12-07] MEDS: UNASYN IV ×4 (03:24→21:20)
[2023-12-07 05:22] LABS: % Immature Granulocytes 1.6 % (0-0.5); % Lymphocytes 9.2 % (20.5-51.1); % Neutrophils 84.2 % (42.2-75.2); Absolute Immature Granulocytes 0.1 10^3/uL (0-0.05); Absolute Lymphocytes 0.5 10^3/uL (1.2-3.4); Absolute Monocytes 0.3 10^3/uL (0.1-0.6); Absolute Neutrophils 4.7 10^3/uL (1.4-6.5); Hematocrit 25.9 % (39.0-52.0); Mean Corp Hgb Conc. 30.9 g/dL (33.0-37.0); Mean Corpuscular Volume 77.5 fL (80.0-94.0); Mean Platelet Volume 9.5 fL (7.4-10.4); Nucleated Red Blood Cells % 0 % (-); Platelet Count 310 10^3/uL (130-400); Red Blood Cell Count 3.34 10^6/uL (4.70-6.10); Red Cell Dist. Width 17.6 % (11.5-14.5); White Blood Cell Count 5.6 10^3/uL (4.8-10.8)
[2023-12-07 05:39] LABS: Blood Urea Nitrogen 50 mg/dl (9-20); Calcium 9.7 mg/dl (8.4-10.2); Carbon Dioxide 33 mmol/L (22-30); Chloride 95 mmol/L (98-107); Estimated Creatinine Clearance 47 ml/min; Glucose 220 mg/dl (70-99); Potassium 3.8 mmol/L (3.5-5.1); Sodium 138 mmol/L (135-145); eGFR 57.81
--- NOTE | 2023-12-07 06:31 | PTCARENOTE ---
no acute events overnight. pt remains on 2L NC, on bipap at night. pt had a BM tonight, foam on sacrum changed.
[2023-12-07 06:46] LABS: Folate 8.3 ng/ml (2.76-20); Vitamin B12 523 pg/ml (239-931)
[2023-12-07] MEDS: ADVAIR HFA 230/21 MCG INHALER 2 PUFF INH ×2 (07:24→19:54)
--- NOTE | 2023-12-07 07:48 | PTCARENOTE ---
Report rec'd on patient from previous RN, TT sent to [facility] to f/u on consult.
[2023-12-07] MEDS: NOVOLOG FLEXPEN-LOW RESISTANCE 2 UNITS SC (08:19)
[2023-12-07 08:28] LABS: Glucose - Point of Care 218 mg/dl (70-99)
--- NOTE | 2023-12-07 08:41 | W.PN.HOSP.TC ---
Addendum entered and electronically signed by Trever Ding DO 12/08/23 08:32:
CDI:
Stage III decubitus ulcer, POA
Persistent atrial fibrillation
Original Note:
Today's Communication/Plan
-
CXR pending
Transition to PO lasix in 24- 48 hours. For now continue IV lasix
IV unasyn - day 4
Assessment / Plan
Assessment / Plan
IMPRESSION:
Aspiration pneumonia
Iron deficiency anemia
Acute heart failure with volume overload
Acute hypoxic respiratory insufficiency on BIPAP
Persistent atrial fibrillation
Essential hypertension
Constipation
Anxiety/depression
BPH
CKD stage II
Wheelchair-bound s/p right hip hemiarthroplasty
Cognitive impairment
PLAN:
Aspiration pneumonia
Consolidation in the right lower lobe suspect due to aspiration
IV Unasyn 15 mg Q6-- day 4
IV dexamethasone 4 mg Q12
Transition to Augmentin in future/ while at discharge
Patient is afebrile, WBC normal
Continue to monitor WBC and temp curve
Incentive spirometry
Patient was in and tends to eat quickly.
Advised patient to slow down and chew thoroughly while eating.
Hold on video fluoroscopy swallow study as swallow study was negative for aspiration
Repeat CXR to reassess for pleural effusion, if worsening then might need US guided thoracentesis.
Iron deficiency Anemia
Per Ferric HF trial- IV ferric gluconate 125 mg daily given to patient with decompensated HF with preserved EF
repeat CBC in am .
Checking for vitamin B12 and folate.
Acute heart failure with volume overload --- improving
IMU
EUVOLEMIC
Troponin 0.012
Can be transitioned to PO lasix as he is euvolemic now.
Continue DuoNebs standing Q6
Continue albuterol as needed
Wean off Bipap as able
Total urine output 1270ml
Monitor I's/O's, daily weights
Fluid restriction <1800
Echo LFEV 70-75%
Cardiology following
Acute hypoxic respiratory insufficiency on BIPAP
Wean OFF Bipap as able.
On 2 L of O2, wean off as able.
Incentive spirometry
Persistent atrial fibrillation
EKG shows persistent atrial fibrillation, heart rate is in the 90s
Continue Eliquis 5 mg twice daily
Continue diltiazem
Goal rate less than 110
Anxiety
Ativan PRN
Essential hypertension
Continue diltiazem and hydralazine
Monitor blood pressure
Constipation
Continue docusate sodium
BPH
Patient has a Chen's catheter when he came in to ED from [facility]
History of chronic urinary incontinence
Changed the catheter
CKD stage II
Creatinine 1.1, baseline is less than 1
Monitor BMP in am
Wheelchair-bound s/p right hip hemiarthroplasty
Patient has pressure sores on right buttock
Continue Tylenol for pain
Wound care consult
Need PT/OT
CODE STATUS - DNR -
DVT prophylaxis - Eliquis
Diet- Thin liquids
IMAGING :
CXR- 12/04/23
Moderate-sized left and small right pleural effusions with evidence for pleural fluid tracking into the major fissures.
Large subpleural airspace consolidation in the basilar segments of the left lower lobe which is probably compressive atelectasis.
Large amount of basilar airspace consolidation in the right lower lobe which is also likely atelectasis.
EKG 12/02/23
Atrial fibrillation
Echocardiogram 12/03/2023
Left ventricle is small in size. Hyperdynamic left ventricular systolic function. Normal regional wall motion. Left ventricular ejection fraction is 70-75% by visual assessment. Mild concentric left ventricular hypertrophy. Diastolic function
indeterminate due to atrial fibrillation. Grossly normal right ventricular size and function. Mild to moderate mitral regurgitation. Mild tricuspid regurgitation. Estimated pulmonary artery pressure of 50-55 mmHg. Assuming a right atrial
pressure of 8 mmHg.
Pleural effusion present.
Echo 10/19/22
Normal left ventricular size, wall thickness and systolic function. No regional wall motion abnormalities are seen. Estimated ejection fraction is 55- 60%. Mild to moderate mitral regurgitation.
Compared to the previous echo there is now mild to moderate mitral regurgitation.
Anticipated Discharge: > 48 hours
Subjective/Interval History
-
Date of Service: December 07, 2023
Patient denies any chest pain, shortness of breath he is on 1 L of oxygen on NC.
Objective Data
-
Labs:
Laboratory Results
12/07/23
05:00
WBC 5.6
Hgb 8.0 L
Hct 25.9 L
Plt Count 310
Sodium 138
Potassium 3.8
Chloride 95 L
Carbon Dioxide 33 H
BUN 50 H
Creatinine 1.2
Glucose 220 H
Calcium 9.7
Vital Signs:
Vital Signs
Temp Pulse Resp BP Pulse Ox
97.6 F 74 12 133/71 96
12/07/23 03:30 12/07/23 07:27 12/07/23 07:27 12/07/23 06:00 12/07/23 07:27
I&O
12/06/23 12/07/23 12/08/23
06:59 06:59 06:59
Intake Total 600 / 600 1200 / 1200
Output Total 2850 / 2850 4500 / 4500
Balance -2250 / -2250 -3300 / -3300
Review of Systems
-
All other systems: Reviewed and negative
Physical Exam
-
General: Comfortable and Conversant
HEENT: Normocephalic and Atraumatic
Respiratory: Clear to Auscultation
Cardiac: Irregular Rhythm
Genito-urinary: Chen
Musculoskeletal: No Edema
Neuro: AO x 3
Psych: Calm
Data Reviewed
-
Labs: Labs Reviewed by me and Discussed with Physician
[2023-12-07] MEDS: CARDIZEM CD 180 MG PO ×2 (10:05→19:30)
[2023-12-07] MEDS: PEPCID 20 MG PO (10:06)
[2023-12-07] MEDS: KCL 20 MEQ PO (10:06)
[2023-12-07] MEDS: ELIQUIS 5 MG PO ×2 (10:06→19:30)
[2023-12-07] MEDS: ZOLOFT 50 MG PO (10:06)
[2023-12-07] MEDS: ARICEPT 5 MG PO (10:06)
[2023-12-07] MEDS: APRESOLINE 50 MG PO ×3 (10:06→21:20)
[2023-12-07] MEDS: COLACE 100 MG PO ×2 (10:06→19:30)
[2023-12-07] MEDS: LASIX IV (10:07)
[2023-12-07] MEDS: NAMENDA 5 MG PO (10:07)
[2023-12-07] MEDS: NSS (PRESERVATIVE FREE) IV ×2 (10:10→19:31)
--- NOTE | 2023-12-07 10:22 | WOUNDNOTE ---
TOÑO RN note: Patient admitted with pulmonary edema.
See H&P for complete history. Lives at [facility] [place] home is W/C bound.
PMH: Asthma, HTN, buttock ulcer, rectal ca.A fib, anxiety, anemia aspiration pneumonia, ex smoker and R knee repl.
Wound Location and type/assessment: Patient admitted with: R buttock small stage 3 PI that patient confirmed he was admitted with, pink mixed with dry yellow slough, easily bleeds. Patient states he sits allot at SD and does not recall if he uses a
cushion. Air chair cushion provided, patient can take upon discharge. Sacrum and heels intact.
Appetite: Fair.
Pressure redistribution devices in place: On air mattress, instructed nurse to keep on air mattress if transferred.
Plan: Applied Hydrocolloid dressing to be changed q other day and prn drainage. Area is very close to rectum, patient incontinent of stool. Applied sacral silicone foam to protect sacrum and skin prep to heels. Pillow under calves in use.
Will confirm orders with hospitalist and updated nurse Disa. Updated care plan and will follow as needed.
Note to case management of equipment requested for discharge:
Recommend follow up at wound care center upon discharge.
--- NOTE | 2023-12-07 10:40 | W.PN.CARDCBS ---
Today's Communication / Plan
-
Hold Lasix today
Changed to oral Lasix 80 in the morning 40 in the p.m. tomorrow
Chemistry and proBNP in 7 to 10 days
Office visit will be arranged
Daily weights at facility
Impression / Plan
-
Primary Disability Counselor: Dr. Acosta
Assessment:
Acute on chronic diastolic congestive heart failure
Acute hypoxic respiratory failure
Persistent atrial fibrillation
Chronic anticoagulation with Eliquis
PVCs
mild to mod MR
Hypertension
LVH
CKD
COPD
Obstructive sleep apnea
History of rectal cancer status post resection, chemo, radiation
GERD
Chronic anemia
Wheelchair bound
BPH, gómez in place
ECHO 10/19/22: EF 55 to 60%, mild to moderate MR. PA pressure 30 to 35 mmHg
Echocardiogram 12/03/2023: EF 70 to 75%. Normal RV. Mild to moderate MR. Mild TR with PA pressure 50 to 55 mmHg
Plan:
-He is improved greatly with diuresis and pulmonary treatment. He has lost significant fluid weight and he is down 13 pounds altogether. BUN/creatinine have increased. Hold Lasix today.
-Resume Lasix tomorrow at 80 mg in the a.m. and 40 mg in the p.m. Oral.
-We will see him in follow-up in the office. He will need daily weights at the facility and instruction to call if he gains 3 pounds in 1 day or 5 pounds in 1 week. We will order chemistry and proBNP in 1 week. We will draw baseline proBNP now
which would be somewhat reflective of volume status (long half-life of proBNP recognized)
-Shortness of breath likely multifactorial
-Wean oxygen as tolerates
-Continue diuresis-continue to follow input/output and daily weights.
-As with current gómez in place, unlikely good candidate for SGLT2 inhibitor
-Permanent Afib - continue OP cardizem for rate control, eliquis for cardioembolic ppx
We will sign off.
Progress Note - Disability Counselor
Subjective
Date of Service: December 07, 2023
He denies chest pain, palpitations and dizziness
Objective
Labs:
12/07/23 05:00
12/07/23 05:00
Labs
Hgb 8.0 g/dL (13.0-18.0) L 12/07/23 05:00
Hct 25.9 % (39.0-52.0) L 12/07/23 05:00
Plt Count 310 10^3/uL (130-400) 12/07/23 05:00
Sodium 138 mmol/L (135-145) 12/07/23 05:00
Potassium 3.8 mmol/L (3.5-5.1) 12/07/23 05:00
BUN 50 mg/dl (9-20) H 12/07/23 05:00
Creatinine 1.2 mg/dL (0.7-1.3) 12/07/23 05:00
Glucose 220 mg/dl (70-99) H 12/07/23 05:00
Vital Signs and I&O:
Vital Signs
Temp Pulse Resp BP Pulse Ox
98.2 F 75 12 121/73 96
12/07/23 07:14 12/07/23 10:05 12/07/23 07:27 12/07/23 10:05 12/07/23 07:27
Vital Signs
Temp Pulse Resp BP Pulse Ox
98.2 F 75 12 121/73 96
12/07/23 07:14 12/07/23 10:05 12/07/23 07:27 12/07/23 10:05 12/07/23 07:27
Intake & Output
12/05/23 12/06/23 12/07/23 12/08/23
06:59 06:59 06:59 06:59
Intake Total 1040 / 1040 600 / 600 1200 / 1200
Output Total 2575 / 2575 2850 / 2850 4500 / 4500 350 / 350
Balance -1535 / -1535 -2250 / -2250 -3300 / -3300 -350 / -350
Physical Exam
Physical Exam
General: Well developed, well nourished in NAD.
Heart: Distant heart sounds
Lungs: Coarse breath sounds bilateral
Extremities: No clubbing, cyanosis or edema bilaterally.
Neuro: Grossly nonfocal, awake, alert
[2023-12-07] MEDS: NOVOLOG FLEXPEN-LOW RESISTANCE 3 UNITS SC (11:28)
[2023-12-07 11:37] LABS: Glucose - Point of Care 259 mg/dl (70-99)
[2023-12-07 13:17] LABS: NT-proBNP 6840 pg/ml
[2023-12-07] MEDS: FERRLECIT 110 MG IV (13:51)
--- NOTE | 2023-12-07 14:23 | PTCARENOTE ---
Pt remains AOx2, pleasant and extremely cooperative with all care. Sl forgetful at times. Weaned to room air this shift, VSS, plan discussed with care team. Pt written for tele, clean room [id number] assigned, will call report at this time.
--- NOTE | 2023-12-07 14:43 | CM ---
Addendum entered by Heena Anderson RN 12/07/23 16:15:
Spoke with Jo [facility] [employer];
request for SNF auth for [facility] is approved, auth # [id number], for 6 days, from 12/07 to 12/12. NR 12/12 to phone [phone].
[facility] auth # [id number], valid 12/07 to 12/09.
Spoke with Briana [facility]; auth information provided. They are able to accept the patient tomorrow. They require a Covid test ---> message sent to Dr Ding. The ph for nurse report [phone], fax [phone].
Plan [facility] SNF probably tomorrow by ambulance.
Original Note:
Patient from [facility] with Dx Aspiration pneumonia, Iron deficiency anemia, HF, Acute hypoxic respiratory insufficiency. Seen by wound care nurse. Per nurses notes; A/O x2, sl forgetful. PT Eval 12/06; return to LTC. OT Eval 12/06; recommend
skilled rehab.
Phone call to Briana, [facility]; referral placed for possible return to their SNF tomorrow. Possibility patient may need home O2 and BiPAP.
Spoke with patient's September; she is not here today as she is in the process of selling their home. already resides at [facility]. Discussed patient's possible return to [facility] SNF tomorrow, possibly with rehab.
aware patient currently on O2 and BiPAP and asking if patient will need BiPAP at . She is hoping he can use his CPAP instead, as her told her he felt claustrophobic with BiPAP---> message conveyed to Dr Ding.
Spoke with Briana [facility]; she would like CM to try for SNF auth for rehab- agreed. Briana was updated about the possible need for O2, CPAP vs BiPAP and wound care.
Plan watch for O2 and BiPAP needs.
Plan return to [facility] SNF when medically ready and insurance auth obtained.
--- NOTE | 2023-12-07 15:01 | PTCARENOTE ---
Report called to 4th floor DANNY [facility]. Will send pt with belongings and equipment.
--- NOTE | 2023-12-07 16:27 | PN.CDI ---
CDI
- -
CDI:
Physician Documentation Request
Admit Date: 12/02/23 14:42
Dear Doctor Brian,
12/04 Hospitalist progress notes include a diagnosis of permanent atrial fibrillation. In same progress note it is also referred to as persistent.
In an attempt to clarify potentially conflicting documentation, please clarify the atrial fibrillation type:
Persistent atrial fibrillation - episodes of continuous AF that last more than 7 days and do not self-terminate
Permanent atrial fibrillation - when a decision has been made to accept the presence of AF and there is no further attempt to restore or maintain sinus rhythm
Other - please specify
Use of terms such as suspected, likely, concern for, or probable (associated with a specific diagnosis that is being evaluated, monitored, or treated as if it exists) are acceptable and can be coded in the inpatient setting, when documented at the
time of discharge.
Thank you,
Marianna Bucio RN, BSN
CDI Specialist
tiger text
Please use your independent medical judgment in providing your response.
--- NOTE | 2023-12-07 16:30 | PN.CDI ---
CDI
- -
CDI:
Physician Documentation Request
Admit Date: 12/02/23 14:42
Dear Doctor Brian,
12/06 WOCN note states : R buttock small stage 3 PI that patient confirmed he was admitted with.....'
Physician documentation of the type and location of wounds is required for compliant documentation. Based on the above clinical findings and your assessment, please provide the following in your progress note:
1. Location of the ulcer/wound, including laterality.
2. Type (etiology) of ulcer/wound:
- Traumatic wound
- Pressure (decubitus) ulcer
- Other
Use of terms such as suspected, likely, concern for, or probable (associated with a specific diagnosis that is being evaluated, monitored, or treated as if it exists) are acceptable and can be coded in the inpatient setting, when documented at the
time of discharge.
Thank you,
Marianna Bucio RN, BSN
CDI Specialist
tiger text
Please use your independent medical judgment in providing your response.
*Source: National Pressure Ulcer Advisory Panel (NPUAP)
[2023-12-07] MEDS: NOVOLOG FLEXPEN-MODERATE RESISTANCE 5 UNITS SC (16:41)
[2023-12-07 16:42] LABS: Glucose - Point of Care 251 mg/dl (70-99)
[2023-12-07 18:51] LABS: COVID-19 Antigen Negative (Negative)
[2023-12-07 21:19] LABS: Glucose - Point of Care 306 mg/dl (70-99)
[2023-12-08] MEDS: DUONEB 3 ML INH ×3 (01:37→13:27)
[2023-12-08 01:39] VITALS: PULSE 2
[2023-12-08] MEDS: UNASYN IV (03:21)
[2023-12-08] MEDS: DECADRON 4 MG IV (03:21)
[2023-12-08 03:45] VITALS: BP 133/74
[2023-12-08 06:00] VITALS: BMI 34.9
[2023-12-08 07:30] VITALS: BP 155/63
[2023-12-08] MEDS: ADVAIR HFA 230/21 MCG INHALER 2 PUFF INH (07:46)
[2023-12-08] MEDS: COLACE 100 MG PO (08:29)
[2023-12-08] MEDS: ZOLOFT 50 MG PO (08:29)
[2023-12-08] MEDS: NAMENDA 5 MG PO (08:30)
[2023-12-08] MEDS: KCL 20 MEQ PO (08:30)
[2023-12-08] MEDS: ARICEPT 5 MG PO (08:31)
[2023-12-08] MEDS: CARDIZEM CD 180 MG PO (08:31)
[2023-12-08] MEDS: ELIQUIS 5 MG PO (08:31)
[2023-12-08] MEDS: PEPCID 20 MG PO (08:31)
[2023-12-08] MEDS: APRESOLINE 50 MG PO (08:32)
[2023-12-08 08:33] LABS: Glucose - Point of Care 254 mg/dl (70-99)
[2023-12-08] MEDS: NSS (PRESERVATIVE FREE) IV (08:33)
[2023-12-08] MEDS: AUGMENTIN 875 MG/125 MG 1 TABLET PO (08:36)
[2023-12-08] MEDS: NOVOLOG FLEXPEN-MODERATE RESISTANCE 5 UNITS SC (08:45)
--- NOTE | 2023-12-08 10:56 | W.PN.HOSP.TC ---
Addendum entered and electronically signed by Cami Torres MD, Resident 12/08/23 12:05:
ferrous* sulphate 325 mg every other day
Original Note:
Today's Communication/Plan
-
Discharge to [facility] on :
PO lasix 80 mg in am and 40 mg in pm
PO Augmentin for 3 more days to complete 7 days course.
PO ferric sulphate 325 mg PO every other day
PO dexamathasone 4 mg
Switch back to CPAP from BiPAP
Follow up with cardiology outpatient
proBNP and BMP in one week OP
Assessment / Plan
Assessment / Plan
IMPRESSION:
Aspiration pneumonia
Iron deficiency anemia
Acute heart failure with volume overload
Acute hypoxic respiratory insufficiency on BIPAP
Persistent atrial fibrillation
Essential hypertension
Constipation
Anxiety/depression
BPH
CKD stage II
Wheelchair-bound s/p right hip hemiarthroplasty
Cognitive impairment
PLAN:
Aspiration pneumonia
Consolidation in the right lower lobe suspect due to aspiration
IV Unasyn ---stopped
Switched to PO Augmentin 500 mg BID
Switch to PO dexamethasone
Plan to discharge to [facility] home today
Patient is afebrile, WBC normal
Continue to monitor WBC and temp curve
Incentive spirometry
Patient was in and tends to eat quickly.
Advised patient to slow down and chew thoroughly while eating.
repeat cxr was stable, no tap needed
Iron deficiency Anemia
Per Ferric HF trial- IV ferric gluconate 125 mg daily given to patient with decompensated HF with preserved EF
B12 and folate normal levels
Switched to PO Ferric sulphate 325 mg every other day at discharge
Acute heart failure with volume overload --- improving
Downgraded to telemetry
Discaharge to SNF today
EUVOLEMIC
Troponin 0.012
PO lasix 80 mg in am and 40 mg in pm
Continue albuterol as needed
Wean off Bipap as able
Total urine output 1270ml
Monitor I's/O's, daily weights
Fluid restriction <1800
Echo LFEV 70-75%
Acute hypoxic respiratory insufficiency on BIPAP
Wean OFF Bipap as able.
On 2 L of O2, wean off as able.
Incentive spirometry
Persistent atrial fibrillation
EKG shows persistent atrial fibrillation, heart rate is in the 90s
Continue Eliquis 5 mg twice daily
Continue diltiazem
Goal rate less than 110
Anxiety
Ativan PRN
Essential hypertension
Continue diltiazem and hydralazine
Monitor blood pressure
Constipation
Continue docusate sodium
BPH
Patient has a Chen's catheter when he came in to ED from [facility]
History of chronic urinary incontinence
Changed the catheter
CKD stage II
Creatinine 1.1, baseline is less than 1
Monitor BMP in am
Wheelchair-bound s/p right hip hemiarthroplasty
Patient has pressure sores on right buttock
Continue Tylenol for pain
Wound care consult
Need PT/OT
PER CDI- STAGE III Decubitis ulcer
CODE STATUS - DNR -
DVT prophylaxis - Eliquis
Diet- Thin liquids
IMAGING :
CXR- 12/04/23
Moderate-sized left and small right pleural effusions with evidence for pleural fluid tracking into the major fissures.
Large subpleural airspace consolidation in the basilar segments of the left lower lobe which is probably compressive atelectasis.
Large amount of basilar airspace consolidation in the right lower lobe which is also likely atelectasis.
EKG 12/02/23
Atrial fibrillation
Echocardiogram 12/03/2023
Left ventricle is small in size. Hyperdynamic left ventricular systolic function. Normal regional wall motion. Left ventricular ejection fraction is 70-75% by visual assessment. Mild concentric left ventricular hypertrophy. Diastolic function
indeterminate due to atrial fibrillation. Grossly normal right ventricular size and function. Mild to moderate mitral regurgitation. Mild tricuspid regurgitation. Estimated pulmonary artery pressure of 50-55 mmHg. Assuming a right atrial
pressure of 8 mmHg.
Pleural effusion present.
Echo 10/19/22
Normal left ventricular size, wall thickness and systolic function. No regional wall motion abnormalities are seen. Estimated ejection fraction is 55- 60%. Mild to moderate mitral regurgitation.
Compared to the previous echo there is now mild to moderate mitral regurgitation.
Anticipated Discharge: Today
Subjective/Interval History
-
Date of Service: December 08, 2023
Patient is feeling better. He is on room air, hemodynamically stable.
Objective Data
-
Vital Signs:
Vital Signs
Temp Pulse Resp BP Pulse Ox
97.9 F 80 18 155/63 96
12/08/23 07:30 12/08/23 08:31 12/08/23 07:51 12/08/23 08:31 12/08/23 07:51
I&O
12/07/23 12/08/23 12/09/23
06:59 06:59 06:59
Intake Total 1200 / 1200 1370 / 1370 600 / 600
Output Total 4500 / 4500 675 / 675 900 / 900
Balance -3300 / -3300 695 / 695 -300 / -300
Review of Systems
-
All other systems: Reviewed and negative
Physical Exam
-
General: Comfortable and Conversant
HEENT: Normocephalic and Atraumatic
Respiratory: Clear to Auscultation
Cardiac: Irregular Rhythm
Genito-urinary: Chen
Musculoskeletal: No Edema
Neuro: AO x 3
Psych: Calm
Data Reviewed
-
Labs: Labs Reviewed by me and Discussed with Physician
[2023-12-08 11:00] VITALS: BP 128/63
--- NOTE | 2023-12-08 11:38 | CM ---
Plan: [facility] today
Covid test completed.
IMM reviewed with spouse
Ambulance transport forms completed.
Briana from [facility] updated re time.
[facility]
Report [phone]
.
[2023-12-08 11:56] LABS: Glucose - Point of Care 316 mg/dl (70-99)
[2023-12-08] MEDS: LASIX 80 MG PO (12:10)
[2023-12-08] MEDS: NOVOLOG FLEXPEN-MODERATE RESISTANCE 7 UNITS SC (12:12)
--- NOTE | 2023-12-08 13:55 | W.DCSUMMARY ---
Discharge Summary
Discharge Data
Date of Admission: 12/02/23
Date of Discharge: 12/08/23
-
Pending Results: No
Hospital Course
Discharging Physician : Dr Cami Torres
Disposition : care home - [facility]
Primary care physician : Dr Guanako Chatman
Principal Discharge diagnosis :
Aspiration pneumonia
Iron deficiency anemia
Acute heart failure with volume overload
Acute hypoxic respiratory insufficiency on BIPAP
Chronic Discharge diagnosis :
Persistent atrial fibrillation
Essential hypertension
Constipation
Anxiety/depression
BPH
CKD stage II
Wheelchair-bound s/p right hip hemiarthroplasty
Hospital Course :
88-year-old male with history of persistent atrial fibrillation , CKD, obstructive uropathy, Alzheimer's disease, hypertension, s/p right hip hemiarthroplasty, SARITA, history of rectal cancer, presented to the ED from [facility] with shortness of
breath. In the ED he was started on BiPAP. On physical exam he was tachypneic, decreased breath sounds bilaterally with irregular rhythm, bilateral lower extremity 2+ pitting edema. On day 1 patient was started on IV Lasix 40 mg twice daily for
acute heart failure and acute hypoxic respiratory failure. Cardiology was consulted. The dose of furosemide was increased to 80 mg twice daily. He was placed on 3 L of oxygen during the day and BiPAP at night. On the second day of
hospitalization patient was wheezing and in mild mild respiratory distress despite on oxygen and diuretics. Chest x-ray was ordered and it showed suspected right lower lobe consolidation and pleural effusion. Patient was started on Unasyn and
dexamethasone. The next day his breathing improved and his lower extremity edema had decreased. Swallow study was negative for aspiration however patient is a fast eater and did cough while having his meals. Repeat CXR was done which showed
stable pleural effusion from the previous one. Over the course of hospital stay, patient's lower extremity edema improved with trail to wean from oxygen. Chen's catheter was changed as well.
There was an extensive discussion about the code status with the patient and ultimately the and the patient agreed on changing from full code to DNR.
On the day of discharge vitals remained stable. Patient is on room air, lying comfortably, hemodynamically stable. Patient to return to SNF with oral antibiotics, furosemide and steroids. He can continue using CPAP at night. Advise to continue
physical therapy at nursing facility. Advise to follow to outpatient cardiology.
Important imaging findings :
CXR- 12/04/23
Moderate-sized left and small right pleural effusions with evidence for pleural fluid tracking into the major fissures.
Large subpleural airspace consolidation in the basilar segments of the left lower lobe which is probably compressive atelectasis.
Large amount of basilar airspace consolidation in the right lower lobe which is also likely atelectasis.
EKG 12/02/23
Atrial fibrillation
Echocardiogram 12/03/2023
Left ventricle is small in size. Hyperdynamic left ventricular systolic function. Normal regional wall motion. Left ventricular ejection fraction is 70-75% by visual assessment. Mild concentric left ventricular hypertrophy. Diastolic function
indeterminate due to atrial fibrillation. Grossly normal right ventricular size and function. Mild to moderate mitral regurgitation. Mild tricuspid regurgitation. Estimated pulmonary artery pressure of 50-55 mmHg. Assuming a right atrial
pressure of 8 mmHg.
Pleural effusion present.
Procedure findings : none
Discharge Plan
-
Patient Disposition: Chcf/SNF
Discharge Diagnosis/Procedures: Aspiration pneumonia
Iron deficiency anemia
Acute heart failure with volume overload
Acute hypoxic respiratory insufficiency on BIPAP
Persistent atrial fibrillation
Essential hypertension
Constipation
Anxiety/depression
BPH
CKD stage II
Wheelchair-bound s/p right hip hemiarthroplasty
Condition: Good
Diet: 2 Gram Sodium
Activity: With assistance
Driving Restrictions: As prior to admission
Bathing Restrictions: None
Blood Work: BMP/proBNP in 1 week
Specialty Instructions: Weigh Daily- Call MD for wt gain/loss 3 lbs overnight/5 lbs in 1 week
Activity Restrictions/Additional Instructions:
Wound Care Instructions
R buttock:clean with soap and water, skin prep periwound,Hydrocolloid dressing to be changed q other day and prn drainage.
air cushion when sitting or equivalent
air mattress with turning schedule
increase protein in diet
Follow up at wound care center if needed, call for an appointment.
Instructions: *DCA Heart Failure Instructions
Referrals:
Nigel Acosta DO [Active] - 12/13/23 11:00 am (You have a follow up visit at the [facility] in [place]. Please call with questions. )
Guanako Chatman MD [Family Provider] - in less than 1 week
Additional Discharge Medication Instructions: Augmentin one tab twice daily for 2 more day to complete 7 day course
Dexamethasone 4 mg on tab to be take twice daily for 2 days
Ferrous sulfate 325 mg one tablet to be taken every other day
Furosemide 80 mg one tab to be taken in the morning
Furosemide 40 mg one table to be taken in the evening
Follow up with cardiology outpatient
Ok to return to [facility] nightly
Prescriptions:
New
amoxicillin-pot clavulanate 875-125 mg tablet
1 tab PO Q12H 2 Days Qty: 5 0RF
dexamethasone 4 mg tablet
4 mg PO BID 2 Days Qty: 4 0RF
ferrous sulfate 325 mg (65 mg iron) tablet
325 mg PO Q OTHER DAY 30 Days Qty: 15 0RF
furosemide 80 mg tablet
80 mg PO .daily in am 30 Days Qty: 30 0RF
Rx Instructions:
80 mg to be taken in the morning
furosemide 40 mg tablet
40 mg PO .daily in pm 30 Days Qty: 30 0RF
Rx Instructions:
one tablet 40 mg to be taken in the evening
Continued
sertraline 25 MG tablet
50 mg PO DAILY
docusate sodium [Colace] 100 mg Capsule
100 mg PO BID
Eliquis 5 MG tablet
5 mg PO BID Qty: 0 0RF
donepezil 5 mg Tablet
5 mg PO DAILY
acetaminophen [Tylenol Extra Strength] 500 mg Tablet
1,000 mg PO Q8HPRN PRN (Reason: mild pain)
famotidine [Pepcid] 20 mg Tablet
20 mg PO BID
magnesium hydroxide [Milk of Magnesia] 400 mg/5 mL Suspension
2,400 mg PO [id number] PRN (Reason: if no bm on day 2)
furosemide [Lasix] 80 mg Tablet
80 mg PO DAILY
Rx Instructions:
for 3 dys from 12/02/23-12/04/23
bisacodyl [Dulcolax (bisacodyl)] 10 mg Suppository
10 mg DE DAILYPRN PRN (Reason: if no bm aftr mom)
fluticasone propion-salmeterol [Advair Diskus] 500-50 mcg/dose Blister With Device
1 inh INHALATION R BID
Fleet Enema 19-7 gram/118 mL Enema
118 ml DE DAILYPRN PRN (Reason: if no bm aftr dulcolax)
furosemide [Lasix] 20 mg Tablet
20 mg PO DAILY
Santyl 250 unit/gram Ointment
1 applic TOPICAL DAILY
albuterol sulfate 90 mcg/actuation Hfa Aerosol Inhaler
2 puff INHALATION R Q4HPRN PRN (Reason: sob)
memantine 5 mg Tablet
5 mg PO DAILY
potassium chloride 20 mEq Tablet Extended Release
20 meq PO DAILY
zinc oxide 20 % Paste
1 ea TOPICAL DAILY
zinc oxide 20 % Paste
1 ea TOPICAL DAILYPRN PRN (Reason: wound periemeter)
acetaminophen 650 mg tablet extended release
650 mg PO Q6HPRN PRN (Reason: mild pain)
diltiazem HCl 180 MG capsule,extended release 24hr
180 mg PO BID
hydralazine 50 mg tablet
50 mg PO TID
Discharge Orders:
Discharge Patient (As Directed); Ordered 12/08/23
Ordered By: Cami Torres
Discharge Date and Time
Print Language: AZERBAIJANI
[2023-12-08] MEDS: FERRLECIT 110 MG IV (14:50)
[2023-12-08 15:21] VITALS: BP 127/55
--- NOTE | 2023-12-08 15:34 | PTCARENOTE ---
Discharge called to Jorge paris to [facility]
--- NOTE | 2023-12-10 14:30 | W.HF.CON ---
Heart Failure
- LV Function
Left ventricular function study result: LV Ejection fraction >40%
Ejection Fraction Percentage: 70-75
- ARNI
Patient already on ARNI: No
Heart Failure ARNI Not Indicated: LV Ejection Fraction >/= 40%
- ACEI/ARB
Patient already on ACEI/ARB: No
Heart Failure ACEI/ARB Not Indicated: LV Ejection Fraction > 40%
- Beta Oscar
Patient already on Evidence Based Beta Oscar: No
Heart Failure Evidence Based Beta Oscar Not Indicated: LV Ejection Fraction > 40%
- Mineralocorticord Receptor Antagonist
Patient already on MRA: No
Heart Failure MRA Not Indicated: LV Ejection Fraction > 40%
- SGLT-2 Inhibitor
Patient already on SGLT-2 Inhibitor: No
Heart Failure SGLT-2 Inhibitor Not Indicated: LV Ejection Fraction >40%
- Afib Anticoagulation
Patient already on Anticoagulation for Afib: Yes
- NYHA CHF Classification
NYHA CHF Classification Level: Class III - Symptoms w/ min exertion, interferes w/ nml daily activity
- ACC/AHA Stage
ACC/AHA Stage: Stage C: Symptomatic Heart Failure
== END 2023-12-08 15:33 | DRG 291 ==
LOC: 4 WEST ACU 14:42
PROVIDERS: Student in an Organized Health Care Education/Training Program; ADMITTING PHYSICIAN Family Medicine; ATTENDING PHYSICIAN Internal Medicine; CONSULT PHYSICIAN Internal Medicine Cardiovascular Disease; EMERGENCY PHYSICIAN Student in an Organized Health Care Education/Training Program; FAMILY PHYSICIAN Internal Medicine Geriatric Medicine
PROC: 5A09357 Assistance with Respiratory Ventilation, Less than 24 Consecutive Hours, Continuous Positive Airway Pressure (ICD-10-PCS; 2023-12-02)
DX: I13.0 Hypertensive heart and chronic kidney disease with heart failure and stage 1 through stage 4 chronic kidney disease, or unspecified chronic kidney disease (principal); I50.33 Acute on chronic diastolic (congestive) heart failure; L89.313 Pressure ulcer of right buttock, stage 3; J96.01 Acute respiratory failure with hypoxia; J69.0 Pneumonitis due to inhalation of food and vomit; F02.84 Dementia in other diseases classified elsewhere, unspecified severity, with anxiety; F02.83 Dementia in other diseases classified elsewhere, unspecified severity, with mood disturbance; J98.11 Atelectasis; I48.19 Other persistent atrial fibrillation; Z66 Do not resuscitate; G30.9 Alzheimer's disease, unspecified; J44.9 Chronic obstructive pulmonary disease, unspecified; F32.A Depression, unspecified; D50.9 Iron deficiency anemia, unspecified; I08.1 Rheumatic disorders of both mitral and tricuspid valves; Z79.01 Long term (current) use of anticoagulants; N40.1 Benign prostatic hyperplasia with lower urinary tract symptoms; R33.8 Other retention of urine; N18.2 Chronic kidney disease, stage 2 (mild); G47.33 Obstructive sleep apnea (adult) (pediatric); K21.9 Gastro-esophageal reflux disease without esophagitis; K59.00 Constipation, unspecified; R53.81 Other malaise; R26.2 Difficulty in walking, not elsewhere classified; Z79.51 Long term (current) use of inhaled steroids; Z79.899 Other long term (current) drug therapy; Z87.891 Personal history of nicotine dependence; Z87.442 Personal history of urinary calculi; Z85.048 Personal history of other malignant neoplasm of rectum, rectosigmoid junction, and anus; Z87.19 Personal history of other diseases of the digestive system; Z99.3 Dependence on wheelchair; Z96.651 Presence of right artificial knee joint
CPT/HCPCS: 71045; 71046; 80048; 80053; 82607; 82728; 82746; 82805; 82962; 83036; 83540; 83550; 83880; 84145; 84484; 85025; 87070; 87811; 92610; 93005; 93306; 94640; 94660; 96374; 97163; 97167; 99285; J2916

== ENCOUNTER 2024-02-25 08:29 | Inpatient (IN) | payer OTHER, SELFPAY ==
[2024-02-23] VITALS (7 sets, daily range): BP systolic 145–167; BP diastolic 46–103; BMI 38.6; BMI 36.5
--- NOTE | 2024-02-23 18:50 | ED.GENMED ---
History of Present Illness
General
Chief Complaint: Breathing Problem
Source: patient, records and ambulance crew
Exam Limitations: none
Time Seen by Provider: 02/23/24 18:39
Nursing documentation reviewed up to this point in time: agreed with
History of Present Illness
History of Present Illness:
88-year-old male with a past medical history of COPD (on nightly CPAP), atrial fibrillation, hypertension, CHF, distal history of rectal cancer, mild dementia who presents to the emergency department from [facility];
presents for evaluation of shortness of breath and wheezing also complaining of pain around his penis and report of purulent drainage from chronic Chen catheter. Patient reports that over the past 24 hours he has had some increased shortness of
breath and wheezing. Apparently wheezing was more pronounced today and he received a DuoNeb at his nursing facility without improvement and so EMS was called to the scene. Per EMS on their arrival patient was tachypneic and had some intercostal
retractions; he apparently had significant wheezing. He was given a DuoNeb and had rather brisk response and patient says that his symptoms greatly have improved since arrival. Aside from shortness of breath and wheezing he denies any coughing.
He denies any fever. He denies any URI symptoms. 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 According to [facility] report over the past few days they have noticed urine is
thick with sediment and they were concerned for some purulence around the penis as well. Catheter was apparently last exchanged in September 2023 the patient says that he has had in place for about 3 or 4 years related to chronic urinary retention.
Past History
Past History
ED Past Medical History: Asthma, HTN and Other (Ulcers)
ED Past Surgical History: Orthopedic (R knee replacment,), Urological (Kidney stones with stent and then stent removed) and Other (Rectal CA,)
Social History
Tobacco: Former smoker
Alcohol: Occasional
Personal:
Living: with family
Employment: Retired
Review of Systems
Review of Systems
All Other Systems: ROS reviewed and negative except as documented in HPI and ROS
Constitutional: Denies fever or chills
EENT: Denies sore throat or runny nose
Respiratory: Reports trouble breathing; Denies cough
Cardiac: Denies chest pain or palpitations
ABD/GI: Denies abdominal pain, nausea or vomiting
: Reports dark urine; Denies flank pain
Musculoskeletal: Denies neck pain or back pain
Neurological: Denies dizzy or headache
Phy Exam
Physical Exam
Physical Exam:
General: Awake, alert, oriented x3 and very pleasant; no acute distress
Head: Normocephalic, atraumatic
Eyes: Conjunctiva normal
Throat: Airway intact, handling secretions
Neck: Trachea midline, supple without meningismus
Lungs: Occasional faint wheeze but no coughing, no Rales, no rhonchi, normal respiratory rate and normal pulse ox on room air
Heart: Regular rate and irregularly irregular rhythm, no murmurs, gallops, or rubs appreciated
Abd: Soft, non distended, nontender
: Patient has Chen catheter in place with significant urethral erosion and some purulence around the urethra; thick sediment since urine in Chen bag
Extremities: Trace lower extremity edema; extremities warm and well-perfused
Scores
Heart Failure Risk
Heart Failure Risk Score: Not Applicable
Heart Score for Chest Pain Patients
STEMI patient?: Not applicable
Withdrawal Assessment of Alcohol
Withdrawal Assessment Completed?: Not applicable
Course
Orders/Labs/Results
Orders:
Orders
02/23/24 18:46
Chen Placement- Treatment ONCE
Reason for insertion: Chronic Chen on Admit
02/23/24 18:49
CR Chest Portable - 1 View Urgent
Comment:
Reason For Exam: sob
Reason Study Needs to be Portable: Unable to Transport
02/23/24 18:50
Electrocardiogram (*1) Urgent
Reason for Study: Shortness of Breath
EKG- Treatment ONCE
02/23/24 18:53
COVID-19 Antigen Urgent
Source: Nasal Swab
Complete Blood Count/With Diff Urgent
Comprehensive Metabolic Panel Urgent
NT-proBNP Urgent
Influenza A+B Rapid Molecular Urgent
RANDELL Source: Nasal Swab
Specimen Description:
02/23/24 19:08
Lactate Level [Lactic Acid] Urgent
Urinalysis Reflex To Culture Urgent
Date Specimen was Collected: 02/23/24
Time Specimen was Collected: 19:05
Urine Microscopic Reflex Cult Urgent
Blood Culture Q30M
RANDELL Source: Blood/Venous
Specimen Description:
Urine Culture Urgent
RANDELL Source: U
Specimen Description:
Date Specimen was Collected: 02/23/24
Time Specimen was Collected: 19:05
02/23/24 19:17
CefTRIAXone [Rocephin] 1,000 mg IV NOW STA
02/23/24 19:24
Blood Culture Q30M
RANDELL Source: Blood/Venous
Specimen Description:
02/23/24 19:26
0.9% Sodium Chloride 500 ml [Nss] 500 ml IV BOLUS
Ipratropium/Albuterol Sulfate [Duoneb] 3 ml INH R NOW STA
MethylPREDNISolone PF [Solu-Medrol Pf] 125 mg IV NOW STA
02/23/24 20:12
Doxycycline [Vibramycin] 100 mg PO NOW STA
Abnormal Lab Results
02/23/24 02/23/24
18:53 19:08
RBC 3.36 L 10^6/uL
(4.70-6.10)
Hgb 8.9 L g/dL
(13.0-18.0)
Hct 28.6 L %
(39.0-52.0)
MCH 26.5 L pg
(27.0-31.0)
MCHC 31.1 L g/dL
(33.0-37.0)
RDW 18.5 H %
(11.5-14.5)
Absolute Neuts (auto) 8.5 H 10^3/uL
(1.4-6.5)
Absolute Monos (auto) 0.9 H 10^3/uL
(0.1-0.6)
Neutrophils % 79.2 H %
(42.2-75.2)
Lymphocytes % 11.8 L %
(20.5-51.1)
BUN 37 H mg/dl
(9-20)
Creatinine 1.4 H mg/dL
(0.7-1.3)
Glucose 179 H mg/dl
(70-99)
Ur Occult Blood Reflex 3+ A
(Negative)
Leukocyte Esterase Rfl 2+ A
(Negative)
Urine WBC (Reflex) >100 A /HPF
(0-5)
Urine Albumin (Reflex) 2+ A
(Neg - Trace)
SARS-CoV-2 Antigen Positive A
(Negative)
02/23/24 18:53
02/23/24 18:53
Vital Signs
Initial and Last Documented VS:
Initial Vital Signs
Temp Pulse Resp BP Pulse Ox
36.6 C 103 20 164/46 95
02/23/24 18:33 02/23/24 18:33 02/23/24 18:33 02/23/24 18:33 02/23/24 18:33
Last Documented Vital Signs
Temp Pulse Resp BP Pulse Ox
36.6 C 111 23 164/66 95
02/23/24 18:33 02/23/24 18:35 02/23/24 18:35 02/23/24 18:35 02/23/24 19:12
MDM/Problems Addressed
Differential Diagnosis Includes:
Shortness of breath: COPD exacerbation, pneumonia, pneumothorax
Penile pain/purulence: UTI
MDM/Problems Addressed:
88-year-old male presents to the emergency room for evaluation of shortness of breath over the past 24 hours that has not improved with DuoNeb treatments; also having urethral pain and purulent discharge, dark urine. Vital signs here are
significant for hypertension, tachycardia, tachypnea; pulse ox normal on room air, afebrile. Physical exam as above. Will place an IV check labs including a CBC and a CMP, lactate, blood cultures. Check urinalysis�will exchange Chen catheter.
Check flu and COVID. Will check chest x-ray. Treat with steroid and additional DuoNeb. Will give Rocephin for UTI given garrett pus from urethra. Reassess after the above.
Labs reviewed: CBC shows stable anemia, CMP shows NICOLÁS with a creatinine of 1.4. Urinalysis is, as expected, frankly purulent. Chest x-ray concerning for pneumonia. Chest x-ray appears more consistent with a bacterial pneumonia but patient is
positive for COVID as well today which certainly could cause pneumonia. Will cover bacterial pneumonia to start. Will admit for continued treatment of complicated UTI, pneumonia, COVID, COPD exacerbation. Case discussed with hospitalist.
Chronic conditions affecting care:
COPD, chronic urinary retention requiring Chen catheter
Acute Exacerbation and/or Progression of Chronic Illness:
Acutely hypertensive
Acute Exacerbation and/or Progression of Chronic Illness: HTN
*Radiology
Radiology exam reviewed: preliminary read by ED provider and radiology read reviewed
*Pulse Oximetry
Patient hypoxic: no
*Critical Care Note
Total Time (30-74mins, 75-104mins- exclusive of procedures): Not Applicable
Data Reviewed
Review of Other/Old Records Reveals: Labs and Records
Source: patient, records and ambulance crew
Patient Management
Discussion with other providers: Hospitalist (Discussed with hospitalist)
Escalation/DeEscalation of care consider admission/obs:
Admission indicated
ED Attending Note
-
Portions of this chart may have been created with voice recognition software.� Occasional wrong word or��sound alike� substitutions may have occurred due to the inherent limitations of voice recognition software.
Discharge Plan
Departure
Prescriptions:
No Action
sertraline 25 MG tablet
75 mg PO DAILY
docusate sodium [Colace] 100 mg Capsule
100 mg PO BID
Eliquis 5 MG tablet
5 mg PO BID Qty: 0 0RF
acetaminophen [Tylenol Extra Strength] 500 mg Tablet
1,000 mg PO Q8HPRN PRN (Reason: mild pain)
famotidine [Pepcid] 20 mg Tablet
20 mg PO BID
magnesium hydroxide [Milk of Magnesia] 400 mg/5 mL Suspension
2,400 mg PO [id number] PRN (Reason: if no bm on day 2)
bisacodyl [Dulcolax (bisacodyl)] 10 mg Suppository
10 mg MA DAILYPRN PRN (Reason: if no bm aftr mom)
fluticasone propion-salmeterol [Advair Diskus] 500-50 mcg/dose Blister With Device
1 inh INHALATION R BID
Fleet Enema 19-7 gram/118 mL Enema
118 ml MA DAILYPRN PRN (Reason: if no bm aftr dulcolax)
albuterol sulfate 90 mcg/actuation Hfa Aerosol Inhaler
2 puff INHALATION R Q4HPRN PRN (Reason: sob)
memantine 5 mg Tablet
5 mg PO DAILY
potassium chloride 20 mEq Tablet Extended Release
20 meq PO DAILY
zinc oxide 20 % Paste
1 ea TOPICAL TID
diltiazem HCl 180 MG capsule,extended release 24hr
180 mg PO BID
hydralazine 50 mg tablet
50 mg PO TID
torsemide 20 mg Tablet
40 mg PO DAILY
lidocaine 5 % Cream
1 applic TOPICAL BID
Patient Comments:
02/23/24: to use for 7 days, starting 02/23/24
Referrals:
Wilver William MD [Family Provider] -
Interventions
Interventions:
*General Assessment Last Done: 02/23/24 19:12
ED- Fall Risk Assessment Last Done: 02/23/24 19:12
*ED COVID-19 Vaccine History Last Done: 02/23/24 19:12
ED- Cardiac Assessment Last Done: 02/23/24 19:12
ED- Pulmonary Assessment Last Done: 02/23/24 19:12
Discharge Date and Time
Print Language: MOZAMBICAN
[2024-02-23 19:05] LABS: % Basophils 0.3 % (0-2); % Eosinophils 0.1 % (0-6); % Immature Granulocytes 0.3 % (0-0.5); % Lymphocytes 11.8 % (20.5-51.1); % Monocytes 8.3 % (1.7-9.3); % Neutrophils 79.2 % (42.2-75.2); Absolute Lymphocytes 1.3 10^3/uL (1.2-3.4); Absolute Monocytes 0.9 10^3/uL (0.1-0.6); Absolute Neutrophils 8.5 10^3/uL (1.4-6.5); Hematocrit 28.6 % (39.0-52.0); Hemoglobin 8.9 g/dL (13.0-18.0); Mean Corp Hgb Conc. 31.1 g/dL (33.0-37.0); Mean Corpuscular Hgb 26.5 pg (27.0-31.0); Mean Corpuscular Volume 85.1 fL (80.0-94.0); Mean Platelet Volume 9.5 fL (7.4-10.4); Nucleated Red Blood Cells % 0 % (-); Platelet Count 319 10^3/uL (130-400); Red Blood Cell Count 3.36 10^6/uL (4.70-6.10); Red Cell Dist. Width 18.5 % (11.5-14.5); White Blood Cell Count 10.7 10^3/uL (4.8-10.8)
[2024-02-23 19:17] LABS: ALT (SGPT) 15 U/L (0-50); AST (SGOT) 21 U/L (17-59); Albumin 4.1 g/dl (3.5-5.0); Alkaline Phosphatase 103 U/L (38-126); Blood Urea Nitrogen 37 mg/dl (9-20); Calcium 9.1 mg/dl (8.4-10.2); Carbon Dioxide 25 mmol/L (22-30); Chloride 98 mmol/L (98-107); Estimated Creatinine Clearance 41 ml/min; Glucose 179 mg/dl (70-99); Potassium 4.1 mmol/L (3.5-5.1); Sodium 136 mmol/L (135-145); Total Bilirubin 0.6 mg/dl (0.2-1.3); Total Protein 6.7 g/dl (6.3-8.2); eGFR 48.04
[2024-02-23 19:21] LABS: Urine Albumin 2+ (Neg - Trace); Urine Bilirubin Negative (Negative); Urine Character Slightly Cloudy (Clear); Urine Color Yellow; Urine Glucose Negative (Negative); Urine Ketone Negative (Negative); Urine Leukocyte 2+ (Negative); Urine Nitrite Negative (Negative); Urine Occult Blood 3+ (Negative); Urine Specific Gravity 1.015 (<1.030); Urine Urobilinogen Negative (Neg - 1+)
[2024-02-23 19:26] LABS: NT-proBNP 8540 pg/ml
[2024-02-23 19:28] LABS: Lactic Acid 1.1 mmol/L (0.7-2.0)
[2024-02-23] MEDS: NSS 500 IV (19:32)
[2024-02-23] MEDS: ROCEPHIN 1000 MG IV (19:32)
[2024-02-23] MEDS: DUONEB 3 ML INH (19:33)
[2024-02-23] MEDS: SOLU-MEDROL PF 125 MG IV (19:34)
[2024-02-23 19:39] LABS: Urine White Cell >100 /HPF (0-5)
[2024-02-23 19:53] LABS: COVID-19 Antigen Positive (Negative)
[2024-02-23] MEDS: VIBRAMYCIN 100 MG PO (20:42)
--- NOTE | 2024-02-23 21:06 | HPS.HSE ---
Family Physician
-
Family Physician: Wilver William MD
Chief Complaint
-
shortness of breath
History of Present Illness
88-year-old male past medical history of COPD, paroxysmal atrial fibrillation, hypertension, CHF, chronic urinary retention with chronic Chen catheter, distant history of rectal cancer, dementia presenting from [facility] for shortness of breath
and wheezing. Per EMS he was tachypneic and had some intercostal retractions. He apparently had significant wheezing. He was given DuoNeb and improved. He denies any cough. He denies fever. He denies sore throat or runny nose.
He also complains of penile pain and purulent drainage from chronic Chen catheter. He has noticed that over the past few days his urine has been thick with sediment and nurses were concerned about the purulence. Catheter was last exchanged in
September 2023.
Medical History
Past Medical History
Past Medical History: Reports Other (COPD, paroxysmal atrial fibrillation, hypertension, CHF, chronic urinary retention with chronic Chen catheter, distant history of rectal cancer, dementia )
Past Surgical History: Reports None
Social History
Tobacco: Non-smoker
Alcohol: None
Drug: None
Family History
Family History: Not pertinent
Allergies / Home Medications
Allergies reflects when Allergies were last updated in [facility].
Home Medications with original date entered in [facility]
Allergy/Medication List:
Allergies
Allergy/AdvReac Type Severity Reaction Status Date / Time
oxycodone AdvReac Unknown Verified 02/23/24 19:26
Home Medications
sertraline 25 mg tablet 75 mg PO DAILY Mental Health 09/07/16
docusate sodium 100 mg capsule (Colace) 100 mg PO BID Constipation 08/29/23
apixaban 5 mg tablet (Eliquis) 5 mg PO BID Blood Clot Prevention/Tx #0 tabs 09/21/23
acetaminophen 500 mg tablet (Tylenol Extra Strength) 1,000 mg PO Q8HPRN PRN mild pain 12/02/23
albuterol sulfate 90 mcg/actuation aerosol inhaler 2 puff inhalation R Q4HPRN PRN sob 12/02/23
bisacodyl 10 mg rectal suppository (Dulcolax (bisacodyl)) 10 mg ND DAILYPRN PRN if no bm aftr mom 12/02/23
diltiazem HCl 180 mg capsule,extended release 24 hr 180 mg PO BID Arrhythmia 12/02/23
famotidine 20 mg tablet (Pepcid) 20 mg PO BID Gastrointestinal Issue 12/02/23
fluticasone 500 mcg-salmeterol 50 mcg/dose blistr powdr for inhalation (Advair Diskus) 1 inh inhalation R BID Lung/Breathing Issues 12/02/23
hydralazine 50 mg tablet 50 mg PO TID Blood Pressure 12/02/23
magnesium hydroxide 400 mg/5 mL oral suspension (Milk of Magnesia) 2,400 mg PO [id number] PRN if no bm on day 2 12/02/23
memantine 5 mg tablet 5 mg PO DAILY Neurological Condition 12/02/23
potassium chloride 20 mEq tablet,extended release 20 meq PO DAILY Electrolyte Repletion 12/02/23
sodium phosphates 19 gram-7 gram/118 mL enema (Fleet Enema) 118 ml ND DAILYPRN PRN if no bm aftr dulcolax 12/02/23
zinc oxide 20 % topical paste 1 ea topical TID B/L buttocks 12/02/23
lidocaine 5 % topical cream 1 applic topical BID penile head/shaft 02/23/24
torsemide 20 mg tablet 40 mg PO DAILY 02/23/24
Review of Systems
-
History Source: Patient
A 12 point ROS was completed and negative except as noted: Yes
Constitutional: Reports No Symptoms
EENT: Reports No Symptoms
Respiratory: Reports See HPI
Cardiac: Reports See HPI
Abdomen/GI: Reports No Symptoms
: Reports No Symptoms
Musculoskeletal: Reports No Symptoms
Skin: Reports No Symptoms
Neurological: Reports No Symptoms
Endocrine: Reports No Symptoms
Hematologic/Lymphatic: Reports No Symptoms
Psych: Reports No Symptoms
Physical Exam
Vital Signs
Vital Signs
Temp Pulse Resp BP Pulse Ox
97.8 F 85 19 167/103 95
02/23/24 18:33 02/23/24 20:30 02/23/24 20:30 02/23/24 20:00 02/23/24 19:12
Physical Exam
General: Well Developed, Well Nourished and No Apparent Distress
HEENT: NormoCephalic, Moist mucous membranes and Atraumatic
Respiratory: Clear
Cardiac: S1/S2 and Regular Rhythm; No Murmur or Rub
GI: Soft, Non Tender, Non Distended and Normal Bowel Sounds; No Organomegaly
Rectal: Deferred by Provider
Musculoskeletal: No Clubbing, No Cyanosis and No Edema
Skin: No Rash
Neuro: Nonfocal/grossly intact
Laboratory Results
-
02/23/24 18:53
02/23/24 18:53
Laboratory Results
Lactic Acid 1.1 mmol/L (0.7-2.0) 02/23/24 19:08
Total Bilirubin 0.6 mg/dl (0.2-1.3) 02/23/24 18:53
AST 21 U/L (17-59) 02/23/24 18:53
ALT 15 U/L (0-50) 02/23/24 18:53
Alkaline Phosphatase 103 U/L (38-126) 02/23/24 18:53
Data Reviewed
-
Lab Data: Labs Reviewed by me
Old Records: Reviewed
Impression/Plan
-
IMPRESSION:
PLAN:
# Dyspnea secondary to COVID-pneumonia/COPD exacerbation + plus acute on chronic CHF exacerbation
-COVID-positive
-Chest x-ray shows mild interstitial pulmonary edema with small bilateral pleural effusions, bibasilar opacities more suspicious for atelectasis although pneumonia could be considered
-Cardiac BNP of 8000
-IV fluids given in ER
-Patient not hypoxic
-Lasix 40 IV daily
-DuoNebs every 6 hours
-Dexamethasone 6 mg daily
# Catheter associated urinary tract infection
-Catheter last exchanged in September
-Exchange Chen catheter
-IV fluids
-Urine culture
-Ceftriaxone
History of COPD
Paroxysmal atrial fibrillation
-Continue diltiazem
-Continue Eliquis
Essential hypertension
-Continue hydralazine
Chronic HFpEF
-Hold torsemide
Chronic anemia
Distant history of rectal cancer
Dementia
-Continue memantine
Anxiety/depression
-Continue sertraline
Full code
DVT prophylaxis�Eliquis
Cardiac diet
[2024-02-23] MEDS: APRESOLINE 50 MG PO (22:41)
[2024-02-23] MEDS: DESITIN MAXIMUM STRENGTH PASTE 1 APPLIC TOPICAL (22:42)
[2024-02-24 03:14] VITALS: BP 127/55
[2024-02-24 05:20] VITALS: BMI 36.5
[2024-02-24 07:35] VITALS: BP 136/50
[2024-02-24] MEDS: ADVAIR HFA 230/21 MCG INHALER 2 PUFF INH ×2 (08:08→19:32)
[2024-02-24] MEDS: ProAIR HFA INHALER 1 PUFF INH ×4 (08:08→19:33)
--- NOTE | 2024-02-24 08:40 | W.PN.HOSP.TC ---
Today's Communication/Plan
-
IV antibiotics, steroids, diuretics.
Assessment / Plan
Assessment / Plan
Physical exam:
General: Acutely ill
HEENT: Normocephalic, Atraumatic and Moist Mucous Membranes
Respiratory: Bilateral scattered wheezes; few crackles in the bases
Cardiac: Irregular rate and rhythm and S1/S2
GI: Soft, Nontender and Nondistended
Musculoskeletal: No Clubbing, No Cyanosis. Bilateral lower extremity edema
Neuro: Awake, Alert and Oriented, no gross neurological deficits
Psych: Calm
A/P:
COVID-19:
On steroids
Continue isolation
No need for other therapy (pulse ox 94% on room air)
COPD exacerbation:
Continue IV steroids but increase dexamethasone from 6 mg daily to 4 mg every 8 hours
Bronchodilators as needed
Continue Advair
Acute on chronic diastolic CHF:
Continue IV Lasix
Weight is 102 kg (last discharge dry weight was 100 kg)
NICOLÁS:
Suspect cardiorenal syndrome
Monitor renal function while on diuretics
If worsening renal function might stop diuretics
Creatinine 1.4 yesterday
Check renal function today stat since none available
Catheter associated urinary tract infection:
Continue IV ceftriaxone
Status post Chen exchanged
Follow-up urine culture
Persistent atrial fibrillation:
Continue rate control, diltiazem 180 mg twice a day
Continue anticoagulation, Eliquis 5 mg twice a day
Hypertension:
Continue hydralazine 50 mg p.o. 3 times daily
Other past medical history:
SARITA
Rectal cancer status post chemoradiation and resection
Chronic anemia
GERD
BPH
Chronic urinary retention with chronic Chen catheter
Wheelchair-bound
DVT prophylaxis:
CODE STATUS:
Full code
Total time spent on today's encounter was 52 minutes which included time spent in counseling the patient/family regarding diagnosis and treatment plan as listed above, goals of care, and symptom management. Case was discussed with nursing staff,
specialists, and care coordinators/case management. All labs and imaging personally reviewed by me. Remainder the time spent in detailed review of previous records, lab data, imaging, and other medical provider documentation.
Anticipated Discharge: > 48 hours
Subjective/Interval History
-
Date of Service: February 24, 2024
Patient feels better overall. Still some peripheral edema and some wheezing. Afebrile
Objective Data
-
Vital Signs:
Vital Signs
Temp Pulse Resp BP Pulse Ox
97.9 F 84 18 127/55 94
02/24/24 03:14 02/24/24 08:21 02/24/24 08:21 02/24/24 03:14 02/24/24 08:21
I&O
02/23/24 02/24/24 02/25/24
06:59 06:59 06:59
Intake Total 360 / 360
Output Total 1050 / 1050
Balance -690 / -690
[2024-02-24] MEDS: NAMENDA 5 MG PO (08:49)
[2024-02-24] MEDS: ELIQUIS 5 MG PO ×2 (08:49→20:42)
[2024-02-24] MEDS: PEPCID 20 MG PO (08:50)
[2024-02-24] MEDS: COLACE PO ×3 (08:50→20:43)
[2024-02-24] MEDS: APRESOLINE 50 MG PO ×3 (08:50→21:30)
[2024-02-24] MEDS: LASIX 40 MG IV (08:50)
[2024-02-24] MEDS: CARDIZEM CD 180 MG PO ×2 (08:50→20:45)
[2024-02-24] MEDS: ZOLOFT 75 MG PO (08:50)
[2024-02-24] MEDS: DESITIN MAXIMUM STRENGTH PASTE 1 APPLIC TOPICAL ×3 (08:50→23:34)
[2024-02-24] MEDS: LIDOCAINE URO-JET 2% 1 SYRINGE TOPICAL ×2 (08:51→21:14)
[2024-02-24 11:08] VITALS: BP 134/66
[2024-02-24] MEDS: DECADRON 4 MG IV ×2 (11:40→17:51)
[2024-02-24] MEDS: IMODIUM 2 MG PO (14:15)
--- NOTE | 2024-02-24 14:17 | CM ---
Reviewed the chart notes and spoke with the patient at the bedside. Message left on the patient's spouse's phone for call back. The patient is Covid +. The patient is admitted under observational status. The [facility] letter was reviewed and a copy
left at the bedside. The patient had no questions with regards to the letter.
CM spoke with medical assisting program director Loren with [facility]. 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 The patient reports being wheelchair bound at this point. CM continues to be available to patient/family and is monitoring
medical plan for needs at discharge.
Plan: Discharge back to [facility] once medically stable.
[2024-02-24 14:47] LABS: Blood Urea Nitrogen 33 mg/dl (9-20); Calcium 9.1 mg/dl (8.4-10.2); Carbon Dioxide 23 mmol/L (22-30); Chloride 97 mmol/L (98-107); Estimated Creatinine Clearance 37 ml/min; Glucose 225 mg/dl (70-99); Potassium 3.4 mmol/L (3.5-5.1); Sodium 136 mmol/L (135-145); eGFR 44.23
[2024-02-24 15:45] VITALS: BP 120/58
[2024-02-24 16:39] LABS: % Immature Granulocytes 0.2 % (0-0.5); % Lymphocytes 5.3 % (20.5-51.1); % Monocytes 3.3 % (1.7-9.3); % Neutrophils 91.2 % (42.2-75.2); Absolute Lymphocytes 0.5 10^3/uL (1.2-3.4); Absolute Monocytes 0.3 10^3/uL (0.1-0.6); Absolute Neutrophils 7.9 10^3/uL (1.4-6.5); Hematocrit 26.1 % (39.0-52.0); Hemoglobin 8.1 g/dL (13.0-18.0); Mean Corpuscular Hgb 26.6 pg (27.0-31.0); Mean Corpuscular Volume 85.6 fL (80.0-94.0); Mean Platelet Volume 9.5 fL (7.4-10.4); Nucleated Red Blood Cells % 0 % (-); Platelet Count 300 10^3/uL (130-400); Red Blood Cell Count 3.05 10^6/uL (4.70-6.10); Red Cell Dist. Width 18.2 % (11.5-14.5); White Blood Cell Count 8.7 10^3/uL (4.8-10.8)
[2024-02-24 16:54] LABS: Magnesium 2.1 mg/dl (1.6-2.3)
[2024-02-24 19:20] VITALS: BP 114/58
[2024-02-24] MEDS: ROCEPHIN 1000 MG IV (20:41)
[2024-02-24] MEDS: STERILE WATER FOR INJECTION 10 ML IV (20:42)
[2024-02-24 23:08] VITALS: BP 104/62
[2024-02-25 03:32] VITALS: BP 117/66
[2024-02-25] MEDS: DECADRON 4 MG IV ×3 (03:39→23:05)
[2024-02-25 06:00] VITALS: BMI 36.8
[2024-02-25 06:03] LABS: % Immature Granulocytes 0.7 % (0-0.5); % Lymphocytes 5.5 % (20.5-51.1); % Monocytes 4.1 % (1.7-9.3); % Neutrophils 89.7 % (42.2-75.2); Absolute Immature Granulocytes 0.1 10^3/uL (0-0.05); Absolute Lymphocytes 0.5 10^3/uL (1.2-3.4); Absolute Monocytes 0.3 10^3/uL (0.1-0.6); Absolute Neutrophils 7.3 10^3/uL (1.4-6.5); Hematocrit 24.4 % (39.0-52.0); Hemoglobin 7.4 g/dL (13.0-18.0); Mean Corp Hgb Conc. 30.3 g/dL (33.0-37.0); Mean Corpuscular Hgb 26.3 pg (27.0-31.0); Mean Corpuscular Volume 86.8 fL (80.0-94.0); Mean Platelet Volume 9.9 fL (7.4-10.4); Nucleated Red Blood Cells % 0 % (-); Platelet Count 267 10^3/uL (130-400); Red Blood Cell Count 2.81 10^6/uL (4.70-6.10); Red Cell Dist. Width 17.8 % (11.5-14.5); White Blood Cell Count 8.1 10^3/uL (4.8-10.8)
[2024-02-25 06:28] LABS: Blood Urea Nitrogen 45 mg/dl (9-20); Calcium 9.2 mg/dl (8.4-10.2); Carbon Dioxide 23 mmol/L (22-30); Chloride 98 mmol/L (98-107); Estimated Creatinine Clearance 35 ml/min; Glucose 209 mg/dl (70-99); Potassium 3.8 mmol/L (3.5-5.1); Sodium 137 mmol/L (135-145); eGFR 40.93
[2024-02-25 07:28] VITALS: BP 91/56
[2024-02-25] MEDS: ADVAIR HFA 230/21 MCG INHALER 2 PUFF INH ×2 (07:53→20:18)
[2024-02-25] MEDS: ProAIR HFA INHALER 1 PUFF INH ×4 (07:56→20:18)
--- NOTE | 2024-02-25 08:36 | W.PN.HOSP.TC ---
Today's Communication/Plan
-
IV steroids. IV antibiotics.
Assessment / Plan
Assessment / Plan
Physical exam:
General: Acutely ill
HEENT: Normocephalic, Atraumatic and Moist Mucous Membranes
Respiratory: Bilateral scattered wheezes; few crackles in the bases
Cardiac: Irregular rate and rhythm and S1/S2
GI: Soft, Nontender and Nondistended
Musculoskeletal: No Clubbing, No Cyanosis. Bilateral lower extremity edema
Neuro: Awake, Alert and Oriented, no gross neurological deficits
Psych: Calm
A/P:
COVID-19:
On steroids
Continue isolation
No need for other therapy (pulse ox 96% on room air)
COPD exacerbation:
Continue IV steroids but increase dexamethasone from 6 mg daily to 4 mg every 8 hours--> will titrate to 4 mg every 12 hours today
Bronchodilators as needed
Continue Advair
NICOLÁS:
Creatinine worse at 1.6 today
Not sure if cardiorenal syndrome given worsening after diuretics. For now hold diuresis.
Might give gentle hydration intravenously if not any better but repeat in a.m. first
Monitor renal function
Anemia:
Continue to monitor hemoglobin closely
Check iron studies and B12 and folate
Chronic diastolic CHF:
Hold IV Lasix
Weight is 226 pounds and he was 225 pounds at the facility which appears to be his dry weight.
Catheter associated urinary tract infection:
Continue IV ceftriaxone
Status post Chen exchanged
Follow-up urine culture--> so far growing gram-negative bacilli and Proteus pending sensitivities and final identification
Persistent atrial fibrillation:
Continue rate control, diltiazem 180 mg twice a day and at times holding due to low blood pressure
Continue anticoagulation, Eliquis 5 mg twice a day
Hypertension:
Continue hydralazine 50 mg p.o. 3 times daily and at times holding due to low blood pressur
Other past medical history:
SARITA
Rectal cancer status post chemoradiation and resection
Chronic anemia
GERD
BPH
Chronic urinary retention with chronic Chen catheter
Wheelchair-bound
DVT prophylaxis:
Eliquis
CODE STATUS:
Full code
Total time spent on today's encounter was 52 minutes which included time spent in counseling the patient/family regarding diagnosis and treatment plan as listed above, goals of care, and symptom management. Case was discussed with nursing staff,
specialists, and care coordinators/case management. All labs and imaging personally reviewed by me. Remainder the time spent in detailed review of previous records, lab data, imaging, and other medical provider documentation.
Anticipated Discharge: 24 - 48 hours
Subjective/Interval History
-
Date of Service: February 25, 2024
Patient feels less short of breath, afebrile. No chest pain.
Objective Data
-
Labs:
Laboratory Results
02/25/24
05:47
WBC 8.1
Hgb 7.4 L
Hct 24.4 L
Plt Count 267
Sodium 137
Potassium 3.8
Chloride 98
Carbon Dioxide 23
BUN 45 H
Creatinine 1.6 H
Glucose 209 H
Calcium 9.2
Vital Signs:
Vital Signs
Temp Pulse Resp BP Pulse Ox
98 F 78 16 91/56 96
02/25/24 07:28 02/25/24 08:05 02/25/24 08:05 02/25/24 07:28 02/25/24 08:05
I&O
02/24/24 02/25/24 02/26/24
06:59 06:59 06:59
Intake Total 360 / 360 1260 / 1260
Output Total 1050 / 1050 1025 / 1025
Balance -690 / -690 235 / 235
[2024-02-25] MEDS: ELIQUIS 5 MG PO ×2 (09:05→20:19)
[2024-02-25] MEDS: PEPCID 20 MG PO (09:05)
[2024-02-25] MEDS: COLACE PO ×2 (09:05→20:19)
[2024-02-25] MEDS: ZOLOFT 75 MG PO (09:06)
[2024-02-25] MEDS: LIDOCAINE URO-JET 2% 1 SYRINGE TOPICAL (09:06)
[2024-02-25] MEDS: DESITIN MAXIMUM STRENGTH PASTE 1 APPLIC TOPICAL ×3 (09:06→23:18)
[2024-02-25] MEDS: NAMENDA 5 MG PO (09:06)
[2024-02-25] MEDS: CARDIZEM CD PO (09:16)
[2024-02-25] MEDS: APRESOLINE PO (09:16)
[2024-02-25] MEDS: LASIX IV (09:17)
[2024-02-25 11:25] VITALS: BP 118/62
--- NOTE | 2024-02-25 13:59 | CM ---
Reviewed the chart notes. Patient's spouse returned the CM original call and left voice message. CM left another voice message for the patient's spouse. 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 Loren admissions
director confirmed bed hold in place. CM continues to be available to patient/family and is monitoring medical plan for needs at discharge.
Plan: Discharge back to [facility] when medically stable.
[2024-02-25] MEDS: APRESOLINE 50 MG PO ×2 (15:45→23:12)
[2024-02-25 15:51] VITALS: BP 127/58
[2024-02-25 19:31] VITALS: BP 131/77
[2024-02-25] MEDS: CARDIZEM CD 180 MG PO (20:18)
[2024-02-25] MEDS: STERILE WATER FOR INJECTION 10 ML IV (20:20)
[2024-02-25] MEDS: ROCEPHIN 1000 MG IV (20:20)
[2024-02-25] MEDS: FLUSH (NSS) 2 FLUSH IV ×2 (20:24→23:07)
[2024-02-25] MEDS: LIDOCAINE URO-JET 2% TOPICAL (20:48)
[2024-02-25 23:38] VITALS: BP 126/63
[2024-02-26 03:30] VITALS: BP 126/69
[2024-02-26 06:00] VITALS: BMI 36.8
[2024-02-26 06:06] LABS: % Immature Granulocytes 0.5 % (0-0.5); % Lymphocytes 7.4 % (20.5-51.1); % Monocytes 3.2 % (1.7-9.3); % Neutrophils 88.9 % (42.2-75.2); Absolute Lymphocytes 0.5 10^3/uL (1.2-3.4); Absolute Monocytes 0.2 10^3/uL (0.1-0.6); Absolute Neutrophils 5.9 10^3/uL (1.4-6.5); Hematocrit 24.4 % (39.0-52.0); Hemoglobin 7.6 g/dL (13.0-18.0); Mean Corp Hgb Conc. 31.1 g/dL (33.0-37.0); Mean Corpuscular Hgb 26.6 pg (27.0-31.0); Mean Corpuscular Volume 85.3 fL (80.0-94.0); Mean Platelet Volume 9.7 fL (7.4-10.4); Nucleated Red Blood Cells % 0 % (-); Platelet Count 269 10^3/uL (130-400); Red Blood Cell Count 2.86 10^6/uL (4.70-6.10); Red Cell Dist. Width 17.5 % (11.5-14.5); White Blood Cell Count 6.6 10^3/uL (4.8-10.8)
[2024-02-26 06:22] LABS: Blood Urea Nitrogen 53 mg/dl (9-20); Calcium 9.4 mg/dl (8.4-10.2); Carbon Dioxide 23 mmol/L (22-30); Chloride 98 mmol/L (98-107); Estimated Creatinine Clearance 38 ml/min; Glucose 215 mg/dl (70-99); Iron 30 ug/dl (49-181); Sodium 136 mmol/L (135-145); eGFR 44.23
[2024-02-26 06:31] LABS: Percent Saturation 8 % (20-50); Total Iron Binding Capacity 360 ug/dl (261-462)
[2024-02-26 06:55] LABS: Ferritin 43.2 ng/ml (17.9-464.0)
[2024-02-26 07:00] VITALS: BP 146/78
[2024-02-26 07:26] LABS: Folate 7.9 ng/ml (2.76-20); Vitamin B12 420 pg/ml (239-931)
[2024-02-26] MEDS: ProAIR HFA INHALER 1 PUFF INH (08:19)
[2024-02-26] MEDS: ADVAIR HFA 230/21 MCG INHALER 2 PUFF INH ×2 (08:19→19:37)
--- NOTE | 2024-02-26 09:06 | W.PN.HOSP.TC ---
Today's Communication/Plan
-
Continue IV steroids. Continue antibiotics
Assessment / Plan
Assessment / Plan
Physical exam:
General: Acutely ill
HEENT: Normocephalic, Atraumatic and Moist Mucous Membranes
Respiratory: Bilateral scattered wheezes; no crackles or rhonchi
Cardiac: Irregular rate and rhythm and S1/S2
GI: Soft, Nontender and Nondistended
Musculoskeletal: No Clubbing, No Cyanosis. Bilateral lower extremity edema
Neuro: Awake, Alert and Oriented, no gross neurological deficits
Psych: Calm
A/P:
COVID-19:
On steroids
Continue isolation
No need for other therapy (pulse ox 96% on room air)
COPD exacerbation:
Continue IV steroids dexamethasone IV 4 mg every 12 hours--> no taper today
Scheduled bronchodilators discontinued but watch to see if needs to be put back
Bronchodilators as needed
Continue Advair
NICOLÁS:
Creatinine stable at 1.5 today
For now hold diuresis.
Monitor renal function
Anemia:
Hb 7.6 today
Substrate consistent with iron deficiency
Start IV iron
Continue to monitor hemoglobin closely
Normal B12 and folate
Chronic diastolic CHF:
Hold diuretics- euvolemic. Will restart in 24-48 hrs
Weight is 226 pounds and he was 225 pounds at the facility which appears to be his dry weight.
Catheter associated urinary tract infection:
Continue IV ceftriaxone
Status post Chen exchanged
Urine culture--> Klebsiella pneumonia pansensitive except ampicillin. Proteus mirabilis pansensitive except nitro and tetracycline.
Persistent atrial fibrillation:
Continue rate control, diltiazem 180 mg twice a day and at times holding due to low blood pressure
Continue anticoagulation, Eliquis 5 mg twice a day
Hypertension:
Continue hydralazine 50 mg p.o. 3 times daily and at times holding due to low blood pressur
Other past medical history:
SARITA
Rectal cancer status post chemoradiation and resection
Chronic anemia
GERD
BPH
Chronic urinary retention with chronic Chen catheter
Wheelchair-bound
DVT prophylaxis:
Eliquis
CODE STATUS:
Full code
Anticipated Discharge: > 48 hours
Subjective/Interval History
-
Date of Service: February 26, 2024
Patient still having some wheezes and on supplemental oxygen. No chest pain. Afebrile
Objective Data
-
Labs:
Laboratory Results
02/26/24
05:20
WBC 6.6
Hgb 7.6 L
Hct 24.4 L
Plt Count 269
Sodium 136
Potassium 4.0
Chloride 98
Carbon Dioxide 23
BUN 53 H
Creatinine 1.5 H
Glucose 215 H
Calcium 9.4
Vital Signs:
Vital Signs
Temp Pulse Resp BP Pulse Ox
97.7 F 70 16 126/69 97
02/26/24 03:30 02/26/24 08:24 02/26/24 08:24 02/26/24 03:30 02/26/24 08:24
I&O
02/25/24 02/26/24 02/27/24
06:59 06:59 06:59
Intake Total 1260 / 1260 660 / 660
Output Total 1025 / 1025 900 / 900
Balance 235 / 235 -240 / -240
[2024-02-26] MEDS: PEPCID 20 MG PO (09:37)
[2024-02-26] MEDS: CARDIZEM CD 180 MG PO ×2 (09:37→20:32)
[2024-02-26] MEDS: ELIQUIS 5 MG PO ×2 (09:38→20:23)
[2024-02-26] MEDS: NAMENDA 5 MG PO (09:38)
[2024-02-26] MEDS: COLACE PO ×2 (09:39→20:23)
[2024-02-26] MEDS: ZOLOFT 75 MG PO (09:41)
[2024-02-26] MEDS: DECADRON 4 MG IV ×2 (09:43→22:34)
[2024-02-26] MEDS: FLUSH (NSS) 2 FLUSH IV ×4 (09:44→22:37)
[2024-02-26] MEDS: DESITIN MAXIMUM STRENGTH PASTE 1 APPLIC TOPICAL ×3 (09:45→22:41)
[2024-02-26] MEDS: LIDOCAINE URO-JET 2% TOPICAL ×2 (09:53→20:22)
[2024-02-26] MEDS: APRESOLINE 50 MG PO ×3 (09:58→22:39)
[2024-02-26 11:00] VITALS: BP 135/65
[2024-02-26] MEDS: FERRLECIT 110 MG IV (14:45)
[2024-02-26 15:00] VITALS: BP 149/79
[2024-02-26] MEDS: STERILE WATER FOR INJECTION 10 ML IV (20:24)
[2024-02-26] MEDS: ROCEPHIN 1000 MG IV (20:24)
[2024-02-26 23:11] VITALS: BP 130/76
[2024-02-27 06:22] LABS: % Immature Granulocytes 1.6 % (0-0.5); % Lymphocytes 8.4 % (20.5-51.1); % Monocytes 3.8 % (1.7-9.3); % Neutrophils 86.2 % (42.2-75.2); Absolute Immature Granulocytes 0.1 10^3/uL (0-0.05); Absolute Lymphocytes 0.5 10^3/uL (1.2-3.4); Absolute Monocytes 0.2 10^3/uL (0.1-0.6); Absolute Neutrophils 4.7 10^3/uL (1.4-6.5); Hemoglobin 7.8 g/dL (13.0-18.0); Mean Corpuscular Hgb 25.7 pg (27.0-31.0); Mean Corpuscular Volume 85.8 fL (80.0-94.0); Mean Platelet Volume 9.4 fL (7.4-10.4); Nucleated Red Blood Cells % 0 % (-); Platelet Count 287 10^3/uL (130-400); Red Blood Cell Count 3.03 10^6/uL (4.70-6.10); Red Cell Dist. Width 17.4 % (11.5-14.5); White Blood Cell Count 5.5 10^3/uL (4.8-10.8)
[2024-02-27 06:50] LABS: Blood Urea Nitrogen 53 mg/dl (9-20); Carbon Dioxide 22 mmol/L (22-30); Chloride 95 mmol/L (98-107); Estimated Creatinine Clearance 47 ml/min; Glucose 225 mg/dl (70-99); Potassium 4.3 mmol/L (3.5-5.1); Sodium 132 mmol/L (135-145); eGFR 57.81
[2024-02-27] MEDS: ADVAIR HFA 230/21 MCG INHALER 2 PUFF INH ×2 (07:33→21:28)
[2024-02-27 07:45] VITALS: BP 152/77
--- NOTE | 2024-02-27 08:43 | W.PN.HOSP.TC ---
Today's Communication/Plan
-
IV steroids. IV antibiotics. Restart oral diuretics.
Assessment / Plan
Assessment / Plan
Physical exam:
General: No acute distress
HEENT: Normocephalic, Atraumatic and Moist Mucous Membranes
Respiratory: No wheezes today; no crackles or rhonchi
Cardiac: Irregular rate and rhythm and S1/S2
GI: Soft, Nontender and Nondistended
Musculoskeletal: No Clubbing, No Cyanosis. Bilateral lower extremity edema
Neuro: Awake, Alert and Oriented, no gross neurological deficits
Psych: Calm
A/P:
COVID-19:
On steroids
Continue isolation
No need for any targeted therapy
COPD exacerbation:
Continue IV steroids dexamethasone IV 4 mg every 12 hours--> plan to switch to oral prednisone tomorrow
Continue bronchodilators as needed
Continue Advair
NICOLÁS:
Creatinine improved from 1. 6 down to 1.2 today
Can restart oral diuretics today
Monitor renal function
Anemia:
Hb 7.8 today
Substrate consistent with iron deficiency
Continue IV iron
Continue to monitor hemoglobin closely
Normal B12 and folate
Chronic diastolic CHF:
Restart diuretics
Weight is 226 pounds and he was 225 pounds at the facility which appears to be close to his dry weight.
He does have some peripheral edema so back on his diuretics
Catheter associated urinary tract infection:
Continue IV ceftriaxone--> can switch to oral over the next 24-48 hours.
Status post Chen exchanged
Urine culture--> Klebsiella pneumonia pansensitive except ampicillin. Proteus mirabilis pansensitive except nitro and tetracycline.
Persistent atrial fibrillation:
Continue rate control, diltiazem 180 mg twice a day
Continue anticoagulation, Eliquis 5 mg twice a day
Hypertension:
Continue hydralazine 50 mg p.o. 3 times daily with holding parameters
Hyponatremia:
Mild
Monitor
Other past medical history:
SARITA
Rectal cancer status post chemoradiation and resection
Chronic anemia
GERD
BPH
Chronic urinary retention with chronic Chen catheter
Wheelchair-bound
DVT prophylaxis:
Eliquis
CODE STATUS:
Full code
Anticipated Discharge: 24 - 48 hours
Subjective/Interval History
-
Date of Service: February 27, 2024
Patient feels better overall today. Mild post nasal drip. No chest pain. Afebrile
Objective Data
-
Labs:
Laboratory Results
02/27/24
05:33
WBC 5.5
Hgb 7.8 L
Hct 26.0 L
Plt Count 287
Sodium 132 L
Potassium 4.3
Chloride 95 L
Carbon Dioxide 22
BUN 53 H
Creatinine 1.2
Glucose 225 H
Calcium 9.0
Vital Signs:
Vital Signs
Temp Pulse Resp BP Pulse Ox
97.2 F 79 20 152/77 97
02/27/24 07:45 02/27/24 07:45 02/27/24 07:45 02/27/24 07:45 02/27/24 07:45
I&O
02/26/24 02/27/24 02/28/24
06:59 06:59 06:59
Intake Total 660 / 660 1520 / 1520
Output Total 900 / 900 1550 / 1550
Balance -240 / -240 -30 / -30
[2024-02-27] MEDS: APRESOLINE 50 MG PO ×3 (08:57→22:35)
[2024-02-27] MEDS: CARDIZEM CD 180 MG PO ×2 (08:57→20:45)
[2024-02-27] MEDS: PEPCID 20 MG PO (08:57)
[2024-02-27] MEDS: NAMENDA 5 MG PO (08:57)
[2024-02-27] MEDS: LIDOCAINE URO-JET 2% TOPICAL ×2 (08:58→20:46)
[2024-02-27] MEDS: ELIQUIS 5 MG PO ×2 (08:58→20:45)
[2024-02-27] MEDS: ZOLOFT 75 MG PO (08:58)
[2024-02-27] MEDS: COLACE PO ×2 (08:59→20:44)
[2024-02-27] MEDS: DESITIN MAXIMUM STRENGTH PASTE 1 APPLIC TOPICAL ×3 (09:03→22:36)
[2024-02-27] MEDS: FLUSH (NSS) 2 FLUSH IV ×2 (10:35→14:41)
[2024-02-27] MEDS: DECADRON 4 MG IV ×2 (10:35→22:35)
[2024-02-27] MEDS: FERRLECIT 110 MG IV (14:40)
[2024-02-27] MEDS: AFRIN NASAL SPRAY 2 SPRAYS NASAL (14:41)
[2024-02-27] MEDS: DEMADEX 40 MG PO (14:45)
[2024-02-27 15:45] VITALS: BP 141/64
[2024-02-27] MEDS: ROCEPHIN 1000 MG IV (20:45)
[2024-02-27] MEDS: STERILE WATER FOR INJECTION 10 ML IV (20:45)
[2024-02-27 23:40] VITALS: BP 119/62
[2024-02-28 05:43] VITALS: BMI 36.9
[2024-02-28 07:25] VITALS: BP 141/69
[2024-02-28] MEDS: ADVAIR HFA 230/21 MCG INHALER 2 PUFF INH ×2 (07:43→20:00)
[2024-02-28 08:16] LABS: % Lymphocytes 11.6 % (20.5-51.1); % Monocytes 4.1 % (1.7-9.3); % Neutrophils 82.3 % (42.2-75.2); Absolute Immature Granulocytes 0.1 10^3/uL (0-0.05); Absolute Lymphocytes 0.6 10^3/uL (1.2-3.4); Absolute Monocytes 0.2 10^3/uL (0.1-0.6); Absolute Neutrophils 4.1 10^3/uL (1.4-6.5); Hemoglobin 7.9 g/dL (13.0-18.0); Mean Corp Hgb Conc. 30.4 g/dL (33.0-37.0); Mean Corpuscular Hgb 25.8 pg (27.0-31.0); Mean Platelet Volume 9.8 fL (7.4-10.4); Nucleated Red Blood Cells % 0.6 % (-); Platelet Count 326 10^3/uL (130-400); Red Blood Cell Count 3.06 10^6/uL (4.70-6.10); Red Cell Dist. Width 17.2 % (11.5-14.5); White Blood Cell Count 4.9 10^3/uL (4.8-10.8)
[2024-02-28 08:59] LABS: Blood Urea Nitrogen 54 mg/dl (9-20); Calcium 8.9 mg/dl (8.4-10.2); Carbon Dioxide 24 mmol/L (22-30); Chloride 95 mmol/L (98-107); Estimated Creatinine Clearance 47 ml/min; Glucose 249 mg/dl (70-99); Magnesium 2.2 mg/dl (1.6-2.3); Potassium 4.3 mmol/L (3.5-5.1); Sodium 133 mmol/L (135-145); eGFR 57.81
[2024-02-28] MEDS: COLACE PO ×2 (09:47→20:11)
[2024-02-28] MEDS: APRESOLINE 50 MG PO ×3 (09:47→20:12)
[2024-02-28] MEDS: CARDIZEM CD 180 MG PO ×2 (09:47→20:09)
[2024-02-28] MEDS: DELTASONE 40 MG PO (09:47)
[2024-02-28] MEDS: ELIQUIS 5 MG PO ×2 (09:48→20:11)
[2024-02-28] MEDS: PEPCID 20 MG PO (09:48)
[2024-02-28] MEDS: LIDOCAINE URO-JET 2% TOPICAL ×2 (09:48→20:10)
[2024-02-28] MEDS: NAMENDA 5 MG PO (09:52)
[2024-02-28] MEDS: DEMADEX 40 MG PO (09:52)
[2024-02-28] MEDS: ZOLOFT 75 MG PO (09:53)
[2024-02-28] MEDS: DESITIN MAXIMUM STRENGTH PASTE 1 APPLIC TOPICAL ×3 (10:09→20:21)
--- NOTE | 2024-02-28 12:14 | W.PN.HOSP.TC ---
Addendum entered and electronically signed by Denise Diaz MD 02/28/24 15:27:
# COVID-19 PNA still being monitored/treated
# Penis pressure injury stage 1 Present on admission
Original Note:
Today's Communication/Plan
-
see A/P
Assessment / Plan
Assessment / Plan
Physical exam:
General: No acute distress
HEENT: Normocephalic, Atraumatic and Moist Mucous Membranes
Respiratory: No wheezes today; no crackles or rhonchi
Cardiac: Irregular rate and rhythm and S1/S2
GI: Soft, Nontender and Nondistended
Musculoskeletal: No Clubbing, No Cyanosis. Bilateral lower extremity edema
Neuro: Awake, Alert and Oriented, no gross neurological deficits
Psych: Calm
A/P:
# Acute COVID-19 infection
# Acute hypoxic respiratory insufficiency, resolved
Wean off O2 and assess sat at RA
Continue isolation total 10 days
No need for any targeted therapy
# COPD exacerbation:
IV steroids dexamethasone IV 4 mg every 12 hours -> PO prednisone 40 mg daily
Continue bronchodilators as needed
Continue Advair
# NICOLÁS:
Creatinine improved from 1.6 to 1.2 today
Restarted [employer] M[employer] Torsemide
Monitor renal function
# Anemia likely 2/2 iron deficiency
Hb 7.9 today
Continue IV iron
Continue to monitor hemoglobin closely
Normal B12 and folate
# Chronic diastolic CHF:
Restarted diuretics
daily weight
Add fluid restriction
# Catheter associated urinary tract infection:
Status post Chen exchanged
Urine culture grew Klebsiella and Proteus, sensitivity reviewed
IV ceftriaxone -> PO Keflex, total course 14 days
# Persistent atrial fibrillation:
Continue rate control, diltiazem 180 mg twice a day
Continue anticoagulation, Eliquis 5 mg twice a day
# Hypertension:
Continue hydralazine 50 mg p.o. 3 times daily with holding parameters
Also on Cardizem 180 mg twice a day
# Hyponatremia, Mild
Monitor
Other past medical history:
SARITA
Rectal cancer status post chemoradiation and resection
Chronic anemia
GERD
BPH
Chronic urinary retention with chronic Chen catheter
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
DVT prophylaxis: Eliquis
CODE STATUS: Full code
DW RN
updated on the phone
total time spent 51 min
Anticipated Discharge: Within 24 hours
Subjective/Interval History
-
Date of Service: February 28, 2024
Objective Data
-
Labs:
Laboratory Results
02/28/24
07:18
WBC 4.9
Hgb 7.9 L
Hct 26.0 L
Plt Count 326
Sodium 133 L
Potassium 4.3
Chloride 95 L
Carbon Dioxide 24
BUN 54 H
Creatinine 1.2
Glucose 249 H
Calcium 8.9
Vital Signs:
Vital Signs
Temp Pulse Resp BP Pulse Ox
36.2 C 70 16 141/69 98
02/28/24 07:25 02/28/24 07:47 02/28/24 07:47 02/28/24 07:25 02/28/24 07:47
I&O
02/27/24 02/28/24 02/29/24
06:59 06:59 06:59
Intake Total 1520 / 1520 960 / 960
Output Total 1550 / 1550 2550 / 2550
Balance -30 / -30 -1590 / -1590
Review of Systems
-
All other systems: Reviewed and negative
Data Reviewed
-
Labs: Labs Reviewed by me
[2024-02-28] MEDS: FERRLECIT 110 MG IV (13:43)
[2024-02-28] MEDS: KEFLEX 500 MG PO ×2 (13:43→20:11)
--- NOTE | 2024-02-28 15:02 | PN.CDI ---
CDI
- -
CDI:
Physician Documentation Request
Admit Date: 02/25/24 08:29
Dear Doctor Emily,
Please review the following and provide your response in the progress notes.
Clinical Indicators:
Pt admitted with COVID-19/CAUTI /COPD exacerbation
Documented per ED ,' Chest x-ray appears more consistent with a bacterial pneumonia but patient is positive for COVID as well today which certainly could cause pneumonia. Will cover bacterial pneumonia to start.'
Documented per H&P, ' Dyspnea secondary to COVID-pneumonia/COPD exacerbation + plus acute on chronic CHF exacerbation...'
Please Update the status of COVID PNA documented in ED/H&P:
COVID-19 PNA still being monitored/treated
COVID-19 PNA -Resolved
COVID-19 PNA ruled out
Other ( please specify)
Use of terms such as suspected, likely, concern for, or probable (associated with a specific diagnosis that is being evaluated, monitored, or treated as if it exists) are acceptable and can be coded in the inpatient setting, when documented at the
time of discharge.
Thank you,
Shiloh Bhatia RN
CDI Specialist
[place] [employer]
Please use your independent medical judgment in providing your response.
--- NOTE | 2024-02-28 15:14 | PN.CDI ---
CDI
- -
CDI:
Physician Documentation Request
Admit Date: 02/25/24 08:29
Dear Doctor Emily,
Please review the following and provide your response in the progress notes.
Clinical Indicators:
Pt admitted with COVID-19/CAUTI /COPD exacerbation
Documented in the record, ' Wheelchair-bound at baseline ....'
Documented per nursing wound care panel 02/24, ' Present on admission Penis pressure injury stage 1 ...'
Physician documentation of the type and location of wounds is required for compliant documentation. Based on the above clinical findings and your assessment, please provide the following in your progress note:
1. Location of the ulcer/wound, including laterality.
2. Type (etiology) of ulcer/wound:
- Pressure (decubitus) ulcer
- Non-pressure ulcer
- Other
Use of terms such as suspected, likely, concern for, or probable (associated with a specific diagnosis that is being evaluated, monitored, or treated as if it exists) are acceptable and can be coded in the inpatient setting, when documented at the
time of discharge.
Thank you,
Shiloh Bhatia RN
CDI Specialist
[place] [employer]
Please use your independent medical judgment in providing your response.
*Source: National Pressure Ulcer Advisory Panel (NPUAP)
--- NOTE | 2024-02-28 15:23 | PN.CDI ---
CDI
- -
CDI:
Physician Documentation Request
Admit Date: 02/25/24 08:29
Dear Doctor Emily,
Please review the following and provide your response in the progress notes.
Clinical Indicators:
Pt admitted with COVID-19/CAUTI /COPD exacerbation
Documented per H&P, ' Dyspnea secondary to COVID-pneumonia/COPD exacerbation + plus acute on chronic CHF exacerbation...Chest x-ray shows mild interstitial pulmonary edema with small bilateral pleural effusions, bibasilar opacities more suspicious
for atelectasis although pneumonia could be considered....Cardiac BNP of 8000....-Lasix 40 IV daily....'
Progress note 02/23 , 'Acute on chronic diastolic CHF:Continue IV Lasix...Weight is 102 kg (last discharge dry weight was 100 kg)...'
Progress notes 02/24-02/27 , ' Chronic diastolic CHF....'
Please update the Status of Acute Diastolic CHF documented in H&P:
Acute Diastolic CHF -resolved
Acute Diastolic CHF -ruled out
Other ( please specify)
Use of terms such as suspected, likely, concern for, or probable (associated with a specific diagnosis that is being evaluated, monitored, or treated as if it exists) are acceptable and can be coded in the inpatient setting, when documented at the
time of discharge.
Thank you,
Shiloh Bhatia RN
CDI Specialist
[place] [employer]
Please use your independent medical judgment in providing your response.
--- NOTE | 2024-02-28 15:29 | CM ---
Reviewed the chart notes and spoke with the patient. IMM reviewed and placed on chart. Copy left at bedside. CM continues to be available to patient/family and is monitoring medical plan for needs at discharge.
Plan: Discharge back to [facility] when medically stable. Private bed hold in place.
[2024-02-28 15:45] VITALS: BP 145/72
[2024-02-28 16:32] VITALS: BP 145/72; PULSE 75; O2SAT 97
[2024-02-28 16:33] VITALS: BP 145/72; PULSE 75; PULSE 80; O2SAT 97
[2024-02-28] MEDS: STERILE WATER FOR INJECTION IV (20:11)
[2024-02-28 23:24] VITALS: BP 146/75
[2024-02-29 05:30] VITALS: BMI 37.2
[2024-02-29 07:30] VITALS: BP 151/88
[2024-02-29 07:34] LABS: Hematocrit 27.5 % (39.0-52.0); Hemoglobin 8.5 g/dL (13.0-18.0); Mean Corp Hgb Conc. 30.9 g/dL (33.0-37.0); Mean Corpuscular Hgb 26.2 pg (27.0-31.0); Mean Corpuscular Volume 84.9 fL (80.0-94.0); Mean Platelet Volume 9.4 fL (7.4-10.4); Platelet Count 364 10^3/uL (130-400); Red Blood Cell Count 3.24 10^6/uL (4.70-6.10); Red Cell Dist. Width 17.3 % (11.5-14.5); White Blood Cell Count 8.8 10^3/uL (4.8-10.8)
[2024-02-29] MEDS: ADVAIR HFA 230/21 MCG INHALER 2 PUFF INH ×2 (07:51→19:35)
[2024-02-29] MEDS: ProAIR HFA INHALER 1 PUFF INH (07:57)
[2024-02-29 08:06] LABS: Blood Urea Nitrogen 55 mg/dl (9-20); Carbon Dioxide 24 mmol/L (22-30); Chloride 95 mmol/L (98-107); Estimated Creatinine Clearance 52 ml/min; Glucose 236 mg/dl (70-99); Magnesium 2.2 mg/dl (1.6-2.3); Potassium 4.1 mmol/L (3.5-5.1); Sodium 133 mmol/L (135-145); eGFR > 60.00
[2024-02-29] MEDS: DELTASONE 40 MG PO (09:24)
[2024-02-29] MEDS: ZOLOFT 75 MG PO (09:24)
[2024-02-29] MEDS: APRESOLINE 50 MG PO ×3 (09:24→20:59)
[2024-02-29] MEDS: DEMADEX 40 MG PO (09:24)
[2024-02-29] MEDS: ELIQUIS 5 MG PO ×2 (09:25→21:00)
[2024-02-29] MEDS: KEFLEX 500 MG PO ×2 (09:25→21:00)
[2024-02-29] MEDS: CARDIZEM CD 180 MG PO ×2 (09:25→20:59)
[2024-02-29] MEDS: PEPCID 20 MG PO (09:26)
[2024-02-29] MEDS: LIDOCAINE URO-JET 2% TOPICAL ×2 (09:26→21:00)
[2024-02-29] MEDS: NAMENDA 5 MG PO (09:26)
[2024-02-29] MEDS: COLACE PO (09:34)
[2024-02-29] MEDS: DESITIN MAXIMUM STRENGTH PASTE 1 APPLIC TOPICAL ×3 (09:34→23:26)
--- NOTE | 2024-02-29 12:35 | W.PN.HOSP.TC ---
Addendum entered and electronically signed by Densie Diaz MD 03/01/24 12:46:
# Chronic Diastolic CHF, not acute
Addendum entered and electronically signed by Denise Diaz MD 02/29/24 15:05:
total DC time 36 min
Original Note:
Today's Communication/Plan
-
see A/P
Assessment / Plan
Assessment / Plan
Physical exam:
General: No acute distress
HEENT: Normocephalic, Atraumatic and Moist Mucous Membranes
Respiratory: No wheezes today; no crackles or rhonchi
Cardiac: Irregular rate and rhythm and S1/S2
GI: Soft, Nontender and Nondistended
Musculoskeletal: No Clubbing, No Cyanosis. Bilateral lower extremity edema
Neuro: Awake, Alert and Oriented, no gross neurological deficits
Psych: Calm
A/P:
# Acute COVID-19 infection
# Acute hypoxic respiratory insufficiency, resolved
Wean off O2 to RA
Continue isolation total 10 days
No need for any targeted therapy
# COPD exacerbation:
IV steroids dexamethasone IV 4 mg every 12 hours -> PO prednisone 40 mg daily with outpt taper
Continue bronchodilators as needed
Continue Advair
# NICOLÁS, resolved
Creatinine improved from 1.6 to 1.1 today
Restarted TRUCK [employer]ER Torsemide
Monitor renal function
# Anemia likely 2/2 iron deficiency
Hb 8.5 today
Continue IV iron
Continue to monitor hemoglobin closely
Normal B12 and folate
# Chronic diastolic CHF:
Restarted diuretics
daily weight
Added fluid restriction
# Catheter associated urinary tract infection:
Status post Chen exchanged
Urine culture grew Klebsiella and Proteus, sensitivity reviewed
IV ceftriaxone -> PO Keflex, total course 14 days (9 more days outpt)
# Persistent atrial fibrillation:
Continue rate control, diltiazem 180 mg twice a day
Continue anticoagulation, Eliquis 5 mg twice a day
# Hypertension:
Continue hydralazine 50 mg p.o. 3 times daily with holding parameters
Also on Cardizem 180 mg twice a day
# Hyponatremia, Mild
Monitor
Other past medical history:
SARITA
Rectal cancer status post chemoradiation and resection
Chronic anemia
GERD
BPH
Chronic urinary retention with chronic Chen catheter
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
DVT prophylaxis: Eliquis
CODE STATUS: Full code
DW RN
updated on the phone
Anticipated Discharge: Today
Subjective/Interval History
-
Date of Service: February 29, 2024
Objective Data
-
Labs:
Laboratory Results
02/29/24
07:10
WBC 8.8
Hgb 8.5 L
Hct 27.5 L
Plt Count 364
Sodium 133 L
Potassium 4.1
Chloride 95 L
Carbon Dioxide 24
BUN 55 H
Creatinine 1.1
Glucose 236 H
Calcium 9.0
Vital Signs:
Vital Signs
Temp Pulse Resp BP Pulse Ox
36.4 C 76 16 151/88 97
02/29/24 07:30 02/29/24 08:00 02/29/24 08:00 02/29/24 07:30 02/29/24 11:20
I&O
02/28/24 02/29/24 03/01/24
06:59 06:59 06:59
Intake Total 960 / 960 1740 / 1740
Output Total 2550 / 2550 2825 / 2825
Balance -1590 / -1590 -1085 / -1085
Review of Systems
-
All other systems: Reviewed and negative
Data Reviewed
-
Labs: Labs Reviewed by me
--- NOTE | 2024-02-29 12:41 | CM ---
Addendum entered by Nay Pulido RN 02/29/24 16:13:
Auth obtained 02/28-03/06; NRD 03/06 to [phone]; Auth # [id number]. Per Loren, can accept tomorrow.
Call report to: [phone]
Fax report to: [phone]
Medical necessity and transport forms on chart.
Addendum entered by Nay Pulido RN 02/29/24 15:20:
[facility] unable to accept back until auth denied.
Addendum entered by Nay Pulido RN 02/29/24 14:30:
Auth started. In medical review.
Dr. Sinclair NPI# [id number]
[facility] NPI# [id number]
Original Note:
Reviewed the chart notes. CM continues to be available to patient/family and is monitoring medical plan for needs at discharge.
Plan: Discharge back to [facility] when medically stable. PT/OT recommending SNF. Auth will need to be attempted.
[2024-02-29] MEDS: FERRLECIT 110 MG IV (14:08)
--- NOTE | 2024-02-29 14:56 | W.DCSUMMARY ---
Discharge Summary
Discharge Data
Date of Admission: 02/25/24
Date of Discharge: 02/29/24
-
Pending Results: No
Hospital Course
Principal Diagnosis:
Acute COVID-19 infection and COPD exacerbation, associated with acute hypoxic respiratory insufficiency (resolved).
Catheter associated urinary tract infection
NICOLÁS, resolved
Chronic Diagnoses:�
Anemia likely due to iron deficiency
Chronic diastolic heart failure
Persistent atrial fibrillation
Hypertension
SARITA
Rectal cancer status post chemoradiation and resection
Chronic anemia
GERD
BPH
Chronic urinary retention with chronic Chen catheter
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
Consultations:�
None
Procedures:�
None
Clinical course:�
This is a 88-year-old male, with past medical history as stated above, who presented with shortness of breath and wheezing.
Problem 1:
Acute COVID-19 infection and COPD exacerbation, associated with acute hypoxic respiratory insufficiency (resolved).
He was weaned off oxygen back to room air.
There is no need for targeted therapy for his acute COVID infection.
For his COPD exacerbation, he was treated with IV Decadron and he can continue with oral prednisone 40 mg daily to continue outpatient tapering.
Problem 2:
Catheter associated urinary tract infection.
His Chen was exchanged this admission.
His urine culture grew Klebsiella and Proteus, sensitivity reviewed.
He received IV ceftriaxone while in the hospital, and he can continue with oral Keflex for 9 more days outpatient (total course 14 days).
Problem 3:
NICOLÁS, resolved.
Creatinine improved from 1.6 to 1.1.
His prior to admission torsemide was resumed.
As for the rest of his medical problems, they were stable during his hospital stay.
Discharge Plan
-
Patient Disposition: Jail/SNF
Discharge Diagnosis/Procedures: Acute COVID-19 infection ;
COPD exacerbation;
Resolved acute kidney injury;
Catheter associated urinary tract infection (with Klebsiella and Proteus)
Condition: Fair
Diet: As tolerated, Low Fat, Low Cholesterol, Low Sodium and Restrict fluids to 48 oz
Activity: As tolerated
Driving Restrictions: Not until seen by your Dr
Activity Restrictions/Additional Instructions:
your Chen needs to be changed every 4 weeks to prevent catheter associated urinary tract infection
Instructions: *PCP/Other Plastic Surgery Nurse Heart Failure Instructions
Referrals:
Wilver William MD [Family Provider] - in less than 1 week
Additional Discharge Medication Instructions: Continue prednisone taper as instructed
Continue Keflex for 9 more days
Prescriptions:
New
cephalexin 500 mg Capsule
500 mg PO BID 9 Days Qty: 18 0RF
prednisone 10 mg Tablet
See Rx Instructions .ROUTE .COMPLEX Qty: 30 0RF
Rx Instructions:
Take By Mouth:
40 mg daily x3 days, 30 mg daily x3 days,
20 mg daily x3 days, 10 mg daily x3 days.
Continued
sertraline 25 MG tablet
75 mg PO DAILY
docusate sodium [Colace] 100 mg Capsule
100 mg PO BID
Eliquis 5 MG tablet
5 mg PO BID Qty: 0 0RF
acetaminophen [Tylenol Extra Strength] 500 mg Tablet
1,000 mg PO Q8HPRN PRN (Reason: mild pain)
famotidine [Pepcid] 20 mg Tablet
20 mg PO BID
magnesium hydroxide [Milk of Magnesia] 400 mg/5 mL Suspension
2,400 mg PO [id number] PRN (Reason: if no bm on day 2)
bisacodyl [Dulcolax (bisacodyl)] 10 mg Suppository
10 mg CA DAILYPRN PRN (Reason: if no bm aftr mom)
fluticasone propion-salmeterol [Advair Diskus] 500-50 mcg/dose Blister With Device
1 inh INHALATION R BID
Fleet Enema 19-7 gram/118 mL Enema
118 ml CA DAILYPRN PRN (Reason: if no bm aftr dulcolax)
albuterol sulfate 90 mcg/actuation Hfa Aerosol Inhaler
2 puff INHALATION R Q4HPRN PRN (Reason: sob)
memantine 5 mg Tablet
5 mg PO DAILY
potassium chloride 20 mEq Tablet Extended Release
20 meq PO DAILY
zinc oxide 20 % Paste
1 ea TOPICAL TID
diltiazem HCl 180 MG capsule,extended release 24hr
180 mg PO BID
hydralazine 50 mg tablet
50 mg PO TID
torsemide 20 mg Tablet
40 mg PO DAILY
lidocaine 5 % Cream
1 applic TOPICAL BID
Patient Comments:
02/23/24: to use for 7 days, starting 02/23/24
Discharge Orders:
Discharge Patient (As Directed); Ordered 02/29/24
Ordered By: Denise Diaz
Discharge Date and Time
Print Language: TOGOLESE
[2024-02-29 15:25] VITALS: BP 141/73
[2024-02-29] MEDS: COLACE 100 MG PO (20:59)
[2024-02-29] MEDS: STERILE WATER FOR INJECTION IV (21:00)
[2024-02-29 22:49] VITALS: BP 143/69
[2024-03-01 06:00] VITALS: BMI 36.7
[2024-03-01] MEDS: ADVAIR HFA 230/21 MCG INHALER 2 PUFF INH (07:35)
[2024-03-01 08:06] VITALS: BP 140/61
[2024-03-01 08:13] LABS: Hematocrit 27.6 % (39.0-52.0); Hemoglobin 8.8 g/dL (13.0-18.0); Mean Corp Hgb Conc. 31.9 g/dL (33.0-37.0); Mean Corpuscular Volume 84.7 fL (80.0-94.0); Mean Platelet Volume 9.7 fL (7.4-10.4); Platelet Count 371 10^3/uL (130-400); Red Blood Cell Count 3.26 10^6/uL (4.70-6.10); Red Cell Dist. Width 17.4 % (11.5-14.5); White Blood Cell Count 9.8 10^3/uL (4.8-10.8)
[2024-03-01] MEDS: ELIQUIS 5 MG PO (09:08)
[2024-03-01] MEDS: ZOLOFT 75 MG PO (09:08)
[2024-03-01] MEDS: PEPCID 20 MG PO (09:08)
[2024-03-01] MEDS: NAMENDA 5 MG PO (09:09)
[2024-03-01] MEDS: COLACE 100 MG PO (09:09)
[2024-03-01] MEDS: CARDIZEM CD 180 MG PO (09:10)
[2024-03-01] MEDS: DEMADEX 40 MG PO (09:10)
[2024-03-01] MEDS: DELTASONE 40 MG PO (09:10)
[2024-03-01] MEDS: APRESOLINE 50 MG PO (09:11)
[2024-03-01] MEDS: KEFLEX 500 MG PO (09:11)
[2024-03-01] MEDS: DESITIN MAXIMUM STRENGTH PASTE 1 APPLIC TOPICAL (09:12)
[2024-03-01] MEDS: LIDOCAINE URO-JET 2% TOPICAL (09:12)
[2024-03-01 09:18] LABS: Blood Urea Nitrogen 49 mg/dl (9-20); Calcium 8.9 mg/dl (8.4-10.2); Carbon Dioxide 29 mmol/L (22-30); Chloride 93 mmol/L (98-107); Estimated Creatinine Clearance 47 ml/min; Glucose 200 mg/dl (70-99); Magnesium 2.2 mg/dl (1.6-2.3); Potassium 3.9 mmol/L (3.5-5.1); Sodium 133 mmol/L (135-145); eGFR 57.81
== END 2024-03-01 11:26 | DRG 177 ==
LOC: 2 NORTH 08:29
PROVIDERS: Hospitalist; ADMITTING PHYSICIAN Hospitalist; ATTENDING PHYSICIAN Internal Medicine; EMERGENCY PHYSICIAN Emergency Medicine; FAMILY PHYSICIAN Family Medicine
DX: U07.1 COVID-19 (principal); J12.82 Pneumonia due to coronavirus disease 2019; N39.0 Urinary tract infection, site not specified; T83.518A Infection and inflammatory reaction due to other urinary catheter, initial encounter; J44.1 Chronic obstructive pulmonary disease with (acute) exacerbation; N17.9 Acute kidney failure, unspecified; I50.32 Chronic diastolic (congestive) heart failure; Z87.891 Personal history of nicotine dependence; Z11.52 Encounter for screening for COVID-19; Y84.6 Urinary catheterization as the cause of abnormal reaction of the patient, or of later complication, without mention of misadventure at the time of the procedure; I11.0 Hypertensive heart disease with heart failure; L89.891 Pressure ulcer of other site, stage 1
CPT/HCPCS: 51702; 71045; 76775; 80048; 80053; 81003; 81015; 82607; 82728; 82746; 83540; 83550; 83605; 83735; 83880; 85025; 85027; 87040; 87077; 87086; 87186; 87502; 87811; 93005; 94640; 96374; 96375; 97163; 97167; 97530; 97535; 99285; J2916